=== PATIENT | female | born 1945 | race Caucasian/White ===

== ENCOUNTER 2023-09-13 21:23 | Emergency (ER) | payer MEDICARE, OTHER, SELFPAY ==
[2023-09-13 21:50] VITALS: BP 156/84; PULSE 77; RESP 18; TEMP 36.8; O2SAT 97; BMI 27.2
--- NOTE | 2023-09-13 23:38 | ED_ITS ---
HPI - Extremity Injury (Lower) General Chief Complaint: Extremity Injury, Lower Stated Complaint: HIP PAIN Time Seen by Provider: 09/13/23 23:34 Source: patient Mode of arrival: walk-in History of Present Illness HPI Narrative: presents complaining of pain of her left buttocks and thigh. She relates it likely to mowing her lawn last week and lifting bags etc. States seen yesterday by Dr Vidal and given a couple of injections. It felt better later after leaving the office but returned this AM. Pain right buttocks and hip and also anterior thigh. Describes as a sharp pain. Pain tonight interfering with her sleeping. No weakness or numbness . No fever Related Data Allergies Allergy/AdvReac Type Severity Reaction Status Date / Time No Known Drug Allergies Allergy Verified 09/13/23 21:57 Review of Systems ROS Status of ROS 10 or more systems reviewed and unremarkable except as noted in history and below [facility] Social History Smoking status: Never smoker Exam Constitutional Vital Signs, click to edit/add: Last Vital Signs Temp 98.2 F 09/13/23 21:50 Pulse 77 09/13/23 21:50 Resp 18 09/13/23 21:50 BP 156/84 H 09/13/23 21:50 Pulse Ox 97 09/13/23 21:50 Common normals: no apparent distress, average body habitus, oriented x3, no limitations and healthy appearing Eye Common normals: EOMs intact bilaterally and conjunctivae normal Chest Common normals: inspection of chest normal and palpation of chest normal Respiratory Common normals: normal respiratory effort, no retractions and no use of accessory muscles Cardio Common normals: regular rate, regular rhythm, S1 normal heart sound and S2 normal heart sound GI Common normals: Normal to inspection, nondistended, normoactive bowel sounds present, soft to palpation and non-tender Extremity Other: mild tenderness right buttocks and right anterior thigh Neuro Common normals: oriented x3, moves all extremities, no focal motor deficits and no sensory deficits noted Psych Appearance: grossly normal Course Vital Signs Vital signs: Vital Signs Temperature 98.2 F 09/13/23 21:50 Pulse Rate 77 09/13/23 21:50 Respiratory Rate 18 09/13/23 21:50 Blood Pressure 156/84 H 09/13/23 21:50 Pulse Oximetry 97 09/13/23 21:50 Temperature 98.2 F 09/13/23 21:50 Pulse Rate 77 09/13/23 21:50 Respiratory Rate 18 09/13/23 21:50 Blood Pressure 156/84 H 09/13/23 21:50 Pulse Oximetry 97 09/13/23 21:50 MDM - Extremity Injury (Lower) MDM Narrative Medical decision making narrative: patient presents with pain right buttocks, right hip and right anterior thigh. All mildly tender. No palpable deformity. Clinically felt to represent muscular strain. Medicated in the department with solumedrol, norflex and magnesium with some improvement in her pain. Discharged with [place] to use tonight for pain. She will contact her PCP tomorrow for follow up Discharge Plan Discharge Chief Complaint: Extremity Injury, Lower Clinical Impression: Acute pain of right hip, Muscle strain Patient Disposition: Home, Self-Care Instructions: Muscle Strain (ED) Additional Instructions: Call Dr Vidal tomorrow Stand Alone Forms: Portal Instructions Referrals: Daniel Vidal MD [Primary Care Provider] - 1 week
[2023-09-14] MEDS: ORPHENADRINE 60 MG/ 2 ML VIAL IV (00:24)
[2023-09-14] MEDS: METHYLPREDNISOLONE SOD SUCC PF 125 MG/2 ML VIAL IVP (00:24)
[2023-09-14 00:46] LABS: Basophils Absolute Auto 0.1 10^3/uL (0.0-0.1); Basophils Percent Auto 0.9 % (0.2-2.0); Eosinophils Absolute Auto 0.3 10^3/uL (0.0-0.7); Eosinophils Percent Auto 4.9 % (0.9-7.0); Hematocrit 34.8 % (36.0-48.0); Hemoglobin 11.1 g/dL (12.0-16.0); Immature Granulocytes Abs Auto 0.02 10^3/uL (0.00-0.03); Immature Granulocytes Pct Auto 0.3 % (0.0-0.5); Lymphocytes Absolute Auto 1.6 10^3/uL (1.2-3.8); Lymphocytes Percent Auto 22.4 % (20.5-60.0); Mean Corpuscular HGB Conc 31.9 g/dL (29.9-35.2); Mean Corpuscular Hemoglobin 30.1 pg (26.7-34.0); Mean Corpuscular Volume 94.3 fL (81.0-99.0); Mean Platelet Volume 13.4 fL (9.5-13.5); Monocytes Absolute Auto 0.7 10^3/uL (0.3-0.8); Neutrophils Absolute Auto 4.3 10^3/uL (1.4-6.5); Neutrophils Percent Auto 61.5 % (43.0-75.0); Platelet Count 202 10^3/uL (150-450); Red Blood Count 3.69 10^6/uL (4.20-5.40); Red Cell Distribution Width 13.2 % (11.0-15.0); White Blood Count 6.9 10^3/uL (4.0-11.0)
[2023-09-14] MEDS: MAGNESIUM SULFATE IN WATER 2 GM/50 ML PREMIX IV (00:50)
[2023-09-14 00:51] LABS: Erythrocyte Sedimentation Rate 29 mm/hr (<=30)
[2023-09-14 01:09] LABS: Anion Gap 12.4; BUN Creatinine Ratio 28.9; Carbon Dioxide 25.1 mmol/L (21.0-32.0); Chloride 106 mmol/L (98-107); Estimated GFR (African America >60 (>=60); Estimated GFR (Non-African Ame >60 (>=60); Glucose 106 mg/dL (74-106); Potassium 3.5 mmol/L (3.5-5.1); Sodium 140 mmol/L (136-145)
[2023-09-14] MEDS: HYDROCODONE/ACET 5-325 MG TABLET 4 TAB PO (01:58)
[2023-09-29 08:41] LABS: C Reactive Protein <0.50 mg/dL (<=0.50)
== END 2023-09-14 02:05 | disposition home or self-care (01) ==
PROVIDERS: Emergency Provider Internal Medicine; PCP Family Medicine
DX: M25.551 Pain in right hip (principal); S76.011A Strain of muscle, fascia and tendon of right hip, initial encounter; X50.9XXA Other and unspecified overexertion or strenuous movements or postures, initial encounter; Y93.H2 Activity, gardening and landscaping
CPT/HCPCS: 36415; 73502; 80048; 85025; 85652; 86140; 96365; 96375; 99284; J2930

== ENCOUNTER 2023-09-14 13:31 | Outpatient (OUT) | payer MEDICARE, OTHER, SELFPAY ==
--- NOTE | 2023-09-14 13:45 | XR_ITS ---
The [address] [address] Patient Name: HAVEN FRAIRE MRN: [id number] date: 1945 Sex: F Assigned Patient Location: [facility] Current Patient Location: Accession/Order Number: [id number] Exam Date: 09/14/2023 13:50 Report Date: 09/16/2023 08:35 At the request of: SABA CHOW Procedure: XR hip RT min 2V PROCEDURE: XR hip RT min 2V HISTORY: Pain In Right Hip M25.551 COMPARISON: None. FINDINGS: BONES:No fracture, acute abnormality, or significant arthropathy. SOFT TISSUES:No visible soft tissue swelling. EFFUSION:None visible. OTHER: Negative. XR/XR hip RT min 2V IMPRESSION: 1. No acute bone abnormality. 2. Minimal degenerative changes of the right hip. Electronically authenticated by: SEGUNDO MERINO Date: 09/16/2023 08:35
== END 2023-09-14 13:32 | disposition home or self-care (01) ==
LOC: RAD 13:33
PROVIDERS: PCP Family Medicine; Visit Provider Family Medicine
DX: M25.551 Pain in right hip (principal)
CPT/HCPCS: 73502

== ENCOUNTER 2023-09-16 13:45 | Observation (INO) | payer MEDICARE, OTHER, SELFPAY ==
[2023-09-16] VITALS (18 sets, daily range): BP systolic 130–165; BP diastolic 45–80; PULSE 71–79; RESP 18–20; TEMP 36.4–36.6; O2SAT 95–100; BMI 27.2; BMI 27.1
--- NOTE | 2023-09-16 14:24 | ED_ITS ---
HPI - General Adult General Chief complaint: Extremity Injury, Lower Stated complaint: LOWER EXTREMITY PAIN Time Seen by Provider: 09/16/23 14:11 Source: patient Mode of arrival: ambulance Limitations: no limitations History of Present Illness HPI narrative: is patient came by EMS from home for intractable right low back and hip pain. She was here recently was evaluated in Emergency Room was hip x-rays. She did h ave some mild degenerative changes. She has not had a lack of bowel or bladder function. No burning with urination no blood in her urine that she is aware of. She's not had fever shakes or chills. She's not had previous back surgery. She has had CTs of her abdomen previously. She's never seen a back specialist. She says the pain radiates from her right buttock down the lateral thigh to her knee down in the lower leg and back up. She is not cognizant or aware of any weakness in her leg or thigh area. She took [id number] analgesics but the pain is intractable. She has no abdominal discomfort. Related Data Home Medications Medication Instructions Recorded Confirmed diclofenac sodium 75 mg 75 mg PO Q12H PRN pain 09/16/23 09/16/23 tablet,delayed release pantoprazole 40 mg tablet,delayed 40 mg PO DAILY 09/16/23 09/16/23 release Allergies Allergy/AdvReac Type Severity Reaction Status Date / Time No Known Drug Allergies Allergy Verified 09/13/23 21:57 PFSH PFSH Social History Smoking status: Never smoker Exam Narrative Exam Narrative: awake alert lying propped up on her side appears to be quite uncomfortable. Cognition and mentation are normal. Problem focused examination shows pulses to the lower extremities be normal. There is no abdominal pulsatile masses or evidence of aneurysm. She has good coloration and no evidence of tissue ischemia to the periphery. Examination deep tendon reflexes shows the patella on the right is absent on the left is three o syl four. Extensor hallucis longus function is normal. She did not have straight leg raising discomfort. Constitutional Vital Signs, click to edit/add: Last Vital Signs Temp 97.5 F L 09/16/23 13:51 Pulse 79 09/16/23 13:51 Resp 20 09/16/23 13:51 BP 147/63 H 09/16/23 15:31 Pulse Ox 96 09/16/23 15:40 O2 Del Method Room Air 09/16/23 13:51 Course Vital Signs Vital signs: Vital Signs Temperature 97.5 F L 09/16/23 13:51 Pulse Rate 79 09/16/23 13:51 Respiratory Rate 20 09/16/23 13:51 Blood Pressure 165/70 H 09/16/23 13:51 Pulse Oximetry 100 09/16/23 13:51 Oxygen Delivery Method Room Air 09/16/23 13:51 Temperature 97.5 F L 09/16/23 13:51 Pulse Rate 79 09/16/23 13:51 Respiratory Rate 20 09/16/23 13:51 Blood Pressure 147/63 H 09/16/23 15:31 Pulse Oximetry 96 09/16/23 15:40 Oxygen Delivery Method Room Air 09/16/23 13:51 Medical Decision Making MDM Narrative Medical decision making narrative: I have reviewed the patient's recent CT scan of the abdomen that discloses 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 She now has an absent reflex on her right patella. She had intractable pain at home not managed sufficiently despite numerous attempts at a number medications. I discussed the case with the on-call physician and he will admit her. She was given Dilaudid here in the Emergency Room was some symptomatic relief but still is uncomfortable. There is no indication of aneurysm or other vascular catastrophe. Lab Data Labs: Lab Results 09/16/23 09/16/23 Range/Units 14:33 14:50 WBC 8.2 (4.0-11.0) 10^3/uL RBC 4.05 L (4.20-5.40) 10^6/uL Hgb 12.3 (12.0-16.0) g/dL Hct 37.3 (36.0-48.0) % MCV 92.1 (81.0-99.0) fL MCH 30.4 (26.7-34.0) pg MCHC 33.0 (29.9-35.2) g/dL RDW 13.1 (11.0-15.0) % Plt Count 223 (150-450) 10^3/uL MPV 12.8 (9.5-13.5) fL Neut % (Auto) 70.5 (43.0-75.0) % Lymph % (Auto) 18.0 L (20.5-60.0) % [place] % (Auto) 9.2 (1.7-12.0) % Eos % (Auto) 1.3 (0.9-7.0) % Baso % (Auto) 0.6 (0.2-2.0) % Neut # (Auto) 5.8 (1.4-6.5) 10^3/uL Lymph # (Auto) 1.5 (1.2-3.8) 10^3/uL [place] # (Auto) 0.8 (0.3-0.8) 10^3/uL Eos # (Auto) 0.1 (0.0-0.7) 10^3/uL Baso # (Auto) 0.1 (0.0-0.1) 10^3/uL Abs Immat Gran (auto) 0.03 (0.00-0.03) 10^3/uL Imm/Tot Granulo (auto) 0.4 (0.0-0.5) % Sodium 139 (136-145) mmol/L Potassium 3.2 L (3.5-5.1) mmol/L Chloride 103 (98-107) mmol/L Carbon Dioxide 25.2 (21.0-32.0) mmol/L Anion Gap 14.0 BUN 23.0 H (7.0-18.0) mg/dL Creatinine 0.96 (0.55-1.02) mg/dL Est GFR ( Amer) >60 (>=60) Est GFR (Non-Af Amer) 56 L (>=60) BUN/Creatinine Ratio 24.0 Glucose 90 (74-106) mg/dL Calcium 9.3 (8.5-10.1) mg/dL Total Bilirubin 0.6 (0.2-1.0) mg/dL AST 13 L (15-37) U/L ALT 9 L (14-59) U/L Alkaline Phosphatase 131 H (46-116) U/L Total Protein 7.6 (6.4-8.2) g/dL Albumin 3.8 (3.4-5.0) g/dL Globulin 3.8 g/dL Albumin/Globulin Ratio 1.0 Urine Color Lt. yellow (YELLOW) Urine Clarity Clear (CLEAR) Urine pH 7.5 (5.0-9.0) Ur Specific [place] 1.010 (1.005-1.025) Urine Protein Negative (NEG/TRACE) mg/dL Urine Glucose (UA) Negative (NEGATIVE) mg/dL Urine Ketones Negative (NEGATIVE) mg/dL Urine Occult Blood Negative (NEGATIVE) Urine Nitrite Negative (NEGATIVE) Urine Bilirubin Negative (NEGATIVE) Urine Urobilinogen 0.2 (0.2-1.0) EU/dL Ur Leukocyte Esterase Negative (NEGATIVE) Discharge Plan Discharge Chief Complaint: Extremity Injury, Lower Clinical Impression: Acute lumbar radiculopathy Patient Disposition: Admitted As Inpatient Time of Disposition Decision: 16:07 Prescriptions / Home Meds: No Action diclofenac sodium 75 mg tablet,delayed release (DR/EC) 75 mg PO Q12H PRN (Reason: pain) pantoprazole 40 mg tablet,delayed release (DR/EC) 40 mg PO DAILY Referrals: Daniel Vidal MD [Primary Care Provider] - 1 week
[2023-09-16] MEDS: ONDANSETRON PF 4 MG/2 ML VIAL IV (14:38)
[2023-09-16] MEDS: HYDROMORPHONE HCL 2 MG/ML VIAL IM (14:40)
[2023-09-16 14:42] LABS: Basophils Absolute Auto 0.1 10^3/uL (0.0-0.1); Basophils Percent Auto 0.6 % (0.2-2.0); Eosinophils Absolute Auto 0.1 10^3/uL (0.0-0.7); Eosinophils Percent Auto 1.3 % (0.9-7.0); Hematocrit 37.3 % (36.0-48.0); Hemoglobin 12.3 g/dL (12.0-16.0); Immature Granulocytes Abs Auto 0.03 10^3/uL (0.00-0.03); Immature Granulocytes Pct Auto 0.4 % (0.0-0.5); Lymphocytes Absolute Auto 1.5 10^3/uL (1.2-3.8); Mean Corpuscular Hemoglobin 30.4 pg (26.7-34.0); Mean Corpuscular Volume 92.1 fL (81.0-99.0); Mean Platelet Volume 12.8 fL (9.5-13.5); Monocytes Absolute Auto 0.8 10^3/uL (0.3-0.8); Monocytes Percent Auto 9.2 % (1.7-12.0); Neutrophils Absolute Auto 5.8 10^3/uL (1.4-6.5); Neutrophils Percent Auto 70.5 % (43.0-75.0); Platelet Count 223 10^3/uL (150-450); Red Blood Count 4.05 10^6/uL (4.20-5.40); Red Cell Distribution Width 13.1 % (11.0-15.0); White Blood Count 8.2 10^3/uL (4.0-11.0)
[2023-09-16 14:56] LABS: Alanine Aminotransferase 9 U/L (14-59); Albumin Level 3.8 g/dL (3.4-5.0); Alkaline Phosphatase 131 U/L (46-116); Aspartate Amino Transferase 13 U/L (15-37); Bilirubin Total 0.6 mg/dL (0.2-1.0); Calcium 9.3 mg/dL (8.5-10.1); Carbon Dioxide 25.2 mmol/L (21.0-32.0); Chloride 103 mmol/L (98-107); Estimated GFR (African America >60 (>=60); Estimated GFR (Non-African Ame 56 (>=60); Globulin 3.8 g/dL; Glucose 90 mg/dL (74-106); Potassium 3.2 mmol/L (3.5-5.1); Sodium 139 mmol/L (136-145); Total Protein 7.6 g/dL (6.4-8.2)
[2023-09-16 14:57] LABS: Bilirubin Urine NEGATIVE (NEGATIVE); Blood Urine NEGATIVE (NEGATIVE); Clarity Urine CLEAR (CLEAR); Color Urine LT. YELLOW (YELLOW); Glucose Urine UA NEGATIVE (NEGATIVE); Ketones Urine NEGATIVE (NEGATIVE); Leukocyte Esterase Urine NEGATIVE (NEGATIVE); Nitrite Urine NEGATIVE (NEGATIVE); Protein Urine NEGATIVE (NEG/TRACE); Urobilinogen Urine 0.2 EU/dL (0.2-1.0); pH Urine 7.5 (5.0-9.0)
[2023-09-16 14:59] LABS: Urine Microscopic Indicated NO
--- NOTE | 2023-09-16 16:09 | CT_ITS ---
[address] [address] Patient Name: HAVEN FRAIRE MRN: [id number] date: 1945 Sex: F Assigned Patient Location: [facility] Current Patient Location: [facility] Accession/Order Number: [id number] Exam Date: 09/16/2023 16:42 Report Date: 09/16/2023 17:34 At the request of: SABA CHOW Procedure: CT lumbar spine wo con EXAMINATION: CT lumbar spine wo con HISTORY: radiculopathy COMPARISON: None. TECHNIQUE: CT scan of the lumbar spine was performed without IV contrast. CT dose reduction technique was used, including Automated Exposure Control. FINDINGS: There is normal lumbar lordosis. No spondylolisthesis. Degenerative changes of the lumbar spine, characterized by endplate osteophytes and disc desiccation and vacuum phenomenon at L3-L4-L5-S1 levels. There is levoscoliosis of the mid lumbar spine. There is a right central and paracentral disc herniation at L4-5 level, resulting in mild narrowing of the right neural foramina and spinal canal. No prevertebral soft tissue swelling. No evidence for fracture. CT/CT lumbar spine wo con IMPRESSION: Levoscoliosis of the mid lumbar spine. Right central and paracentral disc herniation at L4-5 level, resulting in mild narrowing of the right neural foramina and spinal canal. Lumbar spine MRI is recommended for better evaluation. Electronically authenticated by: SARAHY GALVEZ Date: 09/16/2023 17:34
[2023-09-16] MEDS: POTASSIUM CHLORIDE 10 MEQ ER TABLET 20 MEQ PO ×2 (17:25→20:24)
[2023-09-16] MEDS: KETOROLAC TROMETHAMINE 30 MG/ML VIAL 15 MG IVP ×2 (17:25→22:10)
[2023-09-16] MEDS: ORPHENADRINE 60 MG/ 2 ML VIAL IV (17:26)
[2023-09-16] MEDS: METHYLPREDNISOLONE SOD SUCC 500 MG in 0.9 % SODIUM CHLORIDE 100 ML 100 MG IV (18:01)
[2023-09-16] MEDS: ACETAMINOPHEN 500 MG TABLET 1000 MG PO (20:24)
[2023-09-16] MEDS: OMEPRAZOLE 40 MG CAPSULE.DR PO (20:24)
[2023-09-16 21:31] LABS: Glucometer 141 mg/dL (74-106)
[2023-09-17 05:02] LABS: Hematocrit 36.8 % (36.0-48.0); Hemoglobin 11.8 g/dL (12.0-16.0); Immature Granulocytes Abs Auto 0.03 10^3/uL (0.00-0.03); Immature Granulocytes Pct Auto 0.5 % (0.0-0.5); Lymphocytes Absolute Auto 0.5 10^3/uL (1.2-3.8); Lymphocytes Percent Auto 8.7 % (20.5-60.0); Mean Corpuscular HGB Conc 32.1 g/dL (29.9-35.2); Mean Corpuscular Hemoglobin 29.9 pg (26.7-34.0); Mean Corpuscular Volume 93.2 fL (81.0-99.0); Mean Platelet Volume 13.3 fL (9.5-13.5); Monocytes Absolute Auto 0.1 10^3/uL (0.3-0.8); Monocytes Percent Auto 1.1 % (1.7-12.0); Neutrophils Absolute Auto 5.6 10^3/uL (1.4-6.5); Neutrophils Percent Auto 89.7 % (43.0-75.0); Platelet Count 192 10^3/uL (150-450); Red Blood Count 3.95 10^6/uL (4.20-5.40); Red Cell Distribution Width 13.2 % (11.0-15.0); White Blood Count 6.2 10^3/uL (4.0-11.0)
[2023-09-17 05:23] LABS: Anion Gap 14.1; Calcium 8.9 mg/dL (8.5-10.1); Chloride 104 mmol/L (98-107); Estimated GFR (African America >60 (>=60); Estimated GFR (Non-African Ame 60 (>=60); Glucose 171 mg/dL (74-106); Potassium 4.1 mmol/L (3.5-5.1); Sodium 138 mmol/L (136-145)
[2023-09-17 05:25] VITALS: BP 142/73; PULSE 78; RESP 18; TEMP 36.8; O2SAT 94
[2023-09-17] MEDS: KETOROLAC TROMETHAMINE 30 MG/ML VIAL 15 MG IVP ×4 (05:43→23:56)
[2023-09-17] MEDS: ORPHENADRINE 60 MG/ 2 ML VIAL IV ×2 (05:44→17:55)
[2023-09-17 07:56] LABS: Glucometer 109 mg/dL (74-106)
[2023-09-17] MEDS: METHYLPREDNISOLONE SOD SUCC 500 MG in 0.9 % SODIUM CHLORIDE 100 ML 100 MG IV (08:48)
[2023-09-17] MEDS: ACETAMINOPHEN 500 MG TABLET 1000 MG PO (08:48)
[2023-09-17] MEDS: POTASSIUM CHLORIDE 10 MEQ ER TABLET 20 MEQ PO ×2 (08:48→20:20)
[2023-09-17] MEDS: ONDANSETRON PF 4 MG/2 ML VIAL IV (08:48)
--- NOTE | 2023-09-17 09:37 | P.HP_ITS ---
H&P: HPI History of Present Illness Chief complaint: LOWER EXTREMITY PAIN, Acute Lumbar Radiculopathy Narrative: Patient had several visits to the office due to intractable low back pain. Given multiple medications including p.o. steroids and anti-inflammatories. Pain is continuing to progress. Now pain is down extending past her knee. Before is more in the upper thigh. Patient admitted for intractable low back pain. Review of Systems ROS Status of ROS 10 or more systems reviewed and unremarkable except as noted in history and below PFSH PFSH Medical History (Updated 09/16/23 @ 17:11 by Jeanne Bhatt) GERD (gastroesophageal reflux disease) ?K21.9 - Gastro-esophageal reflux disease without esophagitis (ICD-10) Surgical History (Updated 09/16/23 @ 17:11 by Jeanne Bhatt) History of cholecystectomy ?Z90.49 - Acquired absence of other specified parts of digestive tract (ICD- 10) Skin cancer of nose ?C44.301 - Unspecified malignant neoplasm of skin of nose (ICD-10) Family History (Updated 09/16/23 @ 17:13 by Jeanne Bhatt) Father Family history of myocardial infarction Family history of cancer Social History (Updated 09/16/23 @ 17:16 by Jeanne Bhatt) Within the past year, how often did you have a drink containing alcohol: 2-3 times a week Within the past year, how many standard drinks containing alcohol did you have on a typical day: 1 or 2 Within the past year, how often did you have six or more drinks on one occasion: never Total score: 0 Score interpretation: Questions 2 and 3 are 0. It can be assumed that the patient's drinking is below the recommended limits. However, please confirm the accuracy of the patient's alcohol intake over the last few months. Smoking status: Never smoker Non-prescribed substance use: denies use Previous occupational history: retired Highest level of school completed/degree received: high school graduate Are you now , , , , never or living with a partner: Little interest or pleasure in doing things: not at all Feeling down, depressed, or hopeless: not at all Feel stressed/tense/nervous/anxious/difficulty sleeping: only a little Do you think of yourself as: straight/heterosexual Meds Home Medications and Allergies Home Medications Medication Instructions Recorded Confirmed Type diclofenac sodium 75 mg 75 mg PO Q12H PRN pain 09/16/23 09/16/23 History tablet,delayed release pantoprazole 40 mg tablet,delayed 40 mg PO DAILY 09/16/23 09/16/23 History release oxaprozin 600 mg tablet 1,200 mg PO DAILY 09/17/23 09/17/23 History Allergies Allergy/AdvReac Type Severity Reaction Status Date / Time No Known Drug Allergies Allergy Verified 09/13/23 21:57 Exam Constitutional Vital Signs, click to edit/add: Last Vital Signs Temp 98.3 F 09/17/23 05:25 Pulse 78 09/17/23 05:25 Resp 18 09/17/23 05:25 BP 142/73 H 09/17/23 05:25 Pulse Ox 94 L 09/17/23 05:25 O2 Del Method Room Air 09/17/23 05:25 Documenting provider has reviewed patient's vital signs: yes Common normals: apparent distress (Moderate painful distress) Chest Common normals: inspection of chest normal Respiratory Common normals: normal respiratory effort Cardio Common normals: regular rate and regular rhythm GI Common normals: Normal to inspection, nondistended, normoactive bowel sounds present Back & Pelvis Common normals: thoracic and lumbar spine normal to inspection Lumbar spine/lower back: paraspinal muscle tenderness and straight leg raise positive right; lumbar ROM abnormal Results Labs Labs: Short CBC 09/16/23 09/17/23 Range/Units 14:33 04:25 WBC 8.2 6.2 (4.0-11.0) 10^3/uL Hgb 12.3 11.8 L (12.0-16.0) g/dL Hct 37.3 36.8 (36.0-48.0) % Plt Count 223 192 (150-450) 10^3/uL BMP 09/16/23 09/17/23 14:33 04:25 Sodium 139 138 Potassium 3.2 L 4.1 Chloride 103 104 Carbon Dioxide 25.2 24.0 BUN 23.0 H 20.0 H Creatinine 0.96 0.91 Glucose 90 171 H Calcium 9.3 8.9 Liver Function 09/16/23 Range/Units 14:33 Total Bilirubin 0.6 (0.2-1.0) mg/dL AST 13 L (15-37) U/L ALT 9 L (14-59) U/L Alkaline Phosphatase 131 H (46-116) U/L Albumin 3.8 (3.4-5.0) g/dL Urine 09/16/ Range/Units 14:50 Urine Color Lt. yellow (YELLOW) Urine Clarity Clear (CLEAR) Urine pH 7.5 (5.0-9.0) Ur Specific [place] 1.010 (1.005-1.025) Urine Protein Negative (NEG/TRACE) mg/dL Urine Glucose (UA) Negative (NEGATIVE) mg/dL Assessment and Plan Assessment and Plan (1) Acute lumbar radiculopathy: Plan A healthy 78-year-old with low back pain-patient unable to ambulate in ER. Still with persisting pain. Is somewhat better with doses of Toradol. But not lasting the full 6 hours. With that improvement so we will maintain current dosing of the high-dose steroids with the Toradol and Norflex. This is likely 2 to 3 days stay, usually high-dose steroids for her lumbar radiculopathy are administered over 3-day period of time. Reviewed CT scan. Does show mild changes. May need outpatient MRI scan. No bowel or bladder incontinence to justify inpatient MRI Hypokalemia-improved Hyperglycemia secondary to steroids-monitor daily Iron deficiency anemia-monitor as an outpatient GERD-continue with home medications Her stable likely span 3 midnights secondary to IV medication administration over 3-day period of time. Frequency administration would not permit this as an outpatient. Keep patient as inpatient status
[2023-09-17 10:22] VITALS: O2SAT 96
[2023-09-17 11:00] LABS: Glucometer 98 mg/dL (74-106)
[2023-09-17 14:19] VITALS: BP 166/78; PULSE 73; RESP 18; TEMP 36.7; O2SAT 98
[2023-09-17 16:33] LABS: Glucometer 138 mg/dL (74-106)
[2023-09-17 20:08] VITALS: O2SAT 98
[2023-09-17] MEDS: OMEPRAZOLE 40 MG CAPSULE.DR PO (20:20)
[2023-09-17 22:00] VITALS: BP 154/76; PULSE 70; RESP 18; TEMP 36.6; O2SAT 95
[2023-09-17 22:03] LABS: Glucometer 109 mg/dL (74-106)
[2023-09-18] MEDS: KETOROLAC TROMETHAMINE 30 MG/ML VIAL 15 MG IVP ×2 (05:17→10:17)
[2023-09-18] MEDS: ORPHENADRINE 60 MG/ 2 ML VIAL IV (05:17)
[2023-09-18 05:27] VITALS: BP 156/92; PULSE 69; RESP 18; TEMP 36.8; O2SAT 95
[2023-09-18 05:31] LABS: Basophils Percent Auto 0.1 % (0.2-2.0); Hematocrit 34.6 % (36.0-48.0); Hemoglobin 11.6 g/dL (12.0-16.0); Immature Granulocytes Abs Auto 0.04 10^3/uL (0.00-0.03); Immature Granulocytes Pct Auto 0.4 % (0.0-0.5); Lymphocytes Absolute Auto 1.3 10^3/uL (1.2-3.8); Lymphocytes Percent Auto 12.9 % (20.5-60.0); Mean Corpuscular HGB Conc 33.5 g/dL (29.9-35.2); Mean Corpuscular Hemoglobin 31.2 pg (26.7-34.0); Mean Platelet Volume 13.6 fL (9.5-13.5); Monocytes Percent Auto 10.1 % (1.7-12.0); Neutrophils Absolute Auto 7.4 10^3/uL (1.4-6.5); Neutrophils Percent Auto 76.5 % (43.0-75.0); Platelet Count 183 10^3/uL (150-450); Red Blood Count 3.72 10^6/uL (4.20-5.40); Red Cell Distribution Width 13.3 % (11.0-15.0); White Blood Count 9.7 10^3/uL (4.0-11.0)
[2023-09-18 05:34] LABS: Anion Gap 13.4; BUN Creatinine Ratio 25.8; Calcium 8.9 mg/dL (8.5-10.1); Carbon Dioxide 24.9 mmol/L (21.0-32.0); Chloride 104 mmol/L (98-107); Estimated GFR (African America >60 (>=60); Estimated GFR (Non-African Ame 55 (>=60); Glucose 102 mg/dL (74-106); Potassium 4.3 mmol/L (3.5-5.1); Sodium 138 mmol/L (136-145)
--- NOTE | 2023-09-18 08:36 | P.DS_ITS ---
DS: Providers Provider Date of admission: 09/16/23 16:24 Primary care physician: Daniel Vidal MD Consults: 09/17/23 10:01 Physical Therapy Eval and Treat Routine Reason for consultation: lumbar radiculopathy Has provider been notified: No DS: Diagnosis Discharge Diagnosis (1) Acute lumbar radiculopathy: Plan A healthy 78-year-old with low back pain-patient Hypokalemia Hyperglycemia secondary to steroids Iron deficiency anemia GERD DS: Summary Hospital Course Hospital Course: Patient admitted with intractable low back pain. This is being treated as an outpatient but ineffectively. Unable to ambulate in ER. She was admitted and given 3 doses of high-dose Solu-Medrol 500 mg IV daily for 3 days. Patient tolerated Solu-Medrol fairly well although did have some hyperglycemia secondary to that. Her pain is overall improved. She is ambulating better. Her pain is still persisting however. Will give her third dose this morning and then discharge her to home and see me in the office tomorrow. Medications see list. Time Spent with Patient Time attestation: Total time spent providing and/or coordinating discharge services: Exam Constitutional Vital Signs, click to edit/add: Last Vital Signs Temp 98.3 F 09/18/23 05:27 Pulse 69 09/18/23 05:27 Resp 18 09/18/23 05:27 BP 156/92 H 09/18/23 05:27 Pulse Ox 95 09/18/23 05:27 O2 Del Method Room Air 09/18/23 05:27 Documenting provider has reviewed patient's vital signs: yes Common normals: apparent distress (Moderate painful distress) Chest Common normals: inspection of chest normal Respiratory Common normals: normal respiratory effort Cardio Common normals: regular rate and regular rhythm GI Common normals: Normal to inspection, nondistended, normoactive bowel sounds present Back & Pelvis Common normals: thoracic and lumbar spine normal to inspection Lumbar spine/lower back: paraspinal muscle tenderness and straight leg raise positive right; lumbar ROM abnormal DS: Data Data Completed and Pending Labs on day of discharge: Labs from last 24 hours 09/18/23 09/17/23 09/17/23 04:23 22:01 16:32 WBC 9.7 RBC 3.72 L Hgb 11.6 L Hct 34.6 L MCV 93.0 MCH 31.2 MCHC 33.5 RDW 13.3 Plt Count 183 MPV 13.6 H Neut % (Auto) 76.5 H Lymph % (Auto) 12.9 L [place] % (Auto) 10.1 Eos % (Auto) 0.0 L Baso % (Auto) 0.1 L Neut # (Auto) 7.4 H Lymph # (Auto) 1.3 [place] # (Auto) 1.0 H Eos # (Auto) 0.0 Baso # (Auto) 0.0 Abs Immat Gran (auto) 0.04 H Imm/Tot Granulo (auto) 0.4 Sodium 138 Potassium 4.3 Chloride 104 Carbon Dioxide 24.9 Anion Gap 13.4 BUN 25.0 H Creatinine 0.97 Est GFR ( Amer) >60 Est GFR (Non-Af Amer) 55 L BUN/Creatinine Ratio 25.8 Glucose 102 Calcium 8.9 C-Reactive Protein <0.05 POC Glucose 109 H 138 H 09/17/23 10:59 WBC RBC Hgb Hct MCV MCH MCHC RDW Plt Count MPV Neut % (Auto) Lymph % (Auto) [place] % (Auto) Eos % (Auto) Baso % (Auto) Neut # (Auto) Lymph # (Auto) [place] # (Auto) Eos # (Auto) Baso # (Auto) Abs Immat Gran (auto) Imm/Tot Granulo (auto) Sodium Potassium Chloride Carbon Dioxide Anion Gap BUN Creatinine Est GFR ( Amer) Est GFR (Non-Af Amer) BUN/Creatinine Ratio Glucose Calcium C-Reactive Protein POC Glucose 98 Discharge Plan Discharge Disposition: Home, Self-Care Discharge Medications: New tizanidine 4 mg capsule 4 mg PO Q8H Qty: 14 0RF tramadol 50 mg tablet 50 mg PO Q6H PRN (Reason: pain) Qty: 28 0RF prednisone 10 mg tablet 50 mg PO DAILY Qty: 47 0RF Rx Instructions: 5/day for 3 days. 4/day for 3 days, 3/day for 3 days, 2/day for 3 days, 1/day for 3 days, 1/2 /day for 4 days Continued diclofenac sodium 75 mg tablet,delayed release (DR/EC) 75 mg PO Q12H PRN (Reason: pain) pantoprazole 40 mg tablet,delayed release (DR/EC) 40 mg PO DAILY Discontinued oxaprozin 600 mg tablet 1,200 mg PO DAILY Forms: Portal Instructions
[2023-09-18] MEDS: METHYLPREDNISOLONE SOD SUCC 500 MG in 0.9 % SODIUM CHLORIDE 100 ML 100 MG IV (09:05)
[2023-09-18] MEDS: POTASSIUM CHLORIDE 10 MEQ ER TABLET 20 MEQ PO (09:05)
[2023-09-18] MEDS: TRAMADOL HCL 50 MG TABLET PO (11:14)
[2023-09-18] MEDS: ACETAMINOPHEN 500 MG TABLET 1000 MG PO (11:14)
[2023-09-29 08:42] LABS: C Reactive Protein <0.50 mg/dL (<=0.50)
== END 2023-09-18 11:30 | disposition home or self-care (01) ==
LOC: ER 16:07 → MS 09-18 08:38
PROVIDERS: Admitting Provider Family Medicine; Emergency Provider Emergency Medicine Emergency Medical Services; PCP Family Medicine; Visit Provider Family Medicine
DX: M54.16 Radiculopathy, lumbar region (principal); M54.50 Low back pain, unspecified; K21.9 Gastro-esophageal reflux disease without esophagitis; Z90.49 Acquired absence of other specified parts of digestive tract; Z85.828 Personal history of other malignant neoplasm of skin; E87.6 Hypokalemia; R73.9 Hyperglycemia, unspecified; T38.0X5A Adverse effect of glucocorticoids and synthetic analogues, initial encounter; D50.9 Iron deficiency anemia, unspecified
CPT/HCPCS: 36415; 72131; 80048; 80053; 81003; 82948; 85025; 86140; 94761; 96365; 96366; 96372; 96375; 96376; 99285; G0378; J1170

== ENCOUNTER 2023-09-23 13:24 | Outpatient (OUT) | payer MEDICARE, OTHER, SELFPAY ==
--- NOTE | 2023-09-23 13:38 | MR_ITS ---
The [address] [address] Patient Name: HAVEN FRAIRE MRN: [id number] date: 1945 Sex: F Assigned Patient Location: MRI Current Patient Location: MRI Accession/Order Number: [id number] Exam Date: 09/23/2023 13:45 Report Date: 09/23/2023 16:50 At the request of: SABA CHOW Procedure: MR lumbar spine wo con MRI LUMBAR SPINE WITHOUT CONTRAST: 09/23/2023 1:45 PM EST History:Lumbar Radiculopathy . Pain in right leg. Comparison: None available . Sequences per routine unenhanced protocol. STUDY QUALITY: Good NUMBERING SCHEME: The lowest lumbar type vertebra is labeled L5. S1 rudimentary disc at S1-S2. OSSEOUS: Modest levoscoliosis centered in the mid lumbar region.. In correlation with recent CT probable somewhat fatty hemangioma L4 vertebral body. At the far superior to the field potential similar fatty hemangioma in the included aspects the T10 vertebral body. Endplate irregularities at multiple levels are very likely degenerative. SPINAL CANAL SIZE: Developmentally is average in size. LOWER THORACIC LEVELS: Examination the sagittal plane only at T10-T11 demonstrates slight retrolisthesis. Mild DDD. Mild disc bulge. Mild posterior hypertrophy, right greater than left. Potential mild central stenosis. T11-T12:Significant DDD anteriorly. Modest DDD posteriorly. Slight retrolisthesis and mild disc bulge. T12-L1: Mild retrolisthesis mild disc bulge. L1-2: Slight retrolisthesis. Fairly mild disc bulge. L2-3: Slight retrolisthesis and fairly mild disc bulge. L3-4: Significant loss of disc space height to the far right of midline with associated endplate irregularities and Modic type III greater than type I signal changes. Mild anterolisthesis to the right of midline and mild retrolisthesis of the left of midline. The disc is mildly bulging. Superimposed moderate broad-based right posterolateral through right lateral disc protrusion. [place] is right lateral. There is mild asymmetric deformity upon the sac superior to the takeoff of the right L4 root. Significant facet DJD, right greater than left. Posterior ligaments are mildly convex medially. There is a modest central stenosis. The right L3 foramen is significantly compromised by disc material and facet overgrowth. Left L3 foramen is mildly narrowed. L4-5: Modest disc bulge. Posterior ligaments are hypertrophied. Severe facet DJD with overgrowth. Moderate to significant central stenosis. Right significantly narrowed by lateral extension disc material and bony overgrowth. Left L4 foramen is moderately focally narrowed by similar factors. L5-S1: Mild anterolisthesis. No pars defects at L5. Modest loss of disc space height posteriorly. Mild to modest disc bulge. Posterior ligaments are hypertrophied. Severe facet DJD with overgrowth. Sac is trefoiled. Mild central stenosis. Neither S1 root sleeve is effaced or displaced. The left L5 foramen is moderately narrowed by disc material and facet overgrowth. Right L5 foramen is mildly to modestly narrowed. Rudimentary disc at S1-S2. No central stenosis. S1 foramina are widely patent. SPINAL CORD: No myelomalacia. No syrinx. CONAL TIP: Using this numbering scheme the conal tip is at L2 EXTRASPINAL SOFT TISSUES: No acute finding. OTHER: None MR/MR lumbar spine wo con IMPRESSION: 1. Numbering scheme as described. 2. A moderate to significant central stenosis at L4-L5. 3. Moderate broad-based right-sided disc protrusion at L3-L4 with the apex in the right L3 foramen. Mild asymmetric deformity upon the sac sac and significant compromise of the right L3 foramen. Modest central stenosis at this level. 4. Significant compromise right L4 foramen and moderate compromise left L4 foramen. 5. See report for details at individual levels Electronically authenticated by: VANI ARSHAD Date: 09/23/2023 16:50
== END 2023-09-23 13:25 | disposition home or self-care (01) ==
LOC: MRI 13:26
PROVIDERS: PCP Family Medicine; Visit Provider Family Medicine
DX: M54.16 Radiculopathy, lumbar region (principal); M48.061 Spinal stenosis, lumbar region without neurogenic claudication
CPT/HCPCS: 72148

== ENCOUNTER 2023-09-28 09:11 | Outpatient (RCR) | payer MEDICARE, OTHER, SELFPAY | END 2023-10-23 08:00 | disposition home or self-care (01) | LOC: PT 09:11 | PROVIDERS: PCP Family Medicine; Visit Provider Family Medicine | DX: M54.30 Sciatica, unspecified side (principal); M79.604 Pain in right leg; M79.606 Pain in leg, unspecified; R29.3 Abnormal posture | CPT/HCPCS: 97110; 97161 ==

== ENCOUNTER 2023-10-12 05:56 | Emergency (ER) | payer MEDICARE, OTHER, SELFPAY ==
[2023-10-12 05:59] VITALS: BP 178/95; PULSE 82; RESP 22; TEMP 36.4; O2SAT 100
--- NOTE | 2023-10-12 06:07 | PC.NURSE ---
Patient with severe right side scciatica pain. She was vomiting from the pain when she came into the room. She has been dealing with this pain for some time, the pain is severe at this time. She knows she took 2 Motrin earlier, and some other medications the Dr prescribed her, she is not sure what they were, says her will know when he gets back to the room. She is rocking back and forth in the bed, just keeps saying it hurts, it hurts so bad .
--- NOTE | 2023-10-12 06:19 | ED_ITS ---
HPI - Extremity Problem General Chief complaint: Extremity Problem, Nontraumatic Stated complaint: R HIP PAIN Time Seen by Provider: 10/12/23 06:10 Source: patient Mode of arrival: Wheelchair Limitations: no limitations History of Present Illness HPI Narrative: right sciatica pain. Seen here a couple of times recently for same pain and admitted 09/23/23 for pain. MRI 09/23/23 with stenosis and right sided disc prot rusion. She is currently on norco and baclofen for pain. States she is not getting relief. No loss of control of bowel or bladder. Has pain radiating from right buttocks down her leg. No lower extremity weakness. No abdominal pain or nausea Related Data Home Medications Medication Instructions Recorded Confirmed diclofenac sodium 75 mg 75 mg PO Q12H PRN pain 09/16/23 09/16/23 tablet,delayed release pantoprazole 40 mg tablet,delayed 40 mg PO DAILY 09/16/23 09/16/23 release Previous Rx's Medication Instructions Recorded prednisone 10 mg tablet 50 mg (5 x 10 mg) PO DAILY #47 tabs 09/18/23 tizanidine 4 mg capsule 4 mg PO Q8H #14 caps 09/18/23 tramadol 50 mg tablet 50 mg PO Q6H PRN pain #28 tabs 09/18/23 Allergies Allergy/AdvReac Type Severity Reaction Status Date / Time No Known Drug Allergies Allergy Verified 09/13/23 21:57 Review of Systems ROS Status of ROS 10 or more systems reviewed and unremark able except as noted in history and below PFSH PFSH Medical History (Updated 10/12/23 @ 06:42 by Ke Garcia MD) GERD (gastroesophageal reflux disease) ?K21.9 - Gastro-esophageal reflux disease without esophagitis (ICD-10) Acute lumbar radiculopathy ?M54.16 - Radiculopathy, lumbar region (ICD-10) Surgical History (Updated 09/16/23 @ 17:11 by Jeanne Bhatt) Skin cancer of nose ?C44.301 - Unspecified malignant neoplasm of skin of nose (ICD-10) History of cholecystectomy ?Z90.49 - Acquired absence of other specified parts of digestive tract (ICD- 10) Family History (Updated 09/16/23 @ 17:13 by Jeanne Bhatt) Father Family history of myocardial infarction Family history of cancer Social History (Updated 09/16/23 @ 17:16 by Jeanne Bhatt) Within the past year, how often did you have a drink containing alcohol: 2-3 times a week Within the past year, how many standard drinks containing alcohol did you have on a typical day: 1 or 2 Within the past year, how often did you have six or more drinks on one occasion: never Total score: 0 Score interpretation: Questions 2 and 3 are 0. It can be assumed that the patient's drinking is below the recommended limits. However, please confirm the accuracy of the patient's alcohol intake over the last few months. Smoking status: Never smoker Non-prescribed substance use: denies use Previous occupational history: retired Highest level of school completed/degree received: high school graduate Are you now , , , , never or living with a partner: Little interest or pleasure in doing things: not at all Feeling down, depressed, or hopeless: not at all Feel stressed/tense/nervous/anxious/difficulty sleeping: only a little Do you think of yourself as: straight/heterosexual Exam Constitutional Vital Signs, click to edit/add: Last Vital Signs Temp 97.5 F L 10/12/23 05:59 Pulse 82 10/12/23 05:59 Resp 22 10/12/23 05:59 BP 178/95 H 10/12/23 05:59 Pulse Ox 100 10/12/23 05:59 O2 Del Method Room Air 10/12/23 05:59 Common normals: average body habitus, oriented x3, healthy appearing, alert and well nourished General appearance: in distress Other: holding right buttocks complaining of pain. HENAR Common normals: normocephalic and head/scalp atraumatic Eye Common normals: EOMs intact bilaterally, conjunctivae normal and no scleral icterus Respiratory Common normals: normal respiratory effort, no retractions, no use of accessory muscles and clear to auscultation bilaterally Cardio Common normals: regular rate, regular rhythm, S1 normal heart sound and S2 normal heart sound GI Common normals: Normal to inspection, nondistended, normoactive bowel sounds present, soft to palpation and non-tender Back & Pelvis Other: right SI tenderness Extremity Common normals: normal to inspection, full ROM and normal capillary refill Neuro Common normals: oriented x3, CN's II-XII intact bilaterally, moves all extremities and no focal motor deficits Psych Appearance: grossly normal Course Vital Signs Vital signs: Vital Signs Temperature 97.5 F L 10/12/23 05:59 Pulse Rate 82 10/12/23 05:59 Respiratory Rate 22 10/12/23 05:59 Blood Pressure 178/95 H 10/12/23 05:59 Pulse Oximetry 100 10/12/23 05:59 Oxygen Delivery Method Room Air 10/12/23 05:59 Temperature 97.5 F L 10/12/23 05:59 Pulse Rate 82 10/12/23 05:59 Respiratory Rate 22 10/12/23 05:59 Blood Pressure 178/95 H 10/12/23 05:59 Pulse Oximetry 100 10/12/23 05:59 Oxygen Delivery Method Room Air 10/12/23 05:59 MDM - Extremity (Nontraumatic) Imaging Data US - abdomen: My impression: patient seen and admitted to the hospital for similar flare of pain of the right sciatica. Pain radiating down her right leg. MRI with stenosis and significant right sided disc bulge lower lumbar spine. N/V exam is normal. IV established and patient treated with cocktail of solumedrol, mag and orphenadrine. She is on noroc and baclofen and not receiving relief. Care transferred to the oncoming physician at change of shift Radiologist's impression: [email or web address]=#[email or web address] [email or web address]=#[email or web address] Find: Highlight all Match case Current View [email or web address],-592 Page: of 2 Current View [email or web address],-[phone] [address] Patient Name: HAVEN FRAIRE MRN: [facility]:[id number] date: 1945 Sex: F Assigned Patient Location: MRI Current Patient Location: MRI Accession/Order Number: [id number] Exam Date: 09/23/2023 13:45 Report Date: 09/23/2023 16:50 At the request of: SABA CHOW Procedure: MR lumbar spine wo con MRI LUMBAR SPINE WITHOUT CONTRAST: 09/23/2023 1:45 PM EST History:Lumbar Radiculopathy . Pain in right leg. Comparison: None available . Sequences per routine unenhanced protocol. STUDY QUALITY: Good NUMBERING SCHEME: The lowest lumbar type vertebra is labeled L5. S1 rudimentary disc at S1-S2. OSSEOUS: Modest levoscoliosis centered in the mid lumbar region.. In correlation with recent CT probable somewhat fatty hemangioma L4 vertebral body. At the far superior to the field potential similar fatty hemangioma in the included aspects the T10 vertebral body. Endplate irregularities at multiple levels are very likely degenerative. SPINAL CANAL SIZE: Developmentally is average in size. LOWER THORACIC LEVELS: Examination the sagittal plane only at T10-T11 demonstrates slight retrolisthesis. Mild DDD. Mild disc bulge. Mild posterior hypertrophy, right greater than left. Potential mild central stenosis. T11-T12:Significant DDD anteriorly. Modest DDD posteriorly. Slight retrolisthesis and mild disc bulge. T12-L1: Mild retrolisthesis mild disc bulge. L1-2: Slight retrolisthesis. Fairly mild disc bulge. L2-3: Slight retrolisthesis and fairly mild disc bulge. L3-4: Significant loss of disc space height to the far right of midline with associated endplate irregularities and Modic type III greater than type I signal changes. Mild anterolisthesis to the right of midline and mild retrolisthesis of the left of midline. The disc is mildly bulging. Superimposed moderate broad-based right posterolateral through right lateral disc protrusion. [place] is right lateral. There is mild asymmetric deformity upon the sac superior to the takeoff of the right L4 root. Significant facet DJD, right greater than left. Posterior ligaments are mildly convex medially. There is a modest central stenosis. The right L3 foramen is significantly compromised by disc material and facet overgrowth. Left L3 foramen is mildly narrowed. L4-5: Modest disc bulge. Posterior ligaments are hypertrophied. Severe facet DJD with overgrowth. Moderate to significant central stenosis. Right significantly narrowed by lateral extension disc material and bony overgrowth. Left L4 foramen is moderately focally narrowed by similar factors. L5-S1: Mild anterolisthesis. No pars defects at L5. Modest loss of disc space height posteriorly. Mild to modest disc bulge. Posterior ligaments are hypertrophied. Severe facet DJD with overgrowth. Sac is trefoiled. Mild central stenosis. Neither S1 root sleeve is effaced or displaced. The left L5 foramen is moderately narrowed by disc material and facet overgrowth. Right L5 foramen is mildly to modestly narrowed. Rudimentary disc at S1-S2. No central stenosis. S1 foramina are widely patent. SPINAL CORD: No myelomalacia. No syrinx. CONAL TIP: Using this numbering scheme the conal tip is at L2 EXTRASPINAL SOFT TISSUES: No acute finding. OTHER: None IMPRESSION: 1. Numbering scheme as described. 2. A moderate to significant central stenosis at L4-L5. 3. Moderate broad-based right-sided disc protrusion at L3-L4 with the apex in the right L3 foramen. Mild asymmetric deformity upon the sac sac and significant compromise of the right L3 foramen. Modest central stenosis at this level. 4. Significant compromise right L4 foramen and moderate compromise left L4 foramen. 5. See report for Discharge Plan Discharge Patient Disposition: Still a Patient
--- OUTSIDE RECORDS SUMMARY | 2023-10-12 06:21 | XMS_ITS | CCD ---
Author Name Unknown Address [address] [place] [address] Organization [facility] Care Team Providers Care Sulfonator Operator Name Role Phone Norah Kumar Unavailable DO Talon Pryor Attending Provider [phone] Talon Pryor Unavailable MD Norah Kumar Attending Provider Talon Pryor Attending Unavailable Talon Pryor Admitting Unavailable Norah Kumar Admitting Unavailable Norah Kumar Attending Unavailable GERALDO, DR WALTER Admitting Unavailable GERALDO, DR WALTER Attending Unavailable HOY, DR WALTER Consulting Unavailable GERALDO, DR WALTER Primary Care Unavailable BLUE DIAMOND, DR GRACIELA Christensen Consulting Unavailable GERALDO, DR WALTER Admitting Unavailable GERALDO, DR WALTER Attending Unavailable GERALDO, DR WALTER Consulting Unavailable GERALDO, DR WALTER Primary Care Unavailable GERALDO, DR WALTER Admitting Unavailable GERALDO, DR WALTER Primary Care Unavailable GERALDO, DR WALTER Attending Unavailable GERALDO, DR WALTER Consulting Unavailable ZIEBER, DR SEGUNDO Melchor Consulting Unavailable GERALDO, DR WALTER Admitting Unavailable GERALDO, DR WALTER Attending Unavailable HOAmerica, DR WALTER Consulting Unavailable GERALDO, DR WALTER Primary Care Unavailable GERALDO, DR WALTER Primary Care Unavailable GENO STOREY Admitting Unavailable GENO STOREY Attending Unavailable GENO STOREY Consulting Unavailable STEW HERRON Consulting Unavailable LAINA, DR RODRIGUEZ Admitting Unavailable GERALDO, DR WALTER Primary Care Unavailable LAINA, DR RODRIGUEZ Attending Unavailable ALEX MONTERO Consulting Unavailable GERALDO, DR WALTER Primary Care Unavailable SANGEETHA SARGENT Admitting Unavailable SANGEETHA SARGENT Attending Unavailable NORAH KUMAR Admitting Unavailable NORAH KUMAR Attending Unavailable GERALDO, DR WALTER Primary Care Unavailable Allergies Allergy Classification Reported Allergen(s) Allergy Type Date of Onset Reaction(s) Facility (1 source) guaiFENesin Drug Allergy [facility] Repository Medications Current Medications Medication Drug Class(es) Dates Sig (Normalized) Sig (Original) Ibuprofen (4 sources) Nonsteroidal Anti-inflammatory Drug Motrin Active Problems Active Problems Problem Classification Problem Date Documented Da te Episodic/Chronic Deficiency and other anemia (1 source) Anemia, unspecified; Translations: [ANEMIA UNSPECIFIED] Onset: 09-06-2022 Episodic Diabetes mellitus without complication (1 source) Hyperglycemia, unspecified; Translations: [HYPERGLYCEMIA UNSPECIFIED] Onset: 09-06-2022 Episodic Disorders of lipid metabolism (2 sources) Hyperlipidemia, unspecified; Translations: [Pure hypercholesterolem ia, unspecified] Onset: 09-06-2022 Chronic Malaise and fatigue (1 source) Other fatigue; Translations: [OTHER FATIGUE] Onset: 09-06-2022 Episodic Menopausal disorders (4 sources) Other primary ovarian failure; 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: 09-10-2022 Chronic Other aftercare (1 source) 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; Translations: [OTH MCC CURRENT DRUG THERAPY] Onset: 09-06-2022 Episodic Other bone disease and musculoskeletal deformities (1 source) Other specified disorders of bone density and structure, left thigh; Translations: [OTH D/O BONE DEN STRUCT LT THIGH] Onset: 09-13-2022 Episodic Other non-traumatic joint disorders (4 sources) Pain in unspecified joint; Translations: [PAIN IN UNSPECIFIED JOINT] Onset: 09-03-2022 Episodic Other screening for suspected conditions (not mental disorders or infectious disease) (5 sources) Encounter for screening for malignant neoplasm of rectum; Translations: [ENC SCREEN MALIG NEOPLASM RECTUM] Onset: 09-06-2022 Episodic Unclassified (1 source) Other fractures of lower end of right radius, initial encounter for closed fracture; Translations: [Other fractures of lower end of right radius, initial encounter for closed fracture] Onset: 07-16-2022 Unclassified (1 source) Unspecified injury of right wrist, hand and finger(s), initial encounter; Translations: [Unspecified injury of right wrist, hand and finger(s), initial encounter] Onset: 06-24-2022 Past or Other Problems Problem Classification Problem Date Documented Da te Episodic/Chronic E Codes: Fall (1 source) Fall on same level from slipping, tripping and stumbling without subsequent striking against object, initial encounter; Translations: [FALL SAME LVL SLIP NO STRK OBJ INIT] Onset: 06-07-2022 Episodic Fracture of upper limb (9 sources) Other fractures of lower end of right radius, subsequent encounter for closed fracture with routine healing; Translations: [Other fractures of lower end of right radius, initial encounter for closed fracture] Onset: 06-18-2022 Resolved: 06-25-2022 Episodic Immunizations and screening for infectious disease (4 sources) Encounter for immunization; Translations: [ENCOUNTER FOR IMMUNIZATION] Onset: 11-10-2021 Episodic Other injuries and conditions due to external causes (1 source) Unspecified injury of right wrist, hand and finger(s), initial encounter Onset: 06-23-2022 Resolved: 06-23-2022 Episodic Other injuries and conditions due to external causes (1 source) Other specified injuries of right wrist, hand and finger(s), initial encounter; Translations: [OTH SPEC INJ RT WRST HND FNGR INIT] Onset: 06-07-2022 Episodic Other non-traumatic joint disorders (4 sources) Pain in right wrist; Translations: [PAIN IN RIGHT WRIST] Onset: 06-17-2022 Episodic Residual codes; unclassified (4 sources) Procedure and treatment not carried out due to patient leaving prior to being seen by health care provider; Translations: [PROC AND TX NOT CARRIED OUT PT LEAVE] Onset: 06-09-2022 Episodic Superficial injury; contusion (1 source) Contusion of right wrist, initial encounter; Translations: [CONTUSION RIGHT WRIST INITIAL ENC] Onset: 06-07-2022 Episodic Results Test Name Value Interpretation Reference Range Facil ity XR DEXA BONE DENSITYon 09-10 XR DEXA BONE DENSITY EXAMINATION: XR DEX A BONE DENSITY, 09/10/2022 7:49 AM EST HISTORY: Primary ovarian failure COMPARISON: 2009 TECHNIQUE: Dual-energy X-ray absorptiometry (DEXA) bone density study performed for the axial skeleton. FINDINGS: Limited AP spine L1-L4 measures 1.141 g/sq cm. T score -0.3. WHO classification: Normal. Lowest bone mineral density left femoral neck measures 0.835 g/sq cm. T score -1.5. WHO classification: Osteopenia IMPRESSION: Osteopenia. Moderate fracture risk Electronically authenticated by: GRACIELA LUGO Date: 2022-09-10 15:39 Normal [facility] OCC BLD IMMUNO SCREENon 08-24 OCCULT BLOOD Negative Normal NEGATIVE [facility] Comment on above: Performed By: #### O BSCRN ####[facility] [address] [place], [place] [address]Dr. Antonia Mckinley INSULINon 09-04-2022 Insulin 8.4 uIU/mL Normal 2.6-24.9 [facility] ospital Comment on above: Performed By: #### I NSULIN ####[facility] [address] [place], [place] [address]Dr. Antonia Mckinley CBC AUTO DIFFon 09-03-2022 BASO # 0.1 103/ul Normal 0.0-0.1 [facility] Comment on above: Performed By: #### C BC ####[facility] [address] [place], [place] [address]Dr. Antonia Sen Basophils/100 WBC (Bld) 1.2 % Normal 0.2-2.0 [facility] Comment on above: Performed By: #### C BC ####[facility] [address] [place], [place] [address]Dr. Antonia Mckinley EO # 0.2 103/ul Normal 0.0-0.7 [facility] Comment on above: Performed By: #### C BC ####[facility] S[address] [place], [place] [address]Dr. Antonia Sen Eosinophils/100 WBC (Bld) 4.6 % Normal 0.9-7.0 [facility] Comment on above: Performed By: #### C BC ####[facility] Al[address] [place], [place] [address]Dr. Antonia Mckinley Erythrocyte distribution wid th (RBC) [Ratio] 13.1 % Normal 11.0-15.0 [facility] pital Comment on above: Performed By: #### C BC ####[facility] [address] [place] [address]Dr. Halliemanjit Sen Hematocrit (Bld) [Volume fraction] 39.3 % Normal 3 6.0-48.0 [facility] Comment on above: Performed By: #### C BC ####[facility] [address] [place] [address]Dr. Antonia Sen Hemoglobin (Bld) [Mass/Vol] 13.0 g/dL Normal 12.0-16. 0 [facility] Comment on above: Performed By: #### C BC ####[facility] Dak[address] [place], [place] [address]Dr. Antonia Sen IG # 0.01 10e3/ul Normal 0.00-0.03 [facility] Comment on above: Performed By: #### C BC ####[facility] [address] [place], [place] [address]Dr. Antonia Sen IG % 0.2 % Normal 0.0-0.5 [facility] Comment on above: Performed By: #### C BC ####[facility] [address] [place], [place] [address]Dr. Antonia Sen LYMPH # 1.2 103/ul Normal 1.2-3.8 [facility] Comment on above: Performed By: #### C BC ####[facility] [address] [place], [place] [address]Dr. Antonia Sen Lymphocytes/100 WBC (Bld) 27.6 % Normal 20.5-60.0 [facility] Comment on above: Performed By: #### C BC ####[facility] [address] [place] [address]Dr. Antonia Sen MANUAL DIFF REQ NO Normal [facility] Comment on above: Performed By: #### C BC ####[facility] [address] [place], [place] [address]Dr. Antonia Sen MCH (RBC) [Entitic mass] 30.4 pg Normal 26.7-34.0 [facility] Comment on above: Performed By: #### C BC ####[facility] [address] [place], [place] [address]Dr. Antonia Sen MCHC (RBC) [Mass/Vol] 33.1 g/dL Normal 29.9-35.2 [facility] Comment on above: Performed By: #### C BC ####[facility] [address] [place], [place] [address]Dr. Antonia Sen MCV (RBC) [Entitic vol] 91.8 fL Normal 81.0-99.0 [facility] Comment on above: Performed By: #### C BC ####[facility] [address] [place], [place] [address]Dr. Antonia Sen MONO # 0.5 103/ul Normal 0.3-0.8 [facility] o[facility] Comment on above: Performed By: #### C BC ####[facility] [address] [place], [place] [address]Dr. Antonia Sen Monocytes/100 WBC (Bld) 11.8 % Normal 1.7-12.0 [facility] Comment on above: Performed By: #### C BC ####[facility] [address] [place], [place] [address]Dr. Antonia Sen NEUT # 2.4 103/ul Normal 1.4-6.5 [facility] Comment on above: Performed By: #### C BC ####[facility] [address] [place], [place] [address]Dr. Antonia Sen Neutrophils/100 WBC (Bld) 54.6 % Normal 43.0-75.0 [facility] Comment on above: Performed By: #### C BC ####[facility] [address] [place], [place] [address]Dr. Antonia Sen Platelet mean volume (Bld) [ Entitic vol] 12.2 fL Normal 9.5-13.5 [facility] pital Comment on above: Performed By: #### C BC ####[facility] [address] [place], [place] [address]Dr. Antonia Sen PLT 210 103/ul Normal 150-450 [facility] Comment on above: Performed By: #### C BC ####[facility] [address] [place] [id number]. Antonia Sen RBC 4.28 106/ul Normal 4.20-5.40 [facility] Comment on above: Performed By: #### C BC ####[facility] [address] [place] [id number] Sen WBC 4.3 103/ul Normal 4.0-11.0 [facility] Comment on above: Performed By: #### C BC ####[facility] [address] [place] [id number] Sen FREE THYROXINE INDEX T7on FTI 1.89 Normal 1.30-4.50 [facility] Comment on above: Performed By: #### L IPID, T7, TSH, CMP #### [facility] [address] [place] [address] Dr. Antonia Sen T3U 31.0 % Normal 30.0-39.0 [facility] Comment on above: Performed By: #### L IPID, T7, TSH, CMP #### [facility] [address] [place] [address] Dr. Antonia Sen T4 [Mass/Vol] 6.10 ug/dL Normal 4.80-13.90 [facility] Comment on above: Performed By: #### L IPID, T7, TSH, CMP #### [facility] [address] [place] [address] Dr. Antonia Sen GLYCOHEMOGLOBIN A1Con 2021 ADA RECOMMENDATION SEE BELOW Normal [facility] Comment on above: Result Comment: ADA RECOMMENDED LIMIT 4.0 - 6.0 ADA THERAPEUTIC TARGET < 7.0 ACTION SUGGESTED > 7.0 Performed By: #### A 1C #### [facility] [address] [place] [address] Dr. Antonia Sen Glucose [Mass/Vol] 105 mg/dL Normal [facility] Comment on above: Performed By: #### A 1C #### [facility] [address] [place] [address] Dr. Antonia Sen HbA1c (Bld) [Mass fraction] 5.3 % Normal 4.5-6.[address] [facility] Comment on above: Performed By: #### A 1C #### [facility] [address] [place] [address] Dr. Antonia Sen IRONon 09-03-2022 Iron [Mass/Vol] 140.0 ug/dL Normal 50.0-170.0 [facility] Comment on above: Performed By: #### I YU #### [facility] [address] [place] [address] Dr. Antonia Sen LIPID PROFILEon 09-03-2022 CHOL-HDL RATIO NORM SEE BELOW Normal [facility] Comment on above: Result Comment: 3.3 - 4.4 LOW RISK 4.4 - 7.1 AVERAGE RISK 7.1 - 11.0 MODERATE RISK >11.0 HIGH RISK Performed By: #### L IPID, T7, TSH, CMP #### [facility] [address] [place] [address] Dr. Antonia Sen Cholesterol [Mass/Vol] 226 mg/dL Critically high <=200 [facility] Comment on above: Performed By: #### L IPID, T7, TSH, CMP #### [facility] [address] [place] [address] Dr. Antonia Sen Cholesterol in HDL [Mass/Vol] 66 mg/dL Critically high 4 0-[address] [facility] Comment on above: Performed By: #### L IPID, T7, TSH, CMP #### [facility] [address] [place] [address] Dr. Antonia Sen Cholesterol in LDL [Mass/Vol] 137.8 mg/dL Normal [facility] Comment on above: Performed By: #### L IPID, T7, TSH, CMP #### [facility] [address] [place] [address] Dr. Antonia Sen Cholesterol.total/Cholestero l in HDL [Mass ratio] 3.4 {ratio} Normal [facility] Comment on above: Performed By: #### L IPID, T7, TSH, CMP #### [facility] [address] [address] [address] Antonia Sen HDL NORMAL > or = 60 mg/dl - LO W CARDIOVASCULAR RISK <40 mg/dl - HIGH CARDIOVASCULAR RISK Normal [facility] Comment on above: Performed By: #### L IPID, T7, TSH, CMP #### [facility] [address] [address] [address] Antonia Sen LDL CALC NORMAL SEE BELOW Normal [facility] Comment on above: Result Comment: <100 mg/dl OPTIMAL 100 - 129 mg/dl NEAR OR ABOVE OPTIMAL 130 - 159 mg/dl BORDERLINE HIGH 160 - 189 mg/dl HIGH >190 mg/dl VERY HIGH Performed By: #### L IPID, T7, TSH, CMP #### [facility] [address] [address] [address] Antonia Sen Triglyceride [Mass/Vol] 111 mg/dL Normal <=150 T [facility] Comment on above: Performed By: #### L IPID, T7, TSH, CMP #### [facility] [address] [address] [address] Antonia Sen VLDL CALC 22.2 mg/dL Normal [facility] Comment on above: Performed By: #### L IPID, T7, TSH, CMP #### [facility] [address] [address] [address] Antonia Sen PROF 14(COMP METB)on 022 Albumin [Mass/Vol] 3.9 g/dL Normal 3.4-5.0 [facility] Comment on above: Performed By: #### L IPID, T7, TSH, CMP #### [facility] [address] [address] [address] Antonia Sen Albumin/Globulin [Mass ratio] 1.1 {ratio} Normal [facility] Comment on above: Performed By: #### L IPID, T7, TSH, CMP #### [facility] [address] [address] [address] Antonia Sen ALP [Catalytic activity/Vol] 64 U/L Normal 46-[address] [facility] Comment on above: Performed By: #### L IPID, T7, TSH, CMP #### [facility] [address] [place] [address] Dr. Antonia Sen ALT [Catalytic activity/Vol] 6 U/L Critically low 14- [address] [facility] Comment on above: Performed By: #### L IPID, T7, TSH, CMP #### [facility] [address] [place] [address] Dr. Antonia Sen Anion gap [Moles/Vol] 10.6 mmol/L Normal Th [facility] Comment on above: Performed By: #### L IPID, T7, TSH, CMP #### [facility] [address] [place] [address] Dr. Antonia Sen AST [Catalytic activity/Vol] 15 U/L Normal 15-[address] [facility] Comment on above: Performed By: #### L IPID, T7, TSH, CMP #### [facility] [address] [place] [address] Dr. Antonia Sen Bilirubin [Mass/Vol] 0.9 mg/dL Normal 0.2-1.[address] [facility] Comment on above: Performed By: #### L IPID, T7, TSH, CMP #### [facility] [address] [place] [address] Dr. Antonia Sen Calcium [Mass/Vol] 9.3 mg/dL Normal 8.5-10.1 [facility] Comment on above: Performed By: #### L IPID, T7, TSH, CMP #### [facility] [address] [place] [address] Dr. Antonia Sen Chloride [Moles/Vol] 105 mmol/L Normal 98-[address] [facility] Comment on above: Performed By: #### L IPID, T7, TSH, CMP #### [facility] [address] [place] [address] Dr. Antonia Sen CO2 [Moles/Vol] 24.4 mmol/L Normal 21.0-32.0 [facility] Comment on above: Performed By: #### L IPID, T7, TSH, CMP #### [facility] [address] [place] [address] Dr. Antonia Sen Creatinine [Mass/Vol] 0.84 mg/dL Normal 0.55-1.[address] [facility] Comment on above: Performed By: #### L IPID, T7, TSH, CMP #### [facility] [address] [place] [address] Dr. Antonia Sen EGFR-AF TRISTANIAN >60 Normal >=60 [facility] Comment on above: Performed By: #### L IPID, T7, TSH, CMP #### [facility] [address] [address] [address] Antonia Sen EGFR-NON AF TRISTANIAN >60 Normal >=[address] [facility] Comment on above: Performed By: #### L IPID, T7, TSH, CMP #### [facility] [address] [place] [address] Dr. Antonia Sen Globulin (S) [Mass/Vol] 3.7 g/dL Normal T [facility] Comment on above: Performed By: #### L IPID, T7, TSH, CMP #### [facility] [address] [place] [address] Dr. Antonia Sen Glucose [Mass/Vol] 88 mg/dL Normal 74-106 [facility] Comment on above: Performed By: #### L IPID, T7, TSH, CMP #### [facility] [address] [place] [address] Dr. Antonia Sen Potassium [Moles/Vol] 4.0 mmol/L Normal 3.5-5.[address] [facility] Comment on above: Performed By: #### L IPID, T7, TSH, CMP #### [facility] [address] [place] [address] Dr. Antonia Sen Protein [Mass/Vol] 7.6 g/dL Normal 6.4-8.2 [facility] Comment on above: Performed By: #### L IPID, T7, TSH, CMP #### [facility] [address] [place] [address] Dr. Antonia Sen Sodium [Moles/Vol] 136 mmol/L Normal 136-145 [facility] Comment on above: Performed By: #### L IPID, T7, TSH, CMP #### [facility] [address] [address] [address] Antonia Sen Urea nitrogen [Mass/Vol] 23.0 mg/dL Critically high 7.0-18 [address] [facility] Comment on above: Performed By: #### L IPID, T7, TSH, CMP #### [facility] [address] [address] [address] Antonia Sen Urea nitrogen/Creatinine [Mass ratio] 27.4 mg/mg Normal [facility] Comment on above: Performed By: #### L IPID, T7, TSH, CMP #### [facility] [address] [address] [address] Antonia Sen TSHon 09-03-2022 TSH 1.681 uIU/mL Normal 0.358-3.740 [facility] Comment on above: Performed By: #### L IPID, T7, TSH, CMP #### [facility] [address] [address] [address] Antonia Sen XR wrist RT 2Von 07-16-2022 XR wrist RT 2V [facility] [place] [address] XRay Report Signed Patient: Suad Nicholson MR#: [id number] [birth year] : 1945 Acct:[id number] Age/Sex: 77 / F ADM Date: 07/16/22 Loc: [facility] Room: Type: [facility] Attending Dr: Norah Kumar MD Copies to: Norah Kumar MD Ordering Provider: Norah Kumar MD Date of Service: 07/16/22 XR/XR wrist RT 2V: Other fractures of lower end of right radius, subsequent enc RIGHT WRIST - 2 views COMPARISON: 06/17/2022 CLINICAL DATA: Follow-up distal radius fracture. AP and lateral views were obtained. There is osteopenia. There is redemonstration of a fracture at the distal radius. There is no change in alignment. No other acute fractures or dislocation are seen. There is mild dorsal soft tissue swelling. XR/XR wrist RT 2V IMPRESSION: STABLE DISTAL RADIUS FRACTURE. Impression dictated by: Pati Lange M.D.07/16/2022 1:43 PM Dictation Location: [facility]--12 Transcribed By: MASON 07/16/22 1343 Dictated By: Pati Lange MD 07/16/22 1342 Signed By: 07/16/22 1343 Normal [facility] XR wrist RT 2V [facility] [employer] Other XR wrist RT 2V [facility] [employer] Other XR wrist RT 2V [address] [place] [address] [employer] Other [place]R [place] 2[place] [address] No [facility] [employer] Other XR wrist RT 2V XRay Report [employer] Other XR wrist RT 2V Signed [employer] Other XR wrist RT 2V Patient: Geronimo Nicholson MR#: [id number] [facility] [employer] Other XR wrist RT 2V 12 [employer] Other XR wrist RT 2V : 1945 Acct:[id number] [employer] Other XR wrist RT 2V Age/Sex: 77 / F ADM Date: 07/16/22 [employer] Other XR wrist RT 2V Loc: [facility] Room: Type: [facility] [employer] Other XR wrist RT 2V Attending Dr: Segundo Kumar MD [employer] Other XR wrist RT 2V Copies to: Norah Kumar MD [employer] Other XR wrist RT 2V Ordering Provider: Ajit Kumar MD [employer] Other XR wrist RT 2V Date of Service: 07/16/22 [employer] Other XR wrist RT 2V [id number]) XR/XR wrist RT 2V: Other fractures of lower end of right radius, [facility] [employer] Other XR wrist RT 2V subsequent enc [employer] Other XR wrist RT 2V RIGHT WRIST - 2 views [employer] Other XR wrist RT 2V COMPARISON: 06/17/2022 [employer] Other XR wrist RT 2V CLINICAL DATA: Follo w-up distal radius fracture. [employer] Other XR wrist RT 2V AP and lateral views were obtained. There is osteopenia. There is redemonstration of a fracture at [employer] Other XR wrist RT 2V the distal radius. T here is no change in alignment. No other acute fractures or dislocation are [employer] Other XR wrist RT 2V seen. There is mild dorsal soft tissue swelling. [employer] Other XR wrist RT 2V X R/XR wrist RT 2V [employer] Other XR wrist RT 2V IMPRESSION: [employer] Other XR wrist RT 2V STABLE DISTAL RADIUS FRACTURE. [employer] Other XR wrist RT 2V Impression dictated by: Pati Lange M.D.07/16/2022 1:43 PM [employer] Other XR wrist RT 2V Dictation Location: [place] [address] [employer] Other XR wrist RT 2V Transcribed By: MASON 07/16/22 1343 [employer] Other XR wrist RT 2V Dictated By: Pati Lange MD 07/16/22 1342 [employer] Other XR wrist RT 2V Signed By: Rochelle Cube [employer] Other XR wrist RT 2V 07/16/22 1340 [employer] Other MR hand RT wo conon 06-24-20 MR hand RT wo con [facility] Main [place] [address] [place] [address] MRI Report Signed Patient: Suad Nicholson MR#: [id number] : 1945 Acct:[id number] Age/Sex: 77 / F ADM Date: 06/24/22 Loc: [facility] Room: Type: [facility] Attending Dr: Talon Pryor DO Copies to: Talon Pryor DO Ordering Provider: Talon Pryor DO Date of Service: 06/24/22 MR/MR hand RT wo con: S69.91XA INJURY S52.591A CLOSED FX RT RADIUS ([id number]) MR/MR wrist RT wo con: S69.91XA INJURY S52.591A CLOSED FX RT RADIUS MR RIGHT wrist without contrast TECHNIQUE: Multiplanar T1 and T2-weighted imaging of the RIGHT shoulder obtained without contrast. HISTORY: Fell injuring the thumb and the wrist one month ago. The distal radius fracture. COMPARISON: Plain film imaging 06/17/22 The bony structures intact. Mild degenerative changes the carpal bones present. Fracture of the distal radius identified. There is bone marrow edema identified in region of fracture. Adjacent inflammation. This consistent with interval healing. No bony destruction. Adequate orientation of the tendons identified. There is inflammatory changes near the extensor pollicis brevis and the abductor pollicis longus tendons at the level of the radial styloid. May consider tenosynovitis. In one centimeter ganglion cyst posterior to the ulnar styloid. Chronic changes of impingement of a lunate and the triquetral and distal ulna. Triangular fibrocartilage appears intact. There is no significant fluid in the distal radioulnar articulation. MR/MR wrist RT wo con IMPRESSION: Healing distal radius fracture.Tenosynovitis involving the tendons adjacent to the radial styloid without disruption. Degenerative change. Incidental ganglion cyst near ulnar styloid MRI of the RIGHT hand obtained without contrast TECHNIQUE: Multiplanar T1 and T2-weighted imaging of the RIGHT wrist obtained without contrast. No acute bony findings. No bony destruction. No bone marrow edema. Adequate bony alignment. No significant tendinopathy. Edematous changes of the hand diffusely. No fluid collections. Interpha langeal and 1st carpometacarpal degeneration present. IMPRESSION: Diffuse edematous changes of the hand. No significant ligamentous, tendinous or bony abnormality. Degenerative change. Impression dictated by: Alexei Case M.D.06/24/2022 2:03 PM Dictation Location: [place] [address] Transcribed By: [facility] 06/24/22 1403 Dictated By: Alexei Case DO 06/24/22 1332 Signed By: 06/24/22 1403 [facility] XR WRIST RT MIN 3 Von 2021 XR WRIST RT MIN 3 V XR WRIST RT MIN 3 V: HISTORY: Unspecified fall. COMPARISON: None available. TECHNIQUE: 3 radiographic view(s) obtained. FINDINGS: BONES/JOINT SPACES: There is no acute fracture or dislocation. 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 There is chronic erosion of the distal ulna. There are several subchondral cystic changes in the carpal bones. SOFT TISSUES: There is calcification of the triangular fibrocartilage and adjacent to the trapezium which may represent calcium pyrophosphate deposition. IMPRESSION: Chronic changes in the right wrist. No definitive acute fractures appreciated. Electronically authenticated by: ALEX MONTERO Date: 2022-06-04 17:19 [facility] Encounters Encounter Date Encounter Type Care Provider Facility Start: 09-10-2022 End: 09-11-[address] SABA CHOW Facility:[facility] Start: 09-08-2022 End: 09-08-[address] SABA CHOW Facility:[facility] Start: 09-03-2022 End: 09-04-[address] SABA CHOW Facility:[facility] Start: 08-27-2022 End: 08-27-2022 ambulatory Norah Kumar Other [employer] Other Start: 08-27-2022 Postop follow up vis it related to original px Norah Calvey [facility] Start: 07-16-2022 Postop follow up vis it related to original px Norah Calvey [facility] Start: 07-16-2022 End: 07-16-2022 ambulatory Norah Jill Kumar [facility] [employer] Other Start: 07-16-2022 End: 07-16-2022 Patient encounter procedure DO Talon Pryor Work Phone: [facility] Start: 06-29-2022 End: 08-24-2022 ambulatory NORAH WOODSONTIFFANIE Facility:[facility] Start: 06-25-2022 End: 06-25-2022 ambulatory Norah José Other [employer] Other Start: 06-25-2022 Postop follow up vis it related to original px Norah Calvey [facility] Start: 06-24-2022 End: 06-24-2022 ambulatory Talon Pryor Facility:[facility] Start: 06-24-2022 End: 06-24-2022 Patient encounter procedure DO Talon Pryor Work Phone: [facility] [address] Start: 06-23-2022 End: 06-23-2022 ambulatory Talon Pryor Other [employer] Other Start: 06-23-2022 [facility] visit new patient Talon Pryor [facility] Start: 06-17-2022 End: 06-18-[address] SABA CHOW Facility:[facility] Start: 06-09-2022 End: 06-09-[address] SABA CHOW Facility:[facility] Start: 06-04-2022 End: 06-04-2022 ambulatory STEW HERRON Facility:[facility] Start: 11-10-2021 End: 11-11-[address] SABA CHOW Facility:[facility] Procedures Date Procedure Procedure Detail Performing Clinician Start: 07-16-2022 Plain X-ray of right wrist DO Talon Pryor Work Phone: Start: 06-24-2022 MRI of right wrist DO Anisha Pryor Work Phone: Start: 06-24-2022 MRI of right hand DO Guerda Pryor Work Phone: Payers Date Payer Category Payer Unknown [id number] 1960 Medicare [id number] 2.1 [id number] 1960 Self-pay 1960 Unknown [id number] 1945 Unknown [id number] 2.16.84 [id number] 1945 Unknown [id number] 2.16.84 [id number] 1945 Unknown [id number] 2.16.84 [id number] 1945 Unknown [id number] 2.16.84 [id number] 1945 Unknown [id number] 2.16.84 0.1.317455.3.579.2.593 1945 Unknown [id number] 2.16.84 0.1.478539.3.579.2.593 1945 Unknown [id number] 2.16.84 0.1.976532.3.579.2.593 Unknown [id number] 2.16.8 [id number] Unknown [id number] 2.16.8 40.1.345685.3.579.2.531 Unknown [id number] 2.16.8 [id number] Unknown [id number] 2.16.84 [id number] Social History Date Type Detail Facility Sex Assigned At [facility] Work Phone: Start: 1945 Sex Assigned At Female F [facility] Evaluation note 08-27-2022 Note Date & Type Note Facility 08-27-2022 Evaluation note Encounter Date Diagnosis Assessment Notes Aug, Other fractures of lower end of right radius, subsequent encounter for closed fracture with routine healing (ICD-10 - S52.591D) Physical exam was preformed today, we presented different treatment options today which includes just watching the thumb to see any changes, or surgery like a tendon transfer, or a fusion of the joint. Patient states she would like to wait to September to talk about surgery. We will f/u in 4-6 weeks. [employer] Other Evaluation note 07-16-2022 Note Date & Type Note Facility 07-16-2022 Evaluation note Encounter Date Diagnosis Assessment Notes Jun, Other fractures of lower end of right radius, subsequent encounter for closed fracture with routine healing (ICD-10 - S52.591D) Radiographs reviewed with patient today. Discussed with patient she is progressing well. Discussed with patient she can discontinue wearing braces. Instructed patient to continue to work on strength and range of motion exercises. Instructed patient to continue with occupational therapy [employer] Other Evaluation note 06-25-2022 Note Date & Type Note Facility 06-25-2022 Evaluation note Encounter Date Diagnosis Assessment Notes Jun, Other fractures of lower end of right radius, subsequent encounter for closed fracture with routine healing (ICD-10 - S52.591D) Discussed the fracture needs a little more time to allow for healing. Continue using the brace for daily activities and sleeping at night. May come out to wash the hand. We will order therapy for the hand to work on exercises. She was instructed not to lift anything over 2-5 pounds at this time. [employer] Other Evaluation note 06-23-2022 Note Date & Type Note Facility 06-23-2022 Evaluation note Encounter Date Diagnosis Assessment Notes May, Injury of right hand, initial encounter (ICD-10 - S69.91XA) May, Other closed fracture of distal end of right radius, initial encounter (ICD-10 - S52.591A) Clare presents with nondisplaced healing right distal radius fracture and concern for EPL rupture. At this juncture we have discussed the findings and diagnosis as well as personally reviewed appropriate imaging and performed interpretation of related testing and examination with the patient in office today. Prior medical notes from the [facility] and history have been reviewed. At this time I would recommend thumb spica brace and MRI to evaluate for EPL tendon rupture. Nonweightbearing to the right hand. I recommend calcium and vitamin D supplementation . Recommend vitamin C 500 mg daily for 50 days. we will plan for follow-up with Dr. Kumar after MRI is complete for possible tendon repair. The patient has been involved in our cooperative treatment plan and agrees to move forward with treatment at this time. Radiographs reviewed and discussed in detail with patient. Patient informed she has suffered a fracture on the distal end of the right radius. Patient has also ruptured her EPL tendon of her right thumb. 1 m Patient is not improving as expected with time and conservative treatment. An MRI will be necessary to assess for an injury that could require surgical treatment. Will follow up with patient after we obtain the MRI to review and discuss further treatment.Will put patient in a right spica wrist splint for stablization and further healing. Patient voices understanding and is agreeable to move forward with treatment plan. May, Other See orders for this visit as documented in the electronic medical record. [employer] Other Clinical Note 06-18-2022 Note Date & Type Note Facility 06-18-2022 Note PROCEDURE: XR HAND R T MIN 3V, XR WRIST RT MIN 3 V HISTORY: Pain of right wrist COMPARISON: XR wrist right 06/04/2022 FINDINGS: BONES:Thin band of increased density across the distal radial metaphysis consistent with acute impaction fracture. No change in alignment or distal articular surface involvement. Multifocal mild degenerative changes of the carpal joints. Moderate degenerative changes of the majority of the interphalangeal joints, greater involving the second and third digits.. SOFT TISSUES:No visible soft tissue swelling. EFFUSION:None visible. OTHER: Negative. IMPRESSION: 1. Acute, mild impaction fracture of the distal radial metaphysis. 2. 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 Report placed in the stat call folder. Electronically authenticated by: SEGUNDO MERINO Date: 2022-06-18 07:[address] [facility] Clinical Note 06-18-2022 Note Date & Type Note Facility 06-18-2022 Note PROCEDURE: XR HAND R T MIN 3V, XR WRIST RT MIN 3 V HISTORY: Pain of right wrist COMPARISON: XR wrist right 06/04/2022 FINDINGS: BONES:Thin band of increased density across the distal radial metaphysis consistent with acute impaction fracture. No change in alignment or distal articular surface involvement. Multifocal mild degenerative changes of the carpal joints. Moderate degenerative changes of the majority of the interphalangeal joints, greater involving the second and third digits.. SOFT TISSUES:No visible soft tissue swelling. EFFUSION:None visible. OTHER: Negative. IMPRESSION: 1. Acute, mild impaction fracture of the distal radial metaphysis. 2. 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 Report placed in the stat call folder. Electronically authenticated by: SEGUNDO MERINO Date: 2022-06-18 07:[address] [facility] Evaluation note Note Date & Type Note Facility Evaluation note No assessment information availa [facility] Work Phone: History general Narrative - Reported Note Date & Type Note Facility History general Narrative - Reported Type Medical History right hand injury Medical History gull stones Medical History depression Surgical History appendectomy Surgical History gull bladder removal [employer] Other Chief Complaint and Reason for Visit Chief Complaint S52.591A S69.91XA Advance Directives No Advanced Directives Records Found Advance Directive Response Recorded Date/ Time Advance Directives No June 5:37pm Summary Purpose Family History No Family History Records FoundNo Family History Records Found Additional Source Comments REASON FOR VISIT (unrecogniz ed section and content) Right Hand InjuryRight Wrist InjuryRecheck Right WristRecheck Right Wrist Care Teams (unrecognized sec tion and content) Team Status: Inactive Member Role Status Dates Norah Kumar MD Attending Provider Active Team Status: Inactive Member Role Status Dates Talon Pryor DO Attending Provider Active Goals (unrecognized section and content) Goals may be documented in a n alternate section INFORMATION SOURCE (unrecogn ized section and content) DATE CREATED AUTHOR 07/30/2022 [facility] DATE CREATED AUTHOR AUTHOR'S MACARIO RAMIREZ 09/30/2022 [facility] FOR RECORDS PERTAINING TO PATIENTS WHO ARE OR HAVE BEEN ENROLLED IN A CHEMICAL DEPENDENCY/SUBSTANCEABUSE PROGRAM, SOME INFORMATION MAY BE OMITTED. This clinical summary was aggregated from multiple sources. Caution should be exercised in using it in the provision of clinical care. This summary normalizes information from multiple sources, and as a consequence, information in this document may materially change the coding, format and clinical context of patient data. In addition, data may be omitted in some cases. CLINICAL DECISIONS SHOULD BE BASED ON THE PRIMARY CLINICAL RECORDS. [facility] [employer] provides no warranty or guarantee of the accuracy or completeness of information in this document.
[2023-10-12] MEDS: ORPHENADRINE 60 MG/ 2 ML VIAL IV (06:27)
[2023-10-12] MEDS: METHYLPREDNISOLONE SOD SUCC PF 125 MG/2 ML VIAL IVP (06:28)
[2023-10-12] MEDS: MAGNESIUM SULFATE IN WATER 2 GM/50 ML PREMIX IV (06:28)
[2023-10-12] MEDS: HYDROMORPHONE HCL 1 MG/ML CARTRIDGE 1.5 MG IM (08:10)
[2023-10-12] MEDS: ONDANSETRON 4 MG RAPDIS TABLET SL (08:10)
[2023-10-12 09:17] VITALS: BP 128/80; RESP 18; O2SAT 99
== END 2023-10-12 09:33 | disposition home or self-care (01) ==
PROVIDERS: Emergency Provider Internal Medicine; PCP Family Medicine
DX: M54.31 Sciatica, right side (principal); M54.16 Radiculopathy, lumbar region; R11.2 Nausea with vomiting, unspecified; Z79.899 Other long term (current) drug therapy; K21.9 Gastro-esophageal reflux disease without esophagitis; Z90.49 Acquired absence of other specified parts of digestive tract; Z85.828 Personal history of other malignant neoplasm of skin
CPT/HCPCS: 96365; 96366; 96375; 99284; J1170; J2930

== ENCOUNTER 2023-10-17 11:16 | Emergency (ER) | payer MEDICARE, OTHER, SELFPAY ==
[2023-10-17 11:24] VITALS: BP 143/80; PULSE 102; RESP 20; TEMP 36.6; O2SAT 97; BMI 25.1
--- NOTE | 2023-10-17 11:45 | ED.GENADUL1 ---
HPI - General Adult General Chief complaint: Extremity Problem, Nontraumatic Stated complaint: HIP PAIN Time Seen by Provider: 10/17/23 11:34 Source: patient Mode of arrival: Wheelchair History of Present Illness HPI narrative: 78-year-old female presented to the emergency department for right hip and knee pain. This has been an ongoing issue for her for several weeks. She had a recent MRI which showed significant canal stenosis. She had been on Heflin but has run out. There's been no subsequent trauma. The pain is severe and continuous and worse in certain positions. She hasn't been eating or drinking much and her is worried about dehydration. Related Data Home Medications Medication Instructions Recorded Confirmed diclofenac sodium 75 mg 75 mg PO Q12H PRN pain 09/16/23 09/16/23 tablet,delayed release pantoprazole 40 mg tablet,delayed 40 mg PO DAILY 09/16/23 09/16/23 release baclofen 20 mg tablet 20 mg PO Q12H 10/12/23 10/12/23 hydrocodone 5 mg-acetaminophen 325 1 tab PO Q8H PRN pain 10/12/23 10/12/23 mg tablet Previous Rx's Medication Instructions Recorded prednisone 10 mg tablet 50 mg (5 x 10 mg) PO DAILY #47 tabs 09/18/23 tizanidine 4 mg capsule 4 mg PO Q8H #14 caps 09/18/23 tramadol 50 mg tablet 50 mg PO Q6H PRN pain #28 tabs 09/18/23 ondansetron 4 mg disintegrating 4 mg PO Q4H PRN nausea and 10/12/23 tablet vomiting 3 days #6 tabs oxycodone-acetaminophen 5 mg-325 1 tab PO Q4H PRN pain #10 tabs 10/12/23 mg tablet (Percocet) hydrocodone 5 mg-acetaminophen 325 1 tab PO Q6H PRN pain #20 tabs 10/17/23 mg tablet prednisone 10 mg tablet See Rx Instructions .Route 10/17/23 .COMPLEX #30 tabs Allergies Allergy/AdvReac Type Severity Reaction Status Date / Time No Known Drug Allergies Allergy Verified 09/13/23 21:57 Review of Systems ROS Narrative A ten point review of systems is negative except as noted above. [facility] Medical History (Updated 10/17/23 @ 13:03 by Bob Nogueira MD) GERD (gastroesophageal reflux disease) ?K21.9 - Gastro-esophageal reflux disease without esophagitis (ICD-10) Acute lumbar radiculopathy ?M54.16 - Radiculopathy, lumbar region (ICD-10) Surgical History (Updated 09/16/23 @ 17:11 by Jeanne Bhatt) Skin cancer of nose ?C44.301 - Unspecified malignant neoplasm of skin of nose (ICD-10) History of cholecystectomy ?Z90.49 - Acquired absence of other specified parts of digestive tract (ICD-10) Family History (Updated 09/16/23 @ 17:13 by Jeanne Bhatt) Father Family history of myocardial infarction Family history of cancer Social History (Updated 09/16/23 @ 17:16 by Jeanne Bhatt) Within the past year, how often did you have a drink containing alcohol: 2-3 times a week Within the past year, how many standard drinks containing alcohol did you have on a typical day: 1 or 2 Within the past year, how often did you have six or more drinks on one occasion: never Total score: 0 Score interpretation: Questions 2 and 3 are 0. It can be assumed that the patient's drinking is below the recommended limits. However, please confirm the accuracy of the patient's alcohol intake over the last few months. Smoking status: Never smoker Non-prescribed substance use: denies use Previous occupational history: retired Highest level of school completed/degree received: high school graduate Are you now , , , , never or living with a partner: Little interest or pleasure in doing things: not at all Feeling down, depressed, or hopeless: not at all Feel stressed/tense/nervous/anxious/difficulty sleeping: only a little Do you think of yourself as: straight/heterosexual Exam Narrative Exam Narrative: Nurses note and vital signs reviewed and patient is not hypoxic. General: The patient appears uncomfortable. Skin: Warm, dry, no pallor noted. There is no rash noted. Head: Normocephalic, atraumatic Eye: Normal conjunctiva, no drainage Ears, Nose, Mouth, and Throat: oral mucosa is moist. Nares patent. Cardiovascular: Regular Rate and Rhythm Respiratory: Patient is in no distress, no accessory muscle use, lungs are clear to auscultation, no wheezing, rales or rhonchi Back: non-tender, no CVA tenderness bilaterally to percussion. GI: soft and nontender Musculoskeletal: the right leg is examined. There is no swelling bruise or rash or focal area of tenderness to palpation. Neurological: A&O, normal speech Psychiatric: Cooperative Constitutional Vital Signs, click to edit/add: Last Vital Signs Temp 98 F 10/17/23 11:24 Pulse 102 H 10/17/23 11:24 Resp 20 10/17/23 11:24 BP 143/80 H 10/17/23 11:24 Pulse Ox 97 10/17/23 11:24 O2 Del Method Room Air 10/17/23 11:24 Course Vital Signs Vital signs: Vital Signs Temperature 98 F 10/17/23 11:24 Pulse Rate 102 H 10/17/23 11:24 Respiratory Rate 20 10/17/23 11:24 Blood Pressure 143/80 H 10/17/23 11:24 Pulse Oximetry 97 10/17/23 11:24 Oxygen Delivery Method Room Air 10/17/23 11:24 Temperature 98 F 10/17/23 11:24 Pulse Rate 102 H 10/17/23 11:24 Respiratory Rate 20 10/17/23 11:24 Blood Pressure 143/80 H 10/17/23 11:24 Pulse Oximetry 97 10/17/23 11:24 Oxygen Delivery Method Room Air 10/17/23 11:24 Medical Decision Making MDM Narrative Medical decision making narrative: MRI findings were reviewed and discussed with the patient. She was given IV morphine here and is seemingly improved. No evidence of dehydration and she'll be discharged home with a course of prednisone and a prescription for Heflin. She has an appointment with her back specialist on November 01. Treatment diagnosis and follow-up were discussed with the paatient and her . Differential Diagnosis Differential Diagnosis: spinal stenosis, compression fracture Lab Data Lab results reviewed: Yes I reviewed the patient's lab results Labs: Lab Results 10/17/23 Range/Units 11:53 WBC 10.6 (4.0-11.0) 10^3/uL RBC 4.99 (4.20-5.40) 10^6/uL Hgb 15.2 (12.0-16.0) g/dL Hct 45.8 (36.0-48.0) % MCV 91.8 (81.0-99.0) fL MCH 30.5 (26.7-34.0) pg MCHC 33.2 (29.9-35.2) g/dL RDW 14.5 (11.0-15.0) % Plt Count 277 (150-450) 10^3/uL MPV 12.7 (9.5-13.5) fL Neut % (Auto) 79.8 H (43.0-75.0) % Lymph % (Auto) 8.6 L (20.5-60.0) % [place] % (Auto) 10.2 (1.7-12.0) % Eos % (Auto) 0.6 L (0.9-7.0) % Baso % (Auto) 0.3 (0.2-2.0) % Neut # (Auto) 8.5 H (1.4-6.5) 10^3/uL Lymph # (Auto) 0.9 L (1.2-3.8) 10^3/uL [place] # (Auto) 1.1 H (0.3-0.8) 10^3/uL Eos # (Auto) 0.1 (0.0-0.7) 10^3/uL Baso # (Auto) 0.0 (0.0-0.1) 10^3/uL Abs Immat Gran (auto) 0.05 H (0.00-0.03) 10^3/uL Imm/Tot Granulo (auto) 0.5 (0.0-0.5) % Sodium 137 (136-145) mmol/L Potassium 3.6 (3.5-5.1) mmol/L Chloride 99 (98-107) mmol/L Carbon Dioxide 25.8 (21.0-32.0) mmol/L Anion Gap 15.8 BUN 29.0 H (7.0-18.0) mg/dL Creatinine 1.03 H (0.55-1.02) mg/dL Est GFR ( Amer) >60 (>=60) Est GFR (Non-Af Amer) 52 L (>=60) BUN/Creatinine Ratio 28.2 Glucose 104 (74-106) mg/dL Calcium 10.8 H (8.5-10.1) mg/dL Discharge Plan Discharge Chief Complaint: Extremity Problem, Nontraumatic Clinical Impression: Spinal stenosis Patient Disposition: Home, Self-Care Time of Disposition Decision: 13:03 Condition: Good Mode of Transportation: Private Vehicle Prescriptions / Home Meds: New prednisone 10 mg tablet See Rx Instructions .ROUTE .COMPLEX Qty: 30 0RF Rx Instructions: 4 by mouth daily for three days then 3 by mouth daily for three days then 2 by mouth daily for three days then 1 by mouth daily for three days hydrocodone-acetaminophen 5-325 mg tablet 1 tab PO Q6H PRN (Reason: pain) Qty: 20 0RF No Action diclofenac sodium 75 mg tablet,delayed release (DR/EC) 75 mg PO Q12H PRN (Reason: pain) pantoprazole 40 mg tablet,delayed release (DR/EC) 40 mg PO DAILY tizanidine 4 mg capsule 4 mg PO Q8H Qty: 14 0RF tramadol 50 mg tablet 50 mg PO Q6H PRN (Reason: pain) Qty: 28 0RF prednisone 10 mg tablet 50 mg PO DAILY Qty: 47 0RF Rx Instructions: 5/day for 3 days. 4/day for 3 days, 3/day for 3 days, 2/day for 3 days, 1/day for 3 days, 1/2 /day for 4 days baclofen 20 mg tablet 20 mg PO Q12H hydrocodone-acetaminophen 5-325 mg tablet 1 tab PO Q8H PRN (Reason: pain) oxycodone-acetaminophen [Percocet] 5-325 mg tablet 1 tab PO Q4H PRN (Reason: pain) Qty: 10 0RF ondansetron 4 mg tablet,disintegrating 4 mg PO Q4H PRN (Reason: nausea and vomiting) 3 Days Qty: 6 0RF Instructions: Back Pain (ED) Stand Alone Forms: Portal Instructions Referrals: Daniel Vidal MD [Primary Care Provider] - 1 week
[2023-10-17 12:07] LABS: Basophils Percent Auto 0.3 % (0.2-2.0); Eosinophils Absolute Auto 0.1 10^3/uL (0.0-0.7); Eosinophils Percent Auto 0.6 % (0.9-7.0); Hematocrit 45.8 % (36.0-48.0); Hemoglobin 15.2 g/dL (12.0-16.0); Immature Granulocytes Abs Auto 0.05 10^3/uL (0.00-0.03); Immature Granulocytes Pct Auto 0.5 % (0.0-0.5); Lymphocytes Absolute Auto 0.9 10^3/uL (1.2-3.8); Lymphocytes Percent Auto 8.6 % (20.5-60.0); Mean Corpuscular HGB Conc 33.2 g/dL (29.9-35.2); Mean Corpuscular Hemoglobin 30.5 pg (26.7-34.0); Mean Corpuscular Volume 91.8 fL (81.0-99.0); Mean Platelet Volume 12.7 fL (9.5-13.5); Monocytes Absolute Auto 1.1 10^3/uL (0.3-0.8); Monocytes Percent Auto 10.2 % (1.7-12.0); Neutrophils Absolute Auto 8.5 10^3/uL (1.4-6.5); Neutrophils Percent Auto 79.8 % (43.0-75.0); Platelet Count 277 10^3/uL (150-450); Red Blood Count 4.99 10^6/uL (4.20-5.40); Red Cell Distribution Width 14.5 % (11.0-15.0); White Blood Count 10.6 10^3/uL (4.0-11.0)
[2023-10-17] MEDS: ONDANSETRON PF 4 MG/2 ML VIAL IV (12:10)
[2023-10-17] MEDS: 0.9 % SODIUM CHLORIDE 1,000 ML 125 ML IV (12:10)
[2023-10-17] MEDS: MORPHINE SULFATE 4 MG/ML VIAL IV (12:10)
[2023-10-17 12:12] LABS: Anion Gap 15.8; BUN Creatinine Ratio 28.2; Calcium 10.8 mg/dL (8.5-10.1); Carbon Dioxide 25.8 mmol/L (21.0-32.0); Chloride 99 mmol/L (98-107); Estimated GFR (African America >60 (>=60); Estimated GFR (Non-African Ame 52 (>=60); Glucose 104 mg/dL (74-106); Potassium 3.6 mmol/L (3.5-5.1); Sodium 137 mmol/L (136-145)
[2023-10-17] MEDS: PREDNISONE 20 MG TABLET 40 MG PO (13:19)
[2023-10-17] MEDS: HYDROCODONE/ACET 5-325 MG TABLET 1 TAB PO (13:19)
== END 2023-10-17 13:24 | disposition home or self-care (01) ==
PROVIDERS: Emergency Provider Emergency Medicine; PCP Family Medicine
DX: M48.00 Spinal stenosis, site unspecified (principal); K21.9 Gastro-esophageal reflux disease without esophagitis; M54.16 Radiculopathy, lumbar region; Z90.49 Acquired absence of other specified parts of digestive tract; Z85.828 Personal history of other malignant neoplasm of skin
CPT/HCPCS: 36415; 80048; 85025; 99284

== ENCOUNTER 2023-10-18 08:00 | Inpatient (IN) | payer MEDICARE, OTHER, SELFPAY ==
[2023-10-18] VITALS (29 sets, daily range): BP systolic 126–167; BP diastolic 60–95; PULSE 69–113; RESP 11–34; TEMP 36.4–36.9; O2SAT 93–100; BMI 22.6; BMI 27.6
--- NOTE | 2023-10-18 08:19 | XR_ITS ---
The [address] [address] Patient Name: HAVEN FRAIRE MRN: [id number] date: 1945 Sex: F Assigned Patient Location: ER Current Patient Location: ER Accession/Order Number: [id number] Exam Date: 10/18/2023 08:26 Report Date: 10/18/2023 08:47 At the request of: JENNIFER MARINA Procedure: XR chest 1V EXAM: XR chest 1V HISTORY: Altered mentation COMPARISON: None. TECHNIQUE: AP portable upright chest FINDINGS: There are low lung volumes with vascular crowding and bibasilar atelectasis that is worse in the left lower lobe. No focal consolidation or effusion. There is aortic atherosclerosis and upper limits of normal to borderline enlarged heart size. Pulmonary vasculature is normal. XR/XR chest 1V IMPRESSION: 1. Expiratory chest with vascular crowding and bibasilar atelectasis that is worse in the left lower lobe. No focal consolidation or effusion. 2. Upper limits normal to borderline enlarged heart. Negative for pulmonary edema. Electronically authenticated by: ANCELMO ARRIAGA Date: 10/18/2023 08:47
--- NOTE | 2023-10-18 08:19 | ECG_ITS ---
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
--- NOTE | 2023-10-18 08:21 | CT_ITS ---
[facility] [place] [id number] Patient Name: HAVEN FRAIRE MRN: [id number] date: 1945 Sex: F Assigned Patient Location: ER Current Patient Location: ER Accession/Order Number: [id number] Exam Date: 10/18/2023 08:30 Report Date: 10/18/2023 08:49 At the request of: JENNIFER MARINA Procedure: CT stroke head/brain wo con CT head without contrast, 10/18/2023. HISTORY: Unresponsive. Lethargic. Confusion. COMPARISON: None. TECHNIQUE: Noncontrast axial CT images obtained through the head. Reconstructions obtained in the sagittal and coronal planes. Dose reduction techniques were achieved by using automated exposure control and/or adjustment of mA and/or kV according to patient size and/or use of iterative reconstruction technique. FINDINGS: The paranasal sinuses are clear. Masseters are clear. Skull base unremarkable. No skull lesion. Orbital contents are normal. Nasopharynx and marketing director assisted living spaces are normal. The ventricles are normal in size. No hydrocephalus. No extra-axial fluid collections. No mass effect. No shift of midline. No acute hemorrhage. Back matter and white matter differentiation is intact. CT/CT stroke head/brain wo con IMPRESSION: 1. No acute intracranial findings. No hemorrhage. No masses. 2. No acute ischemic changes are clearly identified. Electronically authenticated by: EDWINA RUSSO Date: 10/18/2023 08:49
[2023-10-18 08:42] LABS: Salicylate <2.8 mg/dL (<=19.9)
[2023-10-18] MEDS: NALOXONE HCL 2 MG/2 ML SYRINGE IV (08:45)
[2023-10-18] MEDS: 0.9 % SODIUM CHLORIDE 1,000 ML 1000 ML IV ×3 (08:45→13:03)
[2023-10-18 08:49] LABS: Alanine Aminotransferase 16 U/L (14-59); Albumin Globulin Ratio 0.8; Albumin Level 3.5 g/dL (3.4-5.0); Alkaline Phosphatase 99 U/L (46-116); Ammonia 11 umol/L (11-32); Anion Gap 19.3; Aspartate Amino Transferase 6 U/L (15-37); BUN Creatinine Ratio 18.7; Bilirubin Total 0.6 mg/dL (0.2-1.0); Calcium 10.2 mg/dL (8.5-10.1); Carbon Dioxide 22.7 mmol/L (21.0-32.0); Chloride 99 mmol/L (98-107); Estimated GFR (African America 22 (>=60); Estimated GFR (Non-African Ame 18 (>=60); Globulin 4.2 g/dL; Glucose 137 mg/dL (74-106); Sodium 137 mmol/L (136-145); Total Protein 7.7 g/dL (6.4-8.2)
[2023-10-18 08:51] LABS: Ethanol <3 mg/dL; Troponin I High Sensitivity 11.5 pg/mL (4.0-51.3)
[2023-10-18 08:52] LABS: Acetaminophen <2.0 ug/mL (10.0-30.0)
--- NOTE | 2023-10-18 08:53 | ED_ITS ---
HPI - Altered Mental Status General Chief Complaint: Altered Mental Status Stated Complaint: back pain Time Seen by Provider: 10/18/23 08:04 Source: other Source comment: ems Mode of arrival: ambulance Limitations: no limitations History of Present Illness HPI narrative: Patient brought in by EMS for evaluation after a family member found the patient with decreased responsiveness this morning. She had just been seen in our ED yesterday - the 4th visit in about 6 weeks - for exacerbation of low back pain/LE pain. She has been on [place], then percocet, for the pain. She ran out of those, received Morphine in the ED yesterday and then was prescribed Mulhall to take at home. No recent illness or injury per family member Patient arrives drowsy, eyes closed, will answer and say her name when you yell at her but otherwise does not interact or answer questions. Related Data Home Medications Medication Instructions Recorded Confirmed diclofenac sodium 75 mg 75 mg PO Q12H PRN pain 09/16/23 09/16/23 tablet,delayed release pantoprazole 40 mg tablet,delayed 40 mg PO DAILY 09/16/23 09/16/23 release baclofen 20 mg tablet 20 mg PO Q12H 10/12/23 10/12/23 hydrocodone 5 mg-acetaminophen 325 1 tab PO Q8H PRN pain 10/12/23 10/12/23 mg tablet Previous Rx's Medication Instructions Recorded prednisone 10 mg tablet 50 mg (5 x 10 mg) PO DAILY #47 tabs 09/18/23 tizanidine 4 mg capsule 4 mg PO Q8H #14 caps 09/18/23 tramadol 50 mg tablet 50 mg PO Q6H PRN pain #28 tabs 09/18/23 ondansetron 4 mg disintegrating 4 mg PO Q4H PRN nausea and 10/12/23 tablet vomiting 3 days #6 tabs oxycodone-acetaminophen 5 mg-325 1 tab PO Q4H PRN pain #10 tabs 10/12/23 mg tablet (Percocet) hydrocodone 5 mg-acetaminophen 325 1 tab PO Q6H PRN pain #20 tabs 10/17/23 mg tablet prednisone 10 mg tablet See Rx Instructions .Route 10/17/23 .COMPLEX #30 tabs Allergies Allergy/AdvReac Type Severity Reaction Status Date / Time No Known Drug Allergies Allergy Verified 09/13/23 21:57 PFSH PFSH Medical History (Updated 10/18/23 @ 10:29 by Jennifer Marina) GERD (gastroesophageal reflux disease) ?K21.9 - Gastro-esophageal reflux disease without esophagitis (ICD-10) Acute lumbar radiculopathy ?M54.16 - Radiculopathy, lumbar region (ICD-10) Surgical History (Updated 09/16/23 @ 17:11 by Jeanne Bhatt) Skin cancer of nose ?C44.301 - Unspecified malignant neoplasm of skin of nose (ICD-10) History of cholecystectomy ?Z90.49 - Acquired absence of other specified parts of digestive tract (ICD- 10) Family History (Updated 09/16/23 @ 17:13 by Jeanne Bhatt) Father Family history of myocardial infarction Family history of cancer Social History (Updated 09/16/23 @ 17:16 by Jeanne Bhatt) Within the past year, how often did you have a drink containing alcohol: 2-3 times a week Within the past year, how many standard drinks containing alcohol did you have on a typical day: 1 or 2 Within the past year, how often did you have six or more drinks on one occasion: never Total score: 0 Score interpretation: Questions 2 and 3 are 0. It can be assumed that the patient's drinking is below the recommended limits. However, please confirm the accuracy of the patient's alcohol intake over the last few months. Smoking status: Former smoker Non-prescribed substance use: denies use Previous occupational history: retired Highest level of school completed/degree received: high school graduate Are you now , , , , never or living with a partner: Little interest or pleasure in doing things: not at all Feeling down, depressed, or hopeless: not at all Feel stressed/tense/nervous/anxious/difficulty sleeping: only a little Do you think of yourself as: straight/heterosexual Exam Narrative Exam Narrative: Nurses notes and vital signs reviewed and patient is not hypoxic. afebrile General: no apparent distress. Keeps eyes closed and only answers some questions Skin: Warm, dry, no pallor noted. No rash. Head: Normocephalic, atraumatic. No sign of trauma Neck: Supple, non-tender. Eye: Pupils are equal, round and EOMI but constricted. No scleral icterus. Ears, Nose, Mouth, and Throat: TM are clear, no posterior oropharynx erythema or nasal mucosal hypertrophy, uvula is mid-line. No oral or intraoral injury. Oral mucosa is moist Cardiovascular: Regular Rate and Rhythm without murmur, gallop or rub. Respiratory: No accessory muscle use or respiratory distress. Lungs are clear to auscultation, no wheezing, rales or rhonchi Chest Wall: no tenderness, crepitus or subcutaneous emphysema Back: No midline thoracic or lumbar vertebral tenderness. No CVA tenderness Musculoskeletal: weakly moves extremities spontaneously or with command, no calf or popliteal tenderness, no lower extremity edema/swelling GI: Abdomen is soft, non-distended. Normal bowel sounds. No masses appreciated. No tenderness to palpation. No rebound, guarding, or rigidity noted. Neurological: A&O x1 - does not answer time, place or reason for visit. Does not sit up0 on command - cannot test cranial nerves completely. Moves all extremities but weakly. Sensation intact. Psychiatric: Minimally cooperative and interactive. Constitutional Vital Signs, click to edit/add: Last Vital Signs Temp 97.8 F 10/18/23 08:03 Pulse 100 H 10/18/23 10:01 Resp 17 10/18/23 10:01 BP 167/70 H 10/18/23 10:01 Pulse Ox 100 10/18/23 10:01 O2 Del Method Room Air 10/18/23 08:03 O2 Flow Rate 2 10/18/23 08:21 Course Vital Signs Vital signs: Vital Signs Blood Pressure 160/94 H 10/18/23 08:02 Temperature 97.8 F 10/18/23 08:03 Pulse Rate 100 H 10/18/23 10:01 Respiratory Rate 17 10/18/23 10:01 Blood Pressure 167/70 H 10/18/23 10:01 Pulse Oximetry 100 10/18/23 10:01 Oxygen Delivery Method Room Air 10/18/23 08:03 Oxygen Delivery Flow Rate 2 10/18/23 08:21 MDM - Altered Mental Status MDM Narrative Medical decision making narrative: Patient was placed on quality assurance monitor and EKG obtained. Blood drawn and sent for evaluation. Aspiration precautions initiated. Patient was sent for noncontrast CT scanning of the head. Chest x-ray also obtained. Urine ordered to be obtained and sent for testing. Ethanol, salicylate and acetaminophen negative. CMP notable for elevated BUN at 4 7, elevated creatinine at 2.52. Glucose elevated at 137. Calcium minimally elevated at 10.2. Normal electrolytes otherwise. LFTs negative. Troponin normal. Ammonia normal. WBC 13k. Left shift noted. CT and chest x-ray did not reveal any acute abnormality to account for the patient's symptoms. She received 2mg dose of Narcan. She was a bit more awake and responsive after that but did not fully return to baseline mentation and awareness. Lab Data Attestation: I reviewed the patient's lab results. Labs: Lab Results 10/18/23 10/18/23 Range/Units 08:15 09:05 WBC 13.8 H (4.0-11.0) 10^3/uL RBC 4.65 (4.20-5.40) 10^6/uL Hgb 14.1 (12.0-16.0) g/dL Hct 43.2 (36.0-48.0) % MCV 92.9 (81.0-99.0) fL MCH 30.3 (26.7-34.0) pg MCHC 32.6 (29.9-35.2) g/dL RDW 14.7 (11.0-15.0) % Plt Count 144 L (150-450) 10^3/uL MPV 12.6 (9.5-13.5) fL Neut % (Auto) 89.5 H (43.0-75.0) % Lymph % (Auto) 4.8 L (20.5-60.0) % [place] % (Auto) 5.0 (1.7-12.0) % Eos % (Auto) 0.1 L (0.9-7.0) % Baso % (Auto) 0.1 L (0.2-2.0) % Neut # (Auto) 12.4 H (1.4-6.5) 10^3/uL Lymph # (Auto) 0.7 L (1.2-3.8) 10^3/uL [place] # (Auto) 0.7 (0.3-0.8) 10^3/uL Eos # (Auto) 0.0 (0.0-0.7) 10^3/uL Baso # (Auto) 0.0 (0.0-0.1) 10^3/uL Abs Immat Gran (auto) 0.07 H (0.00-0.03) 10^3/uL Imm/Tot Granulo (auto) 0.5 (0.0-0.5) % Sodium 137 (136-145) mmol/L Potassium 4.0 (3.5-5.1) mmol/L Chloride 99 (98-107) mmol/L Carbon Dioxide 22.7 (21.0-32.0) mmol/L Anion Gap 19.3 BUN 47.0 H (7.0-18.0) mg/dL Creatinine 2.52 H (0.55-1.02) mg/dL Est GFR ( Amer) 22 L (>=60) Est GFR (Non-Af Amer) 18 L (>=60) BUN/Creatinine Ratio 18.7 Glucose 137 H (74-106) mg/dL Calcium 10.2 H (8.5-10.1) mg/dL Total Bilirubin 0.6 (0.2-1.0) mg/dL AST 6 L (15-37) U/L ALT 16 (14-59) U/L Alkaline Phosphatase 99 (46-116) U/L Ammonia 11 (11-32) umol/L Troponin I High Sens 11.5 (4.0-51.3) pg/mL Total Protein 7.7 (6.4-8.2) g/dL Albumin 3.5 (3.4-5.0) g/dL Globulin 4.2 g/dL Albumin/Globulin Ratio 0.8 Urine Color Yellow (YELLOW) Urine Clarity Clear (CLEAR) Urine pH 5.5 (5.0-9.0) Ur Specific [place] 1.020 (1.005-1.025) Urine Protein 30 A (NEG/TRACE) mg/dL Urine Glucose (UA) Negative (NEGATIVE) mg/dL Urine Ketones 15 A (NEGATIVE) mg/dL Urine Occult Blood Negative (NEGATIVE) Urine Nitrite Negative (NEGATIVE) Urine Bilirubin Small A (NEGATIVE) Urine Urobilinogen 0.2 (0.2-1.0) EU/dL Ur Leukocyte Esterase Negative (NEGATIVE) Urine RBC None seen (0-2) #/HPF Urine WBC 5-10 A (NONE SEEN) #/HPF Ur Squamous Epith Cells Few A (NONE/RARE) #/LPF Urine Bacteria Moderate A (NONE SEEN) #/HPF Urine Casts Seen A (NONE SEEN) #/LPF Hyaline Casts Rare Urine Mucus None seen (NONE SEEN) Ur Culture Indicated? Yes Salicylates <2.8 (<=19.9) mg/dL Urine Opiates Screen Positive A (NEGATIVE) Ur Buprenorphine Scrn Negative (NEGATIVE) Ur Oxycodone Screen Negative (NEGATIVE) Urine Methadone Screen Negative (NEGATIVE) Acetaminophen <2.0 L (10.0-30.0) ug/mL Ur Barbiturates Screen Negative (NEGATIVE) U Tricyclic Antidepress Negative (NEGATIVE) Ur Phencyclidine Scrn Negative (NEGATIVE) Ur Amphetamines Screen Negative (NEGATIVE) U Methamphetamines Scrn Negative (NEGATIVE) U Benzodiazepines Scrn Negative (NEGATIVE) Urine Cocaine Screen Negative (NEGATIVE) U Cannabinoids Screen Negative (NEGATIVE) Ethanol Quant <3 mg/dL Imaging Data CT scan - head: Radiologist's impression: Patient Name: HAVEN FRAIRE MRN: [facility]:[id number] date: 1945 Sex: F Assigned Patient Location: ER Current Patient Location: ER Accession/Order Number: [id number] Exam Date: 10/18/2023 08:30 Report Date: 10/18/2023 08:49 At the request of: JENNIFER MARINA Procedure: CT stroke head/brain wo con CT head without contrast, 10/18/2023. HISTORY: Unresponsive. Lethargic. Confusion. COMPARISON: None. TECHNIQUE: Noncontrast axial CT images obtained through the head. Reconstructions obtained in the sagittal and coronal planes. Dose reduction techniques were achieved by using automated exposure control and/or adjustment of mA and/or kV according to patient size and/or use of iterative reconstruction technique. FINDINGS: The paranasal sinuses are clear. Masseters are clear. Skull base unremarkable. No skull lesion. Orbital contents are normal. 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 The ventricles are normal in size. No hydrocephalus. No extra-axial fluid collections. No mass effect. No shift of midline. No acute hemorrhage. Back matter and white matter differentiation is intact. IMPRESSION: 1. No acute intracranial findings. No hemorrhage. No masses. 2. No acute ischemic changes are clearly identified. Electronically authenticated by: EDWINA RUSSO Date: 10/18/2023 08:49 Chest x-ray: Radiologist's impression: Patient Name: HAVEN FRAIRE MRN: [facility]:[id number] date: 1945 Sex: F Assigned Patient Location: ER Current Patient Location: ER Accession/Order Number: [id number] Exam Date: 10/18/2023 08:26 Report Date: 10/18/2023 08:47 At the request of: JENNIFER MARINA Procedure: XR chest 1V EXAM: XR chest 1V HISTORY: Altered mentation COMPARISON: None. TECHNIQUE: AP portable upright chest FINDINGS: There are low lung volumes with vascular crowding and bibasilar atelectasis that is worse in the left lower lobe. No focal consolidation or effusion. There is aortic atherosclerosis and upper limits of normal to borderline enlarged heart size. Pulmonary vasculature is normal. IMPRESSION: 1. Expiratory chest with vascular crowding and bibasilar atelectasis that is worse in the left lower lobe. No focal consolidation or effusion. 2. Upper limits normal to borderline enlarged heart. Negative for pulmonary edema. Electronically authenticated by: ANCELMO ARRIAGA Date: 10/18/2023 08:47 ECG Data Attestation: I personally reviewed and interpreted this ECG as follows: Interpretation: EKG interpretation: Emergency Department physician interpretation. Normal sinus rhythm at 84bpm. Left bundle branch block. EKG is similar to one obtained on February 21, 2018. Discharge Plan Discharge Chief Complaint: Altered Mental Status Clinical Impression: Altered mental status Patient Disposition: Admitted as Observation Time of Disposition Decision: 10:28 Additional Instructions: dillon anton tele, OBS
[2023-10-18 08:59] LABS: Basophils Percent Auto 0.1 % (0.2-2.0); Eosinophils Percent Auto 0.1 % (0.9-7.0); Hematocrit 43.2 % (36.0-48.0); Hemoglobin 14.1 g/dL (12.0-16.0); Immature Granulocytes Abs Auto 0.07 10^3/uL (0.00-0.03); Immature Granulocytes Pct Auto 0.5 % (0.0-0.5); Lymphocytes Absolute Auto 0.7 10^3/uL (1.2-3.8); Lymphocytes Percent Auto 4.8 % (20.5-60.0); Mean Corpuscular HGB Conc 32.6 g/dL (29.9-35.2); Mean Corpuscular Hemoglobin 30.3 pg (26.7-34.0); Mean Corpuscular Volume 92.9 fL (81.0-99.0); Mean Platelet Volume 12.6 fL (9.5-13.5); Monocytes Absolute Auto 0.7 10^3/uL (0.3-0.8); Neutrophils Absolute Auto 12.4 10^3/uL (1.4-6.5); Neutrophils Percent Auto 89.5 % (43.0-75.0); Platelet Count 144 10^3/uL (150-450); Red Blood Count 4.65 10^6/uL (4.20-5.40); Red Cell Distribution Width 14.7 % (11.0-15.0); White Blood Count 13.8 10^3/uL (4.0-11.0)
--- NOTE | 2023-10-18 08:59 | PC.NURSE ---
THIS RN AND OTHER RN ADJUSTING PT IN BED FOR COMFORT. PLACED IN A GOWN AND INTO A BRIEF D/T AMS. LAB AT BEDSIDE NEEDING MORE BLOOD. ALSO AT BEDSIDE. VITALS WNL.
--- NOTE | 2023-10-18 09:07 | PC.NURSE ---
STRAIGHT CATH COMPLETED FOR UA. CLEAR YELLOW URINE COLLECTED AT TAKEN TO LAB. PT TOLERATED PROCEDURE WELL.
[2023-10-18] MEDS: ONDANSETRON PF 4 MG/2 ML VIAL IV (09:22)
[2023-10-18 09:29] LABS: Bilirubin Urine SMALL (NEGATIVE); Blood Urine NEGATIVE (NEGATIVE); Clarity Urine CLEAR (CLEAR); Color Urine YELLOW (YELLOW); Glucose Urine UA NEGATIVE (NEGATIVE); Ketones Urine 15 mg/dL (NEGATIVE); Leukocyte Esterase Urine NEGATIVE (NEGATIVE); Nitrite Urine NEGATIVE (NEGATIVE); Protein Urine 30 mg/dL (NEG/TRACE); Urobilinogen Urine 0.2 EU/dL (0.2-1.0); pH Urine 5.5 (5.0-9.0)
--- NOTE | 2023-10-18 09:37 | PC.NURSE ---
AFTER NARCAN, PT IS ABLE TO KEEP HER EYES OPEN MORE AND RESPOND BETTER. STILL AT BEDSIDE, HE IS TALKING WITH HER.
[2023-10-18 09:39] LABS: Urine Microscopic Indicated YES
[2023-10-18 09:41] LABS: Amphetamine Screen Urine NEGATIVE (NEGATIVE); Barbiturates Screen Urine NEGATIVE (NEGATIVE); Benzodiazepines Screen Urine NEGATIVE (NEGATIVE); Cannabinoid Screen Urine NEGATIVE (NEGATIVE); Cocaine Screen Urine NEGATIVE (NEGATIVE); Methadone Screen Urine NEGATIVE (NEGATIVE); Methamphetamines Screen Urine NEGATIVE (NEGATIVE); Opiate Screen Urine POSITIVE (NEGATIVE); Oxycodone Screen Urine NEGATIVE (NEGATIVE); Phencyclidine Screen Urine NEGATIVE (NEGATIVE); Tricyclic Antidepressant Urine NEGATIVE (NEGATIVE)
[2023-10-18 09:42] LABS: Buprenorphine Screen Urine NEGATIVE (NEGATIVE)
[2023-10-18 09:47] LABS: RBC Urine NONE SEEN #/HPF (0-2)
[2023-10-18 09:48] LABS: Bacteria Urine MODERATE #/HPF (NONE SEEN); Cast Seen? SEEN #/LPF (NONE SEEN); Hyaline Casts Urine RARE; Mucus Urine NONE SEEN (NONE SEEN); Squamous Epithelial Cell Urine FEW #/LPF (NONE/RARE)
[2023-10-18 09:49] LABS: Urine Culture Indicated YES
--- NOTE | 2023-10-18 12:48 | P.HP_ITS ---
H&P: HPI History of Present Illness Chief complaint: BACK PAIN Narrative: Patient with increasing altered mental status over the last 24 hours. She has been in and out of the emergency room secondary to her low back pain for which she is undergoing surgical intervention soon. Thought initially was just overmedicated. She was given Narcan without any benefit. On my exam she is still somnolent. Difficult to arouse. ER evaluation shows patient to be acutely dehydrated with acute kidney injury and likely UTI possible pyelonephritis. Review of Systems ROS Narrative History comes from Status of ROS 10 or more systems reviewed and unremark able except as noted in history and below [facility] Medical History (Updated 10/18/23 @ 12:49 by Daniel Vidal MD) GERD (gastroesophageal reflux disease) ?K21.9 - Gastro-esophageal reflux disease without esophagitis (ICD-10) Acute lumbar radiculopathy ?M54.16 - Radiculopathy, lumbar region (ICD-10) Surgical History (Updated 09/16/23 @ 17:11 by Jeanne Bhatt) Skin cancer of nose ?C44.301 - Unspecified malignant neoplasm of skin of nose (ICD-10) History of cholecystectomy ?Z90.49 - Acquired absence of other specified parts of digestive tract (ICD- 10) Family History (Updated 09/16/23 @ 17:13 by Jeanne Bhatt) Father Family history of myocardial infarction Family history of cancer Social History (Updated 09/16/23 @ 17:16 by Jeanne Bhatt) Within the past year, how often did you have a drink containing alcohol: 2-3 times a week Within the past year, how many standard drinks containing alcohol did you have on a typical day: 1 or 2 Within the past year, how often did you have six or more drinks on one occasion: never Total score: 0 Score interpretation: Questions 2 and 3 are 0. It can be assumed that the patient's drinking is below the recommended limits. However, please confirm the accuracy of the patient's alcohol intake over the last few months. Smoking status: Former smoker Non-prescribed substance use: denies use Previous occupational history: retired Highest level of school completed/degree received: high school graduate Are you now , , , , never or living with a partner: Little interest or pleasure in doing things: not at all Feeling down, depressed, or hopeless: not at all Feel stressed/tense/nervous/anxious/difficulty sleeping: only a little Do you think of yourself as: straight/heterosexual Meds Home Medications and Allergies Home Medications Medication Instructions Recorded Confirmed Type pantoprazole 40 mg tablet,delayed 40 mg PO DAILY 09/16/23 10/18/23 History release baclofen 20 mg tablet 40 mg PO .QHS 10/12/23 10/18/23 History hydrocodone 5 mg-acetaminophen 325 1 tab PO Q6H PRN pain 10/12/23 10/18/23 History mg tablet Allergies Allergy/AdvReac Type Severity Reaction Status Date / Time No Known Drug Allergies Allergy Verified 09/13/23 21:57 Exam Narrative Exam Narrative: Somnolent Constitutional Vital Signs, click to edit/add: Last Vital Signs Temp 97.5 F L 10/18/23 11:15 Pulse 69 10/18/23 12:22 Resp 18 10/18/23 11:15 BP 163/93 H 10/18/23 11:15 Pulse Ox 93 L 10/18/23 11:15 O2 Del Method Room Air 10/18/23 11:15 O2 Flow Rate 2 10/18/23 08:21 Respiratory Common normals: normal respiratory effort and no retractions Other: Sonorous respirations Cardio Common normals: regular rhythm Rate: tachycardic GI Common normals: Normal to inspection, nondistended, normoactive bowel sounds present Extremity Common normals: normal to inspection Results Labs Labs: Short CBC 10/18/23 Range/Units 08:15 WBC 13.8 H (4.0-11.0) 10^3/uL Hgb 14.1 (12.0-16.0) g/dL Hct 43.2 (36.0-48.0) % Plt Count 144 L (150-450) 10^3/uL BMP 10/18/23 08:15 Sodium 137 Potassium 4.0 Chloride 99 Carbon Dioxide 22.7 BUN 47.0 H Creatinine 2.52 H Glucose 137 H Calcium 10.2 H Liver Function 10/18/23 Range/Units 08:15 Total Bilirubin 0.6 (0.2-1.0) mg/dL AST 6 L (15-37) U/L ALT 16 (14-59) U/L Alkaline Phosphatase 99 (46-116) U/L Albumin 3.5 (3.4-5.0) g/dL Urine 10/18/23 Range/Units 09:05 Urine Color Yellow (YELLOW) Urine Clarity Clear (CLEAR) Urine pH 5.5 (5.0-9.0) Ur Specific [place] 1.020 (1.005-1.025) Urine Protein 30 A (NEG/TRACE) mg/dL Urine Glucose (UA) Negative (NEGATIVE) mg/dL Assessment and Plan Assessment and Plan (1) Acute UTI: (2) Altered mental status: (3) Spinal stenosis: Plan Tachycardia with altered mental status with acute kidney injury-creatinine 2 times normal-leukocytosis, positive UA with 5-10 WBCs, question of left lower lobe infiltrate on chest x-ray,-check lactate, urine culture, blood culture x 2, start IV antibiotics. Patient meets criteria for sepsis with multisystem organ dysfunction (neuro, kidney, heme) -with lactate pending she may reach severe sepsis-she does have a history of fluid overload so need to be a little gentle with the fluids, I will write for 1 more fluid bolus. Follow-up on urine and blood cultures tomorrow Acute kidney injury-creatinine 2 times normal-IV fluids, serial labs Acute UTI with leukourea-cultures pending, antibiotics as outlined above Possible left lower lobe pneumonia on x-ray versus more atelectasis. Will see how her respiratory status changes. Consider repeat chest x-ray Lumbar spinal stenosis-not currently having any pain issues. Monitor closely. Patient in need of surgical intervention. Infectious issues may delay surgical intervention Hypertension-likely related to the pain and sickness-we will monitor. GERD-continue with home medications With the altered mental status likely related to the dehydration and acute UTI with possible pneumonia, chance patient may improve quickly so this point we will maintain as observation. If not improved tomorrow likely a 3 to 4-day hospital stay. Overall patient pretty healthy for her age. Quick response with possible Urinary Catheter Management Urinary Catheter Management Straight: Cath placed during this visit: yes Urethral indwelling: No Insertion date: 10/18/23 Insertion time: 09:06
[2023-10-18] MEDS: CEFTRIAXONE 1,000 MG in 0.9 % SODIUM CHLORIDE 50 ML 100 MG IV (13:39)
[2023-10-18 13:58] LABS: Lactate/Lactic Acid 1.1 mmol/L (0.4-2.0)
[2023-10-18] MEDS: LACTATED RINGER'S SOLUTION 1,000 ML 100 ML IV (14:39)
[2023-10-18] MEDS: LEVOFLOXACIN IN DEXTROSE 5 % 750 MG/150 ML IV.SOLN 100 MG IV (17:14)
[2023-10-18] MEDS: BACLOFEN 10 MG TABLET 40 MG PO (22:55)
[2023-10-19] VITALS (19 sets, daily range): BP systolic 150–172; BP diastolic 74–97; PULSE 77–105; RESP 16–18; TEMP 36.8–37.1; O2SAT 91–97; BMI 27.6
[2023-10-19] MEDS: LACTATED RINGER'S SOLUTION 1,000 ML 100 ML IV ×3 (01:24→21:20)
[2023-10-19 05:32] LABS: Basophils Percent Auto 0.2 % (0.2-2.0); Eosinophils Percent Auto 0.3 % (0.9-7.0); Hemoglobin 12.3 g/dL (12.0-16.0); Immature Granulocytes Abs Auto 0.06 10^3/uL (0.00-0.03); Immature Granulocytes Pct Auto 0.5 % (0.0-0.5); Lymphocytes Absolute Auto 0.8 10^3/uL (1.2-3.8); Lymphocytes Percent Auto 6.9 % (20.5-60.0); Mean Corpuscular HGB Conc 32.4 g/dL (29.9-35.2); Mean Corpuscular Hemoglobin 30.3 pg (26.7-34.0); Mean Corpuscular Volume 93.6 fL (81.0-99.0); Mean Platelet Volume 13.1 fL (9.5-13.5); Monocytes Percent Auto 8.4 % (1.7-12.0); Neutrophils Absolute Auto 9.6 10^3/uL (1.4-6.5); Neutrophils Percent Auto 83.7 % (43.0-75.0); Platelet Count 141 10^3/uL (150-450); Red Blood Count 4.06 10^6/uL (4.20-5.40); Red Cell Distribution Width 14.7 % (11.0-15.0); White Blood Count 11.5 10^3/uL (4.0-11.0)
[2023-10-19 05:51] LABS: Alanine Aminotransferase 14 U/L (14-59); Albumin Globulin Ratio 0.8; Albumin Level 2.9 g/dL (3.4-5.0); Alkaline Phosphatase 85 U/L (46-116); Anion Gap 12.8; Aspartate Amino Transferase 16 U/L (15-37); BUN Creatinine Ratio 31.4; Bilirubin Total 0.6 mg/dL (0.2-1.0); Calcium 9.9 mg/dL (8.5-10.1); Carbon Dioxide 24.8 mmol/L (21.0-32.0); Chloride 106 mmol/L (98-107); Estimated GFR (African America >60 (>=60); Estimated GFR (Non-African Ame 52 (>=60); Globulin 3.7 g/dL; Glucose 112 mg/dL (74-106); Potassium 3.6 mmol/L (3.5-5.1); Sodium 140 mmol/L (136-145); Total Protein 6.6 g/dL (6.4-8.2)
[2023-10-19] MEDS: OMEPRAZOLE 40 MG CAPSULE.DR PO (06:24)
--- NOTE | 2023-10-19 08:05 | P.PN_ITS ---
Exam Constitutional Vital Signs, click to edit/add: Last Vital Signs Temp 98.4 F 10/18/23 22:33 Pulse 100 H 10/19/23 07:58 Resp 18 10/18/23 22:33 BP 162/77 H 10/18/23 22:33 Pulse Ox 94 L 10/19/23 04:01 O2 Del Method Room Air 10/19/23 04:01 O2 Flow Rate 2 10/18/23 08:21 Progress Note: Objective Labs Labs: Short CBC 10/18/23 10/19/23 Range/Units 08:15 04:56 WBC 13.8 H 11.5 H (4.0-11.0) 10^3/uL Hgb 14.1 12.3 (12.0-16.0) g/dL Hct 43.2 38.0 (36.0-48.0) % Plt Count 144 L 141 L (150-450) 10^3/uL BMP 10/18/23 10/19/23 08:15 04:56 Sodium 137 140 Potassium 4.0 3.6 Chloride 99 106 Carbon Dioxide 22.7 24.8 BUN 47.0 H 32.0 H Creatinine 2.52 H 1.02 Glucose 137 H 112 H Calcium 10.2 H 9.9 Liver Function 10/18/23 10/19/23 Range/Units 08:15 04:56 Total Bilirubin 0.6 0.6 (0.2-1.0) mg/dL AST 6 L 16 (15-37) U/L ALT 16 14 (14-59) U/L Alkaline Phosphatase 99 85 (46-116) U/L Albumin 3.5 2.9 L (3.4-5.0) g/dL Urine 10/18/23 Range/Units 09:05 Urine Color Yellow (YELLOW) Urine Clarity Clear (CLEAR) Urine pH 5.5 (5.0-9.0) Ur Specific [place] 1.020 (1.005-1.025) Urine Protein 30 A (NEG/TRACE) mg/dL Urine Glucose (UA) Negative (NEGATIVE) mg/dL Progress Note: A&P Assessment and Plan (1) Acute UTI: (2) Altered mental status: (3) Spinal stenosis: Plan Tachycardia with altered mental status with acute kidney injury-creatinine 2 times normal-leukocytosis, positive UA with 5-10 WBCs, question of left lower lobe infiltrate on chest x-ray,-check lactate, urine culture, blood culture x 2, start IV antibiotics. Patient meets criteria for sepsis with multisystem organ dysfunction (neuro, kidney, heme) -neurostatus somewhat improved. She is more awake than yesterday. But does not answer all questions completely. Back asleep fairly quickly. Will see how the day progresses. Change patient to inpatient status Acute kidney injury-creatinine 2 times normal-overall improved Acute UTI with leukourea-cultures pending, antibiotics as outlined above- maintain Possible left lower lobe pneumonia on x-ray versus more atelectasis. Will see how her respiratory status changes. Consider repeat chest [id number] stable Lumbar spinal stenosis-not currently having any pain issues. Monitor closely. Patient in need of surgical intervention. Infectious issues may delay surgical intervention-PT work with patient Hypertension-likely related to the pain and sickness-we will monitor.-BPM proved to stabilize, will hold off on further changes in medications GERD-continue with home medications Patient failed to improve clinically. Change patient to inpatient status. Suspect blood cultures did come back positive at this point with her lack of improvement in the first 24 hours. Likely 2-3 more day hospital stay Urinary Catheter Management Urinary Catheter Management Straight: Cath placed during this visit: yes Urethral indwelling: No Insertion date: 10/18/23 Insertion time: 09:06 Urethral: Cath placed during this visit: yes Urethral indwelling: No Insertion date: 10/18/23 Insertion time: 16:55
--- NOTE | 2023-10-19 09:17 | CM.NOTE ---
Discussed with pt and Important Message From Medicare, and pt verbalize understanding. signs paper and original given to pt and copy placed on pt's chart.
[2023-10-19] MEDS: LACTOSE -REDUCED (ENSURE ORIGINAL 237 ML LIQUID) PO (09:20)
[2023-10-19 10:43] LABS: Adenovirus NOT DETECTED (NOT DETECTE); Bordetella parapertussis NOT DETECTED (NOT DETECTE); Coronavirus 229E NOT DETECTED (NOT DETECTE); Coronavirus HKU1 NOT DETECTED (NOT DETECTE); Coronavirus NL63 NOT DETECTED (NOT DETECTE); Coronavirus OC43 NOT DETECTED (NOT DETECTE); Human Metapneumovirus NOT DETECTED (NOT DETECTE); Human Rhinovirus/Enterovirus NOT DETECTED (NOT DETECTE); Influenza A NOT DETECTED (NOT DETECTE); Influenza B NOT DETECTED (NOT DETECTE); Mycoplasma pneumoniae NOT DETECTED (NOT DETECTE); Parainfluenza Virus 1 NOT DETECTED (NOT DETECTE); Parainfluenza Virus 2 NOT DETECTED (NOT DETECTE); Parainfluenza Virus 3 NOT DETECTED (NOT DETECTE); Parainfluenza Virus 4 NOT DETECTED (NOT DETECTE); Respiratory Syncytial Virus NOT DETECTED (NOT DETECTE); SARS-CoV-2 NOT DETECTED (NOT DETECTE)
[2023-10-19 11:09] LABS: SARS-CoV-2 Ag NEGATIVE (NEGATIVE)
[2023-10-19] MEDS: CEFTRIAXONE 1,000 MG in 0.9 % SODIUM CHLORIDE 50 ML 100 MG IV (14:58)
[2023-10-19] MEDS: LISINOPRIL 10 MG TABLET PO (15:19)
[2023-10-19] MEDS: LEVOFLOXACIN IN DEXTROSE 5 % 750 MG/150 ML IV.SOLN 100 MG IV (15:46)
[2023-10-19] MEDS: BACLOFEN 10 MG TABLET 40 MG PO (21:12)
[2023-10-19] MEDS: HYDROCODONE/ACET 5-325 MG TABLET 1 TAB PO (21:12)
[2023-10-20] VITALS (18 sets, daily range): BP systolic 135–151; BP diastolic 78–82; PULSE 72–95; RESP 16–18; TEMP 36.7–36.9; O2SAT 92–96
[2023-10-20] MEDS: HYDROCODONE/ACET 5-325 MG TABLET 1 TAB PO (03:39)
[2023-10-20 05:38] LABS: Basophils Percent Auto 0.2 % (0.2-2.0); Eosinophils Percent Auto 0.5 % (0.9-7.0); Hematocrit 34.1 % (36.0-48.0); Hemoglobin 11.4 g/dL (12.0-16.0); Immature Granulocytes Abs Auto 0.06 10^3/uL (0.00-0.03); Immature Granulocytes Pct Auto 0.7 % (0.0-0.5); Lymphocytes Absolute Auto 0.8 10^3/uL (1.2-3.8); Lymphocytes Percent Auto 9.3 % (20.5-60.0); Mean Corpuscular HGB Conc 33.4 g/dL (29.9-35.2); Mean Corpuscular Hemoglobin 30.6 pg (26.7-34.0); Mean Corpuscular Volume 91.4 fL (81.0-99.0); Mean Platelet Volume 13.5 fL (9.5-13.5); Monocytes Percent Auto 11.4 % (1.7-12.0); Neutrophils Absolute Auto 6.9 10^3/uL (1.4-6.5); Neutrophils Percent Auto 77.9 % (43.0-75.0); Platelet Count 209 10^3/uL (150-450); Red Blood Count 3.73 10^6/uL (4.20-5.40); Red Cell Distribution Width 14.7 % (11.0-15.0); White Blood Count 8.9 10^3/uL (4.0-11.0)
[2023-10-20] MEDS: OMEPRAZOLE 40 MG CAPSULE.DR PO (05:42)
[2023-10-20 05:58] LABS: Alanine Aminotransferase 8 U/L (14-59); Albumin Globulin Ratio 0.7; Albumin Level 2.4 g/dL (3.4-5.0); Alkaline Phosphatase 70 U/L (46-116); Anion Gap 9.1; Aspartate Amino Transferase 15 U/L (15-37); BUN Creatinine Ratio 30.6; Bilirubin Total 0.7 mg/dL (0.2-1.0); Chloride 101 mmol/L (98-107); Estimated GFR (African America >60 (>=60); Estimated GFR (Non-African Ame >60 (>=60); Globulin 3.4 g/dL; Glucose 102 mg/dL (74-106); Potassium 3.1 mmol/L (3.5-5.1); Sodium 135 mmol/L (136-145); Total Protein 5.8 g/dL (6.4-8.2)
[2023-10-20] MEDS: POTASSIUM CHLORIDE 40 MEQ in 0.9 % SODIUM CHLORIDE 250 ML 67.5 MEQ IV (07:46)
[2023-10-20] MEDS: LACTATED RINGER'S SOLUTION 1,000 ML 100 ML IV (07:46)
--- NOTE | 2023-10-20 07:55 | P.DS_ITS ---
DS: Providers Provider Date of admission: 10/19/23 08:02 Primary care physician: Daniel Vidal MD Consults: 10/18/23 Consult to Dietitian Routine Reason For Exam: poor appetite Reason for consultation: poor appetite 10/18/23 12:24 Occupational Therapy Eval and Treat Routine Reason for consultation: Only if needed for Rehab Has provider been notified: No Physical Therapy Eval and Treat Routine Reason for consultation: Eval and Treat Has provider been notified: No DS: Diagnosis Discharge Diagnosis (1) Acute UTI: (2) Altered mental status: (3) Spinal stenosis: Plan Tachycardia with altered mental status with acute kidney injury-creatinine 2 times normal-leukocytosis, positive UA with 5-10 WBCs, question of left lower lobe infiltrate on chest x-ray,-check lactate, urine culture, blood culture x 2, start IV antibiotics. Patient meets criteria for sepsis with multisystem organ dysfunction (neuro, kidney, heme) -neurostatus somewhat improved. She is more awake than yesterday. But does not answer all questions completely. Back asleep fairly quickly. Will see how the day progresses. Change patient to inpatient status Acute kidney injury-creatinine 2 times normal-overall improved Acute UTI with leukourea-cultures pending, antibiotics as outlined above- maintain Possible left lower lobe pneumonia on x-ray versus more atelectasis. Will see how her respiratory status changes. Consider repeat chest d-[id number] stable Lumbar spinal stenosis-not currently having any pain issues. Monitor closely. Patient in need of surgical intervention. Infectious issues may delay surgical intervention-PT work with patient Hypertension-likely related to the pain and sickness-we will monitor.-BPM proved to stabilize, will hold off on further changes in medications GERD-continue with home medications Patient failed to improve clinically. Change patient to inpatient status. Suspect blood cultures did come back positive at this point with her lack of improvement in the first 24 hours. Likely 2-3 more day hospital stay DS: Summary Time Spent with Patient Time attestation: Total time spent providing and/or coordinating discharge services: Exam Constitutional Vital Signs, click to edit/add: Last Vital Signs Temp 98.5 F 10/20/23 05:46 Pulse 72 10/20/23 05:53 Resp 18 10/20/23 05:46 BP 135/80 10/20/23 05:46 Pulse Ox 94 L 10/20/23 05:46 O2 Del Method Room Air 10/20/23 05:46 O2 Flow Rate 2 10/18/23 08:21 DS: Data Data Completed and Pending Labs on day of discharge: Labs from last 24 hours 10/20/23 10/19/23 10/19/23 04:53 10:40 10:40 WBC 8.9 RBC 3.73 L Hgb 11.4 L Hct 34.1 L MCV 91.4 MCH 30.6 MCHC 33.4 RDW 14.7 Plt Count 209 MPV 13.5 Neut % (Auto) 77.9 H Lymph % (Auto) 9.3 L [place] % (Auto) 11.4 Eos % (Auto) 0.5 L Baso % (Auto) 0.2 Neut # (Auto) 6.9 H Lymph # (Auto) 0.8 L [place] # (Auto) 1.0 H Eos # (Auto) 0.0 Baso # (Auto) 0.0 Abs Immat Gran (auto) 0.06 H Imm/Tot Granulo (auto) 0.7 H Sodium 135 L Potassium 3.1 L Chloride 101 Carbon Dioxide 28.0 Anion Gap 9.1 BUN 19.0 H Creatinine 0.62 Est GFR ( Amer) >60 Est GFR (Non-Af Amer) >60 BUN/Creatinine Ratio 30.6 Glucose 102 Calcium 9.0 Total Bilirubin 0.7 AST 15 ALT 8 L Alkaline Phosphatase 70 Total Protein 5.8 L Albumin 2.4 L Globulin 3.4 Albumin/Globulin Ratio 0.7 Adenovirus (PCR) Not detected C. pneumoniae DNA (PCR) Not detected Coronavirus Type OC43 Not detected Coronavirus Type HKU1 Not detected Coronavirus Type 229E Not detected SARS-CoV-2 (PCR) Not detected Negative Coronavirus Type NL63 Not detected Human Metapneumovir PCR Not detected M. pneumoniae (PCR) Not detected Parainfluenza PCR Not detected Parainfluenza 2 (PCR) Not detected Parainfluenza 3 (PCR) Not detected Parainfluenza 4 (PCR) Not detected RSV (RT-PCR) Not detected Entero/Rhino (PCR) Not detected Bordetella pertussis (PCR) Not detected B parapertussis DNA PCR Not detected Influenza Type A (PCR) Not detected Influenza Type B (PCR) Not detected Discharge Plan Discharge Disposition: Xfer SNF Discharge Medications: New lisinopril 10 mg Tablet 10 mg PO QD Qty: 30 11RF levofloxacin 500 mg tablet 500 mg PO DAILY 10 Days Qty: 10 0RF Continued pantoprazole 40 mg tablet,delayed release (DR/EC) 40 mg PO DAILY baclofen 20 mg tablet 40 mg PO .QHS hydrocodone-acetaminophen 5-325 mg tablet 1 tab PO Q6H PRN (Reason: pain) Forms: Portal Instructions
--- NOTE | 2023-10-20 09:43 | CM.NOTE ---
Spoke with pt and regarding PT and OT recommendations for skilled therapy. Pt and are in agreement with [facility] for skilled therapy. Pt is more awake today and would like to see how she does throughout the day with therapy and ambulation today. Pt ok with [facility] sending clinical to [facility]. Faxed clinical for new referral to [facility].
[2023-10-20] MEDS: LISINOPRIL 10 MG TABLET PO (09:56)
[2023-10-20] MEDS: POTASSIUM CHLORIDE 10 MEQ ER TABLET 20 MEQ PO ×2 (09:58→21:48)
[2023-10-20] MEDS: LACTOSE -REDUCED (ENSURE ORIGINAL 237 ML LIQUID) PO ×2 (10:03→21:48)
--- NOTE | 2023-10-20 10:17 | PT.DAILY ---
Physical Therapy Daily Note PT Daily Note/Assess Start: 10/20/23 10:12 Freq: Status: Active Protocol: Document 10/20/23 10:13 SERGE (Rec: 10/20/23 10:17 SERGE [id number]) Physical Therapy Daily Note/Assessment Time In/Time Out Time In 09:37 Time Out 09:53 Pain In Pain N/A Pain Out Pain N/A Subjective Subjective Pt supine upon arrival. Agrees to PT. Family present throughout session. Therapeutic Exercise Time Therapeutic Exercise Minutes (minutes) 3 Therapeutic Exercise Units 0 Therapeutic Exercise Treatment Therapeutic Exercise Treatment Seated bilat LE strengthening ex complete while sitting EOB unsupported 5-10x ea. Therapeutic Activity Time Therapeutic Activity Minutes (minutes) 8 Therapeutic Activity Units 1 Therapeutic Activity Treatment Bed Mobility Ability Moderate Assist Chair Transfer Ability Minimum Assist Therapeutic Activity Comments Supine>sit ModA to advance upper body to sit EOB. Pt able to sit EOB unsupported without LOB. Pt performs seated ex while sitting EOB. Pt then sit>stand to RW with Jamil - 45 sec tolerance before needing to sit to rest. Sit> stand again with Jamil. Pt takes 4 side steps to L up to HOB with assistance to move RW with her. Pt demonstrates heavy posterior sway and needs occ Jamil for correction. Pt returned to supine with ModA for LEs. Remains supine with call light in reach and needs met. Total Physical Therapy Time Total Therapy Minutes 11 Total Physical Therapy Units 1 Summary Daily Note Summary Improved transfer ability and standing tolerance today.
--- NOTE | 2023-10-20 12:17 | P.PN_ITS ---
Progress Note: Subjective Subjective Interval history: Patient very lethargic this morning, difficult to arouse the first time and made rounds, came back about 45 minutes later patient was more awake, still not making direct eye contact at times no focal neurological deficits Exam Narrative Exam Narrative: Somnolent Constitutional Vital Signs, click to edit/add: Last Vital Signs Temp 98.1 F 10/20/23 08:00 Pulse 86 10/20/23 12:04 Resp 16 10/20/23 08:00 BP 146/78 H 10/20/23 09:56 Pulse Ox 94 L 10/20/23 11:01 O2 Del Method Room Air 10/20/23 11:01 O2 Flow Rate 2 10/18/23 08:21 Chest Common normals: inspection of chest normal Respiratory Common normals: normal respiratory effort and no retractions Other: Sonorous respirations Cardio Common normals: regular rhythm Rate: tachycardic GI Common normals: Normal to inspection, nondistended, normoactive bowel sounds present Extremity Common normals: normal to inspection Neuro Sensorium/orientation: awake; not alert Progress Note: Objective Labs Labs: Short CBC 10/20/23 Range/Units 04:53 WBC 8.9 (4.0-11.0) 10^3/uL Hgb 11.4 L (12.0-16.0) g/dL Hct 34.1 L (36.0-48.0) % Plt Count 209 (150-450) 10^3/uL BMP 10/20/23 04:53 Sodium 135 L Potassium 3.1 L Chloride 101 Carbon Dioxide 28.0 BUN 19.0 H Creatinine 0.62 Glucose 102 Calcium 9.0 Liver Function 10/20/23 Range/Units 04:53 Total Bilirubin 0.7 (0.2-1.0) mg/dL AST 15 (15-37) U/L ALT 8 L (14-59) U/L Alkaline Phosphatase 70 (46-116) U/L Albumin 2.4 L (3.4-5.0) g/dL Progress Note: A&P Assessment and Plan (1) Acute UTI: (2) Altered mental status: (3) Spinal stenosis: (4) SIRS (systemic inflammatory response syndrome): Plan Tachycardia with altered mental status with acute kidney injury-creatinine 2 times normal-leukocytosis, positive UA with 5-10 WBCs, question of left lower lobe infiltrate on chest x-ray,-check lactate, urine culture, blood culture x 2, start IV antibiotics. Patient meets criteria for SIRS with multisystem organ dysfunction (neuro, kidney, heme) -neurostatus somewhat improved. Continue with current treatment plan Acute kidney injury-creatinine 2 times normal-baseline Acute UTI with leukourea-culture negative, infection still possible with pneumonia based on x-ray, see below, overall maintaining current antibiotic regiment and Possible left lower lobe pneumonia on x-ray versus more atelectasis. Will see how her respiratory status changes. Consider repeat chest [id number]-[id number] stable Lumbar spinal stenosis-not currently having any pain issues. Pain medication dosage in half in case that is leading to her altered mental status Hypertension-likely related to the pain and sickness-change medications yesterday, improved today. Thrombocytopenia-improved to baseline Hyponatremia likely fluid related-will hold off on fluids today. Encourage p.o. intake. GERD-continue with home medications Patient failed to improve clinically. Waxing and waning mental status. Overall still improved from baseline, maintain inpatient status, continue to adjust medications Urinary Catheter Management Urinary Catheter Management Straight: Cath placed during this visit: yes Urethral indwelling: No Insertion date: 10/18/23 Insertion time: 09:06 Urethral: Cath placed during this visit: yes Urethral indwelling: No Insertion date: 10/18/23 Insertion time: 16:55
--- NOTE | 2023-10-20 12:29 | CM.NOTE ---
[facility] can accept pt for skilled therapy, update given to pt and . RN also updated.
[2023-10-20] MEDS: CEFTRIAXONE 1,000 MG in 0.9 % SODIUM CHLORIDE 50 ML 100 MG IV (15:36)
[2023-10-20] MEDS: 0.9 % SODIUM CHLORIDE 250 ML 10 ML IV (15:36)
[2023-10-20] MEDS: ACETAMINOPHEN 500 MG TABLET 1000 MG PO (15:42)
[2023-10-20] MEDS: LEVOFLOXACIN IN DEXTROSE 5 % 750 MG/150 ML IV.SOLN 100 MG IV (16:10)
[2023-10-20] MEDS: CALCIUM CARBONATE 500 MG (200MG ELEMENTAL) TAB CHEW PO (20:08)
[2023-10-20] MEDS: BACLOFEN 10 MG TABLET 40 MG PO (21:48)
[2023-10-21] VITALS (17 sets, daily range): BP systolic 114–148; BP diastolic 70–80; PULSE 80–98; RESP 16–18; TEMP 36.6–36.8; O2SAT 91–98
[2023-10-21] MEDS: HYDROCODONE/ACET 5-325 MG TABLET 0.5 TAB PO (01:50)
--- NOTE | 2023-10-21 02:21 | PC.NURSE ---
When rounding on the patient, the RN helped to reposition the patient to a comfortable position. Then the patient stated, You will think I am delusional, but I think there is a critter in my bag. The patient then asked the nurse to check her bag. RN brought the bag to the patient and showed her the clothes that were in the bag. The patient was then satisfied and said, it must have been the bag rustling that I heard. Patient is currently resting in bed with the call light in reach. She denies any needs at this time.
[2023-10-21] MEDS: OMEPRAZOLE 40 MG CAPSULE.DR PO (05:23)
[2023-10-21 06:08] LABS: Basophils Percent Auto 0.1 % (0.2-2.0); Eosinophils Percent Auto 0.5 % (0.9-7.0); Hematocrit 34.6 % (36.0-48.0); Hemoglobin 11.5 g/dL (12.0-16.0); Immature Granulocytes Abs Auto 0.03 10^3/uL (0.00-0.03); Immature Granulocytes Pct Auto 0.4 % (0.0-0.5); Lymphocytes Absolute Auto 0.9 10^3/uL (1.2-3.8); Mean Corpuscular HGB Conc 33.2 g/dL (29.9-35.2); Mean Corpuscular Hemoglobin 30.3 pg (26.7-34.0); Mean Corpuscular Volume 91.3 fL (81.0-99.0); Mean Platelet Volume 12.8 fL (9.5-13.5); Monocytes Percent Auto 12.3 % (1.7-12.0); Neutrophils Absolute Auto 6.2 10^3/uL (1.4-6.5); Neutrophils Percent Auto 75.7 % (43.0-75.0); Platelet Count 191 10^3/uL (150-450); Red Blood Count 3.79 10^6/uL (4.20-5.40); Red Cell Distribution Width 14.6 % (11.0-15.0); White Blood Count 8.2 10^3/uL (4.0-11.0)
[2023-10-21 06:32] LABS: Alanine Aminotransferase 8 U/L (14-59); Albumin Globulin Ratio 0.6; Albumin Level 2.2 g/dL (3.4-5.0); Alkaline Phosphatase 72 U/L (46-116); Anion Gap 10.4; Aspartate Amino Transferase 17 U/L (15-37); BUN Creatinine Ratio 23.4; Bilirubin Total 0.5 mg/dL (0.2-1.0); Calcium 9.4 mg/dL (8.5-10.1); Carbon Dioxide 28.2 mmol/L (21.0-32.0); Chloride 105 mmol/L (98-107); Estimated GFR (African America >60 (>=60); Estimated GFR (Non-African Ame >60 (>=60); Globulin 3.6 g/dL; Glucose 94 mg/dL (74-106); Potassium 3.6 mmol/L (3.5-5.1); Sodium 140 mmol/L (136-145); Total Protein 5.8 g/dL (6.4-8.2)
--- NOTE | 2023-10-21 08:06 | P.PN_ITS ---
Progress Note: Subjective Subjective Interval history: Patient more awake than previous days. Family including and daughter and granddaughter are in the room. They agree she looks more awake this morning. Still having some confusion and visual hallucinations at nighttime. Exam Narrative Exam Narrative: Somnolent Constitutional Vital Signs, click to edit/add: Last Vital Signs Temp 98.2 F 10/21/23 05:34 Pulse 87 10/21/23 07:55 Resp 16 10/21/23 05:34 BP 148/80 H 10/21/23 05:34 Pulse Ox 94 L 10/21/23 05:34 O2 Del Method Room Air 10/21/23 05:34 O2 Flow Rate 2 10/18/23 08:21 Chest Common normals: inspection of chest normal Respiratory Common normals: normal respiratory effort and no retractions Other: Sonorous respirations Cardio Common normals: regular rhythm Rate: tachycardic GI Common normals: Normal to inspection, nondistended, normoactive bowel sounds present Extremity Common normals: normal to inspection Neuro Sensorium/orientation: awake; not alert Progress Note: Objective Labs Labs: Short CBC 10/21/23 Range/Units 05:22 WBC 8.2 (4.0-11.0) 10^3/uL Hgb 11.5 L (12.0-16.0) g/dL Hct 34.6 L (36.0-48.0) % Plt Count 191 (150-450) 10^3/uL BMP 10/21/23 05:22 Sodium 140 Potassium 3.6 Chloride 105 Carbon Dioxide 28.2 BUN 15.0 Creatinine 0.64 Glucose 94 Calcium 9.4 Liver Function 10/21/23 Range/Units 05:22 Total Bilirubin 0.5 (0.2-1.0) mg/dL AST 17 (15-37) U/L ALT 8 L (14-59) U/L Alkaline Phosphatase 72 (46-116) U/L Albumin 2.2 L (3.4-5.0) g/dL Progress Note: A&P Assessment and Plan (1) Acute UTI: (2) Altered mental status: (3) Spinal stenosis: (4) SIRS (systemic inflammatory response syndrome): Plan Tachycardia with altered mental status with acute kidney injury-creatinine 2 times normal-leukocytosis, positive UA with 5-10 WBCs, question of left lower lobe infiltrate on chest x-ray,-check lactate, urine culture, blood culture x 2, start IV antibiotics. Patient meets criteria for SIRS with multisystem organ dysfunction (neuro, kidney, heme)-overall continues to improve so continue the current treatment plan. Acute kidney injury-creatinine 2 times normal-baseline Acute UTI with leukourea-culture negative, finish out the antibiotic. Possible left lower lobe pneumonia on x-ray versus more atelectasis. Finish out the antibiotics. Lumbar spinal stenosis-not currently having any pain issues. He did continue to reduce occasion usage as patient's mental status cannot tolerate doses previou sly given. Hypertension-likely related to the pain and sickness-change medications yesterday, improved today. Thrombocytopenia-improved to baseline Hyponatremia likely fluid related-will hold off on fluids today. Encourage p.o. intake. GERD-continue with home medications Continue to work with physical therapy today rehab tomorrow Urinary Catheter Management Urinary Catheter Management Straight: Cath placed during this visit: yes Urethral indwelling: No Insertion date: 10/18/23 Insertion time: 09:06 Urethral: Cath placed during this visit: yes Urethral indwelling: No Insertion date: 10/18/23 Insertion time: 16:55
[2023-10-21] MEDS: LISINOPRIL 10 MG TABLET PO (09:27)
[2023-10-21] MEDS: CITALOPRAM HYDROBROMIDE 20 MG TABLET 10 MG PO (09:27)
[2023-10-21] MEDS: POTASSIUM CHLORIDE 10 MEQ ER TABLET 20 MEQ PO ×2 (09:27→21:44)
[2023-10-21] MEDS: LACTOSE -REDUCED (ENSURE ORIGINAL 237 ML LIQUID) PO ×2 (09:28→21:44)
[2023-10-21] MEDS: ACETAMINOPHEN 500 MG TABLET 1000 MG PO (09:28)
--- NOTE | 2023-10-21 10:43 | PT.DAILY ---
Physical Therapy Daily Note PT Daily Note/Assess Start: 10/20/23 10:12 Freq: Status: Active Protocol: Document 10/21/23 10:39 SERGE (Rec: 10/21/23 10:43 SERGE [id number]) Physical Therapy Daily Note/Assessment Time In/Time Out Time In 10:25 Time Out 10:35 Pain In Pain N/A Pain Out Pain N/A Subjective Subjective Pt supine upon arrival. Pt's call light is on to use the restroom, believes she needs to have a bowel movement. Therapeutic Activity Time Therapeutic Activity Minutes (minutes) 8 Therapeutic Activity Units 1 Therapeutic Activity Treatment Bed Mobility Ability Standby Assistance Chair Transfer Ability Contact Guard Assist Therapeutic Activity Comments Supine>sit SBA today with increased time needed and catheter moved for pt. Pt sits EOB without LOB. Sit>stand to RW CGA for safety due to posterior lean. Pt amb 15' to restroom with RW, CGA. Slow selvin and short choppy steps taken. Pt able to lower herself to the toilet using grab bar with increased time needed. Pt reports she will be a while and nursing is notified that pt has call light pull string within reach . Total Physical Therapy Time Total Therapy Minutes 8 Total Physical Therapy Units 1 Summary Daily Note Summary Improved transfer and gait ability today.
--- NOTE | 2023-10-21 11:04 | CM.NOTE ---
Updates sent to [facility].
[2023-10-21] MEDS: HYDROXYZINE PAMOATE 25 MG CAPSULE PO (11:45)
[2023-10-21] MEDS: POLYETHYLENE GLYCOL 3350 17 GM POWDER PACKET PO (12:29)
[2023-10-21] MEDS: CEFTRIAXONE 1,000 MG in 0.9 % SODIUM CHLORIDE 50 ML 100 MG IV (14:07)
[2023-10-21] MEDS: LEVOFLOXACIN IN DEXTROSE 5 % 750 MG/150 ML IV.SOLN 100 MG IV (15:06)
[2023-10-21] MEDS: TIZANIDINE HCL 4 MG TABLET PO (21:44)
[2023-10-22] VITALS (8 sets, daily range): BP systolic 126–135; BP diastolic 76–78; PULSE 71–108; RESP 16; TEMP 36.7; O2SAT 92–95
[2023-10-22 05:22] LABS: Basophils Percent Auto 0.5 % (0.2-2.0); Eosinophils Absolute Auto 0.1 10^3/uL (0.0-0.7); Eosinophils Percent Auto 1.4 % (0.9-7.0); Hematocrit 33.2 % (36.0-48.0); Hemoglobin 10.8 g/dL (12.0-16.0); Immature Granulocytes Abs Auto 0.08 10^3/uL (0.00-0.03); Immature Granulocytes Pct Auto 1.3 % (0.0-0.5); Lymphocytes Absolute Auto 1.1 10^3/uL (1.2-3.8); Lymphocytes Percent Auto 17.7 % (20.5-60.0); Mean Corpuscular HGB Conc 32.5 g/dL (29.9-35.2); Mean Corpuscular Hemoglobin 30.1 pg (26.7-34.0); Mean Corpuscular Volume 92.5 fL (81.0-99.0); Mean Platelet Volume 12.9 fL (9.5-13.5); Monocytes Absolute Auto 0.8 10^3/uL (0.3-0.8); Monocytes Percent Auto 13.1 % (1.7-12.0); Neutrophils Absolute Auto 4.1 10^3/uL (1.4-6.5); Platelet Count 180 10^3/uL (150-450); Red Blood Count 3.59 10^6/uL (4.20-5.40); Red Cell Distribution Width 14.7 % (11.0-15.0); White Blood Count 6.3 10^3/uL (4.0-11.0)
[2023-10-22] MEDS: OMEPRAZOLE 40 MG CAPSULE.DR PO (05:35)
[2023-10-22 05:42] LABS: Alanine Aminotransferase 13 U/L (14-59); Albumin Globulin Ratio 0.6; Albumin Level 2.2 g/dL (3.4-5.0); Alkaline Phosphatase 66 U/L (46-116); Anion Gap 10.4; Aspartate Amino Transferase 15 U/L (15-37); BUN Creatinine Ratio 26.8; Bilirubin Total 0.4 mg/dL (0.2-1.0); Calcium 9.2 mg/dL (8.5-10.1); Carbon Dioxide 28.4 mmol/L (21.0-32.0); Chloride 104 mmol/L (98-107); Estimated GFR (African America >60 (>=60); Estimated GFR (Non-African Ame >60 (>=60); Globulin 3.5 g/dL; Glucose 96 mg/dL (74-106); Potassium 3.8 mmol/L (3.5-5.1); Sodium 139 mmol/L (136-145); Total Protein 5.7 g/dL (6.4-8.2)
[2023-10-22] MEDS: CITALOPRAM HYDROBROMIDE 20 MG TABLET 10 MG PO (08:34)
[2023-10-22] MEDS: POTASSIUM CHLORIDE 10 MEQ ER TABLET 20 MEQ PO (08:34)
[2023-10-22] MEDS: LACTOSE -REDUCED (ENSURE ORIGINAL 237 ML LIQUID) PO (08:34)
[2023-10-22] MEDS: POLYETHYLENE GLYCOL 3350 17 GM POWDER PACKET PO (08:35)
[2023-10-22] MEDS: LISINOPRIL 10 MG TABLET PO (08:35)
[2023-10-22] MEDS: CALCIUM CARBONATE 500 MG (200MG ELEMENTAL) TAB CHEW PO (08:40)
[2023-10-22] MEDS: ACETAMINOPHEN 500 MG TABLET 1000 MG PO (08:40)
--- NOTE | 2023-10-22 09:20 | P.DS_ITS ---
DS: Providers Provider Date of admission: 10/19/23 08:02 Primary care physician: Daniel Vidal MD Consults: 10/18/23 Consult to Dietitian Routine Reason For Exam: poor appetite Reason for consultation: poor appetite 10/18/23 12:24 Occupational Therapy Eval and Treat Routine Reason for consultation: Only if needed for Rehab Has provider been notified: No Physical Therapy Eval and Treat Routine Reason for consultation: Eval and Treat Has provider been notified: No DS: Diagnosis Discharge Diagnosis (1) Acute UTI: (2) Altered mental status: (3) Spinal stenosis: (4) SIRS (systemic inflammatory response syndrome): Assessment and plan: Tachycardia with altered mental status with acute kidney injury-creatinine 2 times normal-leukocytosis, positive UA with 5-10 WBCs, question of left lower lobe infiltrate on chest x-ray,-check lactate, urine culture, blood culture x 2, start IV antibiotics. Patient meets criteria for SIRS with multisystem organ dysfunction (neuro, kidney, heme) Acute kidney injury Acute UTI with leukourea Possible left lower lobe pneumonia on x-ray versus more atelectasis. Lumbar spinal stenosis Hypertension Thrombocytopenia Hyponatremia likely fluid related GERD Bacterial vaginosis-start Flagyl Sundowner syndrome DS: Summary Hospital Course Hospital Course: Patient presented emergency room with Tachycardia with altered mental status with acute kidney injury-creatinine 2 times normal-leukocytosis, positive UA with 5-10 WBCs, question of left lower lobe infiltrate on chest x-ray,-check lactate, urine culture, blood culture x 2, start IV antibiotics. Patient meets criteria for SIRS with multisystem organ dysfunction (neuro, kidney, heme). Placed on antibiotics and IV fluids. Patient did improve the following day but was slow to return to her baseline mental status. Medications were adjusted including her pain medications. She has been slowly improving over the last 3 days. Still having some sundowning issues. But she is stable for rehab today. I will follow patient at rehab. Continue with current medications as outlined in the list. Time Spent with Patient Time attestation: Total time spent providing and/or coordinating discharge services: Exam Narrative Exam Narrative: Somnolent Constitutional Vital Signs, click to edit/add: Last Vital Signs Temp 98.1 F 10/22/23 03:49 Pulse 108 H 10/22/23 08:00 Resp 16 10/22/23 07:55 BP 126/78 10/22/23 07:55 Pulse Ox 92 L 10/22/23 07:55 O2 Del Method Room Air 10/22/23 07:55 O2 Flow Rate 2 10/18/23 08:21 Chest Common normals: inspection of chest normal Respiratory Common normals: normal respiratory effort and no retractions Other: Sonorous respirations Cardio Common normals: regular rhythm Rate: tachycardic GI Common normals: Normal to inspection, nondistended, normoactive bowel sounds present Extremity Common normals: normal to inspection Neuro Sensorium/orientation: awake; not alert DS: Data Data Completed and Pending Labs on day of discharge: Labs from last 24 hours 10/22/23 05:03 WBC 6.3 RBC 3.59 L Hgb 10.8 L Hct 33.2 L MCV 92.5 MCH 30.1 MCHC 32.5 RDW 14.7 Plt Count 180 MPV 12.9 Neut % (Auto) 66.0 Lymph % (Auto) 17.7 L [place] % (Auto) 13.1 H Eos % (Auto) 1.4 Baso % (Auto) 0.5 Neut # (Auto) 4.1 Lymph # (Auto) 1.1 L [place] # (Auto) 0.8 Eos # (Auto) 0.1 Baso # (Auto) 0.0 Abs Immat Gran (auto) 0.08 H Imm/Tot Granulo (auto) 1.3 H Sodium 139 Potassium 3.8 Chloride 104 Carbon Dioxide 28.4 Anion Gap 10.4 BUN 19.0 H Creatinine 0.71 Est GFR ( Amer) >60 Est GFR (Non-Af Amer) >60 BUN/Creatinine Ratio 26.8 Glucose 96 Calcium 9.2 Total Bilirubin 0.4 AST 15 ALT 13 L Alkaline Phosphatase 66 Total Protein 5.7 L Albumin 2.2 L Globulin 3.5 Albumin/Globulin Ratio 0.6 Preliminary micro results at discharge 10/18/23 13:23 - Preliminary Blood NO GROWTH AT 36-48 HOURS. FINAL TO FOLLOW. 10/18/23 13:15 Blood Culture Result 1 - Preliminary Blood NO GROWTH AT 36-48 HOURS. FINAL TO FOLLOW. Discharge Plan Discharge Disposition: Xfer SNF Discharge Medications: New lisinopril 10 mg Tablet 10 mg PO QD Qty: 30 11RF levofloxacin 500 mg tablet 500 mg PO DAILY 10 Days Qty: 10 0RF tizanidine 4 mg Tablet 8 mg PO QHS Qty: 60 0RF Rx Instructions: Hold if sleeping citalopram 20 mg Tablet 10 mg PO QD Qty: 30 11RF hydroxyzine pamoate 25 mg Capsule 25 mg PO TID PRN (Reason: Anxiety) Qty: 90 11RF pramipexole 0.5 mg tablet 0.5 mg PO BID Qty: 60 11RF metronidazole 500 mg tablet 500 mg PO TID Qty: 30 0RF levofloxacin 500 mg tablet 500 mg PO DAILY 7 Days Qty: 7 0RF Continued pantoprazole 40 mg tablet,delayed release (DR/EC) 40 mg PO DAILY Discontinued baclofen 20 mg tablet 40 mg PO .QHS hydrocodone-acetaminophen 5-325 mg tablet 1 tab PO Q6H PRN (Reason: pain) Forms: Portal Instructions
--- NOTE | 2023-10-22 09:37 | PC.NURSE ---
called report to [facility] at this time.
--- NOTE | 2023-10-22 09:45 | REH.PTDLY ---
Physical Therapy Daily Note PT Daily Note/Assess Start: 10/20/23 10:12 Freq: Status: Active Protocol: Document 10/22/23 08:10 FRANSISCAHAYLEY (Rec: 10/22/23 09:45 ENMA [id number]) Physical Therapy Daily Note/Assessment Time In 07:57 Time Out 08:10 Subjective Pt awake and oriented. Reports some discomfort in LEs, but does not rate on pain scale. States back is sore from being in hospital. Therapeutic Exercise Minutes (minutes) 4 Therapeutic Exercise Units 0 Therapeutic Exercise Treatment Instructed in B LE seated exs 10x ea for improved strength and mobility with exs including AP, LAQ, marching, hip add squeeze, and hip abd kicks. No complaints when performing exs. Therapeutic Activity Minutes (minutes) 8 Therapeutic Activity Units 1 Bed Mobility Ability Standby Assistance Chair Transfer Ability Standby Assistance Therapeutic Activity Comments Pt performs supine to sit transfers SBA as well as sit to stand transfers. Gait training with RW SBA 90 feet at slow but steady pace. Pt returns to room and prefers to sit up in the bed, reports chair is not very comfortable. Assist with adjusting gown once supine due to discomfort. Total Therapy Minutes 12 Total Physical Therapy Units 1 Daily Note Summary Progressed gait distance today with improvement. Some discomfort in LB prior and post rx, but pt reports it is tolerable. Going to [place] today per pt report.
== END 2023-10-22 09:55 | DRG 689 ==
LOC: ER 10:29 → MS 10:35
PROVIDERS: Admitting Provider Family Medicine; Emergency Provider Emergency Medicine; PCP Family Medicine; Visit Provider Family Medicine
DX: N39.0 Urinary tract infection, site not specified (principal); R65.11 Systemic inflammatory response syndrome (SIRS) of non-infectious origin with acute organ dysfunction; N17.9 Acute kidney failure, unspecified; E87.1 Hypo-osmolality and hyponatremia; F05 Delirium due to known physiological condition; I10 Essential (primary) hypertension; R91.8 Other nonspecific abnormal finding of lung field; M48.061 Spinal stenosis, lumbar region without neurogenic claudication; N76.0 Acute vaginitis; D69.6 Thrombocytopenia, unspecified; K21.9 Gastro-esophageal reflux disease without esophagitis; E86.0 Dehydration; Z85.828 Personal history of other malignant neoplasm of skin; Z79.899 Other long term (current) drug therapy; Z82.49 Family history of ischemic heart disease and other diseases of the circulatory system; Z87.891 Personal history of nicotine dependence
CPT/HCPCS: 0202U; 36415; 51702; 70450; 71045; 80048; 80053; 80179; 80184; 80307; 80320; 80329; 81001; 82140; 83605; 84484; 85025; 87040; 87086; 87635; 87811; 93005; 94667; 94668; 94761; 96361; 96365; 96366; 96367; 96368; 96375; 97162; 97165; 97530; 99284; 99285; G0378; J3480

== ENCOUNTER 2023-11-01 04:01 | Observation (INO) | payer MEDICARE, OTHER, SELFPAY ==
[2023-11-01] VITALS (93 sets, daily range): BP systolic 82–134; BP diastolic 42–69; PULSE 53–115; RESP 3–25; TEMP 36.3–36.7; O2SAT 91–100; BMI 25.7; BMI 24.0
--- OUTSIDE RECORDS SUMMARY | 2023-11-01 04:12 | XMS_ITS | CCD ---
Author Name Unknown Address [address] [place] [address] Organization [facility] Care Team Providers Care Medical Examiner Name Role Phone Norah Kumar Unavailable DO Talon Pryor Attending Provider [phone] Talon Pryor Unavailable MD Norah Kumar Attending Provider [phone] Talon Pryor Attending Unavailable Talon Pryor Admitting Unavailable Norah Kumar Admitting Unavailable Norah Kumar Attending Unavailable GERALDO, DR WALTER Admitting Unavailable GERALDO, DR WALTER Attending Unavailable GERALDO, DR WALTER Consulting Unavailable GERALDO, DR WALTER Primary Care Unavailable INVERNESS, DR GRACIELA Christensen Consulting Unavailable GERALDO, DR WALTER Admitting Unavailable GERALDO, DR WALTER Attending Unavailable GERALDO, DR WALTER Consulting Unavailable GERALDO, DR WALTER Primary Care Unavailable GERALDO, DR WALTER Admitting Unavailable GERALDO, DR WALTER Primary Care Unavailable GERALDO, DR WALTER Attending Unavailable GERALDO, DR WALTER Consulting Unavailable ZIRALF, DR SEGUNDO Melchor Consulting Unavailable GERALDO, DR [...] KUMAR Admitting Unavailable NORAH KUMAR Attending Unavailable HODR SABA Cross Primary Care Unavailable Torres Wilkins PA-C Attending Unav ailable Allergies Allergy Classification Reported Allergen(s) Allergy Type Date of Onset Reaction(s) Facility (1 source) guaiFENesin Drug Allergy [facility] Repository Medications Current Medications Medication Drug Class(es) [...] 09-10-2022 Chronic Other aftercare (1 source) Other fpc (current) drug therapy; 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 TECHNIQUE: CT of the lumbar spine.Contrast None. Sagittal and coronal images as well as axial reconstructions through the disc spaces were produced. 3-D reformats were created and reviewed for better evaluation of the lumbar spine alignment. Ionizing radiation dose reduced via iterative reconstruction/FBP blend and body size kV/mA adjustment. COMPARISON: Lumbar MRI dated 09/23/2023. Lumbar CT dated 09/16/2023. FINDINGS: There is a hypoplastic disc space deep within the pelvis which is designated as S1-S2 for purposes of this report. This corresponds to the numbering of the prior studies. POSTOPERATIVE CHANGES: None ALIGNMENT AND LORDOSIS: Scoliosis concave to the right centered at the L3-4 level. This is unchanged from prior studies. Normal lumbar lordosis. VERTEBRAE: No fracture or vertebral body collapse is seen. Chronic Schmorl's node formation and vertebral endplate degenerative changes are present at L3-4, particularly involving the superior endplate of L4. These are unchanged as compared to the prior examination. No spondylolysis is seen. There is grade 1 degenerative spondylolisthesis at the L5-S1 level with L5 positioned 2.95 mm anterior to S1. This is unchanged from prior. There is subtle concave appearance of the superior endplate of L3 which is unchanged from the prior examination. No lytic or blastic lesions. DISC LEVELS: L1-L2: No focal disc herniation. Minimal disc bulging and endplate osteophytes with facet degeneration. Central canal, neural foramina, lateral recesses are patent. L2-L3: No focal disc herniation. Disc bulging asymmetric to the left associated with scoliosis. Facet degeneration. No focal disc herniation. Central canal, neural foramina, and lateral recesses are patent. L3-L4: Redemonstration of degenerative changes with vacuum disc degeneration, disc bulging, endplate osteophyte formation, and facet degeneration which is worse on the right than the left. There is redemonstration of right, lateral, intraforaminal protrusion type disc herniation with compression of the right L3 nerve root. Left neural foramen is patent. L4-L5: Vacuum disc degeneration, disc bulging, endplate osteophyte formation, facet degeneration, with synovial thickening worse on the right than the left. Moderate central canal stenosis. Moderate to severe right neural foraminal stenosis. Rotational deformity associated with scoliosis. L5-S1: Grade 1 degenerative spondylolisthesis. Facet degeneration, worse on the left than the right. Vacuum disc degeneration, disc bulging, and endplate osteophyte formation with a broad-based central and left, lateral, intraforaminal protrusion type disc herniation with additional vacuum fragment. There is severe left foraminal stenosis with compression of the exiting left L5 nerve root. Moderate right-sided foraminal stenosis is seen. Moderate to severe left-sided lateral recess stenosis is seen with disc material extending into the left lateral recess associated with compression of left S1 nerve root. LOWER THORACIC DISCS: At T12-L1, disc space narrowing is seen posteriorly. Disc bulging and endplate osteophytes are present. Vacuum disc degeneration is seen. The central canal, neural foramina, lateral recesses are patent. The study does not visualize the distal cord or conus. OTHER: Posterior paraspinal muscles and psoas muscles are intact. Vascular calcifications are present. IMPRESSION: 1. Multilevel degenerative changes throughout the thoracic and lumbar spine. There is stenosis and superimposed disc herniations at L3-L4, L4-L5, and L5-S1. Please see the detailed discussion of the individual levels in the body of this report. 2. No fracture or bony displacement. Radiation Dose Estimate: CTDI(mGy):0.123858 / / / kVp:120.528364 / mAs:0.432739 / / / DLP(mGy-cm):3.328490Y aaron Part: CTDI(mGy):22.727332 / / / kVp:140.567993 / mAs:153.204842 / / / DLP(mGy-cm):538.86038 5Body Part: Final Dictated by: Pablo Bower MD Dictated DT/TM: 10.12.2023 11:23 pm Signed by: Pablo Bower MD Signed (Electronic Signature): 10.12.2023 11:33 pm (If Report Is Signed, Electronically Signed in Other Vendor System) [facility] ED Clinical Summaryon 2022 ED Clinical Summary [address] [address] ED Clinical Summary Person Information Name: Suad Nicholson/[facility] Age: 78 Years : 1945 Sex: Female PCP: Marital Status: Phone: Race: White Ethnicity: Not or Language: Lao Visit Reason: Back pain Acuity: 4 Enc Type: Emergency Med Service: Emergency Medicine Arrival: 10/12/2023 22:00:02 Discharge: 10/13/2023 01:00:00 LOS: 000 03:00 Checkin: 10/12/2023 22:00:02 Checkout: 10/13/2023 01:00:00 Dispo Type: Home or Self Care Address: [address] [place] [phone] Provider Notes: Diagnosis: 1:Back pain; Right hip pain; Right knee pain Problems No Problems Documented Smoking Status: Smoking Status Never (less than 100 in lifetime) Functional Status: Sensory Deficits: History of Falls: Mobility Assistance Prior to Admission: ADLs: Current Level of Assistance for Self-Care/Mobility: Cognitive Status: Allergies No Known Allergies Laboratory or Other Results This Visit (last charted value for your 10/12/2023 visit) Computed Tomography 10/12/2023 11:[address] Spine Lumbar w/o Contrast: CT Spine Lumbar w/o Contrast Diagnostic Radiology 10/12/2023 11:06 PM XR Knee 1 or 2 Views Right: XR Knee 1 or 2 Views Right XR Hip 2-3 Views Right: XR Hip 2-3 Views Right Measurements: Height: Weight: 79.09 kg Blood Pressure: /82 mmHg BMI: Procedures No Procedures Documented Immunizations No Immunizations Documented This Visit Final Med List: No Medications Documented Care Team Members: Attending Physician: Torres Wilkins PA-C Consulting Physician: Referring Physician: Provider Role Assigned Unassigned Torres Wilkins PA-C ED MidLevel 10/12/2023 22:08:36 Follow up: With: Address: When: Follow-up with Dr. Lawrence for further evaluation. Comments: I did discuss your case with Dr. Lawrence advanced practitioner who saw you on the . She will return to you tomorrow to set up a follow-up appointment. Return for any new or worsening symptoms. Discharge Orders: Discharge Patient 10/13/23 0:51:00 EST, Discharge to Home, Self Patient Education Information: Knee Pain of Uncertain Cause; Hip Contusion; Hip Strain; Back Pain (Acute or Chronic) [facility] Poison Help line: . [facility] Hotline: [place] Tobacco Quit Line: [facility] ([place], [place]) [address]: [phone] [facility] ([place], [place]) [address]: [phone] [facility] [address] [facility]. [place], [place]: [phone] [facility] ED Note-Physicianon 10-13-20 ED Note-Physician Chief Complaint Pt reports siztic back pain. Pt reports hx of it. History of Present Illness Patient is a 78-year-old female presenting to the ER for pain to the lower back, right hip, and right knee. Of note patient has been dealing with back pain now for a while. However it seem to have gotten worse in the last 2 weeks. Patient states 2 weeks ago she was raking leaves and felt as if she may have aggravated her back. About a week ago she was climbing down steps when she fell hitting the right hip. She was at the emergency department this morning where she was evaluated and provided with Percocet. However this has not helped. About 4 weeks ago patient had MRI and CT scan done at the [place] emergency department and was advised to try physical therapy. Patient could not tell me exactly what was the result of the images. Patient has no bowel or bladder dysfunction, no saddle anesthesia. Patient states she feels as if she is having trouble lifting the right leg first when going up steps and this has only been apparent in the last 2 to 3 weeks. Review of Systems As reviewed in the HPI. All other systems reviewed are negative or normal. Physical Exam CONSTITUTIONAL: [well appearing in mild to moderate distress] SKIN: [Warm, dry, and intact without rash] EYES: [extraocular movements are grossly intact, clear conjunctiva] HENT: [Normocephalic, atraumatic, moist mucus membranes] NECK: [no obvious swelling, normal range of motion]] GENITOURINARY: [deferred] NEUROLOGIC: [Patient does have good strength of bilateral lower extremity. No deficit noted.] MUSCULOSKELETAL: [Pain with palpation and range of motion of the right knee and right hip. Normal distal pulses. Posterior aspect of the back was not properly visualized given patient positioning. I did elect to instead do a CT of the back.] PSYCHIATRIC: [normal mood and affect] Vitals & Measurements T: 36.8 ?C (Oral) HR: 92 (Peripheral) RR: 18 BP: 137/82 SpO2: 96% HT: 175.3 cm WT: 79.09 kg (Dosing) Additional Vitals No qualifying data available. Medical Decision Making ED Course & MDMED Course & MDM Patient Presentation: Patient is a 78-year-old female presenting to the ER for pain to the lower back, right hip, and right knee. Of note patient has been dealing with back pain now for a while. However it seem to have gotten worse in the last 2 weeks. DIFFERENTIAL DIAGNOSIS: (In no particular order and not limited to following) Cauda equina syndrome, lumbar stenosis, herniated disc, back contusion, hip contusion, knee contusion Data and analysis: Patient otherwise appears to be stable and in mild to moderate distress. On physical exam patient has pain with palpation to the right knee and hip. Straight leg raise does increase the pain. However patient does appear to have good strength to the right lower leg as compared to the contralateral side. Given patient history I did go ahead and get a CT of the back as I cannot see the previous images done earlier in the month. CT shows multilevel degenerative changes throughout the thoracic and lumbar spine. There is stenosis and superimposed disc herniations at the L3-L4, L4-L5, and L5-S1 level. No acute fracture or bony displacement noted. Radiology did note comparison with MRI done on 09/23/[address] scan of the back done just last month. There was no significant change from the CT. I did reach out to patient neurosurgeon Dr. Lawrence and was able to speak to the advanced practitioner Olegario as noted below. I did provide patient with pain management here and will be discharged home to follow-up with neurosurgery. No need for acute intervention at this time. Independent History: Patient was the primary historian as patient appears to be very historian and appears to be somewhat confused about many things. Independent Clinician: See ED course below Labs/Imaging Reviewed: I have independently visualized and interpreted images/labs pertinent positives and negatives as follows: CT of the back was obtained and posted to the right Review of Past Medical/External records: Previous DC Summaries/Clinic Notes/Testing Reviewed if available. Notable Findings in MDM section above. Therapeutics Provided: IM Dilaudid PULSE OX INTERPRETATION: Oxygen saturation is 96%, which is normal. Social Determinant of Health: ED Course/Progress Note: 12:46 AM I did discuss patient at this time with neurosurgeon advanced practitioner Olegario Casper who is on-call for Dr. Lawrence noting that she actually remembers seeing patient on 10/04/2023 for similar complaint and it does not appear as if there has been any change. I did discuss the CT findings today. She would reach out to patient in the morning to try to set up an appointment for patient to be seen by them in the office. Procedures: Reexamination/Reevalu ation 12 AM I did reevaluate patient at this time who appears to be resting comfortably and does not appear to be in discomfort. However patient s (more content not included)... [facility] XR Hip 2-3 Views Righton XR Hip 2-3 Views Right EXAM: XR Hip 2-3 Views Right HISTORY: Injury, COMPARISON: None. TECHNIQUE: 2 views FINDINGS: Mild osteopenia in general is noted. Bony architecture is otherwise normal. Both hip joint spaces are satisfactorily maintained. There is mild narrowing at the symphysis pubis. Sacral joints are satisfactorily maintained. Lower lumbar spondylosis is noted. Soft tissues are unremarkable. IMPRESSION: No evidence for acute fracture or traumatic malalignment. Final Dictated by: Padmini Morelos MD Dictated DT/TM: 10/12/2023 11:11 pm Signed by: Padmini Morelos MD Signed (Electronic Signature): 10/12/2023 11:12 pm (If Report Is Signed, Electronically Signed in Other Vendor System) [facility] XR Knee 1 or 2 Views Righton 10-13-2023 XR Knee 1 or 2 Views Right EXAM: XR Knee 1 or 2 Views Right HISTORY: Injury, COMPARISON: None. TECHNIQUE: AP and lateral views FINDINGS: Overall bony architecture is normal. There is tibiofemoral joint space narrowing with early medial and lateral osteophytosis. The patellofemoral joint space also is narrowed, with early dorsal osteophytosis of the patella. A quadriceps insertion into spinal superior patella is noted. No visible joint effusion. Early meniscus/articular cartilage calcification is noted. IMPRESSION: Tricompartment degenerative changes. No evidence for acute fracture or traumatic malalignment. Final Dictated by: Padmini Morelos MD Dictated DT/TM: 10/12/2023 11:09 pm Signed by: Padmini Morelos MD Signed (Electronic Signature): 10/12/2023 11:11 pm (If Report Is Signed, Electronically Signed in Other Vendor System) [facility] XR DEXA BONE DENSITYon 09-10 XR DEXA BONE DENSITY EXAMINATION: XR DEXA BONE DENSITY, 09/10/2022 7:49 AM EST HISTORY: [...] GRACIELA LUGO Date: 2022-09-10 15:39 Normal [facility] OCC BLD IMMUNO SCREENon 08-24 OCCULT BLOOD Negative Normal NEGATIVE [facility] Comment on above: Performed By: #### O BSCRN ####[facility] [address] [address]Dr. Antonia Sen INSULINon 09-04-2022 Insulin 8.4 uIU/mL Normal 2.6-24.9 [facility] Comment on above: Performed By: #### I NSULIN ####[facility] [address] [address]Dr. Antonia Sen CBC AUTO DIFFon 09-03-2022 BASO # 0.1 103/ul Normal 0.0-0.1 [facility] Comment on above: Performed By: #### C BC ####[facility] [address] [address]Dr. Antonia Sen Basophils/100 WBC (Bld) 1.2 % Normal 0.2-2.0 [facility] Comment on above: Performed By: #### C BC ####[facility] [address] [place] [id number]. Antonia Sen EO # 0.2 103/ul Normal 0.0-0.7 [facility] Comment on above: Performed By: #### C BC ####[facility] [address] [address]Dr. Antonia Sen Eosinophils/100 WBC (Bld) 4.6 % Normal 0.9-7.0 [facility] Comment on above: Performed By: #### C BC ####[facility] [address] [place], [place] [address]Dr. Antonia Sen Erythrocyte distribution width (RBC) [Ratio] 13.1 % Normal 11.0-15.0 [facility] Comment on above: Performed By: #### C BC ####[facility] [address] [place], [place] [address]Dr. Antonia Sen Hematocrit (Bld) [Volume fraction] 39.3 % Normal 36.0-48.0 [facility] Comment on above: Performed By: #### C BC ####[facility] [address] [place], [place] [address]Dr. Antonia Sen Hemoglobin (Bld) [Mass/Vol] 13.0 g/dL Normal 12.0-16.0 [facility] Comment on above: Performed By: #### C BC ####[facility] [address] [place], [place] [address]Dr. Antonia Sen IG # 0.01 10e3/ul Normal 0.00-0.03 [facility] Comment on above: Performed By: #### C BC ####[facility] [address] [place], [place] [address]Dr. Antonia Sen IG % 0.2 % Normal 0.0-0.5 [facility] Comment on above: Performed By: #### C BC ####[facility] [address] [place], [place] [address]Dr. Antonia Sen LYMPH # 1.2 103/ul Normal 1.2-3.8 [facility] Comment on above: Performed By: #### C BC ####[facility] [address] [place] [id number]. Antonia Sen Lymphocytes/100 WBC (Bld) 27.6 % Normal 20.5-60.0 [facility] Comment on above: Performed By: #### C BC ####[facility] [address] [place] [id number]. Halliemanjit Sen MANUAL DIFF REQ NO Normal [facility] Comment on above: Performed By: #### C BC ####[facility] [address] [place] [id number]. Antonia Mckinley MCH (RBC) [Entitic mass] 30.4 pg Normal 26.7-34.0 [facility] Comment on above: Performed By: #### C BC ####[facility] [address] [place], [place] [id number]. Antonia Mckinley MCHC (RBC) [Mass/Vol] 33.1 g/dL Normal 29.9-35.2 [facility] Comment on above: Performed By: #### C BC ####[facility] [address] [place] [id number]. Antonia Sen MCV (RBC) [Entitic vol] 91.8 fL Normal 81.0-99.0 [facility] Comment on above: Performed By: #### C BC ####[facility] [address] [place], [place] [address]Dr. Halliemanjit Mckinley MONO # 0.5 103/ul Normal 0.3-0.8 [facility] Comment on above: Performed By: #### C BC ####[facility] [address] [place], [place] [id number]. Halliemanjit Sen Monocytes/100 WBC (Bld) 11.8 % Normal 1.7-12.0 [facility] Comment on above: Performed By: #### C BC ####[facility] [address] [place], [place] [id number]. Antonia Sen NEUT # 2.4 103/ul Normal 1.4-6.5 [facility] Comment on above: Performed By: #### C BC ####[facility] [address] [place] [id number]. Antonia Sen Neutrophils/100 WBC (Bld) 54.6 % Normal 43.0-75.0 [facility] Comment on above: Performed By: #### C BC ####[facility] [address] [place] [id number]. Antonia Sen Platelet mean volume (Bld) [Entitic vol] 12.2 fL Normal 9.5-13.5 [facility] Comment on above: Performed By: #### C BC ####[facility] [address] [place] [id number]. Antonia Sen PLT 210 103/ul Normal 150-450 [facility] Comment on above: Performed By: #### C BC ####[facility] [address] [place] [id number]. Antonia Sen RBC 4.28 106/ul Normal 4.20-5.40 [facility] Comment on above: Performed By: #### C BC ####[facility] [address] [place] [id number]. Antonia Sen WBC 4.3 103/ul Normal 4.0-11.0 [facility] Comment on above: Performed By: #### C BC ####[facility] [address] [place] [id number]. Antonia Sen FREE THYROXINE INDEX T7on FTI 1.89 Normal 1.30-4.50 [facility] Comment on above: Performed By: #### L IPID, T7, TSH, CMP #### [facility] [address] [address] [address] Antonia Sen T3U 31.0 % Normal 30.0-39.0 [facility] Comment on above: Performed By: #### L IPID, T7, TSH, CMP #### [facility] [address] [address] [address] Antonia Sen T4 [Mass/Vol] 6.10 ug/dL Normal 4.80-13.90 [facility] Comment on above: Performed By: #### L IPID, T7, TSH, CMP #### [facility] [address] [address] [address] Antonia Sen GLYCOHEMOGLOBIN A1Con 2021 ADA RECOMMENDATION SEE BELOW Normal [facility] Comment on above: Result Comment: ADA RECOMMENDED LIMIT 4.0 - 6.0 ADA THERAPEUTIC TARGET < 7.0 ACTION SUGGESTED > 7.0 Performed By: #### A 1C #### [facility] [address] [address] [address] Antonia Sen Glucose [Mass/Vol] 105 mg/dL Normal [facility] Comment on above: Performed By: #### A 1C #### [facility] [address] [address] [address] Antonia Sen HbA1c (Bld) [Mass fraction] 5.3 % Normal 4.5-6.2 [facility] Comment on above: Performed By: #### A 1C #### [facility] [address] [address] [address] Antonia Sen IRONon 09-03-2022 Iron [Mass/Vol] 140.0 ug/dL Normal 50.0-170.0 [facility] Comment on above: Performed By: #### I YU #### [facility] [address] [place] [address] Dr. Antonia Sen LIPID PROFILEon 09-03-2022 CHOL-HDL RATIO NORM SEE BELOW Normal [facility] Comment on above: Result Comment: 3.3 - 4.4 LOW RISK 4.4 - 7.1 AVERAGE RISK 7.1 - 11.0 MODERATE RISK >11.0 HIGH RISK Performed By: #### L IPID, T7, TSH, CMP #### [facility] [address] [address] [address] Antonia Sen Cholesterol [Mass/Vol] 226 mg/dL Critically high <=200 [facility] Comment on above: Performed By: #### L IPID, T7, TSH, CMP #### [facility] [address] [address] [address] Antonia Sen Cholesterol in HDL [Mass/Vol] 66 mg/dL Critically high 40-60 [facility] Comment on above: Performed By: #### L IPID, T7, TSH, CMP #### [facility] [address] [address] [address] Antonia Sen Cholesterol in LDL [Mass/Vol] 137.8 mg/dL Normal [facility] Comment on above: Performed By: #### L IPID, T7, TSH, CMP #### [facility] [address] [address] [address] Antonia Sen Cholesterol.total/C holesterol in HDL [Mass ratio] 3.4 {ratio} Normal [facility] Comment on above: Performed By: #### L IPID, T7, TSH, CMP #### [facility] [address] [address] [address] Antonia Sen HDL NORMAL > or = 60 mg/dl - LO W CARDIOVASCULAR RISK <40 mg/dl - HIGH CARDIOVASCULAR RISK Normal [facility] Comment on above: Performed By: #### L IPID, T7, TSH, CMP #### [facility] [address] [address] [address] Antonia Sen LDL CALC NORMAL SEE BELOW Normal [facility] Comment on above: Result Comment: <100 mg/dl OPTIMAL 100 - 129 mg/dl NEAR OR ABOVE OPTIMAL 130 - 159 mg/dl BORDERLINE HIGH 160 - 189 mg/dl HIGH >190 mg/dl VERY HIGH Performed By: #### L IPID, T7, TSH, CMP #### [facility] [address] [address] [address] Antonia Sen Triglyceride [Mass/Vol] 111 mg/dL Normal <=150 [facility] Comment on above: Performed By: #### L IPID, T7, TSH, CMP #### [facility] [address] [address] [address] Antonia Sen VLDL CALC 22.2 mg/dL Normal [facility] Comment on above: Performed By: #### L IPID, T7, TSH, CMP #### [facility] [address] [address] [address] Antonia Sen PROF 14(COMP METB)on 11-11-2 022 Albumin [Mass/Vol] 3.9 g/dL Normal 3.4-5.0 [facility] Comment on above: Performed By: #### L IPID, T7, TSH, CMP #### [facility] [address] [place] [address] Dr. Antonia Sen Albumin/Globulin [Mass ratio] 1.1 {ratio} Normal [facility] Comment on above: Performed By: #### L IPID, T7, TSH, CMP #### [facility] [address] [place] [address] Dr. Antonia Sen ALP [Catalytic activity/Vol] 64 U/L Normal 46-116 [facility] Comment on above: Performed By: #### L IPID, T7, TSH, CMP #### [facility] [address] [place] [address] Dr. Antonia Sen ALT [Catalytic activity/Vol] 6 U/L Critically low 14-59 [facility] Comment on above: Performed By: #### L IPID, T7, TSH, CMP #### [facility] [address] [place] [address] Dr. Antonia Sen Anion gap [Moles/Vol] 10.6 mmol/L Normal [facility] Comment on above: Performed By: #### L IPID, T7, TSH, CMP #### [facility] [address] [place] [address] Dr. Antonia Sen AST [Catalytic activity/Vol] 15 U/L Normal 15-37 [facility] Comment on above: Performed By: #### L IPID, T7, TSH, CMP #### [facility] [address] [place] [address] Dr. Antonia Sen Bilirubin [Mass/Vol] 0.9 mg/dL Normal 0.2-1.0 [facility] Comment on above: Performed By: #### L IPID, T7, TSH, CMP #### [facility] [address] [place] [address] Dr. Antonia Sen Calcium [Mass/Vol] 9.3 mg/dL Normal 8.5-10.1 [facility] Comment on above: Performed By: #### L IPID, T7, TSH, CMP #### [facility] [address] [address] [address] Antonia Sen Chloride [Moles/Vol] 105 mmol/L Normal 98-107 [facility] Comment on above: Performed By: #### L IPID, T7, TSH, CMP #### [facility] [address] [place] [address] Dr. Antonia Sen CO2 [Moles/Vol] 24.4 mmol/L Normal 21.0-32.0 [facility] Comment on above: Performed By: #### L IPID, T7, TSH, CMP #### [facility] [address] [place] [address] Dr. Antonia Sen Creatinine [Mass/Vol] 0.84 mg/dL Normal 0.55-1.02 [facility] Comment on above: Performed By: #### L IPID, T7, TSH, CMP #### [facility] [address] [place] [address] Dr. Antonia Sen EGFR-AF STATELESS >60 Normal >=60 [facility] Comment on above: Performed By: #### L IPID, T7, TSH, CMP #### [facility] [address] [place] [address] Dr. Antonia Sen EGFR-NON AF STATELESS >60 Normal >=60 [facility] Comment on above: Performed By: #### L IPID, T7, TSH, CMP #### [facility] [address] [place] [address] Dr. Antonia Sen Globulin (S) [Mass/Vol] 3.7 g/dL Normal [facility] Comment on above: Performed By: #### L IPID, T7, TSH, CMP #### [facility] [address] [place] [address] Dr. Antonia Sen Glucose [Mass/Vol] 88 mg/dL Normal 74-106 [facility] Comment on above: Performed By: #### L IPID, T7, TSH, CMP #### [facility] [address] [place] [address] Dr. Antonia Sen Potassium [Moles/Vol] 4.0 mmol/L Normal 3.5-5.1 [facility] Comment on above: Performed By: #### L IPID, T7, TSH, CMP #### [facility] [address] [address] [address] Antonia Sen Protein [Mass/Vol] 7.6 g/dL Normal 6.4-8.2 [facility] Comment on above: Performed By: #### L IPID, T7, TSH, CMP #### [facility] [address] [address] [address] Antonia Sen Sodium [Moles/Vol] 136 mmol/L Normal 136-145 [facility] Comment on above: Performed By: #### L IPID, T7, TSH, CMP #### [facility] [address] [place] [address] Dr. Antonia Sen Urea nitrogen [Mass/Vol] 23.0 mg/dL Critically high 7.0-18.0 [facility] Comment on above: Performed By: #### L IPID, T7, TSH, CMP #### [facility] [address] [place] [address] Dr. Antonia Sen Urea nitrogen/Creatinine [Mass ratio] 27.4 mg/mg Normal [facility] Comment on above: Performed By: #### L IPID, T7, TSH, CMP #### [facility] [address] [place] [address] Dr. Antonia Sen TSHon 09-03-2022 TSH 1.681 uIU/mL Normal 0.358-3.740 [facility] Comment on above: Performed By: #### L IPID, T7, TSH, CMP #### [facility] [address] [place] [address] Dr. Antonia Sen XR wrist RT 2Von 07-16-2022 XR wrist RT 2V [facility] [place] [address] XRay Report Signed Patient: Suad Nicholson MR#: [id number] : 1945 Acct:[id number] Age/Sex: 77 / F ADM Date: 07/16/22 Loc: [facility] Room: Type: [facility] Attending Dr: Norah Kumar MD Copies [...] Pati Lange M.D.07/16/2022 1:43 PM Dictation Location: [place] [address] Transcribed By: [facility] 07/16/22 1343 Dictated By: Pati Lange MD 07/16/22 1342 Signed By: 07/16/22 1343 [facility] XR wrist RT 2V [facility] [employer] Other XR wrist RT 2V [facility] [employer] Other XR wrist RT 2V [address] [place] [address] [employer] Other [place]R [place] 2[place] [address] No rt [employer] Other XR wrist RT 2V XRay Report [employer] Other XR wrist RT 2V Signed [employer] Other XR wrist RT 2V Patient: Geronimo Nicholson MR#: [id number] [place] [employer] Other XR wrist RT 2V 12 [employer] Other XR wrist RT 2V : 1945 Acct:[id number] [place] [employer] Other XR wrist RT 2V Age/Sex: 77 / F ADM Date: 07/16/22 [employer] Other XR wrist RT 2V Loc: [facility] Room: Type : REG CLI [employer] Other XR wrist RT 2V Attending Dr: Segundo Kumar MD [employer] Other XR wrist RT 2V Copies to: Norah Kumar MD [employer] Other XR wrist RT 2V Ordering Provider: Norah Kumar MD [employer] Other XR wrist RT 2V Date of Service: 07/16/22 [employer] Other XR wrist RT 2V XR/XR wrist RT 2V: Other fractures of lower end of right radius, [employer] Other XR wrist RT 2V subsequent enc [employer] Other XR wrist RT 2V RIGHT WRIST - 2 views [employer] Other XR wrist RT 2V COMPARISON: 06/17/2022 [employer] Other XR wrist RT 2V CLINICAL DATA: Follow-up distal radius fracture. [employer] Other XR wrist RT 2V AP and lateral views were obtained. There is osteopenia. There is redemonstration of a fracture at [employer] Other XR wrist RT 2V the distal radius. There is no change in alignment. No other acute fractures or dislocation are [employer] Other XR wrist RT 2V seen. There is mild dorsal soft tissue swelling. [employer] Other XR wrist RT 2V XR/XR wrist RT 2V [employer] Other XR wrist RT 2V IMPRESSION: [employer] [facility] [employer] Other XR wrist RT 2V STABLE DISTAL RADIUS FRACTURE. [employer] Other XR wrist RT 2V Impression dictated by: Pati Lange M.D.07/16/2022 1:43 PM [employer] Other XR wrist RT 2V Dictation Location: [place] [address] [employer] Other XR wrist RT 2V Transcribed By: [facility] 07/16/22 1343 [employer] Other XR wrist RT 2V Dictated By: Pati Lange MD 07/16/22 1342 [employer] Other XR wrist RT 2V Signed By: [employer] Other XR wrist RT 2V 07/16/22 1343 [employer] Other MR hand RT wo conon 06-24-20 MR hand RT wo con [facility] [place] [address] [place] [address] MRI Report Signed Patient: Suad Nicholson MR#: [id number] : 1945 Acct:[id number] Age/Sex: 77 / F ADM Date: 06/24/22 Loc: [facility] Room: Type: [facility] Attending Dr: Talon Pryor DO Copies to: Talon Pryor DO Ordering Provider: Talon Pryor DO Date of Service: 06/24/22 MR/MR hand RT wo con: S69.91XA INJURY S52.591A CLOSED FX RT RADIUS ([id number]) MR/MR wrist RT wo con: S69.91XA INJURY [...] RT wo con IMPRESSION: Healing distal radius fracture.[employer] s involving the tendons adjacent to the radial [...] Alexei Case M.D.06/24/2022 2:03 PM Dictation Location: [place] [address] Transcribed By: [facility] 06/24/22 1403 Dictated By: Alexei Case DO 06/24/22 1332 Signed By: 06/24/22 1403 [facility] XR WRIST RT MIN 3 Von 2021 [...] authenticated by: ALEX MONTERO Date: 2022-06-04 17:19 [facility] Encounters Encounter Date Encounter Type Care Provider Facility Start: 10-13-2023 End: 10-13-2023 Emergency department patient visit Torres Wilkins PA-C Facility:[facility] Start: 09-10-2022 End: 09-11-[address] SABA CHOW Facility:[facility] Start: 09-08-2022 End: 09-08-[address] SBAA CHOW Facility:[facility] Start: 09-03-2022 End: 09-04-[address] SABA CHOW Facility:[facility] Start: 08-27-2022 End: 08-27-2022 ambulatory Norah Kumar Other [employer] Other Start: 08-27-2022 Postop follow up vis it related to original px Norah Calvey [facility] Start: 07-16-2022 Postop follow up vis it related to original px Norah Calvey [facility] Start: 07-16-2022 End: 07-16-2022 ambulatory Norah Shaikhedward [place] [employer] Other Start: 07-16-2022 End: 07-16-2022 Patient encounter procedure DO Talon Pryor Work Phone: [facility] Start: 06-29-2022 End: 08-24-2022 ambulatory NORAH KUMAR Facility:[facility] Start: 06-25-2022 End: 06-25-2022 ambulatory Norah Kumar Other [employer] Other Start: 06-25-2022 Postop follow up vis it related to original px Norah Calvey [facility] Start: 06-24-2022 End: 06-24-2022 ambulatory Talon Pryor Facility:[facility] Start: 06-24-2022 End: 06-24-2022 Patient encounter procedure DO Talon rPyor Work Phone: [facility] [address] Start: 06-23-2022 End: 06-23-2022 ambulatory Talon Pryor Other [employer] Other Start: 06-23-2022 [facility] visit new patient [facility] Start: 06-17-2022 End: 06-18-[address] SABA CHOW Facility:[facility] Start: 06-09-2022 End: 06-09-[address] SABA CHOW Facility:[facility] Start: 06-04-2022 End: 06-04-2022 ambulatory STEW HERRON Facility:[facility] Start: 11-10-2021 End: 11-11-[address] SABA CHOW Facility:[facility] Procedures Date Procedure Procedure Detail Performing Clinician Start: 07-16-2022 Plain X-ray of right wrist DO Talon Pryor Work Phone: Start: 06-24-2022 MRI of right wrist DO Anisha celio Kooley Work Phone: Start: 06-24-2022 MRI of right hand DO Guerda Pryor Work Phone: Payers Date Payer Category Payer Unknown 2022 Unknown [id number] 2009 Medicare 1960 Medicare [id number] 2.1 [id number] 1959 Self-pay 1959 Unknown [id number] 1945 Unknown [id number] 2.16.84 [id number] 1945 Unknown [id number] 2.16.84 [id number] 1945 Unknown [id number] 2.16.84 [id number] 1945 Unknown [id number] 2.16.84 [id number] 1945 Unknown [id number] 2.16.84 [id number] 1945 Unknown [id number] 2.16.84 [id number] 1945 Unknown [id number] 2.16.84 [id number] 1945 Unknown [id number] 2.16. [id number] Unknown [id number] 2.16.8 [id number] Unknown [id number] 2.16.8 40.1.102873.3.579.2.531 Unknown [id number] 2.16.8 40.1.155557.3.579.2.531 Unknown [id number] 2.16.84 [id number] Social History Date Type Detail Facility Sex Assigned At [facility] Work Phone: Start: 1945 Sex Assigned At Female F [facility] Evaluation note 08-27-2022 Note Date & Type [...] surgery. We will f/u in 4-6 weeks. [employer] Other Evaluation note 07-16-2022 Note Date & [...] Instructed patient to continue with occupational therapy [employer] Other Evaluation note 06-25-2022 Note Date & [...] anything over 2-5 pounds at this time. [employer] Other Evaluation note 06-23-2022 Note Date & [...] office today. Prior medical notes from the [facility] and history have been reviewed. At this [...] as documented in the electronic medical record. [employer] Other Clinical Note 06-18-2022 Note Date & [...] authenticated by: SEGUNDO MERINO Date: 2022-06-18 07:24 [facility] Clinical Note 06-18-2022 Note Date & [...] authenticated by: SEGUNDO MERINO Date: 2022-06-18 07:24 [facility] Evaluation note Note Date & Type Note Facility Evaluation note [facility]: History general Narrative - Reported Note Date & Type Note Facility History general Narrative - Reported Type Medical History right hand injury Medical History gull stones Medical History depression Surgical History appendectomy Surgical History gull bladder removal [employer] Other Chief Complaint and Reason for Visit Chief Complaint S52.591A S69.91XA Advance Directives No Advanced Directives Records Found Advance Directive Response Recorded Date/ Time Advance Directives No June 5:37pm Summary Purpose Family History No Family History Records FoundNo Family History Records FoundNo Family History Records [...] section and content) DATE CREATED AUTHOR 07/30/2022 [facility] DATE CREATED AUTHOR AUTHOR'S ORGANIZ ATION 09/30/2022 [facility] DATE CREATED AUTHOR AUTHOR'S ORGANIZ ATION 10/13/2023 [facility] FOR RECORDS PERTAINING TO PATIENTS WHO ARE [...] BE BASED ON THE PRIMARY CLINICAL RECORDS. [employer] [facility]. provides no warranty or guarantee of the accuracy or completeness of information in this document.
[2023-11-01] MEDS: 0.9 % SODIUM CHLORIDE 1,000 ML 1000 ML IV ×2 (04:20→05:47)
[2023-11-01] MEDS: ONDANSETRON PF 4 MG/2 ML VIAL IV (04:45)
--- NOTE | 2023-11-01 04:51 | ED_ITS ---
HPI - Syncope General Chief Complaint: Syncope Stated Complaint: DIZZY Time Seen by Provider: 11/01/23 04:22 Source: patient Mode of arrival: ambulance Limitations: no limitations History of Present Illness HPI narrative: prison patient. woke up with need to go to the bathroom. States she stood up to hold onto her walker and became weak and sat back on the bed. She did this a second time with similar results. The 3r time she stood up and her legs were like jelly and she fell striking her neck against the plastic garbage container. Has pain at the base of her neck. Has chronic back right sciatica and par esthesia of the RLE. Denies weakness of her extremities at this time. No headache or head injury. Nursing staff at the home did orthostatics and her systolic BP was in the 80s. Patient transferred her vis Squad. No complaint of chest pain Related Data Home Medications Medication Instructions Recorded Confirmed pantoprazole 40 mg tablet,delayed 40 mg PO DAILY 09/16/23 11/01/23 release acetaminophen 500 mg tablet 1,000 mg PO Q6H PRN fever or pain 11/01/23 11/01/23 (Acetaminophen Extra Strength) cetirizine 10 mg tablet (24Hour 10 mg PO DAILY 11/01/23 11/01/23 Allergy) docusate sodium 100 mg capsule 100 mg PO BID 11/01/23 11/01/23 (Colace) guaifenesin 1,200 mg tablet, 1,200 mg PO BID PRN congestion 11/01/23 11/01/23 extended release 12 hr (Mucinex) hyoscyamine sulfate 0.125 mg 0.125 mg PO Q8H 11/01/23 11/01/23 tablet (Levsin) ondansetron 4 mg disintegrating 4 mg PO Q6H PRN nausea and vomiting 11/01/23 11/01/23 tablet polyethylene glycol 3350 17 17 g PO DAILY PRN constipation 11/01/23 11/01/23 gram/dose oral powder ([employer]) Previous Rx's Medication Instructions Recorded lisinopril 10 mg tablet 10 mg PO QD #30 tabs 10/20/23 citalopram 20 mg tablet 10 mg (1/2 x 20 mg) PO QD #30 tabs 10/22/23 hydroxyzine pamoate 25 mg capsule 25 mg PO TID PRN Anxiety #90 caps 10/22/23 pramipexole 0.5 mg tablet 0.5 mg PO BID #60 tabs 10/22/23 tizanidine 4 mg tablet 8 mg (2 x 4 mg) PO QHS #60 tabs 10/22/23 Allergies Allergy/AdvReac Type Severity Reaction Status Date / Time No Known Drug Allergies Allergy Verified 09/13/23 21:57 Review of Systems ROS Status of ROS 10 or more systems reviewed and unremark able except as noted in history and below [facility] Medical History (Updated 11/02/23 @ 05:42 by Ke Garcia MD) SIRS (systemic inflammatory response syndrome) ?R65.10 - Systemic inflammatory response syndrome (SIRS) of non-infectious origin without acute organ dysfunction (ICD-10) Acute UTI ?N39.0 - Urinary tract infection, site not specified (ICD-10) Altered mental status ?R41.82 - Altered mental status, unspecified (ICD-10) Spinal stenosis ?M48.00 - Spinal stenosis, site unspecified (ICD-10) GERD (gastroesophageal reflux disease) ?K21.9 - Gastro-esophageal reflux disease without esophagitis (ICD-10) Acute lumbar radiculopathy ?M54.16 - Radiculopathy, lumbar region (ICD-10) Surgical History (Updated 11/01/23 @ 08:31 by Carlita Penn) History of appendectomy ?Z90.49 - Acquired absence of other specified parts of digestive tract (ICD- 10) Skin cancer of nose ?C44.301 - Unspecified malignant neoplasm of skin of nose (ICD-10) History of cholecystectomy ?Z90.49 - Acquired absence of other specified parts of digestive tract (ICD- 10) Family History (Updated 09/16/23 @ 17:13 by Jeanne Bhatt) Father Family history of myocardial infarction Family history of cancer Social History (Updated 09/16/23 @ 17:16 by Jeanne Bhatt) Within the past year, how often did you have a drink containing alcohol: 2-3 times a week Within the past year, how many standard drinks containing alcohol did you have on a typical day: 1 or 2 Within the past year, how often did you have six or more drinks on one occasion: never Total score: 0 Score interpretation: Questions 2 and 3 are 0. It can be assumed that the patient's drinking is below the recommended limits. However, please confirm the accuracy of the patient's alcohol intake over the last few months. Smoking status: Never smoker Non-prescribed substance use: denies use Previous occupational history: retired Highest level of school completed/degree received: high school graduate Are you now , , , , never or living with a partner: Little interest or pleasure in doing things: not at all Feeling down, depressed, or hopeless: not at all Feel stressed/tense/nervous/anxious/difficulty sleeping: only a little Do you think of yourself as: straight/heterosexual Exam Constitutional Vital Signs, click to edit/add: Last Vital Signs Temp 98.4 F 11/02/23 05:32 Pulse 79 11/02/23 05:32 Resp 18 11/02/23 05:32 BP 118/57 11/02/23 05:32 Pulse Ox 92 L 11/02/23 05:32 O2 Del Method Room Air 11/02/23 05:32 Common normals: no apparent distress, average body habitus, oriented x3, no limitations, healthy appearing and well nourished [facility] Common normals: normocephalic and head/scalp atraumatic Neck & C-Spine Other: tenderness lower C-spine and upper T-spine Chest Common normals: inspection of chest normal and palpation of chest normal Respiratory Common normals: normal respiratory effort, no retractions, no use of accessory muscles and clear to auscultation bilaterally Cardio Common normals: regular rate and regular rhythm Rate: bradycardic GI Common normals: Normal to inspection, nondistended, normoactive bowel sounds present, soft to palpation and non-tender Extremity Common normals: normal to inspection and full ROM Neuro Common normals: oriented x3, CN's II-XII intact bilaterally, moves all extremities and no focal motor deficits Psych Appearance: grossly normal Course Vital Signs Vital signs: Vital Signs Temperature 97.3 F L 11/01/23 04:07 Pulse Rate 59 L 11/01/23 04:07 Respiratory Rate 18 11/01/23 04:07 Blood Pressure 82/42 L 11/01/23 04:07 Oxygen Delivery Method Room Air 11/01/23 04:07 Temperature 98.4 F 11/02/23 05:32 Pulse Rate 79 11/02/23 05:32 Respiratory Rate 18 11/02/23 05:32 Blood Pressure 118/57 11/02/23 05:32 Pulse Oximetry 92 L 11/02/23 05:32 Oxygen Delivery Method Room Air 11/02/23 05:32 MDM - Syncope MDM Narrative Medical decision making narrative: prison patient presents after syncope episode. Did fall at home and struck her neck on plastic garbage container. Found to be hypotensive. arrives AxOx4 in no distress. No extremity weakness. CT brain, C-spine and T-spine without acute findings. CT with thyroid lesions that appear to be benign but will require follow up. labs demonstrate hypokalemia and normal troponin. IV potassium ordered. BP improved some with hydration. Patient has chronic right hip pain. xray of the hip per my review is unremarkable. EKG with LBBB. UNclear why she is hypotensive. Discussed with Dr Vidal and will plan obs admission. Will admit to ICU as she remains hypotensive Lab Data Labs: Lab Results 11/01/23 11/01/23 Range/Units 04:15 04:59 WBC 7.1 (4.0-11.0) 10^3/uL RBC 3.46 L (4.20-5.40) 10^6/uL Hgb 10.7 L (12.0-16.0) g/dL Hct 31.7 L (36.0-48.0) % MCV 91.6 (81.0-99.0) fL MCH 30.9 (26.7-34.0) pg MCHC 33.8 (29.9-35.2) g/dL RDW 14.6 (11.0-15.0) % Plt Count 262 (150-450) 10^3/uL MPV 12.2 (9.5-13.5) fL Neut % (Auto) 74.7 (43.0-75.0) % Lymph % (Auto) 13.2 L (20.5-60.0) % [place] % (Auto) 8.8 (1.7-12.0) % Eos % (Auto) 1.4 (0.9-7.0) % Baso % (Auto) 0.4 (0.2-2.0) % Neut # (Auto) 5.3 (1.4-6.5) 10^3/uL Lymph # (Auto) 0.9 L (1.2-3.8) 10^3/uL [place] # (Auto) 0.6 (0.3-0.8) 10^3/uL Eos # (Auto) 0.1 (0.0-0.7) 10^3/uL Baso # (Auto) 0.0 (0.0-0.1) 10^3/uL Abs Immat Gran (auto) 0.11 H (0.00-0.03) 10^3/uL Imm/Tot Granulo (auto) 1.5 H (0.0-0.5) % Sodium 136 (136-145) mmol/L Potassium 2.4 L* (3.5-5.1) mmol/L Chloride 98 (98-107) mmol/L Carbon Dioxide 30.1 (21.0-32.0) mmol/L Anion Gap 10.3 BUN 16.0 (7.0-18.0) mg/dL Creatinine 1.07 H (0.55-1.02) mg/dL Est GFR ( Amer) 60 (>=60) Est GFR (Non-Af Amer) 49 L (>=60) BUN/Creatinine Ratio 15.0 Glucose 106 (74-106) mg/dL Calcium 8.7 (8.5-10.1) mg/dL Troponin I High Sens 12.8 (4.0-51.3) pg/mL Urine Color Yellow (YELLOW) Urine Clarity Clear (CLEAR) Urine pH 6.0 (5.0-9.0) Ur Specific [place] 1.010 (1.005-1.025) Urine Protein Negative (NEG/TRACE) mg/dL Urine Glucose (UA) Negative (NEGATIVE) mg/dL Urine Ketones Negative (NEGATIVE) mg/dL Urine Occult Blood Negative (NEGATIVE) Urine Nitrite Negative (NEGATIVE) Urine Bilirubin Negative (NEGATIVE) Urine Urobilinogen 0.2 (0.2-1.0) EU/dL Ur Leukocyte Esterase Negative (NEGATIVE) Discharge Plan Discharge Chief Complaint: Syncope Clinical Impression: Syncope, Contusion of neck, Acute hypokalemia, Acute hypotension Patient Disposition: Admitted as Observation Discharge Date/Time: 11/01/23 08:15
--- NOTE | 2023-11-01 04:56 | CT_ITS ---
The [address] [address] Patient Name: HAVEN FRAIRE MRN: [id number] date: 1945 Sex: F Assigned Patient Location: ER Current Patient Location: ER Accession/Order Number: [id number] Exam Date: 11/01/2023 05:16 Report Date: 11/01/2023 05:45 At the request of: YOVANI JAY Procedure: CT cervical spine wo con EXAM: CT cervical spine wo con, CT thoracic spine wo con HISTORY: Dizziness with fall. Hit lack of neck. COMPARISON: None. TECHNIQUE: Nonenhanced CT imaging of the cervical and thoracic spine was performed with sagittal and coronal reconstructions. Dose reduction techniques were achieved by using automated exposure control and/or adjustment of mA and/or kV according to patient size and/or use of iterative reconstruction technique. FINDINGS: CT CERVICAL SPINE: No acute osseous or articular abnormality is seen. The cervical vertebral bodies are normal in height and alignment. Disc spaces are maintained. Skull base alignment is normal. The articular facets are normally aligned. There is degenerative facet arthrosis and uncovertebral joint hypertrophy resulting in severe right neural foraminal stenosis at C3-C4 and C4-C5. No levels of significant spinal canal stenosis are seen. The imaged sphenoid sinuses and mastoid air cells are clear. Cerumen is incidentally noted in the left external auditory canal. Left carotid arterial calcifications are noted. There are hypodense lesions in the bilateral thyroid lobes measuring up to 2 cm on the left on image [address] THORACIC SPINE: No acute thoracic spine fracture or compression deformity is seen. The thoracic vertebral bodies are normal in height and alignment. The nonenhanced mediastinum is grossly unremarkable. There is dependent atelectasis in the posterior lower lobes. CT/CT cervical spine wo con IMPRESSION: 1. No acute cervical spine findings. Chronic changes are described above. 2. No acute thoracic spine findings. 3. Left carotid arterial calcifications. 4. Nonspecific hypodense bilateral thyroid lobe lesions measuring up to 2 cm on the left, likely cysts. Elective thyroid ultrasound could further evaluate. Electronically authenticated by: MUAN OLEARY Date: 11/01/2023 05:45
--- NOTE | 2023-11-01 04:56 | CT_ITS ---
The [address] [address] Patient Name: HAVEN FRAIRE MRN: [id number] date: 1945 Sex: F Assigned Patient Location: ER Current Patient Location: ER Accession/Order Number: [id number] Exam Date: 11/01/2023 05:16 Report Date: 11/01/2023 05:45 At the request of: YOVANI JAY Procedure: CT thoracic spine wo con EXAM: CT cervical spine wo con, CT thoracic spine wo con HISTORY: Dizziness with fall. Hit lack of neck. COMPARISON: None. TECHNIQUE: Nonenhanced CT imaging of the cervical and thoracic spine was performed with sagittal and coronal reconstructions. Dose reduction techniques were achieved by using automated exposure control and/or adjustment of mA and/or kV according to patient size and/or use of iterative reconstruction technique. FINDINGS: CT CERVICAL SPINE: No acute osseous or articular abnormality is seen. The cervical vertebral bodies are normal in height and alignment. Disc spaces are maintained. Skull base alignment is normal. The articular facets are normally aligned. There is degenerative facet arthrosis and uncovertebral joint hypertrophy resulting in severe right neural foraminal stenosis at C3-C4 and C4-C5. No levels of significant spinal canal stenosis are seen. The imaged sphenoid sinuses and mastoid air cells are clear. Cerumen is incidentally noted in the left external auditory canal. Left carotid arterial calcifications are noted. There are hypodense lesions in the bilateral thyroid lobes measuring up to 2 cm on the left on image [address] THORACIC SPINE: No acute thoracic spine fracture or compression deformity is seen. The thoracic vertebral bodies are normal in height and alignment. The nonenhanced mediastinum is grossly unremarkable. There is dependent atelectasis in the posterior lower lobes. CT/CT thoracic spine wo con IMPRESSION: 1. No acute cervical spine findings. Chronic changes are described above. 2. No acute thoracic spine findings. 3. Left carotid arterial calcifications. 4. Nonspecific hypodense bilateral thyroid lobe lesions measuring up to 2 cm on the left, likely cysts. Elective thyroid ultrasound could further evaluate. Electronically authenticated by: MUNA OLEARY Date: 11/01/2023 05:45
--- NOTE | 2023-11-01 04:56 | ECG_ITS ---
The [facility] Test Date: 2023-11-01 Pat Name: HAVEN FRAIRE Department: Room: - Gender: Female [employer]: : 1945 Requested By: SABA CHOW Order Number: [id number] Reading MD: SABA CHOW Measurements Intervals [place] Rate: 54 P: 21 VA: 184 QRS: 8 QRSD: 146 T: 50 QT: 516 QTc: 501 Interpretive Statements 1100 Sinus rhythm 2550 Left bundle branch block 9150 abnormal ECG Compared to ECG 10/18/2023 08:06:17 No significant changes Electronically Signed On 11-01-2023 5:34:15 EST by SABA CHOW
--- NOTE | 2023-11-01 04:56 | XR_ITS ---
The [place] [id number] Patient Name: HAVEN FRAIRE MRN: [id number] date: 1945 Sex: F Assigned Patient Location: ER Current Patient Location: ER Accession/Order Number: [id number] Exam Date: 11/01/2023 05:16 Report Date: 11/01/2023 05:39 At the request of: YOVANI JAY Procedure: XR chest 1V EXAM: XR chest 1V HISTORY: syncope COMPARISON: Chest x-ray, 10/18/2023. TECHNIQUE: AP upright portable chest x-ray. FINDINGS: The heart, mediastinum and pulmonary vascularity are within normal limits. There is linear atelectasis in the lateral left lower lung. The lungs and pleural spaces appear otherwise clear. The bony thorax appears intact. XR/XR chest 1V IMPRESSION: Nonacute chest. Electronically authenticated by: MUNA OLEARY Date: 11/01/2023 05:39
--- NOTE | 2023-11-01 04:56 | CT_ITS ---
The [place] [id number] Patient Name: HAVEN FRAIRE MRN: [id number] date: 1945 Sex: F Assigned Patient Location: ER Current Patient Location: ER Accession/Order Number: [id number] Exam Date: 11/01/2023 05:16 Report Date: 11/01/2023 05:39 At the request of: YOVANI JAY Procedure: CT head/brain wo con EXAM: CT head/brain wo con HISTORY: fall COMPARISON: CT head, 10/18/2023. TECHNIQUE: Nonenhanced CT imaging the head was performed with sagittal and coronal reconstructions. Dose reduction techniques were achieved by using automated exposure control and/or adjustment of mA and/or kV according to patient size and/or use of iterative reconstruction technique. FINDINGS: No intracranial hemorrhage, edema, mass effect or midline shift is seen. Age-related brain atrophy is noted. The brain parenchyma, ventricles and extra-axial CSF spaces appear unremarkable for age. The calvarium and imaged facial bones appear intact. The paranasal sinuses and mastoid air cells appear clear. No extracranial soft tissue gas, loculated fluid or foreign body is seen. CT/CT head/brain wo con IMPRESSION: No calvarial fracture or acute intracranial abnormality. No significant change from prior exam. Electronically authenticated by: MUNA OLEARY Date: 11/01/2023 05:39
[2023-11-01 05:08] LABS: Basophils Percent Auto 0.4 % (0.2-2.0); Eosinophils Absolute Auto 0.1 10^3/uL (0.0-0.7); Eosinophils Percent Auto 1.4 % (0.9-7.0); Hematocrit 31.7 % (36.0-48.0); Hemoglobin 10.7 g/dL (12.0-16.0); Immature Granulocytes Abs Auto 0.11 10^3/uL (0.00-0.03); Immature Granulocytes Pct Auto 1.5 % (0.0-0.5); Lymphocytes Absolute Auto 0.9 10^3/uL (1.2-3.8); Lymphocytes Percent Auto 13.2 % (20.5-60.0); Mean Corpuscular HGB Conc 33.8 g/dL (29.9-35.2); Mean Corpuscular Hemoglobin 30.9 pg (26.7-34.0); Mean Corpuscular Volume 91.6 fL (81.0-99.0); Mean Platelet Volume 12.2 fL (9.5-13.5); Monocytes Absolute Auto 0.6 10^3/uL (0.3-0.8); Monocytes Percent Auto 8.8 % (1.7-12.0); Neutrophils Absolute Auto 5.3 10^3/uL (1.4-6.5); Neutrophils Percent Auto 74.7 % (43.0-75.0); Platelet Count 262 10^3/uL (150-450); Red Blood Count 3.46 10^6/uL (4.20-5.40); Red Cell Distribution Width 14.6 % (11.0-15.0); White Blood Count 7.1 10^3/uL (4.0-11.0)
[2023-11-01 05:25] LABS: Anion Gap 10.3; Calcium 8.7 mg/dL (8.5-10.1); Carbon Dioxide 30.1 mmol/L (21.0-32.0); Chloride 98 mmol/L (98-107); Estimated GFR (African America 60 (>=60); Estimated GFR (Non-African Ame 49 (>=60); Glucose 106 mg/dL (74-106); Sodium 136 mmol/L (136-145); Troponin I High Sensitivity 12.8 pg/mL (4.0-51.3)
[2023-11-01 05:30] LABS: Potassium 2.4 mmol/L (3.5-5.1)
--- NOTE | 2023-11-01 05:38 | PC.NURSE ---
Dr aware of B/P orders received
[2023-11-01] MEDS: POTASSIUM CHLORIDE IN WATER 10 MEQ/100 ML PIGGYBACK 100 MEQ IV ×4 (05:57→09:15)
--- NOTE | 2023-11-01 06:00 | XR_ITS ---
The [place] [id number] Patient Name: HAVEN FRAIRE MRN: [id number] date: 1945 Sex: F Assigned Patient Location: ER Current Patient Location: ED.MAIN Accession/Order Number: [id number] Exam Date: 11/01/2023 06:10 Report Date: 11/01/2023 06:50 At the request of: YOVANI JAY Procedure: XR hip RT 2V w/ pelvis PROCEDURE: XR hip RT 2V w/ pelvis HISTORY: pain ; bilateral hip pain after falling COMPARISON: None. FINDINGS: BONES:No fracture, dislocation, bone lesion. Mild degenerative changes of hip joints bilaterally. SOFT TISSUES:No visible soft tissue swelling. EFFUSION:None visible. 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 XR/XR hip RT 2V w/ pelvis IMPRESSION: 1. No acute bone abnormality. 2. Multifocal degenerative changes. Electronically authenticated by: SEGUNDO MERINO Date: 11/01/2023 06:50
--- NOTE | 2023-11-01 07:07 | PC.NURSE ---
Dr Vidal in
--- OUTSIDE RECORDS SUMMARY | 2023-11-01 08:23 | XMS_ITS | CCD ---
Author Name Unknown Address [address] [facility] [address] [place] [address] Organization [facility] Care Team Providers Care Staff Physical Therapist Name Role Phone Norah Kumar Unavailable DO Talon Pryor Attending Provider Talon Pryor Unavailable MD Norah Kumar Attending Provider Talon Pryor Attending Unavailable Talon Pryor Admitting Unavailable Norah Kumar Admitting Unavailable Norah Kumar Attending Unavailable GERALDO, DR WALTER Admitting Unavailable GERALDO, DR WALTER Attending Unavailable GERALDO, DR WALTER Consulting Unavailable GERALDO, DR WALTER Primary Care Unavailable MERIDIAN, DR GRACIELA Christensen Consulting Unavailable GERALDO, DR [...] Facility (1 source) guaiFENesin Drug Allergy [facility] Repository Medications Current Medications Medication Drug [...] 09-10-2022 Chronic Other aftercare (1 source) Other custodial (current) drug therapy; Translations: [OTH AGENCY DIRECTOR CURRENT DRUG THERAPY] Onset: 09-06-2022 Episodic Other [...] fracture or bony displacement. Radiation Dose Estimate: CTDI(mGy):0.368654 / / / kVp:120.950800 / mAs:0.578620 / / / DLP(mGy-cm):3.305654V aaron Part: CTDI(mGy):22.109101 / / / kVp:140.951781 / mAs:153.834051 / / / DLP(mGy-cm):538.97046 5Body Part: Final Dictated by: Pablo Bower MD Dictated DT/TM: 10.12.2023 11:23 pm Signed by: Pablo Bower MD Signed (Electronic Signature): 10.12.2023 11:33 pm (If Report Is Signed, Electronically Signed in Other Vendor System) Normal [facility] ED Clinical Summaryon 2022 ED Clinical Summary [address] [address] ED Clinical Summary Person Information Name: Suad Nicholson/[facility] Age: 78 Years : 1945 Sex: Female PCP: Marital Status: Phone: Race: White Ethnicity: Not or Language: Bruneian Visit Reason: Back pain Acuity: 4 Enc Type: Emergency Med Service: Emergency Medicine Arrival: 10/12/2023 22:00:02 Discharge: 10/13/2023 01:00:00 LOS: 000 03:00 Checkin: 10/12/2023 22:00:02 Checkout: 10/13/2023 01:00:00 Dispo Type: Home or Self Care Address: [address] [place] [address] [id number] Provider Notes: Diagnosis: 1:Back pain; Right hip [...] Hip Strain; Back Pain (Acute or Chronic) [facility] Poison Help line: . [facility] Hotline: [place] Tobacco Quit Line: [facility] ([place], [place]) [address]: [phone] [facility] ([place], [place]) [address]: [phone] [facility] [address] [facility]. [place], [place]: [phone] Normal [facility] ED Note-Physicianon 10-13-20 ED Note-Physician Chief [...] MRI and CT scan done at the [facility] and was advised to try [...] patient s (more content not included)... Normal [facility] XR Hip 2-3 Views Righton XR [...] Electronically Signed in Other Vendor System) Normal [facility] XR Knee 1 or 2 Views [...] Electronically Signed in Other Vendor System) Normal [facility] XR DEXA BONE DENSITYon 09-10 XR [...] GRACIELA LUGO Date: 2022-09-10 15:39 Normal [facility] OCC BLD IMMUNO SCREENon 08-24 OCCULT BLOOD Negative Normal NEGATIVE [facility] Comment on above: Performed By: #### O BSCRN ####[facility] [address] [place] [address]Dr. Antonia Sen INSULINon 09-04-2022 Insulin 8.4 uIU/mL Normal 2.6-24.9 [facility] Comment on above: Performed By: #### I NSULIN ####[facility] [address] [place] [address]Dr. Antonia Sen CBC AUTO DIFFon 09-03-2022 BASO # 0.1 103/ul Normal 0.0-0.1 [facility] Comment on above: Performed By: #### C BC ####[facility] [address] [place] [address]Dr. Antonia Sen Basophils/100 WBC (Bld) 1.2 % Normal 0.2-2.0 [facility] Comment on above: Performed By: #### C BC ####[facility] [address] [place] [id number]. Antonia Sen EO # 0.2 103/ul Normal 0.0-0.7 [facility] Comment on above: Performed By: #### C BC ####[facility] [address] [place] [address]Dr. Antonia Sen Eosinophils/100 WBC (Bld) 4.6 % Normal 0.9-7.0 [facility] Comment on above: Performed By: #### C BC ####[facility] [address] [place], [place] [address]Dr. Antonia Sen Erythrocyte distribution width (RBC) [Ratio] 13.1 % Normal 11.0-15.0 [facility] Comment on above: Performed By: #### C BC ####[facility] [address] [place], [place] [address]Dr. Antonia Sen Hematocrit (Bld) [Volume fraction] 39.3 % Normal 36.0-48.0 [facility] Comment on above: Performed By: #### C BC ####[facility] [address] [place], [place] [address]Dr. Antonia Sen Hemoglobin (Bld) [Mass/Vol] 13.0 g/dL Normal 12.0-16.0 [facility] Comment on above: Performed By: #### C BC ####[facility] [address] [place], [place] [address]Dr. Antonia Sen IG # 0.01 10e3/ul Normal 0.00-0.03 [facility] Comment on above: Performed By: #### C BC ####[facility] [address] [place], [place] [address]Dr. Antonia Sen IG % 0.2 % Normal 0.0-0.5 [facility] Comment on above: Performed By: #### C BC ####[facility] [address] [place], [place] [address]Dr. Antonia Sen LYMPH # 1.2 103/ul Normal 1.2-3.8 [facility] Comment on above: Performed By: #### C BC ####[facility] [address] [place] [id number]. Antonia Sen Lymphocytes/100 WBC (Bld) 27.6 % Normal 20.5-60.0 [facility] Comment on above: Performed By: #### C BC ####[facility] [address] [place] [id number]. Halliemanjit Sen MANUAL DIFF REQ NO Normal [facility] Comment on above: Performed By: #### C BC ####[facility] [address] [place] [id number]. Antonia Mckinley MCH (RBC) [Entitic mass] 30.4 pg Normal 26.7-34.0 [facility] Comment on above: Performed By: #### C BC ####[facility] [address] [place], [place] [address]Dr. Antonia Mckinley MCHC (RBC) [Mass/Vol] 33.1 g/dL Normal 29.9-35.2 [facility] Comment on above: Performed By: #### C BC ####[facility] [address] [place] [id number]. Antonia Sen MCV (RBC) [Entitic vol] 91.8 fL Normal 81.0-99.0 [facility] Comment on above: Performed By: #### C BC ####[facility] [address] [place], [place] [address]Dr. Halliemanjit Mckinley MONO # 0.5 103/ul Normal 0.3-0.8 [facility] Comment on above: Performed By: #### C BC ####[facility] [address] [place], [place] [address]Dr. Halliemanjit Sen Monocytes/100 WBC (Bld) 11.8 % Normal 1.7-12.0 [facility] Comment on above: Performed By: #### C BC ####[facility] [address] [place], [place] [address]Dr. Antonia Sen NEUT # 2.4 103/ul Normal 1.4-6.5 [facility] Comment on above: Performed By: #### C BC ####[facility] [address] [place] [id number]. Antonia Sen Neutrophils/100 WBC (Bld) 54.6 % Normal 43.0-75.0 [facility] Comment on above: Performed By: #### C BC ####[facility] [address] [place] [id number]. Antonia Sen Platelet mean volume (Bld) [Entitic vol] 12.2 fL Normal 9.5-13.5 [facility] Comment on above: Performed By: #### C BC ####[facility] [address] [place] [id number]. Antonia Sen PLT 210 103/ul Normal 150-450 [facility] Comment on above: Performed By: #### C BC ####[facility] [address] [place] [id number]. Antonia Sen RBC 4.28 106/ul Normal 4.20-5.40 [facility] Comment on above: Performed By: #### C BC ####[facility] [address] [place] [id number]. Antonia Sen WBC 4.3 103/ul Normal 4.0-11.0 [facility] Comment on above: Performed By: #### C BC ####[facility] [address] [place] [id number]. Antonia Sen FREE THYROXINE INDEX T7on FTI 1.89 Normal 1.30-4.50 [facility] Comment on above: Performed By: #### L IPID, T7, TSH, CMP #### [facility] [address] [address] [address] Antonia Sen T3U 31.0 % Normal 30.0-39.0 [facility] Comment on above: Performed By: #### L IPID, T7, TSH, CMP #### [facility] [address] [address] [address] Antonia Sen T4 [Mass/Vol] 6.10 ug/dL Normal 4.80-13.90 [facility] Comment on above: Performed By: #### L IPID, T7, TSH, CMP #### [facility] [address] [address] [address] Antonia Sen GLYCOHEMOGLOBIN A1Con 2021 ADA RECOMMENDATION SEE BELOW Normal [facility] Comment on above: Result Comment: ADA RECOMMENDED LIMIT 4.0 - 6.0 ADA THERAPEUTIC TARGET < 7.0 ACTION SUGGESTED > 7.0 Performed By: #### A 1C #### [facility] [address] [address] [address] Antonia Sen Glucose [Mass/Vol] 105 mg/dL Normal [facility] Comment on above: Performed By: #### A 1C #### [facility] [address] [address] [address] Antonia Sen HbA1c (Bld) [Mass fraction] 5.3 % Normal 4.5-6.2 [facility] Comment on above: Performed By: #### A 1C #### [facility] [address] [address] [address] Antonia Sen IRONon 09-03-2022 Iron [Mass/Vol] 140.0 ug/dL Normal 50.0-170.0 [facility] Comment on above: Performed By: #### I YU #### [facility] [address] [place] [address] Dr. Antonia Sen LIPID PROFILEon 09-03-2022 CHOL-HDL RATIO NORM SEE BELOW Normal [facility] Comment on above: Result Comment: 3.3 - 4.4 LOW RISK 4.4 - 7.1 AVERAGE RISK 7.1 - 11.0 MODERATE RISK >11.0 HIGH RISK Performed By: #### L IPID, T7, TSH, CMP #### [facility] [address] [address] [address] Antonia Sen Cholesterol [Mass/Vol] 226 mg/dL Critically high <=200 [facility] Comment on above: Performed By: #### L IPID, T7, TSH, CMP #### [facility] [address] [address] [address] Antonia Sen Cholesterol in HDL [Mass/Vol] 66 mg/dL Critically high 40-60 [facility] Comment on above: Performed By: #### L IPID, T7, TSH, CMP #### [facility] [address] [address] [address] Antonia Sen Cholesterol in LDL [Mass/Vol] 137.8 mg/dL Normal [facility] Comment on above: Performed By: #### L IPID, T7, TSH, CMP #### [facility] [address] [address] [address] Antonia Sen Cholesterol.total/C holesterol in HDL [Mass ratio] 3.4 {ratio} Normal [facility] Comment on above: Performed By: #### L IPID, T7, TSH, CMP #### [facility] [address] [address] [address] Antonia Sen HDL NORMAL > or = 60 mg/dl - LO W CARDIOVASCULAR RISK <40 mg/dl - HIGH CARDIOVASCULAR RISK Normal [facility] Comment on above: Performed By: #### L IPID, T7, TSH, CMP #### [facility] [address] [address] [address] Antonia Sen LDL CALC NORMAL SEE BELOW Normal [facility] Comment on above: Result Comment: <100 mg/dl OPTIMAL 100 - 129 mg/dl NEAR OR ABOVE OPTIMAL 130 - 159 mg/dl BORDERLINE HIGH 160 - 189 mg/dl HIGH >190 mg/dl VERY HIGH Performed By: #### L IPID, T7, TSH, CMP #### [facility] [address] [address] [address] Antonia Sen Triglyceride [Mass/Vol] 111 mg/dL Normal <=150 [facility] Comment on above: Performed By: #### L IPID, T7, TSH, CMP #### [facility] [address] [address] [address] Antonia Sen VLDL CALC 22.2 mg/dL Normal [facility] Comment on above: Performed By: #### L IPID, T7, TSH, CMP #### [facility] [address] [address] [address] Antonia Sen PROF 14(COMP METB)on 11-11-2 022 Albumin [Mass/Vol] 3.9 g/dL Normal 3.4-5.0 [facility] Comment on above: Performed By: #### L IPID, T7, TSH, CMP #### [facility] [address] [place] [address] Dr. Antonia Sen Albumin/Globulin [Mass ratio] 1.1 {ratio} Normal [facility] Comment on above: Performed By: #### L IPID, T7, TSH, CMP #### [facility] [address] [place] [address] Dr. Antonia Sen ALP [Catalytic activity/Vol] 64 U/L Normal 46-116 [facility] Comment on above: Performed By: #### L IPID, T7, TSH, CMP #### [facility] [address] [place] [address] Dr. Antonia Sen ALT [Catalytic activity/Vol] 6 U/L Critically low 14-59 [facility] Comment on above: Performed By: #### L IPID, T7, TSH, CMP #### [facility] [address] [place] [address] Dr. Antonia Sen Anion gap [Moles/Vol] 10.6 mmol/L Normal [facility] Comment on above: Performed By: #### L IPID, T7, TSH, CMP #### [facility] [address] [place] [address] Dr. Antonia Sen AST [Catalytic activity/Vol] 15 U/L Normal 15-37 [facility] Comment on above: Performed By: #### L IPID, T7, TSH, CMP #### [facility] [address] [place] [address] Dr. Antonia Sen Bilirubin [Mass/Vol] 0.9 mg/dL Normal 0.2-1.0 [facility] Comment on above: Performed By: #### L IPID, T7, TSH, CMP #### [facility] [address] [place] [address] Dr. Antonia Sen Calcium [Mass/Vol] 9.3 mg/dL Normal 8.5-10.1 [facility] Comment on above: Performed By: #### L IPID, T7, TSH, CMP #### [facility] [address] [address] [address] Antonia Sen Chloride [Moles/Vol] 105 mmol/L Normal 98-107 [facility] Comment on above: Performed By: #### L IPID, T7, TSH, CMP #### [facility] [address] [place] [address] Dr. Antonia Sen CO2 [Moles/Vol] 24.4 mmol/L Normal 21.0-32.0 [facility] Comment on above: Performed By: #### L IPID, T7, TSH, CMP #### [facility] [address] [place] [address] Dr. Antonia Sen Creatinine [Mass/Vol] 0.84 mg/dL Normal 0.55-1.02 [facility] Comment on above: Performed By: #### L IPID, T7, TSH, CMP #### [facility] [address] [place] [address] Dr. Antonia Sen EGFR-AF [facility] >60 Normal >=60 [facility] Comment on above: Performed By: #### L IPID, T7, TSH, CMP #### [facility] [address] [place] [address] Dr. Antonia Sen EGFR-NON AF [facility] >60 Normal >=60 [facility] Comment on above: Performed By: #### L IPID, T7, TSH, CMP #### [facility] [address] [place] [address] Dr. Antonia Sen Globulin (S) [Mass/Vol] 3.7 g/dL Normal [facility] Comment on above: Performed By: #### L IPID, T7, TSH, CMP #### [facility] [address] [place] [address] Dr. Antonia Sen Glucose [Mass/Vol] 88 mg/dL Normal 74-106 [facility] Comment on above: Performed By: #### L IPID, T7, TSH, CMP #### [facility] [address] [place] [address] Dr. Antonia Sen Potassium [Moles/Vol] 4.0 mmol/L Normal 3.5-5.1 [facility] Comment on above: Performed By: #### L IPID, T7, TSH, CMP #### [facility] [address] [address] [address] Antonia Sen Protein [Mass/Vol] 7.6 g/dL Normal 6.4-8.2 [facility] Comment on above: Performed By: #### L IPID, T7, TSH, CMP #### [facility] [address] [address] [address] Antonia Sen Sodium [Moles/Vol] 136 mmol/L Normal 136-145 [facility] Comment on above: Performed By: #### L IPID, T7, TSH, CMP #### [facility] [address] [place] [address] Dr. Antonia Sen Urea nitrogen [Mass/Vol] 23.0 mg/dL Critically high 7.0-18.0 [facility] Comment on above: Performed By: #### L IPID, T7, TSH, CMP #### [facility] [address] [place] [address] Dr. Antonia Sen Urea nitrogen/Creatinine [Mass ratio] 27.4 mg/mg Normal [facility] Comment on above: Performed By: #### L IPID, T7, TSH, CMP #### [facility] [address] [place] [address] Dr. Antonia Sen TSHon 09-03-2022 TSH 1.681 uIU/mL Normal 0.358-3.[address] [facility] Comment on above: Performed By: #### L IPID, T7, TSH, CMP #### [facility] [address] [place] [address] Dr. Antonia Sen XR wrist RT 2Von 07-16-2022 XR wrist RT 2V [facility] [place] [address] XRay Report Signed Patient: Suad Nicholson MR#: [id number] 12 : 1945 Acct:[id number] Age/Sex: 77 / F ADM Date: 07/16/22 [place] [facility] Type[place] [facility] Attending Dr: Norah Kumar MD Copies to: [...] Pati Lange M.D.07/16/2022 1:43 PM Dictation Location: [place] [address] Transcribed By: [facility] 07/16/22 1343 Dictated By: Pati Lange MD 07/16/22 1342 Signed By: 07/16/22 1343 [facility] XR wrist RT 2V [facility] [employer] Other XR wrist RT 2V [facility] [employer] Other XR wrist RT 2V [address] [place] [address] [employer] Other XR wrist [place] 2[place] [address] No rt [employer] Other XR wrist RT 2V XRay Report [employer] Other XR wrist RT 2V Signed [employer] Other XR wrist RT 2V Patient: Geronimo Nicholson MR#: [id number] [employer] Other XR wrist RT 2V 12 [employer] Other XR wrist RT 2V : 1945 Acct:[id number] [employer] Other XR wrist RT 2V Age/Sex: 77 / F ADM Date: 07/16/22 [employer] Other XR wrist RT 2V Loc: [facility] Room: Type : REG CLI [employer] Other XR wrist RT 2V Attending Dr: Segundo Kumar MD [employer] Other XR wrist RT 2V Copies to: Norah Kumar MD [employer] Other XR wrist RT 2V Ordering Provider: Norah Kumar MD [employer] Other XR wrist RT 2V Date of Service: 07/16/22 [employer] Other XR wrist RT 2V XR/XR wrist RT 2V: Other fractures of lower end of right radius, [employer] Other XR wrist RT 2V subsequent enc [employer] Other XR wrist RT 2V RIGHT WRIST - 2 views [employer] Other XR wrist RT 2V COMPARISON: 06/17/2022 [employer] Other XR wrist RT 2V CLINICAL DATA: Follow-up distal radius fracture. [employer] Other XR wrist RT 2V AP and lateral views were obtained. There is osteopenia. There is redemonstration of a fracture at [employer] Other XR wrist RT 2V the distal radius. There is no change in alignment. No other acute fractures or dislocation are [employer] Other XR wrist RT 2V seen. There is mild dorsal soft tissue swelling. [employer] Other XR wrist RT 2V XR/XR wrist RT 2V [employer] Other XR wrist RT 2V IMPRESSION: [employer] [facility] [place] [facility] [employer] Other XR wrist RT 2V STABLE DISTAL RADIUS FRACTURE. [employer] Other XR wrist RT 2V Impression dictated by: Pati Lange M.D.07/16/2022 1:43 PM [employer] Other XR wrist RT 2V Dictation Location: [place] [address] [employer] Other XR wrist RT 2V Transcribed By: P[facility] 07/16/22 1343 [employer] Other XR wrist RT 2V Dictated By: Pati Lange MD 07/16/22 1342 [employer] Other XR wrist RT 2V Signed By: [employer] Other XR wrist RT 2V 07/16/22 1343 [email or web address] Other MR hand RT wo conon 06-24-20 MR hand RT wo con [facility] [address] [place] [address] [place] [address] MRI Report Signed Patient: Suad Nicholson MR#: [id number] : 1945 Acct:[id number] Age/Sex: 77 / F ADM Date: 06/24/22 Loc: [facility] Room: Type: [facility] Attending Dr: Talon Pryor DO Copies to: Talon Pryor DO Ordering Provider: Talon Pryor DO Date of Service: 06/24/22 MR/MR hand RT wo con: S69.91XA INJURY S52.591A CLOSED FX RT RADIUS ([id number]) MR/MR wrist RT wo con: S69.91XA INJURY [...] Alexei Case M.D.06/24/2022 2:03 PM Dictation Location: [place] [address] Transcribed By: [facility] 06/24/22 1403 Dictated By: Alexei Case DO 06/24/22 1332 Signed By: 06/24/22 1403 [facility] XR WRIST RT MIN 3 Von 2021 [...] authenticated by: ALEX MONTERO Date: 2022-06-04 17:19 [facility] Encounters Encounter Date Encounter Type Care Provider Facility Start: 10-13-2023 End: 10-13-2023 Emergency department patient visit Torres Wilkins PA-C Facility:[facility] Start: 09-10-2022 End: 09-11-[address] SABA CHOW Facility:[facility] Start: 09-08-2022 End: 09-08-[address] SABA CHOW Facility:[facility] Start: 09-03-2022 End: 09-04-[address] SABA CHOW Facility:[facility] Start: 08-27-2022 End: 08-27-2022 ambulatory Norah Kumar Other [employer] Other Start: 08-27-2022 Postop follow up vis it related to original px Norah Calvey [facility] Start: 07-16-2022 Postop follow up vis it related to original px Norah Calvey [facility] Start: 07-16-2022 End: 07-16-2022 ambulatory Norah Shaikhedward [employer] Other Start: 07-16-2022 End: 07-16-2022 Patient encounter procedure DO Talon Pryor Work Phone: [facility] Start: 06-29-2022 End: 08-24-2022 ambulatory NORAH KUMAR Facility:[facility] Start: 06-25-2022 End: 06-25-2022 ambulatory Norah Kumar Other [employer] Other Start: 06-25-2022 Postop follow up vis it related to original px Norah Calvey [facility] Start: 06-24-2022 End: 06-24-2022 ambulatory Talon Pryor Facility:[facility] Start: 06-24-2022 End: 06-24-2022 Patient encounter procedure DO Talon Pryor Work Phone: [facility] [address] Start: 06-23-2022 End: 06-23-2022 ambulatory Talon Pryor Other [employer] Other Start: 06-23-2022 [facility] visit new patient [facility]on [facility] [...] Date Payer Category Payer Unknown 2022 Unknown [id number] 2009 Medicare 1960 Medicare [id number] 2.1 [id number] 1959 Self-pay 1959 Unknown [id number] 1945 Unknown [id number] 2.16.84 [id number] 1945 Unknown [id number] 2.16.84 [id number] 1945 Unknown [id number] 2.16.84 [id number] 1945 Unknown [id number] 2.16.84 [id number] 1945 Unknown [id number] 2.16.84 [id number] 1945 Unknown [id number] 2.16.84 [id number] 1945 Unknown [id number] 2.16.84 [id number] 1945 Unknown [id number] Unknown [id number] 2.16.8 [id number] Unknown [id number] 2.16.8 [id number] Unknown [id number] 2.16.8 [id number] Unknown [id number] 2.16.84 [id number] Social History Date Type Detail Facility Sex Assigned At [facility] Work Phone: Start: 1945 Sex Assigned At Female F [facility] Evaluation note 08-27-2022 Note Date & Type [...] surgery. We will f/u in 4-6 weeks. [employer] Other Evaluation note 07-16-2022 Note Date & [...] Instructed patient to continue with occupational therapy [employer] Other Evaluation note 06-25-2022 Note Date & [...] anything over 2-5 pounds at this time. [employer] Other Evaluation note 06-23-2022 Note Date & [...] office today. Prior medical notes from the [facility] and history have been reviewed. At [...] as documented in the electronic medical record. [employer] Other Clinical Note 06-18-2022 Note Date & [...] by: SEGUNDO MERINO Date: 2022-06-18 07:24 The [facility] Clinical Note 06-18-2022 Note Date & [...] by: SEGUNDO MERINO Date: 2022-06-18 07:24 The [facility] Evaluation note Note Date & Type Note Facility Evaluation note [facility] History general Narrative - Reported Note Date & Type Note Facility History general Narrative - Reported Type Medical History right hand injury Medical History gull stones Medical History depression Surgical History appendectomy Surgical History gull bladder removal [employer] Other Chief Complaint and Reason for Visit [...] section and content) DATE CREATED AUTHOR 07/30/2022 [facility] DATE CREATED AUTHOR AUTHOR'S ORGANIZ ATION 09/30/2022 [facility] DATE CREATED AUTHOR AUTHOR'S ORGANIZ ATION 10/13/2023 [facility] FOR RECORDS PERTAINING TO PATIENTS WHO [...] BE BASED ON THE PRIMARY CLINICAL RECORDS. [employer] [facility]. provides no warranty or guarantee of the accuracy or completeness of information in this document.
[2023-11-01 08:24] LABS: Bilirubin Urine NEGATIVE (NEGATIVE); Blood Urine NEGATIVE (NEGATIVE); Clarity Urine CLEAR (CLEAR); Color Urine YELLOW (YELLOW); Glucose Urine UA NEGATIVE (NEGATIVE); Ketones Urine NEGATIVE (NEGATIVE); Leukocyte Esterase Urine NEGATIVE (NEGATIVE); Nitrite Urine NEGATIVE (NEGATIVE); Protein Urine NEGATIVE (NEG/TRACE); Urobilinogen Urine 0.2 EU/dL (0.2-1.0)
[2023-11-01 08:25] LABS: Urine Microscopic Indicated NO
--- NOTE | 2023-11-01 08:59 | PC.NURSE ---
admission assessment completed. arrived to room 273 via stretcher with . bedside report obtained. pt a/o, stated she got up to go to the [facility] and her legs felt like jelly and she fell against a trash can. provides some of her history. pt a/o, denies pain or needs at this time. c/o difficulty eating/ swallowing due to slime in the back of my throat. oriented to room and call light, call light placed in reach. dr rubin notified of admission and need for orders.
--- NOTE | 2023-11-01 09:37 | P.HP_ITS ---
H&P: HPI History of Present Illness Chief complaint: DIZZINESS Narrative: Patient presented to emergency room with syncopal episode at the custodial. Did not fall. No significant injury with the fall. Blood pressure low at the custodial with systolics in the 80s. Patient has not been eating or drinking well lately. Patient found to have persistent hypotension in ER is admitted for workup and treatment of same. Review of Systems ROS Status of ROS 10 or more systems reviewed and unremark able except as noted in history and below [facility] Medical History (Updated 11/01/23 @ 06:47 by Ke Garcia MD) SIRS (systemic inflammatory response syndrome) ?R65.10 - Systemic inflammatory response syndrome (SIRS) of non-infectious origin without acute organ dysfunction (ICD-10) Acute UTI ?N39.0 - Urinary tract infection, site not specified (ICD-10) Altered mental status ?R41.82 - Altered mental status, unspecified (ICD-10) Spinal stenosis ?M48.00 - Spinal stenosis, site unspecified (ICD-10) GERD (gastroesophageal reflux disease) ?K21.9 - Gastro-esophageal reflux disease without esophagitis (ICD-10) Acute lumbar radiculopathy ?M54.16 - Radiculopathy, lumbar region (ICD-10) Surgical History (Updated 11/01/23 @ 08:31 by Carlita Penn) History of appendectomy ?Z90.49 - Acquired absence of other specified parts of digestive tract (ICD- 10) Skin cancer of nose ?C44.301 - Unspecified malignant neoplasm of skin of nose (ICD-10) History of cholecystectomy ?Z90.49 - Acquired absence of other specified parts of digestive tract (ICD- 10) Family History (Updated 09/16/23 @ 17:13 by Jeanne Bhatt) Father Family history of myocardial infarction Family history of cancer Social History (Updated 09/16/23 @ 17:16 by Jeanne Bhatt) Within the past year, how often did you have a drink containing alcohol: 2-3 times a week Within the past year, how many standard drinks containing alcohol did you have on a typical day: 1 or 2 Within the past year, how often did you have six or more drinks on one occasion: never Total score: 0 Score interpretation: Questions 2 and 3 are 0. It can be assumed that the patient's drinking is below the recommended limits. However, please confirm the accuracy of the patient's alcohol intake over the last few months. Smoking status: Never smoker Non-prescribed substance use: denies use Previous occupational history: retired Highest level of school completed/degree received: high school graduate Are you now , , , , never or living with a partner: Little interest or pleasure in doing things: not at all Feeling down, depressed, or hopeless: not at all Feel stressed/tense/nervous/anxious/difficulty sleeping: only a little Do you think of yourself as: straight/heterosexual Meds Home Medications and Allergies Home Medications Medication Instructions Recorded Confirmed Type pantoprazole 40 mg tablet,delayed 40 mg PO DAILY 09/16/23 11/01/23 History release lisinopril 10 mg tablet 10 mg PO QD #30 tabs 10/20/23 11/01/23 Rx citalopram 20 mg tablet 10 mg (1/2 x 20 mg) PO QD #30 tabs 10/22/23 11/01/23 Rx hydroxyzine pamoate 25 mg capsule 25 mg PO TID PRN Anxiety #90 caps 10/22/23 11/01/23 Rx pramipexole 0.5 mg tablet 0.5 mg PO BID #60 tabs 10/22/23 11/01/23 Rx tizanidine 4 mg tablet 8 mg (2 x 4 mg) PO QHS #60 tabs 10/22/23 Rx acetaminophen 500 mg tablet 1,000 mg PO Q6H PRN fever or pain 11/01/23 11/01/23 History (Acetaminophen Extra Strength) cetirizine 10 mg tablet (24Hour 10 mg PO DAILY 11/01/23 11/01/23 History Allergy) docusate sodium 100 mg capsule 100 mg PO BID 11/01/23 11/01/23 History (Colace) guaifenesin 1,200 mg tablet, 1,200 mg PO BID PRN congestion 11/01/23 11/01/23 History extended release 12 hr (Mucinex) hyoscyamine sulfate 0.125 mg 0.125 mg PO Q8H 11/01/23 11/01/23 History tablet (Levsin) ondansetron 4 mg disintegrating 4 mg PO Q6H PRN nausea and vomiting 01/09/24 01/09/24 History tablet polyethylene glycol 3350 17 17 g PO DAILY PRN constipation 11/01/23 11/01/23 History gram/dose oral powder (ClearLax) Allergies Allergy/AdvReac Type Severity Reaction Status Date / Time No Known Drug Allergies Allergy Verified 09/13/23 21:57 Exam Constitutional Vital Signs, click to edit/add: Last Vital Signs Temp 98.0 F 11/01/23 08:21 Pulse 72 11/01/23 08:50 Resp 17 11/01/23 08:50 BP 110/50 11/01/23 08:17 Pulse Ox 99 11/01/23 08:50 O2 Del Method Room Air 11/01/23 08:21 Documenting provider has reviewed patient's vital signs: yes Common normals: no apparent distress Lymph Lymphatic: no lymphadenopathy noted Chest Common normals: inspection of chest normal Respiratory Common normals: normal respiratory effort and no retractions Cardio Common normals: regular rate and regular rhythm GI Common normals: Normal to inspection, nondistended, normoactive bowel sounds present Neuro Common normals: CN's II-XII intact bilaterally and moves all extremities Results Labs Labs: Short CBC 11/01/23 Range/Units 04:15 WBC 7.1 (4.0-11.0) 10^3/uL Hgb 10.7 L (12.0-16.0) g/dL Hct 31.7 L (36.0-48.0) % Plt Count 262 (150-450) 10^3/uL BMP 11/01/23 04:15 Sodium 136 Potassium 2.4 L* Chloride 98 Carbon Dioxide 30.1 BUN 16.0 Creatinine 1.07 H Glucose 106 Calcium 8.7 Urine 11/01/23 Range/Units 04:59 Urine Color Yellow (YELLOW) Urine Clarity Clear (CLEAR) Urine pH 6.0 (5.0-9.0) Ur Specific [place] 1.010 (1.005-1.025) Urine Protein Negative (NEG/TRACE) mg/dL Urine Glucose (UA) Negative (NEGATIVE) mg/dL Assessment and Plan Assessment and Plan (1) Contusion of neck: (2) Acute hypokalemia: Plan Hypotension, mild bradycardia, acute elevation in BUN and creatinine secondary to dehydration-patient with poor p.o. intake. I feel this is more her dementia related she cannot swallow. Just chooses not to. IV fluids for rehydration. Speech therapy to evaluate. Teleneuro to evaluate for evaluation for dementia as well. Iron deficiency anemia-follow daily Moderate protein calorie malnutrition-diet supplement Depression symptoms-she was started on citalopram, will maintain that currently. GERD-continue with home medications Start patient off as observation status. Blood pressure likely to improve quickly just not sure her mental status with dementia will improve overnight. May need to be inpatient if progression of symptoms Urinary Catheter Management Urinary Catheter Management Straight: Cath placed during this visit: yes Urethral indwelling: No Insertion date: 11/01/23 Insertion time: 04:46
--- NOTE | 2023-11-01 10:15 | SWNOTE1 ---
SW reached out to [facility] and patient is there skilled. SW to assess pt.
[2023-11-01] MEDS: PANTOPRAZOLE SODIUM 40 MG VIAL IV (10:44)
[2023-11-01] MEDS: 0.9 % SODIUM CHLORIDE 1,000 ML 500 ML IV (10:44)
[2023-11-01] MEDS: CITALOPRAM HYDROBROMIDE 20 MG TABLET 10 MG PO (10:45)
[2023-11-01] MEDS: POTASSIUM CHLORIDE 10 MEQ ER TABLET 20 MEQ PO ×2 (10:45→21:32)
[2023-11-01] MEDS: PROSTAT 15 GM PROTEIN/100 CAL 30 ML LIQUID PACKET PO ×2 (10:45→21:32)
[2023-11-01] MEDS: PRAMIPEXOLE 1 MG TABLET 0.5 MG PO ×2 (10:45→21:33)
[2023-11-01] MEDS: ENSURE HP 237 ML LIQUID PO ×2 (10:46→21:32)
[2023-11-01] MEDS: LACTATED RINGER'S SOLUTION 1,000 ML 100 ML IV ×2 (12:16→21:32)
--- NOTE | 2023-11-01 13:06 | SWNOTE1 ---
SHREE spoke with pt and daughter in room. Pt is very pleased with her care at the [place] and does plan on returning at discharge. No precert. SHREE sent updates to [place].
--- NOTE | 2023-11-01 13:27 | SWNOTE1 ---
SW spoke with pt, , and daughter again. They had questions in regards to patient portal and in regards to [facility] making them pay to hold the bed a facility. SW addressed questions.
[2023-11-01] MEDS: HYOSCYAMINE SULFATE 0.125 MG TAB.SUBL PO ×2 (13:56→21:35)
[2023-11-01] MEDS: ACETAMINOPHEN 500 MG TABLET 1000 MG PO (18:08)
[2023-11-01] MEDS: HYDROXYZINE PAMOATE 25 MG CAPSULE PO (21:32)
[2023-11-01] MEDS: DOCUSATE SODIUM 100 MG CAPSULE PO (21:32)
[2023-11-01 22:14] LABS: Adenovirus F 40/41 NOT DETECTED (NOT DETECTE); Astrovirus NOT DETECTED (NOT DETECTE); Campylobacter NOT DETECTED (NOT DETECTE); Cryptosporidium NOT DETECTED (NOT DETECTE); Cyclospora cayetanensis NOT DETECTED (NOT DETECTE); Entamoeba histolytica NOT DETECTED (NOT DETECTE); Enteroaggregative E.coli NOT DETECTED (NOT DETECTE); Enteropathogenic E.coli NOT DETECTED (NOT DETECTE); Enterotoxigenic E. coli NOT DETECTED (NOT DETECTE); Giardia lamblia NOT DETECTED (NOT DETECTE); Norovirus GI/GII NOT DETECTED (NOT DETECTE); Plesiomonas shigelloides NOT DETECTED (NOT DETECTE); Rotavirus A NOT DETECTED (NOT DETECTE); Salmonella NOT DETECTED (NOT DETECTE); Sapovirus NOT DETECTED (NOT DETECTE); Shiga-like toxin-producing E.C NOT DETECTED (NOT DETECTE); Shigella/Enteroinvasive E.coli NOT DETECTED (NOT DETECTE); Vibrio NOT DETECTED (NOT DETECTE); Vibrio cholerae NOT DETECTED (NOT DETECTE); Yersinia enterocolitica NOT DETECTED (NOT DETECTE)
[2023-11-02] VITALS (10 sets, daily range): BP systolic 118; BP diastolic 57; PULSE 74–96; RESP 18; TEMP 36.9; O2SAT 92
[2023-11-02] MEDS: ACETAMINOPHEN 500 MG TABLET 1000 MG PO (01:12)
[2023-11-02 05:26] LABS: Basophils Percent Auto 0.6 % (0.2-2.0); Eosinophils Absolute Auto 0.1 10^3/uL (0.0-0.7); Eosinophils Percent Auto 1.4 % (0.9-7.0); Hematocrit 28.3 % (36.0-48.0); Hemoglobin 9.5 g/dL (12.0-16.0); Immature Granulocytes Pct Auto 1.4 % (0.0-0.5); Lymphocytes Absolute Auto 1.2 10^3/uL (1.2-3.8); Mean Corpuscular HGB Conc 33.6 g/dL (29.9-35.2); Mean Corpuscular Hemoglobin 30.9 pg (26.7-34.0); Mean Corpuscular Volume 92.2 fL (81.0-99.0); Mean Platelet Volume 12.4 fL (9.5-13.5); Monocytes Absolute Auto 0.7 10^3/uL (0.3-0.8); Neutrophils Percent Auto 69.6 % (43.0-75.0); Platelet Count 216 10^3/uL (150-450); Red Blood Count 3.07 10^6/uL (4.20-5.40); White Blood Count 7.2 10^3/uL (4.0-11.0)
[2023-11-02] MEDS: HYOSCYAMINE SULFATE 0.125 MG TAB.SUBL PO (05:29)
[2023-11-02 05:52] LABS: Alanine Aminotransferase 9 U/L (14-59); Albumin Globulin Ratio 0.7; Albumin Level 2.1 g/dL (3.4-5.0); Alkaline Phosphatase 42 U/L (46-116); Anion Gap 9.7; Aspartate Amino Transferase 12 U/L (15-37); BUN Creatinine Ratio 16.9; Bilirubin Total 0.3 mg/dL (0.2-1.0); Calcium 8.3 mg/dL (8.5-10.1); Carbon Dioxide 26.1 mmol/L (21.0-32.0); Chloride 107 mmol/L (98-107); Estimated GFR (African America >60 (>=60); Estimated GFR (Non-African Ame >60 (>=60); Globulin 2.9 g/dL; Glucose 85 mg/dL (74-106); Sodium 140 mmol/L (136-145)
[2023-11-02 06:26] LABS: Potassium 2.8 mmol/L (3.5-5.1)
--- NOTE | 2023-11-02 07:08 | US_ITS ---
[place] [id number] Patient Name: HAVEN FRAIRE MRN: [id number] date: 1945 Sex: F Assigned Patient Location: [place] Current Patient Location: [place] Accession/Order Number: [id number] Exam Date: 11/02/2023 07:45 Report Date: 11/02/2023 08:25 At the request of: SABA CHOW Procedure: US carotid duplex BI EXAMINATION: US carotid duplex BI HISTORY: carotid calcifications COMPARISON: No relevant comparison available. TECHNIQUE: Duplex Doppler ultrasound analysis of carotid and vertebral arteries. . Bilateral carotid arterial duplex examination was performed using B-mode, color flow and spectral analysis. Carotid stenosis is reported according to validated velocity parameters, similar to NASCET criteria. FINDINGS: RIGHT CAROTID ARTERY Mild atherosclerotic plaque Subclavian: PSV: 117.7 cm/s cm/s EDV: 0.0 cm/s cm/s CCA: Prox: PSV: 74.1 cm/s cm/s EDV: 16.0 cm/s cm/s Mid: PSV: 75.7 cm/s cm/s EDV: 14.4 cm/s cm/s Distal: PSV: 68.0 cm/s cm/s EDV: 13.1 cm/s cm/s BULB: PSV: 65.8 cm/s cm/s EDV: 16.4 cm/s cm/s ICA: Prox: PSV: 66.9 cm/s cm/s EDV: 14.2 cm/s cm/s Mid: PSV: 52.6 cm/s cm/s EDV: 17.5 cm/s cm/s Distal: PSV: 82.7 cm/s cm/s EDV: 32.2 cm/s cm/s ECA: PSV: 89.2 cm/s cm/s EDV: 6.3 cm/s cm/s VERTEBRAL: PSV: 38.4 cm/s cm/s EDV: 7.8 cm/s cm/s, antegrade ICA/CCA ratio: PSV: 1.1 EDV: 2.2 LEFT CAROTID ARTERY Mild atherosclerotic plaque Subclavian: PSV: 266.4 cm/s cm/s EDV: 14.0 cm/s CCA: Prox: PSV: 76.9 cm/s cm/s EDV: 15.5 cm/s Mid: PSV: 94.6 cm/s cm/s EDV: 18.7 cm/s Distal: PSV: 73.6 cm/s cm/s EDV: 17.1 cm/s BULB: PSV: 68.7 cm/s cm/s EDV: 15.5 cm/s ICA: Prox: PSV: 70.3 cm/s cm/s EDV: 12.3 cm/s Mid: PSV: 65.5 cm/s cm/s EDV: 20.3 cm/s Distal: PSV: 70.3 cm/s cm/s EDV: 17.1 cm/s ECA: PSV: 62.2 cm/s cm/s EDV: 4.2 cm/s VERTEBRAL: PSV: 51.1 cm/s cm/s EDV: 18.0 cm/s , antegrade ICA/CCA ratio: PSV: 0.7 EDV: 0.7 Complex left thyroid nodule measuring 2.5 cm US/US carotid duplex BI IMPRESSION: 0-49% flow stenosis bilateral internal carotid arteries 2.5 cm left thyroid nodule, consider dedicated thyroid ultrasound Spectral Doppler US Thresholds (Reference: Tavo EG, et al. Radiology 2000; 214:247-252) Stenosis (%) PSV (cm/sec) VICA/VCCA 0-49 <150 <2.5 50-69 150-225 2.5-4.0 >70 >225 >4.0 Electronically authenticated by: GRACIELA LUGO Date: 11/02/2023 08:25
--- NOTE | 2023-11-02 08:09 | CM.NOTE ---
Rounds made with Dr. Vidal, pt to discharge back to [facility] today for skilled therapy.
[2023-11-02] MEDS: ENSURE HP 237 ML LIQUID PO (08:44)
[2023-11-02] MEDS: LACTATED RINGER'S SOLUTION 1,000 ML 100 ML IV (08:44)
[2023-11-02] MEDS: PRAMIPEXOLE 1 MG TABLET 0.5 MG PO (08:45)
[2023-11-02] MEDS: POTASSIUM CHLORIDE 10 MEQ ER TABLET 20 MEQ PO (08:45)
[2023-11-02] MEDS: CITALOPRAM HYDROBROMIDE 20 MG TABLET 10 MG PO (08:46)
[2023-11-02] MEDS: ASPIRIN 81 MG TABLET.DR PO ×2 (08:46→10:20)
[2023-11-02] MEDS: PROSTAT 15 GM PROTEIN/100 CAL 30 ML LIQUID PACKET PO (08:46)
[2023-11-02] MEDS: DOCUSATE SODIUM 100 MG CAPSULE PO (08:47)
[2023-11-02] MEDS: POTASSIUM CHLORIDE 40 MEQ in 0.9 % SODIUM CHLORIDE 250 ML 67.5 MEQ IV (08:47)
--- NOTE | 2023-11-02 09:11 | P.PN_ITS ---
Exam Constitutional Vital Signs, click to edit/add: Last Vital Signs Temp 98.4 F 11/02/23 05:32 Pulse 78 11/02/23 08:00 Resp 18 11/02/23 05:32 BP 118/57 11/02/23 05:32 Pulse Ox 92 L 11/02/23 05:32 O2 Del Method Room Air 11/02/23 05:32 Progress Note: Objective Labs Labs: Short CBC 11/02/23 Range/Units 04:44 WBC 7.2 (4.0-11.0) 10^3/uL Hgb 9.5 L (12.0-16.0) g/dL Hct 28.3 L (36.0-48.0) % Plt Count 216 (150-450) 10^3/uL BMP 11/02/23 04:44 Sodium 140 Potassium 2.8 L* Chloride 107 Carbon Dioxide 26.1 BUN 12.0 Creatinine 0.71 Glucose 85 Calcium 8.3 L Liver Function 11/02/23 Range/Units 04:44 Total Bilirubin 0.3 (0.2-1.0) mg/dL AST 12 L (15-37) U/L ALT 9 L (14-59) U/L Alkaline Phosphatase 42 L (46-116) U/L Albumin 2.1 L (3.4-5.0) g/dL Progress Note: A&P Assessment and Plan (1) Contusion of neck: (2) Acute hypokalemia: Plan Hypotension, mild bradycardia, acute elevation in BUN and creatinine secondary to dehydration-patient with poor p.o. intake. I feel this is more her dementia related she cannot swallow. Just chooses not to. IV fluids for rehydration. Speech therapy to evaluate. Teleneuro to evaluate for evaluation for dementia as well. Iron deficiency anemia-follow daily Moderate protein calorie malnutrition-diet supplement Depression symptoms-she was started on citalopram, will maintain that currently. GERD-continue with home medications Start patient off as observation status. Blood pressure likely to improve quickly just not sure her mental status with dementia will improve overnight. May need to be inpatient if progression of symptoms Urinary Catheter Management Urinary Catheter Management Straight: Cath placed during this visit: yes Urethral indwelling: No Insertion date: 11/01/23 Insertion time: 04:46
--- NOTE | 2023-11-02 10:12 | CM.NOTE ---
Medicare Outpatient Observation Notice discussed with pt, pt verbalizes understanding and signs paper. Original given to pt and copy placed on pt's chart.
[2023-11-02] MEDS: PANTOPRAZOLE SODIUM 40 MG VIAL IV (10:19)
--- NOTE | 2023-11-02 11:06 | REH.PTDLY ---
Physical Therapy Daily Note PT Daily Note/Assess Start: 11/02/23 10:53 Freq: Status: Active Protocol: Document 11/02/23 10:54 ENMA (Rec: 11/02/23 11:05 ENMA [id number]) Physical Therapy Daily Note/Assessment Time In 10:07 Time Out 10:17 Subjective Pt in bed upon arrival. Still confused during conversation, but very pleasant. Therapeutic Exercise Minutes (minutes) 4 Therapeutic Exercise Units 0 Therapeutic Exercise Treatment Instructed in B LE seated exs 10-15x ea for improved mobility and strength with no complaints. Verbal cues and demo given. Therapeutic Activity Minutes (minutes) 6 Therapeutic Activity Units 1 Bed Mobility Ability Standby Assistance Chair Transfer Ability Standby Assistance Therapeutic Activity Comments SBA with all transfers. Gait training with RW 125 feet SBA/ CGA with verbal and tactile cues for directional changes due to confusion. Pt denies any fatigue. Transfers Ind back into bed with bed alarm on for safety and call light at hand. Total Therapy Minutes 10 Total Physical Therapy Units 1 Daily Note Summary Progressed ambulation today with no complaints. Pt continues to remain confused today during conversation. Pt is supposed to be DC back to [facility] today.
[2023-11-02 12:24] LABS: C. Difficile PCR NEGATIVE (NEGATIVE)
--- NOTE | 2023-11-02 13:00 | FL_ITS ---
The [address] [address] Patient Name: HAVEN FRAIRE MRN: [id number] date: 1945 Sex: F Assigned Patient Location: Current Patient Location: Accession/Order Number: [id number] Exam Date: 11/02/2023 13:00 Report Date: 11/02/2023 14:50 At the request of: SABA CHOW Procedure: FL modified barium swallow EXAMINATION: FL modified barium swallow HISTORY: DYSPHAGIA COMPARISON: No relevant comparison available. TECHNIQUE: A swallowing evaluation was performed with fluoroscopy in the usual manner. Standard level fluoroscopic mode of operation utilized. FINDINGS: ORAL PHASE: Normal deglutition. PHARYNGEAL PHASE: Normal swallowing. ASPIRATION: None. STRUCTURE: Normal. No visible obstruction, stricture, or dilatation. OTHER: Negative. FL/FL modified barium swallow IMPRESSION: 1. Normal examination. 2. Consideration of patient history, endoscopy for direct visualization may be beneficial. Electronically authenticated by: SEGUNDO MERINO Date: 11/02/2023 14:50
--- NOTE | 2023-11-02 13:57 | MR_ITS ---
The [place] [id number] Patient Name: HAVEN FRAIRE MRN: [id number] date: 1945 Sex: F Assigned Patient Location: [place] Current Patient Location: [place] Accession/Order Number: [id number] Exam Date: 11/02/2023 14:17 Report Date: 11/02/2023 15:09 At the request of: SABA CHOW Procedure: MR head/brain wo con EXAM: MR head/brain wo con CLINICAL INDICATION: teleneuro conslt COMPARISON: CT head 11/01/2023. TECHNIQUE/PROTOCOL: Standard noncontrast protocol brain MRI performed (Sagittal T1 with axial T1, T2, GRE, FLAIR, and diffusion-weighted imaging). FINDINGS: No restricted diffusion, extra-axial fluid collection, hydrocephalus, midline shift, or other mass effect. Intracranial flow voids are maintained. Few scattered small hyperintense T2/FLAIR periventricular and subcortical foci are likely on the basis of chronic microvascular angiopathic changes. Rgzx-uk-xnhiwjpa symmetric global volume loss without lobar predominance. Commensurate ventricular system caliber prominence. No abnormal susceptibility signal to suggest hemosiderin staining. Normal marrow signal. No soft tissue abnormalities. Trace scattered paranasal sinus mucosal thickening. Mastoid air cells are well-aerated. MR/MR head/brain wo con IMPRESSION: No acute intracranial process or recent infarction. Electronically authenticated by: FRANK ROTH Date: 11/02/2023 15:09
--- NOTE | 2023-11-02 15:50 | SWNOTE1 ---
Pt is able to be discharge to [facility]. SHREE sent over discharge orders/packet to [facility]. Packet was updated as well. SHREE spoke with Fatimah at [facility] to notify patient will be returning to [facility] within a half hour.
--- NOTE | 2023-11-02 19:07 | P.DS_ITS ---
DS: Providers Provider Date of admission: 11/01/23 08:10 Primary care physician: Daniel Vidal MD Consults: 11/01/23 Consult to Dietitian Routine Reason For Exam: poor appetite Reason for consultation: poor appetite Has provider been notified: No 11/01/23 09:31 Consult to TeleNeurology Routine Reason for consultation: Dementia Has provider been notified: No 11/01/23 09:33 Occupational Therapy Eval and Treat Routine Reason for consultation: Only if needed for Rehab Has provider been notified: No Physical Therapy Eval and Treat Routine Reason for consultation: Eval and Treat Has provider been notified: No Speech Therapy Eval and Treat Routine Reason for consultation: Eval and treat swallowing Has provider been notified: No DS: Diagnosis Discharge Diagnosis (1) Contusion of neck: (2) Acute hypokalemia: Plan Hypotension, mild bradycardia, acute elevation in BUN and creatinine secondary to dehydration- Iron deficiency anemia Moderate protein calorie malnutrition Depression symptoms GERD DS: Summary Hospital Course Hospital Course: [facility] No significant injury with the fall but had significant hypotension. In ER found to have significant hypotension and hypokalemia. Patient has had poor p.o. intake. Patient cannot swallow liquids, feels difficulty swallowing food. Speech therapy work with patient, upper GI completed, MRI brain completed all essentially within normal limits. Patient was started on Aricept for dementia. Follow-up with neurology as an outpatient. I will [facility] to [facility] in [facility]. Medications see list. Time Spent with Patient Time attestation: Total time spent providing and/or coordinating discharge services: Exam Constitutional Vital Signs, click to edit/add: Last Vital Signs Temp 98.4 F 11/02/23 05:32 Pulse 96 H 11/02/23 14:00 Resp 18 11/02/23 05:32 BP 118/57 11/02/23 05:32 Pulse Ox 92 L 11/02/23 11:51 O2 Del Method Room Air 11/02/23 11:51 Documenting provider has reviewed patient's vital signs: yes Common normals: no apparent distress Lymph Lymphatic: no lymphadenopathy noted Chest Common normals: inspection of chest normal Respiratory Common normals: normal respiratory effort and no retractions Cardio Common normals: regular rate and regular rhythm GI Common normals: Normal to inspection, nondistended, normoactive bowel sounds present Neuro Common normals: CN's II-XII intact bilaterally and moves all extremities DS: Data Data Completed and Pending Labs on day of discharge: Labs from last 24 hours 11/02/23 11/01/23 04:44 22:06 WBC 7.2 RBC 3.07 L Hgb 9.5 L Hct 28.3 L MCV 92.2 MCH 30.9 MCHC 33.6 RDW 15.0 Plt Count 216 MPV 12.4 Neut % (Auto) 69.6 Lymph % (Auto) 17.0 L Sharkey % (Auto) 10.0 Eos % (Auto) 1.4 Baso % (Auto) 0.6 Neut # (Auto) 5.0 Lymph # (Auto) 1.2 Sharkey # (Auto) 0.7 Eos # (Auto) 0.1 Baso # (Auto) 0.0 Abs Immat Gran (auto) 0.10 H Imm/Tot Granulo (auto) 1.4 H Sodium 140 Potassium 2.8 L* Chloride 107 Carbon Dioxide 26.1 Anion Gap 9.7 BUN 12.0 Creatinine 0.71 Est GFR ( Amer) >60 Est GFR (Non-Af Amer) >60 BUN/Creatinine Ratio 16.9 Glucose 85 Calcium 8.3 L Total Bilirubin 0.3 AST 12 L ALT 9 L Alkaline Phosphatase 42 L Total Protein 5.0 L Albumin 2.1 L Globulin 2.9 Albumin/Globulin Ratio 0.7 Stl C. cayetanensis PCR Not detected Stool Rotavirus (PCR) Not detected Stool Adenovirus (PCR) Not detected Stool Astrovirus (PCR) Not detected Stool Campylobacter PCR Not detected Stool Cryptosporidium PCR Not detected St Sh/Enteroin Ecoli PCR Not detected Stl Enterotoxigenic E PCR Not detected Stool EPEC (PCR) Not detected Stl E. histolytica PCR Not detected Stool Giardia Lamblia PCR Not detected Stl P. shigelloides PCR Not detected Stool Salmonella PCR Not detected Stool Sapovirus (PCR) Not detected Stl Shiga-like Tx [address].enterocolitica PCR Not detected Stl Vibrio cholerae PCR Not detected Stl Enteroaggr Ecoli PCR Not detected Stl Norovirus GI/GII PCR Not detected C. difficile Toxin A&B Not detected Vibrio Culture Not detected C. difficile Toxin PCR Negative Discharge Plan Discharge Disposition: Xfer SNF Condition: Fair Discharge Medications: New donepezil [Aricept] 5 mg tablet 5 mg PO DAILY Qty: 30 11RF Continued citalopram 20 mg Tablet 10 mg PO QD Qty: 30 11RF hydroxyzine pamoate 25 mg Capsule 25 mg PO TID PRN (Reason: Anxiety) Qty: 90 11RF pramipexole 0.5 mg tablet 0.5 mg PO BID Qty: 60 11RF docusate sodium [Colace] 100 mg capsule 100 mg PO BID Rx Instructions: Hold for loose stools hyoscyamine sulfate [Levsin] 0.125 mg tablet 0.125 mg PO Q8H Rx Instructions: Before meals and at bedtime. guaifenesin [Mucinex] 1,200 mg tablet extended release 12hr 1,200 mg PO BID PRN (Reason: congestion) polyethylene glycol 3350 [ClearLax] 17 gram/dose powder 17 g PO DAILY PRN (Reason: constipation) ondansetron 4 mg tablet,disintegrating 4 mg PO Q6H PRN (Reason: nausea and vomiting) acetaminophen [Acetaminophen Extra Strength] 500 mg tablet 1,000 mg PO Q6H PRN (Reason: fever or pain) cetirizine [24Hour Allergy] 10 mg tablet 10 mg PO DAILY Discontinued lisinopril 10 mg Tablet 10 mg PO QD Qty: 30 11RF tizanidine 4 mg Tablet 8 mg PO QHS Qty: 60 0RF Rx Instructions: Hold if sleeping pantoprazole 40 mg tablet,delayed release (DR/EC) 40 mg PO DAILY 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 (does not currently have a neurologist) Saw [facility] neurologist while admitted Have labs drawn: Folate, B12 and MMA level drawn on next lab draw. Discharge Date/Time: 11/02/23 15:42
== END 2023-11-02 15:42 ==
LOC: ER 06:47 → ICU 08:20 → MS 16:53
PROVIDERS: Admitting Provider Family Medicine; Emergency Provider Internal Medicine; PCP Family Medicine; Visit Provider Family Medicine
DX: E86.0 Dehydration (principal); I95.9 Hypotension, unspecified; R00.1 Bradycardia, unspecified; R79.89 Other specified abnormal findings of blood chemistry; D50.9 Iron deficiency anemia, unspecified; E43 Unspecified severe protein-calorie malnutrition; F32.A Depression, unspecified; E87.6 Hypokalemia; K21.9 Gastro-esophageal reflux disease without esophagitis; F03.90 Unspecified dementia, unspecified severity, without behavioral disturbance, psychotic disturbance, mood disturbance, and anxiety; R13.10 Dysphagia, unspecified; R55 Syncope and collapse; S10.93XA Contusion of unspecified part of neck, initial encounter; M25.551 Pain in right hip; G89.29 Other chronic pain; I44.7 Left bundle-branch block, unspecified; M54.31 Sciatica, right side; W19.XXXA Unspecified fall, initial encounter; Z68.24 Body mass index [BMI] 24.0-24.9, adult; Z90.49 Acquired absence of other specified parts of digestive tract; Z85.828 Personal history of other malignant neoplasm of skin; Z87.440 Personal history of urinary (tract) infections; Z79.899 Other long term (current) drug therapy
CPT/HCPCS: 36415; 70450; 70551; 71045; 72125; 72128; 73502; 74230; 80048; 80053; 81003; 84484; 85025; 87493; 87507; 92610; 92611; 93005; 93880; 94761; 96361; 96365; 96366; 96375; 96376; 97161; 97165; 97530; 99285; G0378; J2405; J3480; Q0177; Q3014

== ENCOUNTER 2024-06-04 11:50 | Outpatient (OUT) | payer MEDICARE, OTHER, SELFPAY ==
[2024-06-04 15:18] LABS: Internal Control Within Normal Limits; Occult Blood Positive
[2024-06-04 15:44] LABS: C. Difficile PCR NEGATIVE (NEGATIVE)
== END 2024-06-04 11:51 | disposition home or self-care (01) ==
LOC: LAB 11:53
PROVIDERS: PCP Family Medicine; Visit Provider Family Medicine
DX: K52.9 Noninfective gastroenteritis and colitis, unspecified (principal)
CPT/HCPCS: 87045; 87046; 87427; 87493; G0328

== ENCOUNTER 2024-06-06 09:00 | Outpatient (OUT) | payer MEDICARE, OTHER, SELFPAY ==
--- OUTSIDE RECORDS SUMMARY | 2024-06-06 09:08 | XMS_ITS | CCD ---
Author Organization [facility] ion [facility] Care Team Providers Care Honing Machine Set Up Operator Name Role Phone Norah Kumar Unavailable DO Talon Pryor Attending Provider Talon Pryor Unavailable MD Norah Kumar Attending Provider [phone] Talon Pryor Attending Unavailable Talon Pryor Admitting Unavailable Norah Kumar Admitting Unavailable Norah Kumar Attending Unavailable GERALDO, DR WALTER Admitting Unavailable GERALDO, DR WALTER Attending Unavailable SMITAY, DR WALTER Consulting Unavailable GERALDO, DR WALTER Primary Care Unavailable KENNETH, DR GRACIELA Christensen Consulting Unavailable GERALDO, DR [...] Unavailable GERALDO, DR WALTER Primary Care Unavailable Franky PATorres Benson Attending ERIKA Hernandez Consulting Unavailable INPATIENT, TELENEUROLOGY Consulting Unavail able Allergies Allergy Classification Reported Allergen(s) Allergy Type Date of Onset Reaction(s) Facility (1 source) guaiFENesin Drug Allergy [facility] Repository Medications Current Medications Medication Drug [...] 09-10-2022 Chronic Other aftercare (1 source) Other long-term (current) drug therapy; Translations: [[employer] CURRENT DRUG THERAPY] Onset: 09-06-2022 Episodic Other [...] fracture or bony displacement. Radiation Dose Estimate: CTDI(mGy):0.396523 / / / kVp:120.623010 / mAs:0.520716 / / / DLP(mGy-cm):3.021120J aaron Part: CTDI(mGy):22.860050 / / / kVp:140.940411 / mAs:153.436762 / / / DLP(mGy-cm):538.30335 5Body Part: Final Dictated by: Pablo Bower MD Dictated DT/TM: 10.12.2023 11:23 pm Signed by: Pablo Bower MD Signed (Electronic Signature): 10.12.2023 11:33 pm (If Report Is Signed, Electronically Signed in Other Vendor System) Normal [facility] ED Clinical Summaryon 2022 ED Clinical Summary [address] [address] ED Clinical Summary Person Information Name: Suad Nicholson/[facility] Age: 78 Years : 1945 Sex: Female PCP: Marital Status: Phone: Race: White Ethnicity: Not or Language: Portuguese Visit Reason: Back pain Acuity: 4 Enc Type: Emergency Med Service: Emergency Medicine Arrival: 10/12/2023 22:00:02 Discharge: 10/13/2023 01:00:00 LOS: 000 03:00 Checkin: 10/12/2023 22:00:02 Checkout: 10/13/2023 01:00:00 Dispo Type: Home or Self Care Address: [address] [place] [phone] Provider Notes: Diagnosis: 1:Back pain; Right hip [...] Hip Strain; Back Pain (Acute or Chronic) [facility] Poison Help line: . [facility] Hotline: [place] Tobacco Quit Line: [facility] ([place], [place]) [address]: [phone] [facility] ([place], [place]) [address]: [phone] [facility] [address] [facility]. [place], [place]: [phone] Normal [facility] ED Note-Physicianon 10-13-20 ED Note-Physician Chief [...] MRI and CT scan done at the [place] emergency department and was advised to try [...] patient s (more content not included)... Normal [facility] XR Hip 2-3 Views Righton XR [...] Electronically Signed in Other Vendor System) Normal [facility] XR Knee 1 or 2 Views [...] Electronically Signed in Other Vendor System) Normal [facility] XR DEXA BONE DENSITYon 09-10 XR [...] GRACIELA LUGO Date: 2022-09-10 15:39 Normal [facility] OCC BLD IMMUNO SCREENon 08-24 OCCULT BLOOD Negative Normal NEGATIVE [facility] Comment on above: Performed By: #### O BSCRN ####[facility] [address] [place] [address]Dr. Antonia Sen INSULINon 09-04-2022 Insulin 8.4 uIU/mL Normal 2.6-24.9 [facility] Comment on above: Performed By: #### I NSULIN ####[facility] [address] [address]Dr. Antonia Sen CBC AUTO DIFFon 09-03-2022 BASO # 0.1 103/ul Normal 0.0-0.1 [facility] Comment on above: Performed By: #### C BC ####[facility] [address] [place] [address] [address]Dr. Antonia Sen Basophils/100 WBC (Bld) 1.2 % Normal 0.2-2.0 [facility] Comment on above: Performed By: #### C BC ####[facility] [address] [place] [address]Dr. Antonia Sen EO # 0.2 103/ul Normal 0.0-0.7 [facility] Comment on above: Performed By: #### C BC ####[facility] [address] [place] [address]Dr. Antonia Sen Eosinophils/100 WBC (Bld) 4.6 % Normal 0.9-7.0 [facility] Comment on above: Performed By: #### C BC ####[facility] [address] [place], [place] [address]Dr. Antonia Sen Erythrocyte distribution width (RBC) [Ratio] 13.1 % Normal 11.0-15.0 [facility] Comment on above: Performed By: #### C BC ####[facility] [address] [place], [place] [address]Dr. Antonia Sen Hematocrit (Bld) [Volume fraction] 39.3 % Normal 36.0-48.0 [facility] Comment on above: Performed By: #### C BC ####[facility] [address] [place], [place] [address]Dr. Antonia Sen Hemoglobin (Bld) [Mass/Vol] 13.0 g/dL Normal 12.0-16.0 [facility] Comment on above: Performed By: #### C BC ####[facility] [address] [place], [place] [address]Dr. Antonia Sen IG # 0.01 10e3/ul Normal 0.00-0.03 [facility] Comment on above: Performed By: #### C BC ####[facility] [address] [place], [place] [address]Dr. Antonia Sen IG % 0.2 % Normal 0.0-0.5 [facility] Comment on above: Performed By: #### C BC ####[facility] [address] [place], [place] [address]Dr. Halliemanjit Sen LYMPH # 1.2 103/ul Normal 1.2-3.8 [facility] Comment on above: Performed By: #### C BC ####[facility] [address] [place] [address]Dr. Halliemanjit Sen Lymphocytes/100 WBC (Bld) 27.6 % Normal 20.5-60.0 [facility] Comment on above: Performed By: #### C BC ####[facility] [address] [place] [id number]. Antonia Sen MANUAL DIFF REQ NO Normal [facility] Comment on above: Performed By: #### C BC ####[facility] [address] [place] [id number]. Antonia Sen MCH (RBC) [Entitic mass] 30.4 pg Normal 26.7-34.0 [facility] Comment on above: Performed By: #### C BC ####[facility] [address] [place], [place] [address]Dr. Antonia Sen MCHC (RBC) [Mass/Vol] 33.1 g/dL Normal 29.9-35.2 [facility] Comment on above: Performed By: #### C BC ####[facility] [address] [place] [id number]. Antonia Sen MCV (RBC) [Entitic vol] 91.8 fL Normal 81.0-99.0 [facility] Comment on above: Performed By: #### C BC ####[facility] [address] [place], [place] [address]Dr. Antonia Sen MONO # 0.5 103/ul Normal 0.3-0.8 [facility] Comment on above: Performed By: #### C BC ####[facility] [address] [place], [place] [address]Dr. Antonia Sen Monocytes/100 WBC (Bld) 11.8 % Normal 1.7-12.0 [facility] Comment on above: Performed By: #### C BC ####[facility] [address] [place], [place] [address]Dr. Antonia Sen NEUT # 2.4 103/ul Normal 1.4-6.5 [facility] Comment on above: Performed By: #### C BC ####[facility] [address] [place] [id number]. Antonia Sen Neutrophils/100 WBC (Bld) 54.6 % Normal 43.0-75.0 [facility] Comment on above: Performed By: #### C BC ####[facility] [address] [place] [id number]. Antonia Sen Platelet mean volume (Bld) [Entitic vol] 12.2 fL Normal 9.5-13.5 [facility] Comment on above: Performed By: #### C BC ####[facility] [address] [place] [id number]. Antonia Sen PLT 210 103/ul Normal 150-450 [facility] Comment on above: Performed By: #### C BC ####[facility] [address] [place] [id number]. Antonia Sen RBC 4.28 106/ul Normal 4.20-5.40 [facility] Comment on above: Performed By: #### C BC ####[facility] [address] [place] [id number]. Antonia Sen WBC 4.3 103/ul Normal 4.0-11.0 [facility] Comment on above: Performed By: #### C BC ####[facility] [address] [place] [id number]. Antonia Sen FREE THYROXINE INDEX T7on FTI 1.89 Normal 1.30-4.50 [facility] Comment on above: Performed By: #### L IPID, T7, TSH, CMP #### [facility] [address] [address] [address] Antonia Sen T3U 31.0 % Normal 30.0-39.0 [facility] Comment on above: Performed By: #### L IPID, T7, TSH, CMP #### [facility] [address] Antonia Sen T4 [Mass/Vol] 6.10 ug/dL Normal 4.80-13.90 [facility] Comment on above: Performed By: #### L IPID, T7, TSH, CMP #### [facility] [address] [address] [address] Antonia Sen GLYCOHEMOGLOBIN A1Con 2021 ADA RECOMMENDATION SEE BELOW Normal [facility] Comment on above: Result Comment: ADA RECOMMENDED LIMIT 4.0 - 6.0 ADA THERAPEUTIC TARGET < 7.0 ACTION SUGGESTED > 7.0 Performed By: #### A 1C #### [facility] [address] [address] [address] Antonia Sen Glucose [Mass/Vol] 105 mg/dL Normal [facility] Comment on above: Performed By: #### A 1C #### [facility] [address] [address] [address] Antonia Sen HbA1c (Bld) [Mass fraction] 5.3 % Normal 4.5-6.2 [facility] Comment on above: Performed By: #### A 1C #### [facility] [address] [address] [address] Antonia Sen IRONon 09-03-2022 Iron [Mass/Vol] 140.0 ug/dL Normal 50.0-170.0 [facility] Comment on above: Performed By: #### I YU #### [facility] [address] [address] [address] Antonia Sen LIPID PROFILEon 09-03-2022 CHOL-HDL RATIO NORM SEE BELOW Normal [facility] Comment on above: Result Comment: 3.3 - 4.4 LOW RISK 4.4 - 7.1 AVERAGE RISK 7.1 - 11.0 MODERATE RISK >11.0 HIGH RISK Performed By: #### L IPID, T7, TSH, CMP #### [facility] [address] [address] [address] Antonia Sen Cholesterol [Mass/Vol] 226 mg/dL Critically high <=200 [facility] Comment on above: Performed By: #### L IPID, T7, TSH, CMP #### [facility] [address] [address] [address] Antonia Sen Cholesterol in HDL [Mass/Vol] 66 mg/dL Critically high 40-60 [facility] Comment on above: Performed By: #### L IPID, T7, TSH, CMP #### [facility] [address] [address] [address] Antonia Sen Cholesterol in LDL [Mass/Vol] 137.8 mg/dL Normal [facility] Comment on above: Performed By: #### L IPID, T7, TSH, CMP #### [facility] [address] [address] [address] Antonia Sen Cholesterol.total/C holesterol in HDL [Mass ratio] 3.4 {ratio} Normal [facility] Comment on above: Performed By: #### L IPID, T7, TSH, CMP #### [facility] [address] [place] [address] Dr. Antonia Sen HDL NORMAL > or = 60 mg/dl - LO W CARDIOVASCULAR RISK <40 mg/dl - HIGH CARDIOVASCULAR RISK Normal [facility] Comment on above: Performed By: #### L IPID, T7, TSH, CMP #### [facility] [address] [address] [address] Antonia Sen LDL CALC NORMAL SEE BELOW Normal [facility] Comment on above: Result Comment: <100 mg/dl OPTIMAL 100 - 129 mg/dl NEAR OR ABOVE OPTIMAL 130 - 159 mg/dl BORDERLINE HIGH 160 - 189 mg/dl HIGH >190 mg/dl VERY HIGH Performed By: #### L IPID, T7, TSH, CMP #### [facility] [address] [place] [address] Dr. Antonia Sen Triglyceride [Mass/Vol] 111 mg/dL Normal <=150 [facility] Comment on above: Performed By: #### L IPID, T7, TSH, CMP #### [facility] [address] [place] [address] Dr. Antonia Sen VLDL CALC 22.2 mg/dL Normal [facility] Comment on above: Performed By: #### L IPID, T7, TSH, CMP #### [facility] [address] [place] [address] Dr. Antonia Sen PROF 14(COMP METB)on 022 Albumin [Mass/Vol] 3.9 g/dL Normal 3.4-5.0 [facility] Comment on above: Performed By: #### L IPID, T7, TSH, CMP #### [facility] [address] [place] [address] Dr. Antonia Sen Albumin/Globulin [Mass ratio] 1.1 {ratio} Normal [facility] Comment on above: Performed By: #### L IPID, T7, TSH, CMP #### [facility] [address] [place] [address] Dr. Antonia Sen ALP [Catalytic activity/Vol] 64 U/L Normal 46-116 [facility] Comment on above: Performed By: #### L IPID, T7, TSH, CMP #### [facility] [address] [place] [address] Dr. Antonia Sen ALT [Catalytic activity/Vol] 6 U/L Critically low 14-59 [facility] Comment on above: Performed By: #### L IPID, T7, TSH, CMP #### [facility] [address] [place] [address] Dr. Antonia Sen Anion gap [Moles/Vol] 10.6 mmol/L Normal [facility] Comment on above: Performed By: #### L IPID, T7, TSH, CMP #### [facility] [address] [place] [address] Dr. Antonia Sen AST [Catalytic activity/Vol] 15 U/L Normal 15-37 [facility] Comment on above: Performed By: #### L IPID, T7, TSH, CMP #### [facility] [address] [place] [address] Dr. Antonia Sen Bilirubin [Mass/Vol] 0.9 mg/dL Normal 0.2-1.0 [facility] Comment on above: Performed By: #### L IPID, T7, TSH, CMP #### [facility] [address] [place] [address] Dr. Antonia Sen Calcium [Mass/Vol] 9.3 mg/dL Normal 8.5-10.1 [facility] Comment on above: Performed By: #### L IPID, T7, TSH, CMP #### [facility] [address] [address] [address] Antonia Sen Chloride [Moles/Vol] 105 mmol/L Normal 98-107 [facility] Comment on above: Performed By: #### L IPID, T7, TSH, CMP #### [facility] [address] [place] [address] Dr. Atnonia Sen CO2 [Moles/Vol] 24.4 mmol/L Normal 21.0-32.0 [facility] Comment on above: Performed By: #### L IPID, T7, TSH, CMP #### [facility] [address] [place] [address] Dr. Antonia Sen Creatinine [Mass/Vol] 0.84 mg/dL Normal 0.55-1.02 [facility] Comment on above: Performed By: #### L IPID, T7, TSH, CMP #### [facility] [address] [place] [address] Dr. Antonia Sen EGFR-AF COOK ISLANDER >60 Normal >=60 [facility] Comment on above: Performed By: #### L IPID, T7, TSH, CMP #### [facility] [address] [place] [address] Dr. Antonia Sen EGFR-NON AF [place]OOK ISLANDER >60 Normal >=60 [facility] Comment on above: Performed By: #### L IPID, T7, TSH, CMP #### [facility] [address] [place] [address] Dr. Antonia Sen Globulin (S) [Mass/Vol] 3.7 g/dL Normal [facility] Comment on above: Performed By: #### L IPID, T7, TSH, CMP #### [facility] [address] [place] [address] Dr. Antonia Sen Glucose [Mass/Vol] 88 mg/dL Normal 74-106 [facility] Comment on above: Performed By: #### L IPID, T7, TSH, CMP #### [facility] [address] [place] [address] Dr. Antonia Sen Potassium [Moles/Vol] 4.0 mmol/L Normal 3.5-5.1 [facility] Comment on above: Performed By: #### L IPID, T7, TSH, CMP #### [facility] [address] [address] [address] Antonia Sen Protein [Mass/Vol] 7.6 g/dL Normal 6.4-8.2 [facility] Comment on above: Performed By: #### L IPID, T7, TSH, CMP #### [facility] [address] [address] [address] Antonia Sen Sodium [Moles/Vol] 136 mmol/L Normal 136-145 [facility] Comment on above: Performed By: #### L IPID, T7, TSH, CMP #### [facility] [address] [address] [address] Antoina Sen Urea nitrogen [Mass/Vol] 23.0 mg/dL Critically high 7.0-18.0 [facility] Comment on above: Performed By: #### L IPID, T7, TSH, CMP #### [facility] [address] [address] [address] Antonia Sen Urea nitrogen/Creatinine [Mass ratio] 27.4 mg/mg Normal [facility] Comment on above: Performed By: #### L IPID, T7, TSH, CMP #### [facility] [address] [address] [address] Antonia Sen TSHon 09-03-2022 TSH 1.681 uIU/mL Normal 0.358-3.[address] [facility] Comment on above: Performed By: #### L IPID, T7, TSH, CMP #### [facility] [address] [address] [address] Antonia Sen XR wrist RT 2Von 07-16-2022 XR wrist RT 2V [facility] [place] [address] XRay Report Signed Patient: Suad Nicholson MR#: [id number] 12 : 1945 Acct:[id number] Age/Sex: 77 / F ADM Date: 07/16/22 Loc: [facility] Room: Type: [facility] Attending Dr: Norah Kumar MD Copies to: [...] Pati Lange M.D.07/16/2022 1:43 PM Dictation Location: [facility]--12 Transcribed By: [facility] 07/16/22 1343 Dictated By: Pati Lange MD 07/16/22 1342 Signed By: 07/16/22 1343 [facility] XR wrist RT 2V [facility] [employer] Other XR wrist RT 2V [facility] [employer] Other XR wrist RT 2V [address] [place] [address] [employer] Other XR wrist [place] [address] [address] [facility] [employer] Other XR wrist RT 2V XRay Report [employer] Other XR wrist RT 2V Signed [employer] Other XR wrist RT 2V Patient: Geronimo Nicholson MR#: [id number] [place] [employer] Other XR wrist RT 2V 12 [employer] Other XR wrist RT 2V : 1945 Acct:[id number] [place] [employer] Other XR wrist RT 2V Age/Sex: 77 / F ADM Date: 07/16/22 [employer] Other XR wrist RT 2V Loc: [facility] Room: Type : REG CLI [employer] Other XR wrist RT 2V Attending Dr: Segundo Kumar MD [employer] Other XR wrist RT 2V Copies to: Norah Kumar MD [employer] Other XR wrist RT 2V Ordering Provider: Norah Kumar MD [employer] Other XR wrist RT 2V Date of Service: 07/16/22 [employer] Other XR wrist RT 2V XR/XR wrist RT 2V: Other fractures of lower end of right radius, [employer] Other XR wrist RT 2V subsequent enc [employer] Other XR wrist RT 2V RIGHT WRIST - 2 views [employer] Other XR wrist RT 2V COMPARISON: 06/17/2022 [employer] Other XR wrist RT 2V CLINICAL DATA: Follow-up distal radius fracture. [employer] Other XR wrist RT 2V AP and lateral views were obtained. There is osteopenia. There is redemonstration of a fracture at [employer] Other XR wrist RT 2V the distal radius. There is no change in alignment. No other acute fractures or dislocation are [employer] Other XR wrist RT 2V seen. There is mild dorsal soft tissue swelling. [employer] Other XR wrist RT 2V XR/XR wrist RT 2V [employer] Other XR wrist RT 2V IMPRESSION: [employer] [facility] [employer] Other XR wrist RT 2V STABLE DISTAL RADIUS FRACTURE. [employer] Other XR wrist RT 2V Impression dictated by: Pati Lange M.D.07/16/2022 1:43 PM [employer] Other XR wrist RT 2V Dictation Location: [place] [address] [employer] Other XR wrist RT 2V Transcribed By: [facility] 07/16/22 1343 [employer] Other XR wrist RT 2V Dictated By: Pati Lange MD 07/16/22 1342 [employer] Other XR wrist RT 2V Signed By: [employer] Other XR wrist RT 2V 07/16/22 1343 [employer] Other MR hand RT wo conon 06-24-20 MR hand RT wo con [facility] [address] MRI Report Signed Patient: Suad Nicholson MR#: [id number] : 1945 Acct:[id number] Age/Sex: 77 / F ADM Date: 06/24/22 [facility]: [facility] Room: Type: [facility] Attending Dr: Talon Pryor DO Copies to: Talon Pryor DO Ordering Provider: Talon Pryor DO Date of Service: 06/24/22 MR/MR hand RT wo con: S69.91XA INJURY S52.591A CLOSED FX RT RADIUS ([id number]) MR/MR wrist RT wo con: S69.91XA INJURY [...] Alexei Case M.D.06/24/2022 2:03 PM Dictation Location: [place] [address] Transcribed By: [facility] 06/24/22 1403 Dictated By: Alexei Case DO 06/24/22 1332 Signed By: 06/24/22 1403 [facility] XR WRIST RT MIN 3 Von 2021 [...] authenticated by: ALEX MONTERO Date: 2022-06-04 17:19 Normal [facility] Encounters Encounter Date Encounter Type Care Provider Facility Start: 11-01-2023 End: 11-07-2023 [facility] Start: 10-13-2023 End: 10-13-2023 Emergency department patient visit oTrres Wilkins PA-C Facility:[facility] Start: 09-10-2022 End: 09-11-[address] SABA CHOW Facility:[facility] Start: 09-08-2022 End: 09-08-[address] SABA CHOW Facility:[facility] Start: 09-03-2022 End: 09-04-[address] SABA CHOW Facility:[facility] Start: 08-27-2022 End: 08-27-2022 ambulatory Norah Kumar Other [employer] Other Start: 08-27-2022 Postop follow up vis it related to original px Norah Calvey [facility] Start: 07-16-2022 Postop follow up vis it related to original px Norah Calvey [facility] Start: 07-16-2022 End: 07-16-2022 ambulatory [facility]ah [facility] [employer] Other Start: 07-16-2022 End: 07-16-2022 Patient encounter procedure DO Talon Pryor Work Phone: [facility] Start: 06-29-2022 End: 08-24-2022 ambulatory NORAH KUMAR Facility:[facility] Start: 06-25-2022 End: 06-25-2022 ambulatory Norah Calvey Other [employer] Other Start: 06-25-2022 Postop follow up vis it related to original px Norah Calvey [facility] Start: 06-24-2022 End: 06-24-2022 ambulatory Talon Pryor Facility:[facility] Start: 06-24-2022 End: 06-24-2022 Patient encounter procedure DO Talon Pryor Work Phone: [facility] [address] Start: 06-23-2022 End: 06-23-2022 ambulatory Talon Pryor Other [employer] Other Start: 06-23-2022 [facility] Start: [...] 06-24-2022 MRI of right wrist DO Anisha ky Pryor Work Phone: Start: 06-24-2022 MRI of right hand DO Guerda pineda Roya Work Phone: Payers Date Payer Category Payer Unknown 2022 Unknown [id number] 2009 Medicare 1960 Medicare [id number] 2.1 [id number] 1959 Self-pay 1959 Unknown [id number] 1945 Unknown [id number] 2.16.84 [id number] 1945 Unknown [id number] .16.84 [id number] 1945 Unknown [id number] 2.16.84 [id number] 1945 Unknown [id number] 2.16.84 [id number] 1945 Unknown [id number] 2.16.84 [id number] 1945 Unknown [id number] 2.16.84 [id number] 1944 Unknown [id number] 2.16.84 [id number] 1945 Unknown [id number] 2.16. [id number] Unknown [id number] 2.16.8 [id number] Unknown [id number] 2.16.8 [id number] Unknown [id number] 2.16.8 [id number] Unknown [id number] 2.16.84 [id number] Social History Date Type Detail Facility Sex Assigned At [facility] Work Phone: Start: 1945 Sex Assigned At Female F [facility] Evaluation note 08-27-2022 Note Date & Type [...] surgery. We will f/u in 4-6 weeks. [facility] Other Evaluation note 07-16-2022 Note Date & [...] Instructed patient to continue with occupational therapy [facility] Other Evaluation note 06-25-2022 Note Date & [...] anything over 2-5 pounds at this time. [facility] Other Evaluation note 06-23-2022 Note Date & [...] office today. Prior medical notes from the [facility] and history have been reviewed. At [...] as documented in the electronic medical record. [facility] Other Clinical Note 06-18-2022 Note Date & [...] by: SEGUNDO MERINO Date: 2022-06-18 07:24 [facility] Clinical Note 06-18-2022 Note Date & [...] authenticated by: SEGUNDO MERINO Date: 2022-06-18 07:24 [facility] Evaluation note Note Date & Type Note Facility Evaluation note [facility] History general Narrative - Reported Note Date & Type Note Facility History general Narrative - Reported Type Medical History right hand injury Medical History gull stones Medical History depression Surgical History appendectomy Surgical History gull bladder removal [facility] Other Chief Complaint and Reason for Visit [...] section and content) DATE CREATED AUTHOR 07/30/2022 [facility] DATE CREATED AUTHOR AUTHOR'S ORGANIZ ATION 09/30/2022 [facility] DATE CREATED AUTHOR AUTHOR'S ORGANIZ ATION 10/13/2023 [facility] DATE CREATED AUTHOR AUTHOR'S ORGANIZ ATION 11/08/2023 [facility] FOR RECORDS PERTAINING TO PATIENTS WHO ARE [...] BE BASED ON THE PRIMARY CLINICAL RECORDS. [email or web address] provides no warranty or guarantee of the accuracy or completeness of information in this document.
[2024-06-06 09:35] LABS: Hematocrit 39.4 % (36.0-48.0); Hemoglobin 13.2 g/dL (12.0-16.0); Mean Corpuscular HGB Conc 33.5 g/dL (29.9-35.2); Mean Corpuscular Hemoglobin 30.5 pg (26.7-34.0); Mean Platelet Volume 12.7 fL (9.5-13.5); Platelet Count 187 10^3/uL (150-450); Red Blood Count 4.33 10^6/uL (4.20-5.40); Red Cell Distribution Width 12.8 % (11.0-15.0); White Blood Count 14.8 10^3/uL (4.0-11.0)
[2024-06-06 10:31] LABS: Segmented Neut Absolute Manual 5.03 10^3/uL (1.4-6.5)
[2024-06-06 10:32] LABS: Eosinophils Absolute Manual 5.32 10^3/uL (0.00-0.70); Lymphocytes Absolute Manual 2.96 10^3/uL (1.20-3.80); Monocytes Absolute Manual 1.48 10^3/uL (0.30-0.80)
[2024-06-06 10:46] LABS: INR 1.06; Partial Thromboplastin Time 29.9 sec (22.3-36.2); Prothrombin Time 11.2 sec (9.0-11.6)
== END 2024-06-06 09:01 | disposition home or self-care (01) ==
PROVIDERS: PCP Family Medicine; Visit Provider Family Medicine
DX: R19.5 Other fecal abnormalities (principal); R19.7 Diarrhea, unspecified; D68.9 Coagulation defect, unspecified
CPT/HCPCS: 36415; 85007; 85027; 85610; 85730

== ENCOUNTER 2024-06-13 15:13 | Outpatient (OUT) | payer MEDICARE, OTHER, SELFPAY ==
[2024-06-13 15:30] LABS: Basophils Absolute Auto 0.1 10^3/uL (0.0-0.1); Basophils Percent Auto 1.3 % (0.2-2.0); Eosinophils Percent Auto 15.4 % (0.9-7.0); Hematocrit 36.9 % (36.0-48.0); Hemoglobin 12.4 g/dL (12.0-16.0); Immature Granulocytes Abs Auto 0.03 10^3/uL (0.00-0.03); Immature Granulocytes Pct Auto 0.5 % (0.0-0.5); Lymphocytes Absolute Auto 1.7 10^3/uL (1.2-3.8); Lymphocytes Percent Auto 27.7 % (20.5-60.0); Mean Corpuscular HGB Conc 33.6 g/dL (29.9-35.2); Mean Corpuscular Hemoglobin 30.2 pg (26.7-34.0); Mean Platelet Volume 12.5 fL (9.5-13.5); Monocytes Absolute Auto 0.6 10^3/uL (0.3-0.8); Monocytes Percent Auto 10.2 % (1.7-12.0); Neutrophils Absolute Auto 2.8 10^3/uL (1.4-6.5); Neutrophils Percent Auto 44.9 % (43.0-75.0); Platelet Count 208 10^3/uL (150-450); Red Cell Distribution Width 12.6 % (11.0-15.0); White Blood Count 6.3 10^3/uL (4.0-11.0)
[2024-06-13 16:11] LABS: Alanine Aminotransferase 12 U/L (14-59); Albumin Globulin Ratio 0.9; Albumin Level 3.3 g/dL (3.4-5.0); Alkaline Phosphatase 83 U/L (46-116); Amylase 102 U/L (25-115); Anion Gap 11.4; Aspartate Amino Transferase 14 U/L (15-37); BUN Creatinine Ratio 15.3; Bilirubin Total 0.4 mg/dL (0.2-1.0); Calcium 9.2 mg/dL (8.5-10.1); Chloride 105 mmol/L (98-107); Estimated GFR (African America 53 (>=60); Estimated GFR (Non-African Ame 44 (>=60); Globulin 3.5 g/dL; Glucose 131 mg/dL (74-106); Potassium 3.4 mmol/L (3.5-5.1); Sodium 141 mmol/L (136-145); Total Protein 6.8 g/dL (6.4-8.2)
== END 2024-06-13 15:14 | disposition home or self-care (01) ==
LOC: LAB 15:14
PROVIDERS: PCP Family Medicine; Visit Provider Family Medicine
DX: D50.9 Iron deficiency anemia, unspecified (principal)
CPT/HCPCS: 36415; 80053; 82150; 83690; 85025

== ENCOUNTER 2024-06-15 10:46 | Outpatient (REF) | payer MEDICARE, OTHER, SELFPAY ==
--- OUTSIDE RECORDS SUMMARY | 2024-06-15 10:52 | XMS_ITS | CCD ---
Author Organization [facility] Inform ion [facility] Care Team Providers Care Patient Clerical Assistant Name Role Phone Norah Kumar Unavailable DO Talon Pryor Attending Provider Talon Pryor Unavailable MD Norah Kumar Attending Provider [phone] Talon Pryor Attending Unavailable Talon Pryor Admitting Unavailable Norah Kumar Admitting Unavailable Norah Kumar Attending Unavailable YOUNG, DR WALTER Admitting Unavailable YOUNG, DR WALTER Attending Unavailable YOUNG, DR WALTER Consulting Unavailable YOUNG, DR WALTER Primary Care Unavailable PIONEER, DR GRACIELA Christensen Consulting Unavailable YOUNG, DR WALTER Admitting Unavailable YOUNG, DR WALTER Attending Unavailable YOUNG, DR WALTER Consulting Unavailable YOUNG, DR WALTER Primary Care Unavailable YOUNG, DR WALTER Admitting Unavailable YOUNG, DR WALTER Primary Care Unavailable YOUNG, DR WALTER Attending Unavailable YOUNG, DR WALTER Consulting Unavailable ZIEBER, DR SEGUNDO Melchor Consulting Unavailable YOUNG, DR WALTER Admitting Unavailable YOUNG, DR WALTER Attending Unavailable YOUNG, DR WALTER Consulting Unavailable YOUNG, DR WALTER Primary Care Unavailable YOUNG, DR WALTER Primary Care Unavailable GENO STOREY Admitting Unavailable GENO STOREY Attending Unavailable GENO STOREY Consulting Unavailable STEW HERRON Consulting Unavailable LAINA, DR RODRIGUEZ Admitting Unavailable YOUNG, DR WALTER Primary Care Unavailable LAINA, DR RODRIGUEZ Attending Unavailable ALEX MONTERO Consulting Unavailable YOUNG, DR WALTER Primary Care Unavailable SANGEETHA SARGENT Admitting Unavailable SANGEETHA SARGENT Attending Unavailable NORAH KUMAR Admitting Unavailable NORAH KUMAR Attending Unavailable YOUNG, DR WALTER Primary Care Unavailable Franky ACEVEDO, Torres Costello Attending ERIKA Hernandez Consulting Unavailable INPATIENT, TELENEUROLOGY Consulting Unavail Saba Kyle Referring Unavailable Pablo GUZMÁN Attending Unavailable Allergies Allergy Classification Reported Allergen(s) Allergy Type Date of Onset Reaction(s) Facility (2 sources) guaiFENesin; Translations: [Mucinex] Drug Allergy [facility] Repository Medications Current Medications Medication [...] 09-10-2022 Chronic Other aftercare (1 source) 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 Radiation Dose Estimate: CTDI(mGy):0.913070 / / / kVp:120.256970 / mAs:0.632821 / / / DLP(mGy-cm):3.063144R aaron Part: CTDI(mGy):22.014126 / / / kVp:140.391865 / mAs:153.676540 / / / DLP(mGy-cm):538.79807 5Body Part: Final Dictated by: Pablo Bower MD Dictated DT/TM: 10.12.2023 11:23 pm Signed by: Pablo Bower MD Signed (Electronic Signature): 10.12.2023 11:33 pm (If Report Is Signed, Electronically Signed in Other Vendor System) Normal [facility] ED Clinical Summaryon 2022 ED Clinical Summary [address] [address] ED Clinical Summary Person Information Name: Suad Nicholson Yaima/[facility] Age: 78 Years : 1945 Sex: Female PCP: Marital Status: Phone: Race: White Ethnicity: Not or Language: Guinean [facility]: [phone] Visit Reason: Back pain Acuity: 4 Enc Type: Emergency Med Service: Emergency Medicine Arrival: 10/12/2023 22:00:02 Discharge: 10/13/2023 01:00:00 LOS: 000 03:00 Checkin: 10/12/2023 22:00:02 Checkout: 10/13/2023 01:00:00 Dispo Type: Home or Self Care Address: [address] [place] [address] [phone] Provider Notes: Diagnosis: 1:Back pain; Right hip [...] Hip Strain; Back Pain (Acute or Chronic) [facility] Poison Help line: . [facility] Hotline: [place] Tobacco Quit Line: [facility] ([place], [place]) [address]: [phone] [facility] ([place], [place]) [address]: [phone] [facility] [address] [facility]. [place], [place]: [phone] Normal [facility] ED Note-Physicianon 10-13-20 ED Note-Physician Chief Complaint [...] MRI and CT scan done at the [facility] emergency department and was advised to try [...] patient s (more content not included)... Normal [facility] XR Hip 2-3 Views Righton XR Hip [...] Electronically Signed in Other Vendor System) Normal [facility] XR Knee 1 or 2 Views Righton [...] Electronically Signed in Other Vendor System) Normal [facility] XR DEXA BONE DENSITYon 09-10 XR DEXA [...] GRACIELA LUGO Date: 2022-09-10 15:39 Normal [facility] OCC BLD IMMUNO SCREENon 08-24 OCCULT BLOOD Negative Normal NEGATIVE [facility] Comment on above: Performed By: #### O BSCRN ####[facility] [address] [place] [address]Dr. Antonia Sen INSULINon 09-04-2022 Insulin 8.4 uIU/mL Normal 2.6-24.9 [facility] Comment on above: Performed By: #### I NSULIN ####[facility] [address] [place] [address]DrJackelyn Sen CBC AUTO DIFFon 09-03-2022 BASO # 0.1 103/ul Normal 0.0-0.1 [facility] Comment on above: Performed By: #### C BC ####[facility] [address] [place], [place] [address]DrJackelyn Sen Basophils/100 WBC (Bld) 1.2 % Normal 0.2-2.0 [facility] Comment on above: Performed By: #### C BC ####[facility] [address] [place], [place] [address]Dr. Antonia Sen EO # 0.2 103/ul Normal 0.0-0.7 [facility] Comment on above: Performed By: #### C BC ####[facility] U[address] [place], [place] [address]Dr. Halliemanjit Sen Eosinophils/100 WBC (Bld) 4.6 % Normal 0.9-7.0 [facility] Comment on above: Performed By: #### C BC ####[facility] [address] [place], [place] [address]Dr. Antonia Sen Erythrocyte distribution width (RBC) [Ratio] 13.1 % Normal 11.0-15.0 [facility] Comment on above: Performed By: #### C BC ####[facility] R[address] [place], [place] [address]Dr. Halliemanjit Sen Hematocrit (Bld) [Volume fraction] 39.3 % Normal 36.0-48.0 [facility] Comment on above: Performed By: #### C BC ####[facility] [address] [place], [place] [address]Dr. Antonia Sen Hemoglobin (Bld) [Mass/Vol] 13.0 g/dL Normal 12.0-16.0 [facility] Comment on above: Performed By: #### C BC ####[facility] [address] [place], [place] [address]Dr. Antonia Sen IG # 0.01 10e3/ul Normal 0.00-0.03 [facility] Comment on above: Performed By: #### C BC ####[facility] [address] [place], [place] [address]Dr. Antonia Sen IG % 0.2 % Normal 0.0-0.5 [facility] Comment on above: Performed By: #### C BC ####[facility] [address] [place], [place] [address]DrJackelyn Sen LYMPH # 1.2 103/ul Normal 1.2-3.8 [facility] Comment on above: Performed By: #### C BC ####[facility] [address] [place] [address]DrJackelyn Sen Lymphocytes/100 WBC (Bld) 27.6 % Normal 20.5-60.0 [facility] Comment on above: Performed By: #### C BC ####[facility] [address] [place] [address]DrJackelyn Sen MANUAL DIFF REQ NO Normal [facility] Comment on above: Performed By: #### C BC ####[facility] [address] [place] [address]DrJackelyn Sen MCH (RBC) [Entitic mass] 30.4 pg Normal 26.7-34.0 [facility] Comment on above: Performed By: #### C BC ####[facility] [address] [place], [place] [address]DrJackelyn Sen MCHC (RBC) [Mass/Vol] 33.1 g/dL Normal 29.9-35.2 [facility] Comment on above: Performed By: #### C BC ####[facility] [address] [place], [place] [address]DrJackelyn Sen MCV (RBC) [Entitic vol] 91.8 fL Normal 81.0-99.0 [facility] Comment on above: Performed By: #### C BC ####[facility] [address] [place], [place] [address]DrJackelyn Sen MONO # 0.5 103/ul Normal 0.3-0.8 [facility] Comment on above: Performed By: #### C BC ####[facility] [address] [place], [place] [address]DrJackelyn Sen Monocytes/100 WBC (Bld) 11.8 % Normal 1.7-12.0 [facility] Comment on above: Performed By: #### C BC ####[facility] [address] [place], [place] [address]Dr. Antonia Sen NEUT # 2.4 103/ul Normal 1.4-6.5 [facility] Comment on above: Performed By: #### C BC ####[facility] [address] [address]Dr. Antonia Sen Neutrophils/100 WBC (Bld) 54.6 % Normal 43.0-75.0 [facility] Comment on above: Performed By: #### C BC ####[facility] [address] [place] [address]DrJackelyn Sen Platelet mean volume (Bld) [Entitic vol] 12.2 fL Normal 9.5-13.5 [facility] Comment on above: Performed By: #### C BC ####[facility] [address] [place] [address]DrJackelyn Sen PLT 210 103/ul Normal 150-450 [facility] Comment on above: Performed By: #### C BC ####[facility] [address] [place], [place] [address]Dr. Antonia Sen RBC 4.28 106/ul Normal 4.20-5.40 [facility] Comment on above: Performed By: #### C BC ####[facility] [address] [place], [place] [address]Dr. Antonia Sen WBC 4.3 103/ul Normal 4.0-11.0 [facility] Comment on above: Performed By: #### C BC ####[facility] [address] [place] [address]Dr. Antonia Sen FREE THYROXINE INDEX T7on FTI 1.89 Normal 1.30-4.50 [facility] Comment on above: Performed By: #### L IPID, T7, TSH, CMP #### [facility] [address] [place] [address] Dr. Antonia Sen T3U 31.0 % Normal 30.0-39.0 [facility] Comment on above: Performed By: #### L IPID, T7, TSH, CMP #### [facility] [address] [place] [address] Dr. Antonia Sen T4 [Mass/Vol] 6.10 ug/dL Normal 4.80-13.90 [facility] Comment on above: Performed By: #### L IPID, T7, TSH, CMP #### [facility] [address] [address] [address] Antonia Sen GLYCOHEMOGLOBIN A1Con 2021 ADA RECOMMENDATION SEE BELOW Normal [facility] Comment on above: Result Comment: ADA RECOMMENDED LIMIT 4.0 - 6.0 ADA THERAPEUTIC TARGET < 7.0 ACTION SUGGESTED > 7.0 Performed By: #### A 1C #### [facility] [address] [address] [address] Antonia Sen Glucose [Mass/Vol] 105 mg/dL Normal [facility] Comment on above: Performed By: #### A 1C #### [facility] [address] [address] [address] Antonia Sen HbA1c (Bld) [Mass fraction] 5.3 % Normal 4.5-6.2 [facility] Comment on above: Performed By: #### A 1C #### [facility] [address] [address] [address] Antonia Sen IRONon 09-03-2022 Iron [Mass/Vol] 140.0 ug/dL Normal 50.0-170.0 [facility] Comment on above: Performed By: #### I YU #### [facility] [address] [address] [address] Antonia Sen LIPID PROFILEon 09-03-2022 CHOL-HDL RATIO NORM SEE BELOW Normal [facility] Comment on above: Result Comment: 3.3 - 4.4 LOW RISK 4.4 - 7.1 AVERAGE RISK 7.1 - 11.0 MODERATE RISK >11.0 HIGH RISK Performed By: #### L IPID, T7, TSH, CMP #### [facility] [address] [address] [address] Antonia Sen Cholesterol [Mass/Vol] 226 mg/dL Critically high <=200 [facility] Comment on above: Performed By: #### L IPID, T7, TSH, CMP #### [facility] [address] [address] [address] Antonia Sen Cholesterol in HDL [Mass/Vol] 66 mg/dL Critically high 40-60 [facility] Comment on above: Performed By: #### L IPID, T7, TSH, CMP #### [facility] [address] [address] [address] Antonia Sen Cholesterol in LDL [Mass/Vol] 137.8 mg/dL Normal [facility] Comment on above: Performed By: #### L IPID, T7, TSH, CMP #### [facility] [address] [address] [address] Antonia Sen Cholesterol.total/C holesterol in HDL [Mass ratio] 3.4 {ratio} Normal [facility] Comment on above: Performed By: #### L IPID, T7, TSH, CMP #### [facility] [address] [address] [address] Antonia Sen HDL NORMAL > or = 60 mg/dl - LO W CARDIOVASCULAR RISK <40 mg/dl - HIGH CARDIOVASCULAR RISK Normal [facility] Comment on above: Performed By: #### L IPID, T7, TSH, CMP #### [facility] [address] [address] [address] Antonia Sen LDL CALC NORMAL SEE BELOW Normal [facility] Comment on above: Result Comment: <100 mg/dl OPTIMAL 100 - 129 mg/dl NEAR OR ABOVE OPTIMAL 130 - 159 mg/dl BORDERLINE HIGH 160 - 189 mg/dl HIGH >190 mg/dl VERY HIGH Performed By: #### L IPID, T7, TSH, CMP #### [facility] [address] [address] [address] Antonia Sen Triglyceride [Mass/Vol] 111 mg/dL Normal <=150 [facility] Comment on above: Performed By: #### L IPID, T7, TSH, CMP #### [facility] [address] [address] [address] Antonia Sen VLDL CALC 22.2 mg/dL Normal [facility] Comment on above: Performed By: #### L IPID, T7, TSH, CMP #### [facility] [address] [place] [address] Dr. Antonia Sen PROF 14(COMP METB)on 022 Albumin [Mass/Vol] 3.9 g/dL Normal 3.4-5.0 [facility] Comment on above: Performed By: #### L IPID, T7, TSH, CMP #### [facility] [address] [place] [address] Dr. Antonia Sen Albumin/Globulin [Mass ratio] 1.1 {ratio} Normal [facility] Comment on above: Performed By: #### L IPID, T7, TSH, CMP #### [facility] [address] [place] [address] Dr. Antonia Sen ALP [Catalytic activity/Vol] 64 U/L Normal 46-116 [facility] Comment on above: Performed By: #### L IPID, T7, TSH, CMP #### [facility] [address] [place] [address] Dr. Antonia Sen ALT [Catalytic activity/Vol] 6 U/L Critically low 14-59 [facility] Comment on above: Performed By: #### L IPID, T7, TSH, CMP #### [facility] [address] [place] [address] Dr. Antonia Sen Anion gap [Moles/Vol] 10.6 mmol/L Normal [facility] Comment on above: Performed By: #### L IPID, T7, TSH, CMP #### [facility] [address] [place] [address] Dr. Antonia Sen AST [Catalytic activity/Vol] 15 U/L Normal 15-37 [facility] Comment on above: Performed By: #### L IPID, T7, TSH, CMP #### [facility] [address] [place] [address] Dr. Antonia Sen Bilirubin [Mass/Vol] 0.9 mg/dL Normal 0.2-1.0 [facility] Comment on above: Performed By: #### L IPID, T7, TSH, CMP #### [facility] [address] [place] [address] Dr. Antonia Sen Calcium [Mass/Vol] 9.3 mg/dL Normal 8.5-10.1 [facility] Comment on above: Performed By: #### L IPID, T7, TSH, CMP #### [facility] [address] [address] [address] Antonia Sen Chloride [Moles/Vol] 105 mmol/L Normal 98-107 [facility] Comment on above: Performed By: #### L IPID, T7, TSH, CMP #### [facility] [address] [address] [address] Antonia Sen CO2 [Moles/Vol] 24.4 mmol/L Normal 21.0-32.0 [facility] Comment on above: Performed By: #### L IPID, T7, TSH, CMP #### [facility] [address] [place] [address] Dr. Antonia Sen Creatinine [Mass/Vol] 0.84 mg/dL Normal 0.55-1.02 [facility] Comment on above: Performed By: #### L IPID, T7, TSH, CMP #### [facility] [address] [place] [address] Dr. Antonia Sen EGFR-AF JORDANIAN >60 Normal >=60 [facility] Comment on above: Performed By: #### L IPID, T7, TSH, CMP #### [facility] [address] [place] [address] Dr. Antonia Sen EGFR-NON AF JORDANIAN >60 Normal >=60 [facility] Comment on above: Performed By: #### L IPID, T7, TSH, CMP #### [facility] [address] [place] [address] Dr. Antonia Sen Globulin (S) [Mass/Vol] 3.7 g/dL Normal [facility] Comment on above: Performed By: #### L IPID, T7, TSH, CMP #### [facility] [address] [place] [address] Dr. Antonia Sen Glucose [Mass/Vol] 88 mg/dL Normal 74-106 [facility] Comment on above: Performed By: #### L IPID, T7, TSH, CMP #### [facility] [address] [address] [address] Antonia Sen Potassium [Moles/Vol] 4.0 mmol/L Normal 3.5-5.1 [facility] Comment on above: Performed By: #### L IPID, T7, TSH, CMP #### [facility] [address] [place] [address] Dr. Antonia Sen Protein [Mass/Vol] 7.6 g/dL Normal 6.4-8.2 [facility] Comment on above: Performed By: #### L IPID, T7, TSH, CMP #### [facility] [address] [place] [address] Dr. Antonia Sen Sodium [Moles/Vol] 136 mmol/L Normal 136-145 [facility] Comment on above: Performed By: #### L IPID, T7, TSH, CMP #### [facility] [address] [place] [address] Dr. Antonia Sen Urea nitrogen [Mass/Vol] 23.0 mg/dL Critically high 7.0-18.0 [facility] Comment on above: Performed By: #### L IPID, T7, TSH, CMP #### [facility] [address] [address] [address] Antonia Sen Urea nitrogen/Creatinine [Mass ratio] 27.4 mg/mg Normal [facility] Comment on above: Performed By: #### L IPID, T7, TSH, CMP #### [facility] [address] [place] [address] Dr. Antonia Sen TSHon 09-03-2022 TSH 1.681 uIU/mL Normal 0.358-3.740 [facility] Comment on above: Performed By: #### L IPID, T7, TSH, CMP #### [facility] [address] [place] [address] Dr. Antonia Sen XR wrist RT 2Von 07-16-2022 XR wrist RT 2V [facility] [place] [address] XRay Report Signed Patient: Suad Nicholson MR#: [id number] 12 : 1945 Acct:[id number] Age/Sex: 77 / F ADM Date: 07/16/22 [place] [facility] [place]: Type[place] [facility] Attending Dr: Norah Kumar MD Copies [...] Pati Lange M.D.07/16/2022 1:43 PM Dictation Location: [place] [address] Transcribed By: [facility] 07/16/22 1343 Dictated By: Pati Lange MD 07/16/22 1342 Signed By: 07/16/22 1343 [facility] XR wrist RT 2V [facility] [employer] Other XR wrist RT 2V [place] [employer] Other XR wrist RT 2V [address] [place] [address] [employer] Other XR wrist RT 2V [address] [employer] Other XR wrist RT 2V XRay Report [employer] Other XR wrist RT 2V Signed [employer] Other XR wrist RT 2V Patient: Geronimo Nicholson MR#: [id number] [place] [employer] Other XR wrist RT 2V 12 [employer] Other XR wrist RT 2V : 1945 Acct:[id number] [employer] Other XR wrist RT 2V Age/Sex: 77 / F ADM Date: 07/16/22 [employer] Other XR wrist RT 2V Loc: [facility] Room: Type : [facility] [employer] Other XR wrist RT 2V Attending Dr: Segundo Kumar MD [employer] Other XR wrist RT 2V Copies to: Norah Kumar MD [employer] Other XR wrist RT 2V Ordering Provider: Norah Kumar MD [employer] Other XR wrist RT 2V Date of Service: 07/16/22 [employer] Other XR wrist RT 2V XR/XR wrist RT 2V: Other fractures of lower end of right radius, [employer] Other XR wrist RT 2V subsequent enc [employer] Other XR wrist RT 2V RIGHT WRIST - 2 views [employer] Other XR wrist RT 2V COMPARISON: 06/17/2022 [employer] Other XR wrist RT 2V CLINICAL DATA: Follow-up distal radius fracture. [employer] Other XR wrist RT 2V AP and lateral views were obtained. There is osteopenia. There is redemonstration of a fracture at [employer] Other XR wrist RT 2V the distal radius. There is no change in alignment. No other acute fractures or dislocation are [employer] Other XR wrist RT 2V seen. There is mild dorsal soft tissue swelling. [employer] Other XR wrist RT 2V XR/XR wrist RT 2V [employer] Other XR wrist RT 2V IMPRESSION: [employer] [facility] [employer] Other XR wrist RT 2V STABLE DISTAL RADIUS FRACTURE. [employer] Other XR wrist RT 2V Impression dictated by: Pati Lange M.D.07/16/2022 1:43 PM [employer] Other XR wrist RT 2V Dictation Location: [place] [address] [employer] Other XR wrist RT 2V Transcribed By: PWS 07/16/22 [facility] [employer] Other XR wrist RT 2V Dictated By: Pati Lange MD 07/16/22 134 [employer] Other XR wrist RT 2V Signed By: [employer] Other XR wrist RT 2V 07/16/22 1343 [employer] Other MR hand RT wo conon 06-24-20 MR hand RT wo con [facility] [address] [place] [address] [place] [address] MRI Report Signed Patient: Suad Nicholson MR#: [id number] : 1945 Acct:[id number] Age/Sex: 77 / F ADM Date: 06/24/22 Loc: [facility]: Talon Pryor DO Copies to: Talon Pryor DO Ordering Provider: Talon Pryor DO Date of Service: 06/24/22 MR/MR hand RT wo con: [id number] INJURY [id number] CLOSED FX RT RADIUS ([id number]) MR/MR wrist RT wo con: [id number] INJURY [...] Alexei Case M.D.06/24/2022 2:03 PM Dictation Location: [place] [address] Transcribed By: [facility] 06/24/22 1403 Dictated By: Alexei Case DO 06/24/22 1332 Signed By: 06/24/22 1403 [facility] XR WRIST RT MIN 3 Von 2021 [...] by: ALEX MONTERO Date: 2022-06-04 17:19 Normal [facility] Encounters Encounter Date Encounter Type Care Provider Facility Start: 06-18-2024 ambulatory Saba Young Facility:[facility] Start: 06-08-2024 ambulatory Saba Vidal Facility:[facility] Start: 11-01-2023 End: 11-07-2023 Emergency department patient visit [facility] Start: 10-13-2023 End: 10-13-2023 Emergency department patient visit Torres Wilkins PA-C Facility:[facility] Start: 09-10-2022 End: 09-11-[address] SABA VIDAL Facility:[facility] Start: 09-08-2022 End: 09-08-[address] SABA VIDAL Facility:[facility] Start: 09-03-2022 End: 09-04-[address] SABA VIDAL Facility:[facility] Start: 08-27-2022 End: 08-27-2022 ambulatory Norah Kumar Other [facility] Other Start: 08-27-2022 Postop follow up vis it related to original px Norah Calvey [facility] Start: 07-16-2022 Postop follow up vis it related to original px Norah Calvey [facility] Start: 07-16-2022 End: 07-16-2022 ambulatory Norah Kumar [employer] Other Start: 07-16-2022 End: 07-16-2022 Patient encounter procedure DO Talon Pryor Work Phone: [facility] Start: 06-29-2022 End: 08-24-2022 ambulatory NORAH KUMAR Facility:[facility] Start: 06-25-2022 End: 06-25-2022 ambulatory Norah Kumar Other [facility] Other Start: 06-25-2022 Postop follow up vis it related to original px Norah Calvey [facility] Start: 06-24-2022 End: 06-24-2022 ambulatory Talon Pryor Facility:[facility] Start: 06-24-2022 End: 06-24-2022 Patient encounter procedure DO Talon Pryor Work Phone: [facility] [address] Start: 06-23-2022 End: 06-23-2022 ambulatory Talon Pryor Other [employer] Other Start: 06-23-2022 [facility] visit new patient Talon Pryor [facility] Start: 06-17-2022 End: 06-18-[address] SABA VIDAL Facility:[facility] Start: 06-09-2022 End: 06-09-[address] SABA VIDAL Facility:[facility] Start: 06-04-2022 End: 06-04-2022 ambulatory STEW HERRON Facility:[facility] Start: 11-10-2021 End: 11-11-[address] SABA VIDAL Facility:[facility] Procedures Date Procedure Procedure Detail Performing Clinician Start: 07-16-2022 Plain X-ray of right wrist DO Talon Pryor Work Phone: Start: 06-24-2022 MRI of right wrist DO Anisha Pryor Work Phone: Start: 06-24-2022 MRI of right hand DO Guerda Pryor Work Phone: Payers Date Payer Category Payer Unknown 2022 Unknown [id number] 2009 Medicare 1960 Medicare [id number] 2.1 [id number] 1959 Self-pay 1959 Unknown [id number] 1944 Unknown [id number] 2.16.84 0.1.055658.3.579.2.593 1944 Unknown [id number] 2.16.84 0.1.810833.3.579.2.593 1944 Unknown [id number] 2.16.84 0.1.683638.3.579.2.593 1944 Unknown [id number] 2.16.84 0.1.910922.3.579.2.593 1944 Unknown [id number] 2.16.84 0.1.883860.3.579.2.593 1944 Unknown [id number] 2.16.84 0.1.406174.3.579.2.593 1944 Unknown [id number] 2.16.84 0.1.548766.3.579.2.593 1944 Unknown [id number] 2.16. 840.1.725384.3.579.2.196 1944 Unknown [id number] 2.16.8 40.1.235019.3.579.2.727 1944 Unknown [id number] 2.16.8 40.1.480340.3.579.2.727 Unknown [id number] 2.16.8 40.1.359877.19 Unknown [id number] 2.16.8 40.1.853598.3.579.2.531 Unknown [id number] 2.16.8 40.1.644621.3.579.2.531 Unknown [id number] 2.16.84 0.1.278233.3.579.2.593 Social History Date Type Detail Facility Sex Assigned At [facility] Work Phone: Start: 1945 Sex Assigned At Female F [facility] Evaluation note 08-27-2022 Note Date [...] surgery. We will f/u in 4-6 weeks. [employer] Other Evaluation note 07-16-2022 Note Date & [...] Instructed patient to continue with occupational therapy [employer] Other Evaluation note 06-25-2022 Note Date & [...] anything over 2-5 pounds at this time. [employer] Other Evaluation note 06-23-2022 Note Date & [...] office today. Prior medical notes from the [facility] and history have been reviewed. [...] as documented in the electronic medical record. [employer] Other Clinical Note 06-18-2022 Note Date & [...] authenticated by: SEGUNDO MERINO Date: 2022-06-18 07:24 [facility] Clinical Note 06-18-2022 Note Date & Type [...] by: SEGUNDO MERINO Date: 2022-06-18 07:24 [facility] Evaluation note Note Date & Type Note Facility Evaluation note No assessment information availa [facility] Work Phone: History general Narrative - Reported Note Date & Type Note Facility History general Narrative - Reported Type Medical History right hand injury Medical History gull stones Medical History depression Surgical History appendectomy Surgical History gull bladder removal [employer] Other Chief Complaint and Reason for Visit [...] section and content) DATE CREATED AUTHOR 07/30/2022 [facility] DATE CREATED AUTHOR AUTHOR'S ORGANIZ ATION 09/30/2022 [facility] DATE CREATED AUTHOR AUTHOR'S ORGANIZ ATION 10/13/2023 [facility] DATE CREATED AUTHOR AUTHOR'S ORGANIZ ATION 11/08/2023 [facility] DATE CREATED AUTHOR AUTHOR'S ORGANIZ ATION 06/14/2024 [facility] FOR RECORDS PERTAINING TO PATIENTS WHO ARE [...] BE BASED ON THE PRIMARY CLINICAL RECORDS. [employer] [facility]. provides no warranty or guarantee of the accuracy or completeness of information in this document.
== END 2024-06-15 10:47 | disposition home or self-care (01) ==
LOC: LAB 10:46
PROVIDERS: PCP Family Medicine; Visit Provider Family Medicine
DX: D50.9 Iron deficiency anemia, unspecified (principal)
CPT/HCPCS: 87045; 87046; 87427

== ENCOUNTER 2024-06-26 14:10 | Outpatient (OUT) | payer MEDICARE, OTHER, SELFPAY | END 2024-06-26 14:11 | disposition home or self-care (01) | LOC: PST 14:20 | PROVIDERS: PCP Family Medicine; Visit Provider Surgery | DX: Z01.818 Encounter for other preprocedural examination (principal); R19.7 Diarrhea, unspecified; R19.5 Other fecal abnormalities; R19.4 Change in bowel habit ==

== ENCOUNTER 2024-07-04 07:31 | Day surgery (SDC) | payer MEDICARE, OTHER, SELFPAY ==
--- NOTE | 2024-07-04 | OP_ITS ---
OPERATION DATE: 07/04/2024 PREOPERATIVE DIAGNOSIS: Bowel changes, positive fecal occult blood test, history of diverticulosis. POSTOPERATIVE DIAGNOSIS: Severe sigmoid diverticulosis with redundancy and spasm of the colon as well as two adjacent 2 mm sigmoid polyps. PROCEDURE: Colonoscopy to cecum with cold forceps polypectomy x2. SURGEON: Pablo Fountain M.D. ANESTHESIA: Monitored anesthesia care. ESTIMATED BLOOD LOSS: Less than 1 mL. INDICATIONS AND CONSENT: Patient is an 79-year-old female with history of diverticular disease, who presents for bowel changes, as well as positive fecal occult blood. Indications, risks, benefits, alternatives of proceeding with colonoscopy were explained extensively to the patient, including the risks of bleeding, colon perforation or anesthetic complications. All of her questions were answered. Informed consent was obtained. PROCEDURE: Patient brought to the operating room, placed in the left lateral decubitus position. Monitored anesthesia care was provided. Rectal exam was performed which showed no masses or blood. The scope was inserted into the anal canal. Under direct visualization was advanced. With the aid of abdominal compression, it was advanced to the cecum where cecal markings were clearly identified. There was noted to be a good prep. Upon withdrawal of the scope, mucosal surfaces were carefully examined. There were no mass lesions or inflammatory changes. There was severe sigmoid diverticulosis with redundancy and spasm. Within the mid sigmoid, there were noted to be two adjacent 2 mm erythematous sessile polyps that were removed with cold biopsy forceps with good hemostasis. The scope was retroflexed in the anal canal. There was no significant hemorrhoidal disease. There were prominent rectal veins but no evidence of old or new blood. Scope was then withdrawn. Patient tolerated procedure well, was sent to recovery room in good condition. She should not require follow up colonoscopy, but may change depending on the biopsy results. CC: Dnaiel Vidal M.D. [place]
--- OUTSIDE RECORDS SUMMARY | 2024-07-04 07:34 | XMS_ITS | CCD ---
Author Organization [facility] CliniSyms Care Team Providers Care Rn Access Name Role Phone Norah Kumar Unavailable DO Talon Pryor Attending Provider [phone] Talon Pryor Unavailable MD Norah Kumar Attending Provider Talon Pryro Attending Unavailable Talon Pryor Admitting Unavailable Norah Kumar Admitting Unavailable Norah Kumar Attending Unavailable GERALDO, DR WALTER Admitting Unavailable GERALDO, DR WALTER Attending Unavailable GERALDO, DR WALTER Consulting Unavailable GERALDO, DR WALTER Primary Care Unavailable [place], DR GRACIELA Christensen Consulting Unavailable GERALDO, DR [...] Unavailable GERALDO, DR WALTER Primary Care Unavailable RALEIGH GENOSOLA ARTIS Admitting Unavailable GENO STOREY Attending Unavailable GENO STOREY Consulting Unavailable STEW HERRON Consulting Unavailable LAINA, DR RODRIGUEZ Admitting Unavailable GERALDO, DR WALTER Primary Care Unavailable LAINA, DR RODRIGUEZ Attending Unavailable ALEX MONTERO Consulting Unavailable GERALDO, DR WALTER Primary Care Unavailable SANGEETHA SARGENT Admitting Unavailable SANGEETHA SARGENT Attending Unavailable NORAH KUMAR Admitting Unavailable NORAH KUMAR Attending Unavailable GERALDO, DR WALTER Primary Care Unavailable Franky ACEVEDO, Torres Costello Attending UnaERIKA CorderoBAL Consulting Unavailable INPATIENT, TELENEUROLOGY Consulting Unavail able Saba Vidal Primary Care Physician Saba Vidal Referring Unavailable Pablo GUZMÁN Attending Unavailable Saba Vidal Referring Unavailable Pablo GUZMÁN Attending Unavailable Allergies Allergy Classification Reported Allergen(s) Allergy Type Date of Onset Reaction(s) Facility (2 sources) guFENesin; Translations: [Mucinex] Drug Allergy [facility] Repository (1 source) guaiFENesin; Translations: [guaifenesin] Drug Allergy Dyspnea (finding) [facility] Medications Current Medications Medication Drug Class(es) Dates Sig (Normalized) Sig (Original) citalopram 10 mg oral tablet (1 source) Serotonin Reuptake Inhibitor Start: 06-11-2024 take 1 tablet by mouth once daily CeleXA 10 mg Tab 10 mg = 1 tab(s), Oral, Daily, Refills(s) 0 Start Date: 06/11/24 Status: Ordered donepezil hydrochloride 5 mg oral tablet (1 source) Start: 06-11-2024 take 1 tablet by mouth once daily donepezil 5 mg Tab 5 mg = 1 tab(s), Oral, Daily, Refills(s) 0 Start Date: 06/11/24 Status: Ordered doxepin hydrochloride 10 mg oral capsule (1 source) Tricyclic Antidepressant Start: 06-11-2024 take 1-2 tablets by mouth once daily at bedtime doxepin 10 mg Cap 1-2 tabs, Oral, Once a day (at bedtime), Refills(s) 0 Start Date: 06/11/24 Status: Ordered Ibuprofen (4 sources) Nonsteroidal Anti-inflammatory Drug Motrin Active ondansetron 4 mg disintegrating oral tablet (1 source) Serotonin-3 Receptor Antagonist Start: 06-11-2024 take 1 tablet by mouth three times daily as needed for nausea ondansetron 4 mg Dis Tab 4 mg = 1 tab(s), Oral, TID, PRN Nausea/Vomiting, Refills(s) 0 Start Date: 06/11/24 Status: Ordered pantoprazole 40 mg delayed release oral tablet (1 source) Proton Pump Inhibitor Start: 06-11-2024 take 1 tablet by mouth once daily Pantoprazole [address] Tab 40 mg = 1 tab(s), Oral, Daily, Refills(s) 0 Start Date: 06/11/24 Status: Ordered Problems Active Problems Problem Classification Problem Date Documented Da te Episodic/Chronic Cardiac dysrhythmias (1 source) Bradycardia 06-11-2024 Episodic Deficiency and other anemia (1 source) Anemia, unspecified; Translations: [ANEMIA UNSPECIFIED] Onset: 2 Episodic Deficiency and other anemia (1 source) Anemia 06-11-2024 Episodic Delirium, dementia, and amnestic and other cognitive disorders (1 source) Dementia 06-11-2024 Chronic Diabetes mellitus without complication (1 source) Hyperglycemia, unspecified; Translations: [HYPERGLYCEMIA UNSPECIFIED] Onset: 2 Episodic Disorders of lipid metabolism (2 sources) Hyperlipidemia, unspecified; Translations: [Pure hypercholesterolemia, unspecified] Onset: 2 Chronic Diverticulosis and diverticulitis (3 sources) Diverticula of intestine; Translations: [Diverticulosis of large intestine without perforation or abscess without bleeding] Onset: 4 Chronic Esophageal disorders (1 source) Gastroesophageal reflux disease 06-11-2024 Chronic Essential hypertension (1 source) Hypertensive disorder 06-11-2024 Chronic Malaise and fatigue (1 source) Other fatigue; Translations: [OTHER FATIGUE] Onset: 2 Episodic Menopausal disorders (4 sources) Other primary ovarian failure; 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: 2 Chronic Mood disorders (1 source) Depressive disorder 06-11-2024 Chronic Other aftercare (1 source) Other shelter (current) drug therapy; Translations: [OTH WEB COORDINATOR CURRENT DRUG THERAPY] Onset: 2 Episodic Other bone disease and musculoskeletal deformities (1 source) Other specified disorders of bone density and structure, left thigh; Translations: [OTH D/O BONE DEN STRUCT LT THIGH] Onset: 2 Episodic Other gastrointestinal disorders (1 source) Abnormal feces; Translations: [Other fecal abnormalities] Onset: 4 Episodic Other gastrointestinal disorders (2 sources) Altered bowel function; Translations: [Change in bowel habit] Onset: 4 Episodic Other gastrointestinal disorders (1 source) Diarrhea 06-11-2024 Episodic Other gastrointestinal disorders (1 source) History of diverticulitis 06-11-2024 Episodic Other gastrointestinal disorders (2 sources) Occult blood in stools 06-11-2024 Episodic Other hereditary and degenerative nervous system conditions (1 source) Restless legs 06-11-2024 Chronic Other non-epithelial cancer of skin (1 source) Malignant neoplasm of skin of nose (external) 06-11-2024 Episodic Other non-traumatic joint disorders (4 sources) Pain in unspecified joint; Translations: [PAIN IN UNSPECIFIED JOINT] Onset: 2 Episodic Other nutritional; endocrine; and metabolic disorders (1 source) Overweight 06-11-2024 Episodic Other nutritional; endocrine; and metabolic disorders (1 source) Overweight in adulthood with body mass index of 25 or more but less than 30 06-18-2024 Episodic Other screening for suspected conditions (not mental disorders or infectious disease) (5 sources) Encounter for screening for malignant neoplasm of rectum; Translations: [ENC SCREEN MALIG NEOPLASM RECTUM] Onset: 2 Episodic Residual codes; unclassified (1 source) Insomnia 06-11-2024 Episodic Unclassified (1 source) Other fractures of lower end of right radius, initial encounter for closed fracture; Translations: [Other fractures of lower end of right radius, initial encounter for closed fracture] Onset: 2 Unclassified (1 source) Unspecified injury of right wrist, hand and finger(s), initial encounter; Translations: [Unspecified injury of right wrist, hand and finger(s), initial encounter] Onset: 2 Past or Other Problems Problem Classification Problem Date Documented Date Episodic/Chronic E Codes: Fall (1 source) Fall [...] CARRIED OUT PT LEAVE] Onset: 06-09-2022 Episodic Spondylosis; intervertebral disc disorders; other back problems (1 source) Lumbar radiculopathy Onset: 09-16-2023 06-11-2024 Episodic Superficial injury; contusion (1 source) Contusion of right wrist, initial encounter; Translations: [CONTUSION RIGHT WRIST INITIAL ENC] Onset: 06-07-2022 Episodic Results Test Name Value Interpretation Reference Range Facility Ambulatory Visit Summaryon 0 06-18-2024 Ambulatory Visit Summary Ambulatory Visit Summary SUAD NICHOLSON :1945 Visit Date:06/18/2024 Ambulatory Visit Instructions Your Diagnosis Positive fecal occult blood test Bowel habit changes Diverticulosis of colon Your Care Team Attending Physician - Pablo GUZMÁN MD Primary Care Physician - Saba Vidal MD Referring Physician - Saba Vidal MD This Is Your Medications List Contact prescribing physician if questions or concerns citalopram (CeleXA 10 mg Tab) donepezil (donepezil 5 mg Tab) doxepin (doxepin 10 mg Cap) ondansetron (ondansetron 4 mg Dis Tab) pantoprazole (Pantoprazole [address] Tab) Procedures Performed Colonoscopy (03/01/2018), Appendectomy, Cholecystectomy, Colonoscopy, Colonoscopy, History of nasal sinus surgery. Discharge Vitals Heart Rate (Peripheral) 79 Respiratory Rate 16 Blood Pressure 105/67 Height 175.2 cm Height 69 in Weight 83.6 kg Weight 183.92 lb BMI 27.24 Medications What How Much When Instructions Unchanged citalopram (CeleXA 10 mg Tab) 1 Tablets By Mouth Every day Contact prescribing physician if questions or concerns Unchanged donepezil (donepezil 5 mg Tab) 1 Tablets By Mouth Every day Contact prescribing physician if questions or concerns Unchanged doxepin (doxepin 10 mg Cap) 1-2 tabs By Mouth Once a day (at bedtime) Contact prescribing physician if questions or concerns Unchanged ondansetron (ondansetron 4 mg Dis Tab) 1 Tablets By Mouth 3 times a day as needed for Nausea/Vomiting Contact prescribing physician if questions or concerns Unchanged pantoprazole (Pantoprazole [address] Tab) 1 Tablets By Mouth Every day Contact prescribing physician if questions or concerns Allergies Mucinex (SOB - Shortness of breath) Problems Ongoing - Any problem that you are currently receiving treatment for. Anemia BMI 27.0-27.9,adult Bowel habit changes Bradycardia Dementia Depression Diarrhea Diverticulosis Diverticulosis of colon Gastroesophageal reflux disease History of diverticulitis HTN (hypertension) Insomnia Lumbar radiculopathy Malignant neoplasm of skin of nose (external) Overweight Positive fecal occult blood test Positive occult stool blood test Restless leg syndrome Patient Survey You may receive a survey via text or e-mail asking about your office visit. Please share your experience with us by completing your survey. We appreciate your feedback and thank you for choosing us for your care. Normal [facility] CT Spine Lumbar w/o Contrast on 10-13-2023 [...] fracture or bony displacement. Radiation Dose Estimate: CTDI(mGy):0.456390 / / / kVp:120.707873 / mAs:0.436990 / / / DLP(mGy-cm):3.042750A aaron Part: CTDI(mGy):22.468305 / / / kVp:140.102533 / mAs:153.119843 / / / DLP(mGy-cm):538.73228 5Body Part: Final Dictated by: Pablo Bower MD Dictated DT/TM: 10.12.2023 11:23 pm Signed by: Pablo Bower MD Signed (Electronic Signature): 10.12.2023 11:33 pm (If Report Is Signed, Electronically Signed in Other Vendor System) Normal [facility] [place] [facility] ED Clinical Summaryon 2022 ED Clinical Summary [place] [id number] ED Clinical Summary Person Information Name: Suad Nicholson Yaima/[facility] Age: 78 Years : 1945 Sex: Female PCP: Marital Status: Phone: Race: White Ethnicity: Not or Language: Sami Visit Reason: Back pain Acuity: 4 Enc Type: Emergency Med Service: Emergency Medicine Arrival: 10/12/2023 22:00:02 Discharge: 10/13/2023 01:00:00 LOS: 000 03:00 Checkin: 10/12/2023 22:00:02 Checkout: 10/13/2023 01:00:00 Dispo Type: Home or Self Care Address: [address] [place] [address] [phone] Provider Notes: Diagnosis: 1:Back pain; Right hip [...] [facility] Poison Help line: . [facility] Hotline: [place] Tobacco Quit Line: [place], [place]) [address]: [phone] [place], [place]) [address]: [phone] [facility] [address], [place]: [phone] Normal [facility] [place] [facility] ED Note-Physicianon 12-21-20 23 ED Note-Physician Chief Complaint Pt reports siztic [...] MRI and CT scan done at the [place] emergency department and was advised to try [...] patient s (more content not included)... Normal [facility] [place] [facility] XR Hip 2-3 Views Righton XR Hip [...] Electronically Signed in Other Vendor System) Normal [facility] [place] [facility] XR Knee 1 or 2 Views Righton [...] fracture or traumatic malalignment. Final Dictated by: Padmiin Morelos MD Dictated DT/TM: 10/12/2023 11:09 pm Signed by: Padmini Morelos MD Signed (Electronic Signature): 10/12/2023 11:11 pm (If Report Is Signed, Electronically Signed in Other Vendor System) Normal [facility] [place] [facility] XR DEXA BONE DENSITYon 09-10 XR DEXA [...] GRACIELA LUGO Date: 2022-09-10 15:39 Normal [facility] OCC BLD IMMUNO SCREENon 08-24 OCCULT BLOOD Negative Normal NEGATIVE [facility] Comment on above: Performed By: #### O BSCRN ####[facility] [address] [place], [place] [address]Dr. Antonia Sen INSULINon 09-04-2022 Insulin 8.4 uIU/mL Normal 2.6-24.9 [facility] Comment on above: Performed By: #### I NSULIN ####[facility] [address] [place], [place] [address]Dr. Antonia Sen CBC AUTO DIFFon 09-03-2022 BASO # 0.1 103/ul Normal 0.0-0.1 [facility] Comment on above: Performed By: #### C BC ####[facility] [address] [place], [place] [address]Dr. Antonia Sen Basophils/100 WBC (Bld) 1.2 % Normal 0.2-2.0 [facility] Comment on above: Performed By: #### C BC ####[facility] Mg[address]ix[address] [place], [place] [address]Dr. Antonia Sen EO # 0.2 103/ul Normal 0.0-0.7 [facility] Comment on above: Performed By: #### C BC ####[facility] [address] [place], [place] [address]Dr. Antonia Sen Eosinophils/100 WBC (Bld) 4.6 % Normal 0.9-7.0 [facility] Comment on above: Performed By: #### C BC ####[facility] [address] [place] [address]Dr. Antonia Sen Erythrocyte distribution width (RBC) [Ratio] 13.1 % Normal 11.0-15.0 [facility] Comment on above: Performed By: #### C BC ####[facility] [address] [place], [place] [address]Dr. Antonia Sen Hematocrit (Bld) [Volume fraction] 39.3 % Normal 36.0-48.0 [facility] Comment on above: Performed By: #### C BC ####[facility] Z[address] [place], [place] [address]Dr. Antonia Sen Hemoglobin (Bld) [Mass/Vol] 13.0 g/dL Normal 12.0-16.0 [facility] Comment on above: Performed By: #### C BC ####[facility] Z[address] [place], [place] [address]Dr. Antonia Sen IG # 0.01 10e3/ul Normal 0.00-0.03 [facility] Comment on above: Performed By: #### C BC ####[facility] [address] [place], [place] [address]Dr. Antonia Sen IG % 0.2 % Normal 0.0-0.5 [facility] Comment on above: Performed By: #### C BC ####[facility] [address] [place], [place] [address]Dr. Antonia Sen LYMPH # 1.2 103/ul Normal 1.2-3.8 [facility] Comment on above: Performed By: #### C BC ####[facility] [address] [place], [place] [address]Dr. Antonia Sen Lymphocytes/100 WBC (Bld) 27.6 % Normal 20.5-60.0 [facility] Comment on above: Performed By: #### C BC ####[facility] [address] [place], [place] [address]Dr. Antonia Sen MANUAL DIFF REQ NO Normal [facility] Comment on above: Performed By: #### C BC ####[facility] [address] [place] [id number]. Antonia Mckinley MCH (RBC) [Entitic mass] 30.4 pg Normal 26.7-34.0 [facility] Comment on above: Performed By: #### C BC ####[facility] [address] [place] [id number]. Antonia Mckinley MCHC (RBC) [Mass/Vol] 33.1 g/dL Normal 29.9-35.2 [facility] Comment on above: Performed By: #### C BC ####[facility] [address] [place] [address]Dr. Halliemanjit Sen MCV (RBC) [Entitic vol] 91.8 fL Normal 81.0-99.0 [facility] Comment on above: Performed By: #### C BC ####[facility] [address] [place], [place] [address]Dr. Antonia Sen MONO # 0.5 103/ul Normal 0.3-0.8 [facility] Comment on above: Performed By: #### C BC ####[facility] [address] [place], [place] [address]Dr. Antonia Sen Monocytes/100 WBC (Bld) 11.8 % Normal 1.7-12.0 [facility] Comment on above: Performed By: #### C BC ####[facility] [address] [place], [place] [address]Dr. Antonia Sen NEUT # 2.4 103/ul Normal 1.4-6.5 [facility] Comment on above: Performed By: #### C BC ####[facility] M[address] [place], [place] [address]Dr. Antonia Sen Neutrophils/100 WBC (Bld) 54.6 % Normal 43.0-75.0 [facility] Comment on above: Performed By: #### C BC ####[facility] [address] [place], [place] [address]Dr. Antonia Sen Platelet mean volume (Bld) [Entitic vol] 12.2 fL Normal 9.5-13.5 [facility] Comment on above: Performed By: #### C BC ####[facility] [address] [place], [place] [address]Ka. Halliemanjit Mckinley PLT 210 103/ul Normal 150-450 [facility] Comment on above: Performed By: #### C BC ####[facility] [address] [place], [place] [address]Ct. Antonia Sen RBC 4.28 106/ul Normal 4.20-5.40 [facility] Comment on above: Performed By: #### C BC ####[facility] [address] [place], [place] [address]Ui. Antonia Sen WBC 4.3 103/ul Normal 4.0-11.0 [facility] Comment on above: Performed By: #### C BC ####[facility] [address] [place], [place] [address]OqDr. Antonia Sen FREE THYROXINE INDEX T7on FTI 1.89 Normal 1.30-4.50 [facility] Comment on above: Performed By: #### L IPID, T7, TSH, CMP #### [facility] [address] [place] [address] [address] Antonia Sen T3U 31.0 % Normal 30.0-39.0 [facility] Comment on above: Performed By: #### L IPID, T7, TSH, CMP #### [facility] [address] [place] [address] [address] Antonia Sen T4 [Mass/Vol] 6.10 ug/dL Normal 4.80-13.90 [facility] Comment on above: Performed By: #### L IPID, T7, TSH, CMP #### [facility] [address] [place] [address] [address] Antonia Sen GLYCOHEMOGLOBIN A1Con 2021 ADA RECOMMENDATION SEE BELOW Normal [facility] Comment on above: Result Comment: ADA RECOMMENDED LIMIT 4.0 - 6.0 ADA THERAPEUTIC TARGET < 7.0 ACTION SUGGESTED > 7.0 Performed By: #### A 1C #### [facility] [address] [place] [address] [address] Antonia Sen Glucose [Mass/Vol] 105 mg/dL Normal [facility] Comment on above: Performed By: #### A 1C #### [facility] [address] [place] [address] Dr. Antonia Sen HbA1c (Bld) [Mass fraction] 5.3 % Normal 4.5-6.2 [facility] Comment on above: Performed By: #### A 1C #### [facility] [address] [place] [address] Dr. Antonia Sen IRONon 09-03-2022 Iron [Mass/Vol] 140.0 ug/dL Normal 50.0-170.0 [facility] Comment on above: Performed By: #### I YU #### [facility] [address] [place] [address] Dr. Antonia Sen LIPID PROFILEon 09-03-2022 CHOL-HDL RATIO NORM SEE BELOW Normal [facility] Comment on above: Result Comment: 3.3 - 4.4 LOW RISK 4.4 - 7.1 AVERAGE RISK 7.1 - 11.0 MODERATE RISK >11.0 HIGH RISK Performed By: #### L IPID, T7, TSH, CMP #### [facility] [address] [place] [address] Dr. Antonia Sen Cholesterol [Mass/Vol] 226 mg/dL Critically high <=200 [facility] Comment on above: Performed By: #### L IPID, T7, TSH, CMP #### [facility] [address] [place] [address] Dr. Antonia Sen Cholesterol in HDL [Mass/Vol] 66 mg/dL Critically high 40-60 [facility] Comment on above: Performed By: #### L IPID, T7, TSH, CMP #### [facility] [address] [place] [address] Dr. Antonia Sen Cholesterol in LDL [Mass/Vol] 137.8 mg/dL Normal [facility] Comment on above: Performed By: #### L IPID, T7, TSH, CMP #### [facility] [address] [place] [address] Dr. Antonia Sen Cholesterol.total/C holesterol in HDL [Mass ratio] 3.4 {ratio} Normal [facility] Comment on above: Performed By: #### L IPID, T7, TSH, CMP #### [facility] [address] [place] [address] [address] Antonia Sen HDL NORMAL > or = 60 mg/dl - LO W CARDIOVASCULAR RISK <40 mg/dl - HIGH CARDIOVASCULAR RISK Normal [facility] Comment on above: Performed By: #### L IPID, T7, TSH, CMP #### [facility] [address] [place] [address] [address] Antonia Sen LDL CALC NORMAL SEE BELOW Normal [facility] Comment on above: Result Comment: <100 mg/dl OPTIMAL 100 - 129 mg/dl NEAR OR ABOVE OPTIMAL 130 - 159 mg/dl BORDERLINE HIGH 160 - 189 mg/dl HIGH >190 mg/dl VERY HIGH Performed By: #### L IPID, T7, TSH, CMP #### [facility] [address] [place] [address] [address] Antonia Sen Triglyceride [Mass/Vol] 111 mg/dL Normal <=150 [facility] Comment on above: Performed By: #### L IPID, T7, TSH, CMP #### [facility] [address] [place] [address] [address] Antonia Sen VLDL CALC 22.2 mg/dL Normal [facility] Comment on above: Performed By: #### L IPID, T7, TSH, CMP #### [facility] [address] [place] [address] Dr. Antonia Sen PROF 14(COMP METB)on 022 Albumin [Mass/Vol] 3.9 g/dL Normal 3.4-5.[address] [facility] Comment on above: Performed By: #### L IPID, T7, TSH, CMP #### [facility] [address] [place] [address] [address] Antonia Sen Albumin/Globulin [Mass ratio] 1.1 {ratio} Normal [facility] Comment on above: Performed By: #### L IPID, T7, TSH, CMP #### [facility] [address] [place] [address] [address] Antonia Sen ALP [Catalytic activity/Vol] 64 U/L Normal 46-116 [facility] Comment on above: Performed By: #### L IPID, T7, TSH, CMP #### [facility] [address] [place] [address] Dr. Antonia Sen ALT [Catalytic activity/Vol] 6 U/L Critically low 14-59 [facility] Comment on above: Performed By: #### L IPID, T7, TSH, CMP #### [facility] [address] [place] [address] Dr. Antonia Sen Anion gap [Moles/Vol] 10.6 mmol/L Normal [facility] Comment on above: Performed By: #### L IPID, T7, TSH, CMP #### [facility] [address] [place] [address] Dr. Antonia Sen AST [Catalytic activity/Vol] 15 U/L Normal 15-37 [facility] Comment on above: Performed By: #### L IPID, T7, TSH, CMP #### [facility] [address] [place] [address] Dr. Antonia Sen Bilirubin [Mass/Vol] 0.9 mg/dL Normal 0.2-1.0 [facility] Comment on above: Performed By: #### L IPID, T7, TSH, CMP #### [facility] [address] [place] [address] Dr. Antonia Sen Calcium [Mass/Vol] 9.3 mg/dL Normal 8.5-10.[address] [facility] Comment on above: Performed By: #### L IPID, T7, TSH, CMP #### [facility] [address] [place] [address] Dr. Antonia Sen Chloride [Moles/Vol] 105 mmol/L Normal 98-107 [facility] Comment on above: Performed By: #### L IPID, T7, TSH, CMP #### [facility] [address] [place] [address] Dr. Antonia Sen CO2 [Moles/Vol] 24.4 mmol/L Normal 21.0-32.0 [facility] Comment on above: Performed By: #### L IPID, T7, TSH, CMP #### [facility] [address] [place] [address] Dr. Antonia Sen Creatinine [Mass/Vol] 0.84 mg/dL Normal 0.55-1.02 [facility] Comment on above: Performed By: #### L IPID, T7, TSH, CMP #### [facility] [address] [place] [address] Dr. Antonia Sen EGFR-AF [place] >60 Normal >=60 [facility] Comment on above: Performed By: #### L IPID, T7, TSH, CMP #### [facility] [address] [place] [address] Dr. Antonia Sen EGFR-NON AF [place] >60 Normal >=60 [facility] Comment on above: Performed By: #### L IPID, T7, TSH, CMP #### [facility] [address] [place] [address] Dr. Antonia Sen Globulin (S) [Mass/Vol] 3.7 g/dL Normal [facility] Comment on above: Performed By: #### L IPID, T7, TSH, CMP #### [facility] [address] [place] [address] Dr. Antonia Sen Glucose [Mass/Vol] 88 mg/dL Normal 74-[address] [facility] Comment on above: Performed By: #### L IPID, T7, TSH, CMP #### [facility] [address] [place] [address] Dr. Antonia Sen Potassium [Moles/Vol] 4.0 mmol/L Normal 3.5-5.1 [facility] Comment on above: Performed By: #### L IPID, T7, TSH, CMP #### [facility] [address] [place] [address] Dr. Antonia Sen Protein [Mass/Vol] 7.6 g/dL Normal 6.4-8.2 [facility] Comment on above: Performed By: #### L IPID, T7, TSH, CMP #### [facility] [address] [address] [address] Antonia Sen Sodium [Moles/Vol] 136 mmol/L Normal 136-[address] [facility] Comment on above: Performed By: #### L IPID, T7, TSH, CMP #### [facility] [address] [address] [address] Antonia Sen Urea nitrogen [Mass/Vol] 23.0 mg/dL Critically high 7.0-18.0 [facility] Comment on above: Performed By: #### L IPID, T7, TSH, CMP #### [facility] [address] [address] [address] Antonia Sen Urea nitrogen/Creatinine [Mass ratio] 27.4 mg/mg Normal [facility] Comment on above: Performed By: #### L IPID, T7, TSH, CMP #### [facility] [address] [place] [address] Dr. Antonia Sen TSHon 09-03-2022 TSH 1.681 uIU/mL Normal 0.358-3.740 [facility] Comment on above: Performed By: #### L IPID, T7, TSH, CMP #### [facility] [address] [address] [address] Antonia Sen XR wrist RT 2Von 07-16-2022 XR wrist RT 2V [facility] [place] [address] [place] [address] XRay Report Signed Patient: Suad Nicholson MR#: [id number] 12 : 1945 Acct:[id number] Age/Sex: 77 / F ADM Date: 07/16/22 Loc: [facility] Room: Type: [facility] Attending Dr: Norah Kumar MD Copies [...] Pati Lange M.D.07/16/2022 1:43 PM Dictation Location: [facility]--12 Transcribed By: [facility] 07/16/22 1343 Dictated By: Pati Lange MD 07/16/22 1342 Signed By: 07/16/22 1343 [facility] XR wrist RT 2V [facility] [employer] Other XR wrist RT 2V [facility] [employer] Other XR wrist RT 2V [address] [place] [address] [employer] Other XR wrist RT 2[place] [address] No rt [employer] Other XR wrist RT 2V XRay Report [employer] Other XR wrist RT 2V Signed [employer] Other XR wrist RT 2V Patient: Geronimo Nicholson MR#: [id number] [place] [employer] Other XR wrist RT 2V 12 [employer] Other XR wrist RT 2V : 1945 Acct:[id number] [employer] Other XR wrist RT 2V Age/Sex: 77 / F ADM Date: 07/16/22 [employer] Other XR wrist RT 2V Loc: [facility] Room: Type : [facility] [employer] Other XR wrist RT 2V Attending Dr: Segundo Kumar MD [employer] Other XR wrist RT 2V Copies to: Norah Kumar MD [employer] Other XR wrist RT 2V Ordering Provider: Norah Kumar MD [employer] Other XR wrist RT 2V Date of Service: 07/16/22 [employer] Other XR wrist RT 2V XR/XR wrist RT 2V: Other fractures of lower end of right radius, [employer] Other XR wrist RT 2V subsequent enc [employer] Other XR wrist RT 2V RIGHT WRIST - 2 views [employer] Other XR wrist RT 2V COMPARISON: 06/17/2022 [employer] Other XR wrist RT 2V CLINICAL DATA: Follow-up distal radius fracture. [employer] Other XR wrist RT 2V AP and lateral views were obtained. There is osteopenia. There is redemonstration of a fracture at [employer] Other XR wrist RT 2V the distal radius. There is no change in alignment. No other acute fractures or dislocation are [employer] Other XR wrist RT 2V seen. There is mild dorsal soft tissue swelling. [employer] Other XR wrist RT 2V XR/XR wrist RT 2V [employer] Other XR wrist RT 2V IMPRESSION: ticckle [facility] [employer] Other XR wrist RT 2V STABLE DISTAL RADIUS FRACTURE. [employer] Other XR wrist RT 2V Impression dictated by: Pati Lange M.D.07/16/2022 1:43 PM [employer] Other XR wrist RT 2V Dictation Location: [place] [address] [employer] Other XR wrist RT 2V Transcribed By: AMSON 07/16/22 1343 [employer] Other XR wrist RT 2V Dictated By: Pati Lange MD 07/16/22 1342 [employer] Other XR wrist RT 2V Signed By: [employer] Other XR wrist RT 2V 07/16/22 134 [employer] Other MR hand RT wo conon 06-24-20 22 MR hand RT wo con [facility] [place] [address] [place] [address] MRI Report Signed Patient: Suad Nicholson MR#: [id number] : 1945 Acct:[id number] Age/Sex: 77 / F ADM Date: 06/24/22 Loc: [facility]: [facility] Attending Dr: Talon Pryor DO Copies to: Talon Pryor DO Ordering Provider: Talon Pryor DO Date of Service: 06/24/22 MR/MR hand RT wo con: S69.91XA INJURY S52.591A CLOSED FX RT RADIUS ([id number]) MR/MR wrist RT wo con: S69.91XA INJURY [...] Alexei Case M.D.06/24/2022 2:03 PM Dictation Location: [place] [address] Transcribed By: [facility] 06/24/22 1403 Dictated By: Alexei Case DO 06/24/22 1332 Signed By: 06/24/22 1403 [facility] XR WRIST RT MIN 3 Von [...] by: ALEX MONTERO Date: 2022-06-04 17:19 Normal [facility] Vital Signs Date Time Vital Sign Value Performing Clinician Kathy johnston 06-18-2024 13:40-0400 Blood Pressure Location Pablo RAMIREZ [facility] [place] 06-18-2024 13:40-0400 Diastolic blood pressure 67 mm[Hg] Pablo GUZMÁN [facility] [place] 06-18-2024 13:40-0400 Heart rate 79 /min Pablo GUZMÁN [facility] [place] 06-18-2024 13:40-0400 Respiratory rate 16 /min Pablo GUZMÁN [facility] 06-18-2024 13:40-0400 Systolic blood pressure 105 mm[Hg] Pablo GUZMÁN [facility] [place] Encounters Encounter Date Encounter Type Care Provider Facility Start: 06-18-2024 End: 06-18-2024 ambulatory Saba Vidal Facility:[facility] [place] Start: 06-18-2024 End: 06-18-2024 Patient encounter procedure Pablo GUZMÁN [facility] Start: 06-15-2024 ambulatory Saba Hoy Facility:[facility] Start: 06-08-2024 ambulatory Saba Vidal Facility:[facility] Start: 11-01-2023 End: 11-07-2023 Emergency department patient visit [facility] Start: 10-13-2023 End: 10-13-2023 Emergency department patient visit Torres Wilkins PA-C Facility:[facility] Start: 09-10-2022 End: 09-11-[address] SABA VIDAL Facility:[facility] Start: 09-08-2022 End: 09-08-[address] SABA VIDAL Facility:[facility] Start: 09-03-2022 End: 09-04-[address] SABA VIDAL Facility:[facility] Start: 08-27-2022 End: 08-27-2022 ambulatory Norah Kumar Other [employer] Other Start: 08-27-2022 Postop follow up vis it related to original px Norah Calvey [facility] Start: 07-16-2022 Postop follow up vis it related to original px Norah Calvey [facility] Start: 07-16-2022 End: 07-16-2022 ambulatory Norah Kumar [place] [employer] Other Start: 07-16-2022 End: 07-16-2022 Patient encounter procedure DO Talon Pryor Work Phone: [facility] Start: 06-29-2022 End: 08-24-2022 ambulatory NORAH KUMAR Facility:[facility] Start: 06-25-2022 End: 06-25-2022 ambulatory Norah Kumar Other [employer] Other Start: 06-25-2022 Postop follow up vis it related to original px Norah Kumar [facility] Start: 06-24-2022 End: 06-24-2022 ambulatory Talon Pryor Facility:[facility] Start: 06-24-2022 End: 06-24-2022 Patient encounter procedure DO Talon Pryor Work Phone: [facility] [address] Start: 06-23-2022 End: 06-23-2022 ambulatory Talon Pryor Other [employer] Other Start: 06-23-2022 [facility] visit new patient Talon Pryor [facility] Start: 06-17-2022 End: 06-18-[address] [...] right hand DO Guerda Pryor Work Phone: Start: 03-01-2018 Colonoscopy Pablo ESTRELLA Appendectomy Pablo COOKL Cholecystectomy Pablo NILL Colonoscopy Pablo NILL History of nasal sin us surgery Pablo NILL Immunizations Immunization Date Immunization Notes Care Provider Fa cili 08-15-2023 influenza virus vaccine, unspecified formulation Pablo COOKL [facility] 04-15-2022 SARS-CoV-2 (COVID-19 ) mRNA-1273 vaccine Pablo COOKL [facility] 11-10-2021 SARS-CoV-2 (COVID-19 ) mRNA BNT-162b2 vax Pablo COOKL [facility] 01-13-2021 SARS-CoV-2 (COVID-19 ) mRNA BNT-162b2 vax Pablo COOKL [facility] 12-22-2020 SARS-CoV-2 (COVID-19 ) mRNA BNT-162b2 vax Pablo NILL [facility] Payers Date Payer Category Payer Unknown 2022 Unknown [id number] 2009 Medicare 1960 Medicare [id number] 2.1 [id number] 1959 Self-pay 1959 Unknown [id number] 1945 Unknown [id number] 2.16.84 [id number] 1945 Unknown [id number] 2.16.84 0.1.264423.3.579.2.593 1945 Unknown [id number] 2.16.84 0.1.994945.3.579.2.593 1945 Unknown [id number] 2.16.84 0.1.657927.3.579.2.593 1945 Unknown [id number] 2.16.84 0.1.799811.3.579.2.593 1945 Unknown [id number] 2.16.84 0.1.649050.3.579.2.593 1945 Unknown [id number] 2.16.84 0.1.006973.3.579.2.593 1945 Unknown [id number] 2.16. 840.1.744756.3.579.2.196 1945 Unknown [id number] 2.16.8 40.1.279680.3.579.2.727 1945 Unknown [id number] 2.16.8 40.1.689655.3.579.2.727 Unknown [id number] 2.16.8 40.1.875532.19 Unknown [id number] 2.16.8 40.1.722335.3.579.2.531 Unknown [id number] 2.16.8 40.1.998543.3.579.2.531 Unknown [id number] 2.16.84 0.1.162198.3.579.2.593 Social History Date Type Detail Facility Sex Assigned At [facility] Start: 1945 Sex Assigned At Female [facility] Start: 06-18-2024 Tobacco smoking status Never s moked tobacco (finding) [facility] [place] Tobacco smoking status Never [facility] Functional Status Date Assessment Result Facility 06-18-2024 Functional Status N/A [facility] [place] Clinical Notes 06-18-2022 to 06-18-2024 Note Date & Type Note Facility 06-18-2024 Note General Surgery Offi ce/Clinic Note Chief Complaint consultation for diarrhea HPI Staff 79 year old female presents on consultation from Dr. Vidal for diarrhea and positive occult stool. Stool studies negative. Last colonoscopy completed 02/2018 with diverticulosis. History of Present Illness 79 yo female with h/o htn, dementia, GERD, lumbar radiculopathy, restless leg syndrome, referred for bowel changes and positive fecal occult blood test; developed initial constipation back in October, followed by frequent loose stools, no gross blood; negative stool studies; now stools formed, soft, no blood, on MiraLAX; abdominal operations significant for cholecystectomy, appendectomy, last colonoscopy 2017 with diverticulosis throughout colon and melanosis coli; on Advil daily, no asa; no fmhx of GI malignancy or IBD. Review of Systems PHQ Score Initial Depression Screen Score: 0 SCORE ROS - Provider Constitutional: no fever, no sweats, no weight loss. Eyes: yes glasses, no blurred vision, no visual loss. ENMT: no dentures, no hoarseness, no swallowing difficulties, no hearing loss, no ear infection(s), no nose bleeds. Cardiovascular: normal blood pressure, no chest pain, regular heartbeat, no heart murmur. Respiratory: no shortness of breath, no cough, no asthma, no wheezing. Gastrointestinal: no nausea, no vomiting, no diarrhea, no constipation, no blood in stool, no change in bowel habits, no abdominal pain, no hepatitis. Genitourinary: no kidney stones, no urine infection, no dysuria. Musculoskeletal: no pain, no weakness. Skin: no changing moles, no rash, no skin lumps. Neurologic: no seizures, no epilepsy, no headache. Psychiatric: no emotional or psychiatric problem. Heme/Lymph: no bleeding problems, no anemia, no blood clots, no transfusions. Allergy/Immunologic: no swollen lymph nodes/glands, no IV drug abuse. Other: Additional ROS info: Except as noted in the above Review of Systems and in the History of Present Illness, all other systems have been reviewed and are negative or noncontributory. Physical Exam Vitals & Measurements HR: 79(Peripheral) RR: 16 BP: 105/67 HT: 69 in HT: 175.2 cm WT: 83.6 kg WT: 183.92 lb BMI: 27.24 HEENT: normal conjunctiva, sclera clear, no scleral icterus, EOM intact, PERRLA, oral mucosa moist without lesions. Neck: trachea midline, no mass, symmetric, no thyromegaly or nodules, no adenopathy Respiratory: lungs CTA, respirations non labored. Cardiovascular: regular rate and rhythm, no murmur, no pedal edema or varicosities. Gastrointestinal: soft, non distended, no tenderness, no masses, no palpable hernias, diastasis recti no, no hepatosplenomegaly; normal bs Lymphatic: no cervical adenopathy, no supraclavicular adenopathy. Musculoskeletal: normal gait, digits and nails without infection, nodes, cyanosis, clubbing. Skin: no rashes, no lesions, no ulcers, no subcutaneous nodules, induration. Psychiatric/Neuro: oriented to time, place, person, judgement normal, affect appropriate for age, insight intact, no focal deficits. Tests: labs reviewed, , review of old records completed , Discussed surgical options, risks, and possible complications with patient. Assessment/Plan 1. Positive fecal occult blood test (R19.5: Other fecal abnormalities) plan colonoscopy under anesthesia for further evaluation, informed consent obtained. 2. Bowel habit changes (R19.4: Change in bowel habit) see # 1 3. Diverticulosis of colon (K57.30: Diverticulosis of large intestine without perforation or abscess without bleeding) see # 1; high fiber diet and daily fiber supplement Follow-up No qualifying data available Problem List/Past Medical History Ongoing Anemia BMI 27.0-27.9,adult Bowel habit changes Bradycardia Dementia Depression Diarrhea Diverticulosis Diverticulosis of colon Gastroesophageal reflux disease History of diverticulitis HTN (hypertension) Insomnia Lumbar radiculopathy Malignant neoplasm of skin of nose (external) Overweight Positive fecal occult blood test Positive occult stool blood test Restless leg syndrome Historical No qualifying data Procedure/Surgical History Colonoscopy (03/01/2018), Appendectomy, Cholecystectomy, Colonoscopy, Colonoscopy, History of nasal sinus surgery. Medications CeleXA 10 mg Tab, 10 mg= 1 tab(s), Oral, Daily donepezil 5 mg Tab, 5 mg= 1 tab(s), Oral, Daily doxepin 10 mg Cap, 1-2 tabs, Oral, Once a day (at bedtime) ondansetron 4 mg Dis Tab, 4 mg= 1 tab(s), Oral, TID, PRN Pantoprazole [address] Tab, 40 mg= 1 tab(s), Oral, Daily Allergies Mucinex (SOB - Shortness of breath) Social History Alcohol - Denies Alcohol Use, 06/18/2024 Substance Abuse - Denies Substance Abuse, 06/18/2024 Tobacco Never (less than 100 in lifetime) Tobacco Use:. Never Smokeless Tobacco Use:., 06/18/2024 Family History Acute myocardial infarction: Father. Alzheimer's disease: Mother. Heart disease: Father. Primar (more content not included)... [facility] Comment on above: Result Comment: Elec tronically Signed By: RAMIREZ WAKEFIELD, Pablo Beck\Date and Time Signed: 06/18/24 14:19 EDT 08-27-2022 Evaluation note Encounter Date Diagnosis Assessment [...] surgery. We will f/u in 4-6 weeks. [employer] Other 09-23-2022 Evaluation note* Encounter Date Diagnosis Assessment Notes Treatment Notes Treatment Clinical Notes Jun, Other fractures of lower end of right radius, subsequent encounter for closed fracture with routine healing (ICD-10 - S52.591D) Radiographs reviewed with patient today. Discussed with patient she is progressing well. Discussed with patient she can discontinue wearing braces. Instructed patient to continue to work on strength and range of motion exercises. Instructed patient to continue with occupational therapy [employer] Other 09-02-2022 Evaluation note* Encounter Date Diagnosis Assessment Notes Treatment Notes Treatment Clinical Notes Jun, Other fractures of lower end [...] anything over 2-5 pounds at this time. [employer] Other 08-31-2022 Evaluation note* Encounter Date Diagnosis Assessment Notes Treatment Notes Treatment Clinical Notes May, Injury of right hand, initial [...] office today. Prior medical notes from the [facility] and history have been reviewed. At [...] as documented in the electronic medical record. [employer] Other 08-26-2022 NotePROCEDURE: XR HAND RT MIN 3V, XR WRIST RT MIN 3 [...] Electronically authenticated by: SEGUNDO MERINO Date: 2022-06-18 07:24[facility]08-26-2022 NotePROCEDURE: XR HAND RT MIN 3V, XR WRIST RT MIN 3 [...] Electronically authenticated by: SEGUNDO MERINO Date: [facility]22-06-18 [facility] No data available for this section [facility] [place] Evaluation noteNo assessment information available [facility] Work Phone: [facility] general Narrative - Reported* Type Description Date Medical History right hand injury Medical History gull stones Medical History depression Surgical History appendectomy Surgical History gull bladder removal [employer] Other Hospital Discharge instructions No data available for this section [facility] [place] Progress note No data available for this section [facility] [place] Chief Complaint and Reason for Visit Chief Complaint S52.591A S69.91XA Advance Directives No Advanced Directives Records Found Advance Directive Response Recorded Date/ Time Advance Directives No June 5:37pm Summary Purpose Family History No Family History Records FoundNo Family History Records FoundNo Family History Records FoundNo Family History Records Found No data available for this section No Family History Records Found Additional Source Comments [...] section and content) DATE CREATED AUTHOR 07/30/2022 [facility] DATE CREATED AUTHOR AUTHOR'S ORGANIZ ATION 09/30/2022 [facility] DATE CREATED AUTHOR AUTHOR'S ORGANIZ ATION 10/13/2023 [facility] DATE CREATED AUTHOR AUTHOR'S ORGANIZ ATION 11/08/2023 [facility] DATE CREATED AUTHOR AUTHOR'S ORGANIZ ATION 06/19/2024 [facility] FOR RECORDS PERTAINING TO PATIENTS WHO [...] BE BASED ON THE PRIMARY CLINICAL RECORDS. [facility] [employer] [facility]. provides no warranty or guarantee of the accuracy or completeness of information in this document.
[2024-07-04 07:52] VITALS: BP 131/69; PULSE 75; TEMP 36; O2SAT 96; BMI 27.2
[2024-07-04] MEDS: LACTATED RINGER'S SOLUTION 1,000 ML 50 ML IV (08:05)
[2024-07-04 09:49] VITALS: BP 117/56; PULSE 66; TEMP 36.6; O2SAT 100
[2024-07-04 10:04] VITALS: BP 135/74; PULSE 62; O2SAT 99
[2024-07-04 10:19] VITALS: BP 147/81; PULSE 63; O2SAT 99
== END 2024-07-04 10:19 | disposition home or self-care (01) ==
PROVIDERS: PCP Family Medicine; Visit Provider Surgery
PROC: (CPT 45380; principal; 2024-07-04 08:50)
DX: R19.7 Diarrhea, unspecified (principal); R19.5 Other fecal abnormalities; K57.30 Diverticulosis of large intestine without perforation or abscess without bleeding; K63.5 Polyp of colon; K21.9 Gastro-esophageal reflux disease without esophagitis; I10 Essential (primary) hypertension; G25.81 Restless legs syndrome; Z90.49 Acquired absence of other specified parts of digestive tract; M54.16 Radiculopathy, lumbar region; F03.A0 Unspecified dementia, mild, without behavioral disturbance, psychotic disturbance, mood disturbance, and anxiety
CPT/HCPCS: 45380; 88305; J2704

== ENCOUNTER 2024-11-05 10:08 | Outpatient (OUT) | payer MEDICARE, OTHER, SELFPAY ==
--- OUTSIDE RECORDS SUMMARY | 2024-11-05 10:13 | XMS_ITS | CCD ---
Author Organization [facility] Care Team Providers Care Order Puller Name Role Phone Norah Kumar Unavailable DO Talon Pryor Attending Provider [phone] Talon Pryor Unavailable MD Norah Kumar Attending Provider [phone] DR SABA VIDAL Admitting Unavailable HOY, DR WALTER Attending Unavailable YOUNG, DR WALTER Consulting Unavailable YOUNG, DR WALTER Primary Care Unavailable ALPENA, DR GRACIELA Christensen Consulting Unavailable YOUNG, DR WALTER Admitting Unavailable YOUNG, DR WALTER Attending Unavailable YOUNG, DR WALTER Consulting Unavailable YOUNG, DR WALTER Primary Care Unavailable YOUNG, DR WALTER Admitting Unavailable YOUNG, DR WALTER Primary Care Unavailable YOUNG, DR WALTER Attending Unavailable YOUNG, DR WALTER Consulting Unavailable ZIEBER, DR SEGUNDO Melchor Consulting Unavailable SMITAY, DR WALTER Admitting Unavailable YOUNG, DR WALTER Attending Unavailable YOUNG, DR WALTER Consulting Unavailable YOUNG, DR WALTER Primary Care Unavailable YOUNG, DR WALTER Primary Care Unavailable GENO STOREY Admitting Unavailable GENO STOREY Attending Unavailable GENO STOREY Consulting Unavailable STEW HERRON Consulting Unavailable DR JENNIFER MARINA Admitting Unavailable YOUNG, DR WALTER Primary Care Unavailable LAINA, DR RODRIGUEZ Attending Unavailable ALEX MONTERO Consulting Unavailable YOUNG, DR WALTER Primary Care Unavailable SANGEETHA SARGENT Admitting Unavailable SANGEETHA SARGENT Attending Unavailable NORAH KUMAR Admitting Unavailable NORAH KUMAR Attending Unavailable YOUNG, DR WALTER Primary Care Unavailable Franky ACEVEDO, Torres Costello Attending Unav ERIKA Matamoros Consulting Unavailable INPATIENT, TELENEUROLOGY Consulting Unavail able Saba Vidal Primary Care Physician MD Saba Vidal Primary Care Provider [phone] MD Pablo Fountain Attending Provider [phone] Saba Vidal Primary Care Unavailable Nill, Pablo Melchor Attending Unavailable Nildong, Pablo Melchor Admitting Unavailable NILL, Pablo Melchor Attending Unavailable Saba Vidal Referring Unavailable NILL, Pablo Melchor Attending Unavailable NILL, Pablo Melchor Referring Unavailable NILL, Pablo Melchor Attending Unavailable Saba Vidal Referring Unavailable NILL, Pablo Melchor Attending Unavailable Allergies Allergy Classification Reported Allergen(s) Allergy Type Date of Onset Reaction(s) Facility (2 sources) guaiFENesin; Translations: [Mucinex] Drug Allergy [facility] Repository (2 sources) guaiFENesin; Translations: [guaifenesin] Drug Allergy Dyspnea (finding) [facility] Medications Current Medications Medication Drug Class(es) Dates Sig (Normalized) Sig (Original) citalopram 10 mg oral tablet (2 sources) Serotonin Reuptake Inhibitor Start: 06-11-2024 take 1 tablet by mouth once daily CeleXA 10 mg Tab 10 mg = 1 tab(s), Oral, Daily, Refills(s) 0 Start Date: 06/11/24 Status: Ordered donepezil hydrochloride 5 mg oral tablet (2 sources) Start: 06-11-2024 take 1 tablet by mouth once daily donepezil 5 mg Tab 5 mg = 1 tab(s), Oral, Daily, Refills(s) 0 Start Date: 06/11/24 Status: Ordered doxepin hydrochloride 10 mg oral capsule (2 sources) Tricyclic Antidepressant Start: 06-11-2024 take 1-2 tablets by mouth once daily at bedtime doxepin 10 mg Cap 1-2 tabs, Oral, Once a day (at bedtime), Refills(s) 0 Start Date: 06/11/24 Status: Ordered Ibuprofen (4 sources) Nonsteroidal Anti-inflammatory Drug Motrin Active ondansetron 4 mg disintegrating oral tablet (2 sources) Serotonin-3 Receptor Antagonist Start: 06-11-2024 take 1 tablet by mouth three times daily as needed for nausea ondansetron 4 mg Dis Tab 4 mg = 1 tab(s), Oral, TID, PRN Nausea/Vomiting, Refills(s) 0 Start Date: 06/11/24 Status: Ordered pantoprazole 40 mg delayed release oral tablet (2 sources) Proton Pump Inhibitor Start: 06-11-2024 take 1 tablet by mouth once daily Pantoprazole [address] Tab 40 mg = 1 tab(s), Oral, Daily, Refills(s) 0 Start Date: 06/11/24 Status: Ordered Problems Active Problems Problem Classification Problem Date Documented Da te Episodic/Chronic Cardiac dysrhythmias (2 sources) Bradycardia 06-11-2024 Episodic Deficiency and other anemia (1 source) Anemia, unspecified; Translations: [ANEMIA UNSPECIFIED] Onset: 2 Episodic Deficiency and other anemia (2 sources) Anemia 06-11-2024 Episodic Delirium, dementia, and amnestic and other cognitive disorders (2 sources) Dementia 06-11-2024 Chronic Diabetes mellitus without complication (1 source) Hyperglycemia, unspecified; Translations: [HYPERGLYCEMIA UNSPECIFIED] Onset: 2 Episodic Disorders of lipid metabolism (2 sources) Hyperlipidemia, unspecified; Translations: [Pure hypercholesterolemia, unspecified] Onset: 2 Chronic Diverticulosis and diverticulitis (6 sources) Diverticula of intestine; Translations: [Diverticulosis of large intestine without perforation or abscess without bleeding] Onset: 4 Chronic Esophageal disorders (2 sources) Gastroesophageal reflux disease 06-11-2024 Chronic Essential hypertension (2 sources) Hypertensive disorder 06-11-2024 Chronic Malaise and fatigue (1 source) Other fatigue; Translations: [OTHER FATIGUE] Onset: 2 Episodic Menopausal disorders (4 sources) Other primary ovarian failure; 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: 2 Chronic Mood disorders (2 sources) Depressive disorder 06-11-2024 Chronic Other aftercare (1 source) Other correction (current) drug therapy; Translations: [OTH PRISON CURRENT DRUG THERAPY] Onset: 2 Episodic Other and unspecified benign neoplasm (1 source) Pseudopolyposis of colon 07-24-2024 Episodic Other bone disease and musculoskeletal deformities (1 source) Other specified disorders of bone density and structure, left thigh; Translations: [OTH D/O BONE DEN STRUCT LT THIGH] Onset: 2 Episodic Other gastrointestinal disorders (1 source) Abnormal feces; Translations: [Other fecal abnormalities] Onset: 4 Episodic Other gastrointestinal disorders (3 sources) Altered bowel function; Translations: [Change in bowel habit] Onset: 4 Episodic Other gastrointestinal disorders (2 sources) Diarrhea 06-11-2024 Episodic Other gastrointestinal disorders (2 sources) History of diverticulitis 06-11-2024 Episodic Other gastrointestinal disorders (4 sources) Occult blood in stools 06-11-2024 Episodic Other hereditary and degenerative nervous system conditions (2 sources) Restless legs 06-11-2024 Chronic Other non-epithelial cancer of skin (2 sources) Malignant neoplasm of skin of nose (external) 06-11-2024 Episodic Other non-traumatic joint disorders (4 sources) Pain in unspecified joint; Translations: [PAIN IN UNSPECIFIED JOINT] Onset: 2 Episodic Other nutritional; endocrine; and metabolic disorders (2 sources) Overweight 06-11-2024 Episodic Other nutritional; endocrine; and metabolic disorders (2 sources) Overweight in adulthood with body mass index of 25 or more but less than 30 06-18-2024 Episodic Other screening for suspected conditions (not mental disorders or infectious disease) (5 sources) Encounter for screening for malignant neoplasm of rectum; Translations: [ENC SCREEN MALIG NEOPLASM RECTUM] Onset: 2 Episodic Regional enteritis and ulcerative colitis (1 source) Pseudopolyposis of colon; Translations: [Inflammatory polyps of colon with unspecified complications] Onset: 4 Chronic Residual codes; unclassified (2 sources) Insomnia 06-11-2024 Episodic Past or Other Problems Problem Classification Problem [...] Spondylosis; intervertebral disc disorders; other back problems (2 sources) Lumbar radiculopathy Onset: 09-16-2023 06-11-2024 Episodic Superficial injury; contusion (1 source) Contusion of right wrist, initial encounter; Translations: [CONTUSION RIGHT WRIST INITIAL ENC] Onset: 06-07-2022 Episodic Results Test Name Value Interpretation Reference Range Facility Ambulatory Visit Summaryon 1 Ambulatory Visit Summary Ambulatory Visit Summary SUAD NICHOLSON :1945 Visit Date:07/24/2024 Ambulatory Visit Instructions Your Care Team Attending Physician - RAMIREZ WAKEFIELD, Pablo Melchor Primary Care Physician - Saba Vidal MD This Is Your Medications List Contact prescribing physician if questions or concerns citalopram (CeleXA 10 mg Tab) donepezil (donepezil 5 mg Tab) doxepin (doxepin 10 mg Cap) ondansetron (ondansetron 4 mg Dis Tab) pantoprazole (Pantoprazole [address] Tab) Procedures Performed Colonoscopy (07/04/2024), Colonoscopy (03/01/2018), Appendectomy, Cholecystectomy, Colonoscopy, Colonoscopy, History of nasal sinus surgery. Medications What How Much When Instructions Unchanged [...] for choosing us for your care. Normal [facility] General Surgery Office/Clini c Noteon 07-24-2024 General Surgery Office/Clinic Note General Surgery Office/Clinic Note Chief Complaint colonoscopy follow up HPI Staff 20 day post operative follow up post colonoscopy with sigmoid polypectomy. History of Present Illness s/p colonoscopy due to positive fecal occult blood test; found 2 small sigmoid polyps that were inflammatory polyps, severe sigmoid diverticulosis with redundant, spastic colon; patient with frequent loose stools since colonoscopy, like she had after last colonoscopy; no blood or abd pain. Review of Systems ROS - Provider Constitutional: no fever, no sweats, no weight loss. Eyes: no glasses, no blurred vision, no visual loss. [...] been reviewed and are negative or noncontributory. Assessment/Plan 1. Diverticulosis of colon (K57.30: Diverticulosis of large intestine without perforation or abscess without bleeding) high fiber diet and daily fiber supplement; call with problems/questions; will not require further colorectal screening. 2. Pseudopolyp of sigmoid colon (K51.419: Inflammatory polyps of colon with unspecified complications) likely caused positive fecal occult blood test Follow-up No qualifying data available Problem List/Past Medical History Ongoing Anemia BMI 27.0-27.9,adult Bowel habit changes Bradycardia Dementia Depression Diarrhea Diverticulosis Diverticulosis of colon Gastroesophageal reflux disease History of diverticulitis HTN (hypertension) Insomnia Lumbar radiculopathy Malignant neoplasm of skin of nose (external) Overweight Positive fecal occult blood test Positive occult stool blood test Pseudopolyp of sigmoid colon Restless leg syndrome Historical No qualifying data Procedure/Surgical History Colonoscopy (07/04/2024), Colonoscopy (03/01/2018), Appendectomy, Cholecystectomy, Colonoscopy, Colonoscopy, History [...] Father. Alzheimer's disease: Mother. Heart disease: Father. Primary malignant neoplasm of prostate: Father. Immunizations Vaccine Date Status influenza virus vaccine, inactivated 08/15/2023 Recorded SARS-CoV-2 (COVID-19) mRNA-1273 vaccine 04/15/2022 Recorded SARS-CoV-2 (COVID-19) mRNA BNT-162b2 vax 11/10/2021 Recorded SARS-CoV-2 (COVID-19) mRNA BNT-162b2 vax 01/13/2021 Recorded SARS-CoV-2 (COVID-19) mRNA BNT-162b2 vax 12/22/2020 Recorded Normal [facility] Comment on above: Result Comment: Elec tronically Signed By: RAMIREZ WAKEFIELD, Pablo Dupreebr\Date and Time Signed: 07/24/24 16:03 EDT Armando 07-04-2024 L Specimen: [id number] Received: 07/05/24 Status: JOSH Caba Num: [id number] Spec Type: Surgical Subm Dr: Pablo Fountain MD FACS Tissues: A Colon Biopsy (SIGMOID POLYP) Procedures: HE/2, Gross/Micro L4 Age/ Patient Sex Location Account Attending Physician Suad Nicholson 79/F LABELL [id number] Pablo Fountain MD FACS SPEC NUM: [id number] RECD: 07/05/24 STATUS: JOSH CABA NUM: [id number] AURY: 07/04/[address]: Pablo Fountain MD FACS ENTERED: 07/05/[address] [facility] [address]: Shaye Bueno SPEC TYPE: Surgical DEPT: AMRIK COOPER ENTERED BY: [id number] RECV BY: [id number] ORDERED: HE/2, Gross/Micro L4 ORDERED: HE/2, Gross/Micro L4 Pathological Diagnosis Sigmoid polyp biopsy -Consistent with inflammatory pseudopolyp in 1 fragment, likely probably occurring in association with the stated history of sigmoid diverticulitis -No evidence of adenomatous glandular atypia in all fragments Clinical Information Severe sigmoid diverticulosis, sigmoid polyp Gross Description The specimen is received in formalin with the patient's name and sigmoid polyp and consists of 3 su portions of soft tissue ranging in size from 0.2 to 0.3 cm in greatest dimension. The specimen is entirely submitted in cassette A1. Microscopic Description Microscopic examinations are performed supporting the above interpretation -------- Specimen: [id number] Received: 07/05/24 Status: JOSH Caba Num: [id number] Spec Type: Surgical Subm Dr: Pablo Fountain MD FACS Tissues: A Colon Biopsy (SIGMOID POLYP) Procedures: HE/2, Gross/Micro L4 -------- Patient: Suad Nicholson [id number] (Continued) -------- Specimen: [id number] Received: 07/05/24 (Continued) Signed (signature on file) Shaheed Sen MD 07/12/24 0859 -------- Specimen: [id number] Received: 07/05/24 Status: JOSH Caba Num: [id number] Spec Type: Surgical Subm Dr: Pablo Fountain MD FACS Tissues: A Colon Biopsy (SIGMOID POLYP) Procedures: HE/2, Gross/Micro L4 -------- Patient: Suad Nicholson [id number] (Continued) -------- Specimen: [id number] Received: 07/05/24 (Continued) CPT Codes 00491 -------- -------- Specimen: [id number] Received: 07/05/24 Status: JOSH Caba Num: [id number] Spec Type: Surgical Subm Dr: Pablo Fountain MD FACS Tissues: A Colon Biopsy (SIGMOID POLYP) Procedures: HE/2, Gross/Micro L4 -------- Patient: Suad Nicholson [id number] (Continued) -------- Signed (signature on file) Shaheed Sen MD 07/12/24 0859 Normal [facility] Ambulatory Visit Summaryon 0 06-18-2024 Ambulatory Visit Summary Ambulatory Visit Summary SUAD NICHOLSON :1945 Visit Date:06/18/2024 Ambulatory Visit Instructions Your Diagnosis Positive fecal occult blood test Bowel habit changes Diverticulosis of colon Your Care Team Attending Physician - RAMIREZ WAKEFIELD, Pablo Melchor Primary Care Physician - Young WAKEFIELD, Saba Referring Physician - Saba Vidal MD This [...] for choosing us for your care. Normal [facility] CT Spine Lumbar w/o Contrast [...] fracture or bony displacement. Radiation Dose Estimate: CTDI(mGy):0.897042 / / / kVp:120.675779 / mAs:0.523736 / / / DLP(mGy-cm):3.896215Z aaron Part: CTDI(mGy):22.854025 / / / kVp:140.505429 / mAs:153.608181 / / / DLP(mGy-cm):538.53131 5Body Part: Final Dictated by: Pablo Bower MD Dictated DT/TM: 10.12.2023 11:23 pm Signed by: Pablo Bower MD Signed (Electronic Signature): 10.12.2023 11:33 pm (If Report Is Signed, Electronically Signed in Other Vendor System) Normal [facility] ED Clinical Summaryon 2022 ED Clinical Summary [address] [address] ED Clinical Summary Person Information Name: Suad Nicholson/[facility] Age: 78 Years : 1945 Sex: Female PCP: Marital Status: Phone: Race: White Ethnicity: Not or Language: Telugu Visit Reason: Back pain Acuity: 4 Enc Type: Emergency Med Service: Emergency Medicine Arrival: 10/12/2023 22:00:02 Discharge: 10/13/2023 01:00:00 LOS: 000 03:00 Checkin: 10/12/2023 22:00:02 Checkout: 10/13/2023 01:00:00 Dispo Type: Home or Self Care Address: [address] [place] [address] [phone] Provider Notes: Diagnosis: 1:Back pain; Right hip [...] Hip Strain; Back Pain (Acute or Chronic) [facility] Poison Help line: . [facility] Hotline: [place] Tobacco Quit Line: [place], [place]) [address]: [phone] [place], [place]) [address]: [phone] [facility] [address] [facility], [place]: [phone] Normal [facility] ED Note-Physicianon 10-13-20 ED Note-Physician Chief Complaint [...] MRI and CT scan done at the [place] emergency department and was advised to try [...] patient s (more content not included)... Normal [facility] XR Hip 2-3 Views Righton XR Hip [...] Electronically Signed in Other Vendor System) Normal [facility] XR Knee 1 or 2 Views Righton [...] Dictated DT/TM: 10/12/2023 11:09 pm Signed by: Morelos MD, [place] Keagan Signed (Electronic Signature): 10/12/2023 11:11 pm (If Report Is Signed, Electronically Signed in Other Vendor System) Normal [facility] XR DEXA BONE DENSITYon 09-10 XR DEXA [...] GRACIELA LUGO Date: 2022-09-10 15:39 Normal [facility] OCC BLD IMMUNO SCREENon 08-24 OCCULT BLOOD Negative Normal NEGATIVE [facility] Comment on above: Performed By: #### O BSCRN ####[facility] [address] [place] [address]Dr. Halliemanjit Sen INSULINon 09-04-2022 Insulin 8.4 uIU/mL Normal 2.6-24.9 [facility] Comment on above: Performed By: #### I NSULIN ####[facility] [address] [place], [place] [address]Dr. Halliemanjit Sen CBC AUTO DIFFon 09-03-2022 BASO # 0.1 103/ul Normal 0.0-0.1 [facility] Comment on above: Performed By: #### C BC ####[facility] [address] [place] [address]Dr. Antonia Sen Basophils/100 WBC (Bld) 1.2 % Normal 0.2-2.0 [facility] Comment on above: Performed By: #### C BC ####[facility] [address] [place] [address]Dr. Antonia Sen EO # 0.2 103/ul Normal 0.0-0.7 [facility] Comment on above: Performed By: #### C BC ####[facility] [address] [place] [id number]. Antonia Sen Eosinophils/100 WBC (Bld) 4.6 % Normal 0.9-7.0 [facility] Comment on above: Performed By: #### C BC ####[facility] [address] [place] [address]Dr. Antonia Sen Erythrocyte distribution width (RBC) [Ratio] 13.1 % Normal 11.0-15.0 [facility] Comment on above: Performed By: #### C BC ####[facility] [address] [place], [place] [address]Dr. Antonia Sen Hematocrit (Bld) [Volume fraction] 39.3 % Normal 36.0-48.0 [facility] Comment on above: Performed By: #### C BC ####[facility] [address] [place], [place] [address]Dr. Antonia Sen Hemoglobin (Bld) [Mass/Vol] 13.0 g/dL Normal 12.0-16.0 [facility] Comment on above: Performed By: #### C BC ####[facility] [address] [place], [place] [address]Dr. Antonia Sen IG # 0.01 10e3/ul Normal 0.00-0.03 [facility] Comment on above: Performed By: #### C BC ####[facility] [address] [place], [place] [address]Dr. Antonia Sen IG % 0.2 % Normal 0.0-0.5 [facility] Comment on above: Performed By: #### C BC ####[facility] [address] [place], [place] [address]Dr. Antonia Sen LYMPH # 1.2 103/ul Normal 1.2-3.8 [facility] Comment on above: Performed By: #### C BC ####[facility] [address] [place], [place] [address]Dr. Antonia Sen Lymphocytes/100 WBC (Bld) 27.6 % Normal 20.5-60.0 [facility] Comment on above: Performed By: #### C BC ####[facility] [address] [place] [id number]. Antonia Sen MANUAL DIFF REQ NO Normal [facility] Comment on above: Performed By: #### C BC ####[facility] [address] [place] [id number]. Antonia Sen MCH (RBC) [Entitic mass] 30.4 pg Normal 26.7-34.0 [facility] Comment on above: Performed By: #### C BC ####[facility] [address] [place] [address]Dr. Antonia Sen MCHC (RBC) [Mass/Vol] 33.1 g/dL Normal 29.9-35.2 [facility] Comment on above: Performed By: #### C BC ####[facility] [address] [place] [address]Dr. Antonia Mckinley MCV (RBC) [Entitic vol] 91.8 fL Normal 81.0-99.0 [facility] Comment on above: Performed By: #### C BC ####[facility] [address] [place] [address]Dr. Antonia Mckinley MONO # 0.5 103/ul Normal 0.3-0.8 [facility] Comment on above: Performed By: #### C BC ####[facility] [address] [place], [place] [address]Dr. Halliemanjit Sen Monocytes/100 WBC (Bld) 11.8 % Normal 1.7-12.0 [facility] Comment on above: Performed By: #### C BC ####[facility] [address] [place] [id number]. Antonia Sen NEUT # 2.4 103/ul Normal 1.4-6.5 [facility] Comment on above: Performed By: #### C BC ####[facility] [address] [place], [place] [address]Dr. Antonia Sen Neutrophils/100 WBC (Bld) 54.6 % Normal 43.0-75.0 [facility] Comment on above: Performed By: #### C BC ####[facility] [address] [place], [place] [address]So. Antonia Sen Platelet mean volume (Bld) [Entitic vol] 12.2 fL Normal 9.5-13.5 [facility] Comment on above: Performed By: #### C BC ####[facility] [address] [place], [place] [address]Er. Antonia Sen PLT 210 103/ul Normal 150-450 [facility] Comment on above: Performed By: #### C BC ####[facility] [address] [place], [place] [address]Rs. Antonia Sen RBC 4.28 106/ul Normal 4.20-5.40 [facility] Comment on above: Performed By: #### C BC ####[facility] [address] [place] [id number]. Antonia Sen WBC 4.3 103/ul Normal 4.0-11.0 [facility] Comment on above: Performed By: #### C BC ####[facility] [address] [place] [id number]. Antonia Sen FREE THYROXINE INDEX T7on FTI 1.89 Normal 1.30-4.50 [facility] Comment on above: Performed By: #### L IPID, T7, TSH, CMP #### [facility] [address] [place] [address] [address] Antonia Sen T3U 31.0 % Normal 30.0-39.0 [facility] Comment on above: Performed By: #### L IPID, T7, TSH, CMP #### [facility] [address] [place] [address] [address] Antonia Sen T4 [Mass/Vol] 6.10 ug/dL Normal 4.80-13.90 [facility] Comment on above: Performed By: #### L IPID, T7, TSH, CMP #### [facility] [address] [address] [address] Antonia Sen GLYCOHEMOGLOBIN A1Con 2021 ADA RECOMMENDATION SEE BELOW Normal [facility] Comment on above: Result Comment: ADA RECOMMENDED LIMIT 4.0 - 6.0 ADA THERAPEUTIC TARGET < 7.0 ACTION SUGGESTED > 7.0 Performed By: #### A 1C #### [facility] [address] [place] [address] Dr. Antonia Sen Glucose [Mass/Vol] 105 mg/dL Normal [facility] Comment on above: Performed By: #### A 1C #### [facility] [address] [address] [address] Antonia Sen HbA1c (Bld) [Mass fraction] 5.3 % Normal 4.5-6.2 [facility] Comment on above: Performed By: #### A 1C #### [facility] [address] [place] [address] Dr. Antonia Sen IRONon 09-03-2022 Iron [Mass/Vol] 140.0 ug/dL Normal 50.0-170.0 [facility] Comment on above: Performed By: #### I YU #### [facility] [address] [place] [address] Dr. Antonia Sen LIPID PROFILEon 09-03-2022 CHOL-HDL RATIO NORM SEE BELOW Normal [facility] Comment on above: Result Comment: 3.3 - 4.4 LOW RISK 4.4 - 7.1 AVERAGE RISK 7.1 - 11.0 MODERATE RISK >11.0 HIGH RISK Performed By: #### L IPID, T7, TSH, CMP #### [facility] [address] [place] [address] Dr. Antonia Sen Cholesterol [Mass/Vol] 226 mg/dL Critically high <=200 [facility] Comment on above: Performed By: #### L IPID, T7, TSH, CMP #### [facility] [address] [place] [address] Dr. Antonia Sen Cholesterol in HDL [Mass/Vol] 66 mg/dL Critically high 40-60 [facility] Comment on above: Performed By: #### L IPID, T7, TSH, CMP #### [facility] [address] [place] [address] Dr. Antonia Sen Cholesterol in LDL [Mass/Vol] 137.8 mg/dL Normal [facility] Comment on above: Performed By: #### L IPID, T7, TSH, CMP #### [facility] [address] [address] [address] Antonia Sen Cholesterol.total/C holesterol in HDL [Mass ratio] 3.4 {ratio} Normal [facility] Comment on above: Performed By: #### L IPID, T7, TSH, CMP #### [facility] [address] [address] [address] Antonia Sen HDL NORMAL > or = 60 mg/dl - LO W CARDIOVASCULAR RISK <40 mg/dl - HIGH CARDIOVASCULAR RISK Normal [facility] Comment on above: Performed By: #### L IPID, T7, TSH, CMP #### [facility] [address] [address] [address] Antonia Sen LDL CALC NORMAL SEE BELOW Normal [facility] Comment on above: Result Comment: <100 mg/dl OPTIMAL 100 - 129 mg/dl NEAR OR ABOVE OPTIMAL 130 - 159 mg/dl BORDERLINE HIGH 160 - 189 mg/dl HIGH >190 mg/dl VERY HIGH Performed By: #### L IPID, T7, TSH, CMP #### [facility] [address] [address] [address] Antonia Sen Triglyceride [Mass/Vol] 111 mg/dL Normal <=150 [facility] Comment on above: Performed By: #### L IPID, T7, TSH, CMP #### [facility] [address] [address] [address] Antonia Sen VLDL CALC 22.2 mg/dL Normal [facility] Comment on above: Performed By: #### L IPID, T7, TSH, CMP #### [facility] [address] [address] [address] Antonia Sen PROF 14(COMP METB)on 022 Albumin [Mass/Vol] 3.9 g/dL Normal 3.4-5.0 [facility] Comment on above: Performed By: #### L IPID, T7, TSH, CMP #### [facility] [address] [address] [address] Antonia Sen Albumin/Globulin [Mass ratio] 1.1 {ratio} Normal [facility] Comment on above: Performed By: #### L IPID, T7, TSH, CMP #### [facility] [address] [place] [address] Dr. Antonia Sen ALP [Catalytic activity/Vol] 64 U/L Normal 46-116 [facility] Comment on above: Performed By: #### L IPID, T7, TSH, CMP #### [facility] [address] [address] [address] Antonia Sen ALT [Catalytic activity/Vol] 6 U/L Critically low 14-59 [facility] Comment on above: Performed By: #### L IPID, T7, TSH, CMP #### [facility] [address] [place] [address] Dr. Antonia Sen Anion gap [Moles/Vol] 10.6 mmol/L Normal [facility] Comment on above: Performed By: #### L IPID, T7, TSH, CMP #### [facility] [address] [place] [address] Dr. Antonia Sen AST [Catalytic activity/Vol] 15 U/L Normal 15-37 [facility] Comment on above: Performed By: #### L IPID, T7, TSH, CMP #### [facility] [address] [place] [address] Dr. Antonia Sen Bilirubin [Mass/Vol] 0.9 mg/dL Normal 0.2-1.0 [facility] Comment on above: Performed By: #### L IPID, T7, TSH, CMP #### [facility] [address] [place] [address] Dr. Antonia Sen Calcium [Mass/Vol] 9.3 mg/dL Normal 8.5-10.1 [facility] Comment on above: Performed By: #### L IPID, T7, TSH, CMP #### [facility] [address] [place] [address] Dr. Antonia Sen Chloride [Moles/Vol] 105 mmol/L Normal 98-107 [facility] Comment on above: Performed By: #### L IPID, T7, TSH, CMP #### [facility] [address] [address] [address] Antonia Sen CO2 [Moles/Vol] 24.4 mmol/L Normal 21.0-32.0 [facility] Comment on above: Performed By: #### L IPID, T7, TSH, CMP #### [facility] [address] [address] [address] Antonia Sen Creatinine [Mass/Vol] 0.84 mg/dL Normal 0.55-1.02 [facility] Comment on above: Performed By: #### L IPID, T7, TSH, CMP #### [facility] [address] [address] [address] Antonia Sen EGFR-AF ETHIOPIAN >60 Normal >=60 [facility] Comment on above: Performed By: #### L IPID, T7, TSH, CMP #### [facility] [address] [address] [address] Antonia Sen EGFR-NON AF ETHIOPIAN >60 Normal >=60 [facility] Comment on above: Performed By: #### L IPID, T7, TSH, CMP #### [facility] [address] [address] [address] Antonia Sen Globulin (S) [Mass/Vol] 3.7 g/dL Normal [facility] Comment on above: Performed By: #### L IPID, T7, TSH, CMP #### [facility] [address] [address] [address] Antonia Sen Glucose [Mass/Vol] 88 mg/dL Normal 74-106 [facility] Comment on above: Performed By: #### L IPID, T7, TSH, CMP #### [facility] [address] [address] [address] Antonia Sen Potassium [Moles/Vol] 4.0 mmol/L Normal 3.5-5.1 [facility] Comment on above: Performed By: #### L IPID, T7, TSH, CMP #### [facility] [address] [address] [address] Antonai Sen Protein [Mass/Vol] 7.6 g/dL Normal 6.4-8.2 [facility] Comment on above: Performed By: #### L IPID, T7, TSH, CMP #### [facility] [address] [address] [address] Antonia Sen Sodium [Moles/Vol] 136 mmol/L Normal 136-145 [facility] Comment on above: Performed By: #### L IPID, T7, TSH, CMP #### [facility] [address] [address] [address] Antonia Sen Urea nitrogen [Mass/Vol] 23.0 mg/dL Critically high 7.0-18.0 [facility] Comment on above: Performed By: #### L IPID, T7, TSH, CMP #### [facility] [address] [address] [address] Antonia Sen Urea nitrogen/Creatinine [Mass ratio] 27.4 mg/mg Normal [facility] Comment on above: Performed By: #### L IPID, T7, TSH, CMP #### [facility] [address] [address] [address] Antonia Sen TSHon 09-03-2022 TSH 1.681 uIU/mL Normal 0.358-3.740 [facility] Comment on above: Performed By: #### L IPID, T7, TSH, CMP #### [facility] [address] [address] [address] Antonia Sen XR wrist RT 2Von 07-16-2022 XR wrist RT 2V [facility] [employer] Other XR wrist RT 2V [facility] [employer] Other XR wrist RT 2V [address] [place] [address] [employer] Other XR wrist [place] 2[place] [address] No [facility] [employer] Other XR wrist RT 2V XRay Report [employer] Other XR wrist RT 2V Signed [employer] Other XR wrist RT 2V Patient: Geronimo Nicholson MR#: [id number] [employer] Other XR wrist RT 2V 12 [facility] [employer] Other XR wrist RT 2V : 1945 Acct:[id number] [employer] Other XR wrist RT 2V Age/Sex: 77 / F ADM Date: 07/16/22 [employer] Other XR wrist RT 2V [place] [facility] [place] Type : [facility] [employer] Other XR wrist RT 2V Attending Dr: Segundo Kumar MD [employer] Other XR wrist RT 2V Copies to: Norah Kumar MD [employer] Other XR wrist RT 2V Ordering Provider: Norah Kumar MD [employer] Other XR wrist RT 2V Date of Service: 07/16/22 [employer] Other XR wrist RT 2V XR/XR wrist RT 2V: Other fractures of lower end of right radius, [employer] Other XR wrist RT 2V subsequent enc [employer] Other XR wrist RT 2V RIGHT WRIST - 2 views [employer] Other XR wrist RT 2V COMPARISON: 06/17/2022 [employer] Other XR wrist RT 2V CLINICAL DATA: Follow-up distal radius fracture. [employer] Other XR wrist RT 2V AP and lateral views were obtained. There is osteopenia. There is redemonstration of a fracture at [employer] Other XR wrist RT 2V the distal radius. There is no change in alignment. No other acute fractures or dislocation are [employer] Other XR wrist RT 2V seen. There is mild dorsal soft tissue swelling. [employer] Other XR wrist RT 2V XR/XR wrist RT 2V [employer] Other XR wrist RT 2V IMPRESSION: [employer] Other XR wrist RT 2V STABLE DISTAL RADIUS FRACTURE. [employer] Other XR wrist RT 2V Impression dictated by: Pati Lange M.D.07/16/2022 1:43 PM [employer] Other XR wrist RT 2V Dictation Location: [place] [address] [employer] Other XR wrist RT 2V Transcribed By: [facility] 07/16/22 [facility] [employer] Other XR wrist RT 2V Dictated By: Pati Lange MD 07/16/22 [facility] [employer] Other XR wrist RT 2V Signed By: [employer] Other XR wrist RT 2V 07/16/22 [facility] [employer] Other XR WRIST RT MIN 3 Von 2021 [...] by: ALEX MONTERO Date: 2022-06-04 17:19 Normal [facility] Vital Signs Date Time Vital Sign Value Performing Clinician Kathy johnston 06-18-2024 13:40-0400 Blood Pressure Location Pablo COOKDong [facility] 06-18-2024 13:40-0400 Diastolic blood pressure 67 mm[Hg] Pablo NILL [facility] 06-18-2024 13:40-0400 Heart rate 79 /min Pablo NILL [facility] 06-18-2024 13:40-0400 Respiratory rate 16 /min Pablo NILL [facility] 06-18-2024 13:40-0400 Systolic blood pressure 105 mm[Hg] Pablo NILL [facility] Encounters Encounter Date Encounter Type Care Provider Facility Start: 07-24-2024 End: 07-24-2024 ambulatory Pablo R NILL Facility: [place] Start: 07-24-2024 End: 07-24-2024 [facility] Start: 07-04-2024 End: 07-04-2024 ambulatory MD Saba Vidal Work Phone: [facility] Work Phone: Start: 07-04-2024 End: 07-04-2024 Departed Referred MD Saba Vidal Work Phone: [facility] [facility] Start: 07-04-2024 End: 07-04-2024 ambulatory Pablo R NILL Facility:CD:[id number] Start: 06-18-2024 End: 06-18-2024 ambulatory Saba Vidal Facility: [facility] Start: 06-18-2024 End: 06-18-2024 Patient encounter procedure Pablo R NILL [facility] Start: 06-15-2024 ambulatory Pablo NILL Facility:[facility] Start: 06-08-2024 ambulatory Pablo FOUNTAIN Facility:[facility] Start: 11-01-2023 End: 11-07-2023 Emergency department patient visit [facility] Start: 10-13-2023 End: 10-13-2023 Emergency department patient visit Torres Costello Franky ACEVEDO Facility:[facility] Start: 09-10-2022 End: 09-11-[address] SABA VIDAL Facility:[facility] Start: 09-08-2022 End: 09-08-[address] SABA VIDAL Facility:[facility] Start: 09-03-2022 End: 09-04-[address] SABA VIDAL Facility:[facility] Start: 08-27-2022 End: 08-27-2022 ambulatory Norahdustin Kumar Other [employer] Other Start: 08-27-2022 Postop follow up vis it related to original px Norah Calvey [facility] Start: 07-16-2022 End: 07-16-2022 ambulatory Norah Calvey Other [employer] Other Start: 07-16-2022 Postop follow up vis it related to original px Norah Calvey [facility] Start: 07-16-2022 End: 07-16-2022 Patient encounter procedure DO Talon Pryor Work Phone: [facility] Start: 06-29-2022 End: 08-24-2022 ambulatory NORAH CALVEY Facility:[facility] Start: 06-25-2022 End: 06-25-2022 ambulatory Norah Calvey Other [employer] Other Start: 06-25-2022 Postop follow up vis it related to original px Norah Calvey [facility] Start: 06-24-2022 End: 06-24-2022 Patient encounter procedure DO Talon Pryor Work Phone: [facility]-MRI [address] Start: 06-23-2022 End: 06-23-2022 ambulatory Talon Pryor Other [employer] Other Start: 06-23-2022 FQ visit new patient [facility] Start: 06-17-2022 End: 06-18-[address] SABA VIDAL Facility:[facility] Start: 06-09-2022 End: 06-09-[address] SABA VIDAL Facility:[facility] Start: 06-04-2022 End: 06-04-2022 ambulatory STEW HERRON Facility:[facility] Start: 11-10-2021 End: 11-11-[address] SABA VIDAL Facility:[facility] Procedures Date Procedure Procedure Detail Performing Clinician Start: 07-04-2024 Colonoscopy Pablo STRAUSS LL Start: 07-16-2022 Plain X-ray of right wrist DO Talon Pryor Work Phone: Start: 06-24-2022 MRI of right wrist DO Anisha Pryor Work Phone: Start: 06-24-2022 MRI of right hand DO Guerda Pryor Work Phone: Start: 03-01-2018 Colonoscopy Pablo STRAUSS LL Appendectomy Pablo COOKL Cholecystectomy Pablo COOKL Colonoscopy Pablo COOKL History of nasal sin us surgery Pablo NILL Immunizations Immunization Date Immunization Notes Care Provider Fa [facility] 08-15-2023 influenza virus vaccine, unspecified formulation Pablo NILL [facility] [place] 04-15-2022 SARS-CoV-2 (COVID-19 ) mRNA-1273 vaccine Pablo NILL [facility] [place] 11-10-2021 SARS-CoV-2 (COVID-19 ) mRNA BNT-162b2 vax Pablo NILL [facility] 01-13-2021 SARS-CoV-2 (COVID-19 ) mRNA BNT-162b2 vincent COOKL [facility] 12-22-2020 SARS-CoV-2 (COVID-19 ) mRNA BNT-162b2 vincent COOKL [facility] Payers Date Payer Category Payer Unknown 2009 Medicare 1959 Medicare [id number] 2.1 [id number] 1959 Self-pay 1959 Unknown [id number] 1945 Unknown [id number] 2.16.84 [id number] 1945 Unknown [id number] 2.16.84 0.1.557626.3.579.2.593 1944 Unknown [id number] 2.16.84 0.1.259367.3.579.2.593 1944 Unknown [id number] 2.16.84 0.1.774626.3.579.2.593 1944 Unknown [id number] 2.16.84 0.1.406960.3.579.2.593 1944 Unknown [id number] 2.16.84 0.1.338529.3.579.2.593 1944 Unknown [id number] 2.16.84 0.1.809260.3.579.2.593 1944 Unknown [id number] 2.16. 840.1.154311.3.579.2.196 1944 Unknown [id number] 2.16.8 40.1.682247.3.579.2.727 1944 Unknown [id number] 2.16.8 40.1.237773.3.579.2.727 1944 Unknown [id number] 2.16.8 40.1.992030.3.579.2.727 1944 Unknown [id number] 2.16.8 40.1.929530.3.579.2.727 Unknown [id number] 2.16.8 [id number] Unknown [facility] [id number] Unknown [id number] 2.16.84 0.1.496919.3.579.2.593 Unknown [id number] 2.16.8 40.1.318083.3.579.2.531 Social History Date Type Detail Facility Sex Assigned At [facility] Start: 1945 Sex Assigned At Female F [facility] Start: 06-18-2024 Tobacco smoking status Never s moked tobacco (finding) [facility] [place] Tobacco smoking status Never [facility] Functional Status Date Assessment Result Facility 06-18-2024 Functional Status N/A [facility] [place] Clinical Notes 06-18-2022 to 06-18-2024 Note Date [...] disease: Father. Primar (more content not included)... [facility] Comment on above: Result Comment: [...] surgery. We will f/u in 4-6 weeks. [employer] Other 09-23-2022 Evaluation note* Encounter Date Diagnosis [...] Instructed patient to continue with occupational therapy [employer] Other 09-02-2022 Evaluation note* Encounter Date Diagnosis [...] anything over 2-5 pounds at this time. [employer] Other 08-31-2022 Evaluation note* Encounter Date Diagnosis [...] office today. Prior medical notes from the [facility] and history have been reviewed. At [...] as documented in the electronic medical record. [employer] Other 08-26-2022 NotePROCEDURE: XR HAND RT MIN [...] Electronically authenticated by: SEGUNDO MERINO Date: 2022-06-18 07:24[facility]08-26-2022 NotePROCEDURE: XR HAND RT MIN 3V, [...] Electronically authenticated by: SEGUNDO MERINO Date: 2022-06-18 07:24[facility] note No data available for this section [facility] [place] Evaluation noteNo assessment information available [facility] Work Phone: History general Narrative - Reported* Type Description Date Medical History right hand injury Medical History gull stones Medical History depression Surgical History appendectomy Surgical History gull bladder removal [employer] Other Hospital Discharge instructions No data available for this section [facility] Progress note No data available for this section [facility] Chief Complaint and Reason for Visit Chief Complaint S52.591A S69.91XA Chief Complaint Unknown Advance Directives No Advanced Directives Records Found Advance Directive Response Recorded Date/ Time Advance Directives No June 5:37pm Summary Purpose Family History No Family History Records Found Relationship Condition Age at Onset Recorded Date/T lenard father Unknown mother Unknown Additional Source Comments REASON FOR VISIT (unrecogniz ed section and content) Right Hand InjuryRight Wrist InjuryRecheck Right WristRecheck Right Wrist Care Teams (unrecognized sec tion and content) Team Status: Inactive Member Role Status Dates Norah Kumar MD Attending Provider Active Team Status: Inactive Member Role Status Dates Talon Pryor DO Attending Provider Active Team Status: Active Member Role Status Dates Saba Vidal MD Primary Care Provider Active Team Status: Inactive Member Role Status Dates Saba Vidal MD Primary Care Provider Active Start: July 04, 2024 End: July 04, 2024 Pablo Fountain MD [facility] Attending Provider Active Start: July 04, 2024 End: July 04, 2024 Goals (unrecognized section and content) Goals may be documented in a n alternate section INFORMATION SOURCE (unrecogn ized section and content) DATE CREATED AUTHOR 09/30/2022 [facility] DATE CREATED AUTHOR AUTHOR'S ORGANIZ ATION 10/13/2023 [facility] DATE CREATED AUTHOR AUTHOR'S ORGANIZ ATION 11/08/2023 [facility] DATE CREATED AUTHOR AUTHOR'S ORGANIZ ATION 07/14/2024 [facility] DATE CREATED AUTHOR AUTHOR'S ORGANIZ ATION 07/26/2024 [facility] FOR RECORDS PERTAINING TO PATIENTS WHO ARE [...] BE BASED ON THE PRIMARY CLINICAL RECORDS. [facility] [employer] [facility]. provides no warranty or guarantee of the accuracy or completeness of information in this document.
--- NOTE | 2024-11-05 10:39 | XR_ITS ---
The [address] [address] Patient Name: HAVEN FRAIRE MRN: [id number] date: 1945 Sex: F Assigned Patient Location: LAB Current Patient Location: LAB Accession/Order Number: [id number] Exam Date: 11/05/2024 10:40 Report Date: 11/05/2024 11:34 At the request of: SABA CHOW Procedure: XR chest 2V EXAMINATION: XR chest 2V HISTORY: Dyspnea COMPARISON: 11/01/2023 TECHNIQUE: PA and lateral FINDINGS: LUNGS: No significant pulmonary parenchymal abnormalities. VASCULATURE: No increased pulmonary vasculature. PLEURA: No pneumothorax, effusion, or pleural thickening. CARDIAC: No cardiomegaly or cardiac silhouette abnormality. MEDIASTINUM: No visible mass or adenopathy. BONES: No fracture or visible bone lesion. OTHER: Negative. XR/XR chest 2V IMPRESSION: No acute cardiopulmonary process Electronically authenticated by: GRACIELA LUGO Date: 11/05/2024 11:34
[2024-11-05 11:02] LABS: Basophils Absolute Auto 0.1 10^3/uL (0.0-0.1); Basophils Percent Auto 0.9 % (0.2-2.0); Eosinophils Absolute Auto 0.2 10^3/uL (0.0-0.7); Eosinophils Percent Auto 4.3 % (0.9-7.0); Hemoglobin 12.8 g/dL (12.0-16.0); Immature Granulocytes Abs Auto 0.03 10^3/uL (0.00-0.03); Immature Granulocytes Pct Auto 0.6 % (0.0-0.5); Lymphocytes Absolute Auto 1.2 10^3/uL (1.2-3.8); Lymphocytes Percent Auto 22.7 % (20.5-60.0); Mean Corpuscular HGB Conc 32.8 g/dL (29.9-35.2); Mean Corpuscular Hemoglobin 30.5 pg (26.7-34.0); Mean Corpuscular Volume 92.9 fL (81.0-99.0); Mean Platelet Volume 12.6 fL (9.5-13.5); Monocytes Absolute Auto 0.6 10^3/uL (0.3-0.8); Monocytes Percent Auto 11.8 % (1.7-12.0); Neutrophils Absolute Auto 3.2 10^3/uL (1.4-6.5); Neutrophils Percent Auto 59.7 % (43.0-75.0); Platelet Count 227 10^3/uL (150-450); White Blood Count 5.3 10^3/uL (4.0-11.0)
[2024-11-05 11:17] LABS: Alanine Aminotransferase 10 U/L (14-59); Albumin Globulin Ratio 1.1; Albumin Level 3.8 g/dL (3.4-5.0); Alkaline Phosphatase 52 U/L (46-116); Aspartate Amino Transferase 16 U/L (15-37); BUN Creatinine Ratio 19.5; Bilirubin Total 0.5 mg/dL (0.2-1.0); C Reactive Protein <0.50 mg/dL (<=0.50); Calcium 9.2 mg/dL (8.5-10.1); Carbon Dioxide 30.3 mmol/L (21.0-32.0); Chloride 105 mmol/L (98-107); Creatine Kinase 52 U/L (26-192); Estimated GFR (African America >60 (>=60 mL/min/1.73m^2); Estimated GFR (Non-African Ame >60 (>=60 mL/min/1.73m^2); Free T3 2.39 pg/mL (2.18-3.98); Globulin 3.5 g/dL; Glucose 95 mg/dL (74-106); Potassium 4.3 mmol/L (3.5-5.1); Sodium 142 mmol/L (136-145); Thyroid Stimulating Hormone 1.866 uIU/mL (0.358-3.740); Total Protein 7.3 g/dL (6.4-8.2); Uric Acid 4.5 mg/dL (2.6-6.0)
[2024-11-05 11:41] LABS: Erythrocyte Sedimentation Rate 20 mm/hr (<=30)
[2024-11-06 04:06] LABS: Antistreptolysin O Ab 26.5 IU/mL (0.0-200.0); Rheumatoid Factor (RF) 10.6 IU/mL (<14.0)
[2024-11-06 12:08] LABS: Antinuclear Antibodies, IFA Negative (.)
== END 2024-11-05 10:09 | disposition home or self-care (01) ==
LOC: LAB 10:10
PROVIDERS: PCP Family Medicine; Visit Provider Family Medicine
DX: K21.9 Gastro-esophageal reflux disease without esophagitis (principal); M19.90 Unspecified osteoarthritis, unspecified site; R06.00 Dyspnea, unspecified; D64.9 Anemia, unspecified; E55.9 Vitamin D deficiency, unspecified
CPT/HCPCS: 36415; 71046; 80053; 82306; 82550; 83540; 84436; 84443; 84481; 84550; 85025; 85652; 86038; 86060; 86140; 86431

== ENCOUNTER 2025-02-11 13:14 | Outpatient (OUT) | payer MEDICARE, OTHER, SELFPAY ==
--- NOTE | 2025-02-11 13:23 | XR_ITS ---
The [place] [id number] Patient Name: HAVEN FRAIRE MRN: [id number] date: 1945 Sex: F Assigned Patient Location: [facility] Current Patient Location: [facility] Accession/Order Number: [id number] Exam Date: 02/11/2025 14:25 Report Date: 02/11/2025 14:26 At the request of: SABA CHOW MD Procedure: XR chest 2V Plain film chest 2 view HISTORY: Cough for one month COMPARISON: 11/23/2024 FINDINGS: SUPPORT DEVICES: None POSTSURGICAL CHANGES: None HEART: Within normal limits PULMONARY NEFTALI: Within normal limits MEDIASTINUM: Unremarkable LUNGS AND PLEURA: No acute lung process, pleural effusion or pneumothorax identified. BONY STRUCTURES: Intact ADDITIONAL FINDINGS None XR/XR chest 2V IMPRESSION: No acute process. Impression dictated by: Alexei Case M.D.02/11/2025 2:26 PM Dictation Location: [place] [address] Electronically authenticated by: [id number] Y Date: 02/11/2025 14:26
--- OUTSIDE RECORDS SUMMARY | 2025-02-11 13:35 | XMS_ITS | CCD ---
Author Organization [facility] CliniSyma Care Team Providers Care C Unix Developer Name Role Phone Norah Kumar Unavailable DO Talon Pryor Attending Provider [phone] Talon Pryor Unavailable MD Norah Kumar Attending Provider DR SABA VIDAL Admitting Unavailable HOY, DR WALTER Attending Unavailable YOUNG, DR WALTER Consulting Unavailable YOUNG, DR WALTER Primary Care Unavailable [place], DR GRACIELA Christensen Consulting Unavailable YOUNG, DR [...] Physician MD Saba Vidal Primary Care Provider [phone] MD Pablo Fountain Attending Provider Saba Vidal Primary Care Unavailable Nill, Pablo [...] sources) guaiFENesin; Translations: [Mucinex] Drug Allergy [facility] Repository (2 sources) guaiFENesin; Translations: [guaifenesin] Drug Allergy Dyspnea (finding) [facility] Medications Current Medications Medication Drug Class(es) Dates [...] 06-11-2024 Chronic Other aftercare (1 source) 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 Normal [facility] General Surgery Office/Clini c Noteon [...] mRNA BNT-162b2 vax 12/22/2020 Recorded Normal [facility] Comment on above: Result Comment: Elec tronically Signed By: RAMIREZ WAKEFIELD, Pablo Dupreebr\Date and Time Signed: 07/24/24 16:03 EDT Armando 07-04-2024 L Specimen: [id number] Received: 07/05/24 Status: JOSH Caba Num: [id number] Spec Type: Surgical Subm Dr: Pablo Fountain MD FACS Tissues: A Colon Biopsy (SIGMOID POLYP) Procedures: HE/2, Gross/Micro L4 Age/ Patient Sex Location Account Attending Physician Suad Nicholson 79/F [place] [id number] Pablo Fountain MD FACS SPEC NUM: [id number] RECD: 07/05/24 STATUS: JOSH CABA NUM: [id number] AURY: 07/04/[address]: Pablo Fountain MD FACS ENTERED: 07/05/[address] [facility] [address]: Shaye Bueno SPEC TYPE: Surgical DEPT: AMRIK COOPER ENTERED BY: [id number] RECV BY: [id number] ORDERED: HE/2, Gross/Micro L4 ORDERED: HE/2, Gross/Micro [...] performed supporting the above interpretation -------- Specimen: [id number] Received: 07/05/24 Status: JOSH Caba Num: [id number] Spec Type: Surgical Subm Dr: Pablo Fountain MD FACS Tissues: A Colon Biopsy (SIGMOID POLYP) Procedures: HE/2, Gross/Micro L4 -------- Patient: Suad Nicholson [id number] (Continued) -------- Specimen: [id number] Received: 07/05/24 (Continued) Signed (signature on file) Shaheed Sen MD 07/12/24 0859 -------- Specimen: [id number] Received: 07/05/24 Status: JOSH Caba Num: [id number] Spec Type: Surgical Subm Dr: Pablo Fountain MD FACS Tissues: A Colon Biopsy (SIGMOID POLYP) Procedures: HE/2, Gross/Micro L4 -------- Patient: Suad Nicholson [id number] (Continued) -------- Specimen: [id number] Received: 07/05/24 (Continued) CPT Codes 54046 -------- -------- Specimen: [id number] Received: 07/05/24 Status: JOSH Caba Num: [id number] Spec Type: Surgical Subm Dr: Pablo Fountain MD FACS Tissues: A Colon Biopsy (SIGMOID POLYP) Procedures: HE/2, Gross/Micro L4 -------- Patient: Suad Nicholson [id number] (Continued) -------- Signed (signature on file) Shaheed Sen MD 07/12/24 0859 Normal [facility] Ambulatory Visit Summaryon 0 06-18-2024 [...] for choosing us for your care. Normal [facility] CT Spine Lumbar w/o Contrast on 10-13-2023 [...] fracture or bony displacement. Radiation Dose Estimate: CTDI(mGy):0.278421 / / / kVp:120.426148 / mAs:0.028009 / / / DLP(mGy-cm):3.320178X aaron Part: CTDI(mGy):22.406616 / / / kVp:140.934940 / mAs:153.866665 / / / DLP(mGy-cm):538.03321 5Body Part: Final Dictated by: Pablo Bower MD Dictated DT/TM: 10.12.2023 11:23 pm Signed by: Pablo Bower MD Signed (Electronic Signature): 10.12.2023 11:33 pm (If Report Is Signed, Electronically Signed in Other Vendor System) Normal [facility] ED Clinical Summaryon 2022 ED Clinical Summary [address] [address] ED Clinical Summary Person Information Name: Suad Nicholson/[facility] Age: 78 Years : 1945 Sex: Female PCP: Marital Status: Phone: Race: White Ethnicity: Not or Language: British Visit Reason: Back pain Acuity: 4 Enc Type: Emergency Med Service: Emergency Medicine Arrival: 10/12/2023 22:00:02 Discharge: 10/13/2023 01:00:00 LOS: 000 03:00 Checkin: 10/12/2023 22:00:02 Checkout: 10/13/2023 01:00:00 Dispo Type: Home or Self Care Address: [address] [place] [phone] Provider Notes: Diagnosis: 1:Back pain; Right hip [...] Hip Strain; Back Pain (Acute or Chronic) [facility] Poison Help line: . [facility] Hotline: [place] Tobacco Quit Line: [place], [place]) [address]: [phone] [place], [place]) [address]: [phone] [facility] [address] [facility], [place]: [phone] Normal [facility] ED Note-Physicianon 10-13-20 ED Note-Physician Chief [...] MRI and CT scan done at the [facility] emergency department and was advised to try [...] did reach out to patient neurosurgeon Dr. aLwrence and was able to speak to the [...] patient s (more content not included)... Normal [facility] XR Hip 2-3 Views Righton XR [...] Electronically Signed in Other Vendor System) Normal [facility] XR Knee 1 or 2 Views [...] Electronically Signed in Other Vendor System) Normal [facility] XR DEXA BONE DENSITYon 09-10 XR [...] GRACIELA LUGO Date: 2022-09-10 15:39 Normal [facility] OCC BLD IMMUNO SCREENon 08-24 OCCULT BLOOD Negative Normal NEGATIVE [facility] Comment on above: Performed By: #### O BSCRN ####[facility] [address] [place] [address]Dr. Halliemanjit Sen INSULINon 09-04-2022 Insulin 8.4 uIU/mL Normal 2.6-24.9 [facility] Comment on above: Performed By: #### I NSULIN ####[facility] [address] [place], [place] [address]Dr. Halliemanjit Sen CBC AUTO DIFFon 09-03-2022 BASO # 0.1 103/ul Normal 0.0-0.1 [facility] Comment on above: Performed By: #### C BC ####[facility] [address] [place] [address]Dr. Antonia Sen Basophils/100 WBC (Bld) 1.2 % Normal 0.2-2.0 [facility] Comment on above: Performed By: #### C BC ####[facility] [address] [place] [address]Dr. Antonia Sen EO # 0.2 103/ul Normal 0.0-0.7 [facility] Comment on above: Performed By: #### C BC ####[facility] [address] [place] [id number]. Antonia Sen Eosinophils/100 WBC (Bld) 4.6 % Normal 0.9-7.0 [facility] Comment on above: Performed By: #### C BC ####[facility] [address] [place] [address]Dr. Antonia Sen Erythrocyte distribution width (RBC) [Ratio] 13.1 % Normal 11.0-15.0 [facility] Comment on above: Performed By: #### C BC ####[facility] [address] [place], [place] [address]Dr. Antonia Sen Hematocrit (Bld) [Volume fraction] 39.3 % Normal 36.0-48.0 [facility] Comment on above: Performed By: #### C BC ####[facility] [address] [place], [place] [address]Dr. Antonia Sen Hemoglobin (Bld) [Mass/Vol] 13.0 g/dL Normal 12.0-16.0 [facility] Comment on above: Performed By: #### C BC ####[facility] [address] [place], [place] [address]Dr. Antonia Sen IG # 0.01 10e3/ul Normal 0.00-0.03 [facility] Comment on above: Performed By: #### C BC ####[facility] [address] [place], [place] [address]Dr. Antonia Sen IG % 0.2 % Normal 0.0-0.5 [facility] Comment on above: Performed By: #### C BC ####[facility] [address] [place], [place] [address]Dr. Antonia Sen LYMPH # 1.2 103/ul Normal 1.2-3.8 [facility] Comment on above: Performed By: #### C BC ####[facility] [address] [place], [place] [address]Dr. Antonia Sen Lymphocytes/100 WBC (Bld) 27.6 % Normal 20.5-60.0 [facility] Comment on above: Performed By: #### C BC ####[facility] [address] [place] [address]Dr. Antonia Sen MANUAL DIFF REQ NO Normal [facility] Comment on above: Performed By: #### C BC ####[facility] [address] [place] [id number]. Antonia Sen MCH (RBC) [Entitic mass] 30.4 pg Normal 26.7-34.0 [facility] Comment on above: Performed By: #### C BC ####[facility] [address] [place] [address]Dr. Antonia Sen MCHC (RBC) [Mass/Vol] 33.1 g/dL Normal 29.9-35.2 [facility] Comment on above: Performed By: #### C BC ####[facility] [address] [place] [address]Dr. Antonia Mckinley MCV (RBC) [Entitic vol] 91.8 fL Normal 81.0-99.0 [facility] Comment on above: Performed By: #### C BC ####[facility] [address] [place] [address]Dr. Antonia Mckinley MONO # 0.5 103/ul Normal 0.3-0.8 [facility] Comment on above: Performed By: #### C BC ####[facility] [address] [place], [place] [address]Dr. Halliemanjit Sen Monocytes/100 WBC (Bld) 11.8 % Normal 1.7-12.0 [facility] Comment on above: Performed By: #### C BC ####[facility] [address] [place] [id number]. Antonia Sen NEUT # 2.4 103/ul Normal 1.4-6.5 [facility] Comment on above: Performed By: #### C BC ####[facility] [address] [place], [place] [address]Dr. Antonia Sen Neutrophils/100 WBC (Bld) 54.6 % Normal 43.0-75.0 [facility] Comment on above: Performed By: #### C BC ####[facility] [address] [place], [place] [address]Db. Antonia Sen Platelet mean volume (Bld) [Entitic vol] 12.2 fL Normal 9.5-13.5 [facility] Comment on above: Performed By: #### C BC ####[facility] [address] [place], [place] [address]Vq. Antonia Sen PLT 210 103/ul Normal 150-450 [facility] Comment on above: Performed By: #### C BC ####[facility] [address] [place], [place] [address]Va. Antonia Sen RBC 4.28 106/ul Normal 4.20-5.40 [facility] Comment on above: Performed By: #### C BC ####[facility] [address] [place] [id number]. Antonia Sen WBC 4.3 103/ul Normal 4.0-11.0 [facility] Comment on above: Performed By: #### C BC ####[facility] [address] [place] [address]Dr. Antonia Sen FREE THYROXINE INDEX T7on FTI 1.89 Normal 1.30-4.50 [facility] Comment on above: Performed By: #### L IPID, T7, TSH, CMP #### [facility] [address] [address] [address] Antonia Sen T3U 31.0 % Normal 30.0-39.0 [facility] Comment on above: Performed By: #### L IPID, T7, TSH, CMP #### [facility] [address] [address] [address] Antonia Sen T4 [Mass/Vol] 6.10 ug/dL Normal 4.80-13.90 [facility] Comment on above: Performed By: #### L IPID, T7, TSH, CMP #### [facility] [address] [address] [address] Antonia Sen GLYCOHEMOGLOBIN A1Con 2021 ADA RECOMMENDATION SEE BELOW Normal [facility] Comment on above: Result Comment: ADA RECOMMENDED LIMIT 4.0 - 6.0 ADA THERAPEUTIC TARGET < 7.0 ACTION SUGGESTED > 7.0 Performed By: #### A 1C #### [facility] [address] [place] [address] Dr. Antonia Sen Glucose [Mass/Vol] 105 mg/dL Normal [facility] Comment on above: Performed By: #### A 1C #### [facility] [address] [address] [address] Antonia Sen HbA1c (Bld) [Mass fraction] 5.3 % Normal 4.5-6.2 [facility] Comment on above: Performed By: #### A 1C #### [facility] [address] [place] [address] Dr. Antonia Sen IRONon 09-03-2022 Iron [Mass/Vol] 140.0 ug/dL Normal 50.0-170.0 [facility] Comment on above: Performed By: #### I YU #### [facility] [address] [place] [address] Dr. Antonia Sen LIPID PROFILEon 09-03-2022 CHOL-HDL RATIO NORM SEE BELOW Normal [facility] Comment on above: Result Comment: 3.3 - 4.4 LOW RISK 4.4 - 7.1 AVERAGE RISK 7.1 - 11.0 MODERATE RISK >11.0 HIGH RISK Performed By: #### L IPID, T7, TSH, CMP #### [facility] [address] [place] [address] Dr. Antonia Sen Cholesterol [Mass/Vol] 226 mg/dL Critically high <=200 [facility] Comment on above: Performed By: #### L IPID, T7, TSH, CMP #### [facility] [address] [place] [address] Dr. Antonia Sen Cholesterol in HDL [Mass/Vol] 66 mg/dL Critically high 40-60 [facility] Comment on above: Performed By: #### L IPID, T7, TSH, CMP #### [facility] [address] [place] [address] Dr. Antonia Sen Cholesterol in LDL [Mass/Vol] 137.8 mg/dL Normal [facility] Comment on above: Performed By: #### L IPID, T7, TSH, CMP #### [facility] [address] [address] [address] Antonia Sen Cholesterol.total/C holesterol in HDL [Mass ratio] 3.4 {ratio} Normal [facility] Comment on above: Performed By: #### L IPID, T7, TSH, CMP #### [facility] [address] [address] [address] Antonia Sen HDL NORMAL > or = 60 mg/dl - LO W CARDIOVASCULAR RISK <40 mg/dl - HIGH CARDIOVASCULAR RISK Normal [facility] Comment on above: Performed By: #### L IPID, T7, TSH, CMP #### [facility] [address] [address] [address] Antonia Sen LDL CALC NORMAL SEE BELOW Normal [facility] Comment on above: Result Comment: <100 mg/dl OPTIMAL 100 - 129 mg/dl NEAR OR ABOVE OPTIMAL 130 - 159 mg/dl BORDERLINE HIGH 160 - 189 mg/dl HIGH >190 mg/dl VERY HIGH Performed By: #### L IPID, T7, TSH, CMP #### [facility] [address] [address] [address] Antonia Sen Triglyceride [Mass/Vol] 111 mg/dL Normal <=150 [facility] Comment on above: Performed By: #### L IPID, T7, TSH, CMP #### [facility] [address] [address] [address] Antonia Sen VLDL CALC 22.2 mg/dL Normal [facility] Comment on above: Performed By: #### L IPID, T7, TSH, CMP #### [facility] [address] [address] [address] Antonia Sen PROF 14(COMP METB)on 022 Albumin [Mass/Vol] 3.9 g/dL Normal 3.4-5.0 [facility] Comment on above: Performed By: #### L IPID, T7, TSH, CMP #### [facility] [address] [address] [address] Antonia Sen Albumin/Globulin [Mass ratio] 1.1 {ratio} Normal [facility] Comment on above: Performed By: #### L IPID, T7, TSH, CMP #### [facility] [address] [place] [address] Dr. Antonia Sen ALP [Catalytic activity/Vol] 64 U/L Normal 46-116 [facility] Comment on above: Performed By: #### L IPID, T7, TSH, CMP #### [facility] [address] [address] [address] Antonia Sen ALT [Catalytic activity/Vol] 6 U/L Critically low 14-59 [facility] Comment on above: Performed By: #### L IPID, T7, TSH, CMP #### [facility] [address] [place] [address] Dr. Antonia Sen Anion gap [Moles/Vol] 10.6 mmol/L Normal [facility] Comment on above: Performed By: #### L IPID, T7, TSH, CMP #### [facility] [address] [place] [address] Dr. Antonia Sen AST [Catalytic activity/Vol] 15 U/L Normal 15-37 [facility] Comment on above: Performed By: #### L IPID, T7, TSH, CMP #### [facility] [address] [place] [address] Dr. Antonia Sen Bilirubin [Mass/Vol] 0.9 mg/dL Normal 0.2-1.0 [facility] Comment on above: Performed By: #### L IPID, T7, TSH, CMP #### [facility] [address] [place] [address] Dr. Antonia Sen Calcium [Mass/Vol] 9.3 mg/dL Normal 8.5-10.1 [facility] Comment on above: Performed By: #### L IPID, T7, TSH, CMP #### [facility] [address] [place] [address] Dr. Antonia Sen Chloride [Moles/Vol] 105 mmol/L Normal 98-107 [facility] Comment on above: Performed By: #### L IPID, T7, TSH, CMP #### [facility] [address] [address] [address] Antonia Sen CO2 [Moles/Vol] 24.4 mmol/L Normal 21.0-32.0 [facility] Comment on above: Performed By: #### L IPID, T7, TSH, CMP #### [facility] [address] [address] [address] Antonia Sen Creatinine [Mass/Vol] 0.84 mg/dL Normal 0.55-1.02 [facility] Comment on above: Performed By: #### L IPID, T7, TSH, CMP #### [facility] [address] [address] [address] Antonia Sen EGFR-AF CHILEAN >60 Normal >=60 [facility] Comment on above: Performed By: #### L IPID, T7, TSH, CMP #### [facility] [address] [address] [address] Antonia Sen EGFR-NON AF CHILEAN >60 Normal >=60 [facility] Comment on above: Performed By: #### L IPID, T7, TSH, CMP #### [facility] [address] [address] [address] Antonia Sen Globulin (S) [Mass/Vol] 3.7 g/dL Normal [facility] Comment on above: Performed By: #### L IPID, T7, TSH, CMP #### [facility] [address] [address] [address] Antonia Sen Glucose [Mass/Vol] 88 mg/dL Normal 74-106 [facility] Comment on above: Performed By: #### L IPID, T7, TSH, CMP #### [facility] [address] [address] [address] Antonia Sen Potassium [Moles/Vol] 4.0 mmol/L Normal 3.5-5.1 [facility] Comment on above: Performed By: #### L IPID, T7, TSH, CMP #### [facility] [address] [address] [address] Antonia Sen Protein [Mass/Vol] 7.6 g/dL Normal 6.4-8.2 [facility] Comment on above: Performed By: #### L IPID, T7, TSH, CMP #### [facility] [address] [address] [address] Antonia Sen Sodium [Moles/Vol] 136 mmol/L Normal 136-145 [facility] Comment on above: Performed By: #### L IPID, T7, TSH, CMP #### [facility] [address] [address] [address] Antonia Sen Urea nitrogen [Mass/Vol] 23.0 mg/dL Critically high 7.0-18.0 [facility] Comment on above: Performed By: #### L IPID, T7, TSH, CMP #### [facility] [address] [address] [address] Antonia Sen Urea nitrogen/Creatinine [Mass ratio] 27.4 mg/mg Normal [facility] Comment on above: Performed By: #### L IPID, T7, TSH, CMP #### [facility] [address] [address] [address] Antonia Sen TSHon 09-03-2022 TSH 1.681 uIU/mL Normal 0.358-3.740 [facility] Comment on above: Performed By: #### L IPID, T7, TSH, CMP #### [facility] [address] [address] [address] Antonia Sen XR wrist RT 2Von 07-16-2022 XR wrist RT 2V [facility] [email or web address] Other XR wrist RT 2V [facility] [email or web address] Other XR wrist RT 2V [address] [place] [address] [email or web address] Other XR [place] 2[place] [address] [facility] [email or web address] Other XR wrist RT 2V XRay Report [employer] Other XR wrist RT 2V Signed [employer] Other XR wrist RT 2V Patient: Geronimo Nicholson MR#: [id number] [employer] Other XR wrist RT 2V [facility] [employer] Other XR wrist RT 2V : 1945 Acct:[id number] [employer] Other XR wrist RT 2V Age/Sex: 77 / F ADM Date: 07/16/22 [employer] Other XR wrist RT 2V Loc: [facility] [facility] Room: [facility] [employer] Other XR wrist RT 2V Attending Dr: Segundo Kumar MD [employer] Other XR wrist RT 2V Copies to: Norah Kumar MD [employer] Other XR wrist RT 2V Ordering Provider: Norah Kumar MD [employer] Other XR wrist RT 2V Date of Service: 07/16/22 [employer] Other XR wrist RT 2V XR/XR wrist RT 2V: Other fractures of lower end of right radius, [employer] Other XR wrist RT 2V subsequent enc [employer] Other XR wrist RT 2V RIGHT WRIST - 2 views [employer] Other XR wrist RT 2V COMPARISON: 06/17/2022 [employer] Other XR wrist RT 2V CLINICAL DATA: Follow-up distal radius fracture. [employer] Other XR wrist RT 2V AP and lateral views were obtained. There is osteopenia. There is redemonstration of a fracture at [employer] Other XR wrist RT 2V the distal radius. There is no change in alignment. No other acute fractures or dislocation are [employer] Other XR wrist RT 2V seen. There is mild dorsal soft tissue swelling. [employer] Other XR wrist RT 2V XR/XR wrist RT 2V [employer] Other XR wrist RT 2V IMPRESSION: [employer] Other XR wrist RT 2V STABLE DISTAL RADIUS FRACTURE. [employer] Other XR wrist RT 2V Impression dictated by: Pati Lange M.D.07/16/2022 1:43 PM [employer] Other XR wrist RT 2V Dictation Location: [place] [address] [employer] Other XR wrist RT 2V Transcribed By: [facility] 07/16/22 [facility] [employer] Other XR wrist RT 2V Dictated By: Pati Lange MD 07/16/22 [facility] [employer] Other XR wrist RT 2V Signed By: [employer] Other XR wrist RT 2V 07/16/22 [facility] [employer] Other XR WRIST RT MIN 3 Von [...] by: ALEX MONTERO Date: 2022-06-04 17:19 Normal [facility] Vital Signs Date Time Vital Sign Value Performing Clinician Kathy johnston 06-18-2024 13:40-0400 Blood Pressure Location Pablo COOKDong [facility] 06-18-2024 13:40-0400 Diastolic blood pressure 67 mm[Hg] Pablo NILL [facility] 06-18-2024 13:40-0400 Heart rate 79 /min Pablo NILL [facility] 06-18-2024 13:40-0400 Respiratory rate 16 /min Pablo NILL [facility] 06-18-2024 13:40-0400 Systolic blood pressure 105 mm[Hg] Pablo NILL [facility] Encounters Encounter Date Encounter Type Care Provider Facility Start: 07-24-2024 End: 07-24-2024 ambulatory Pablo R NILL Facility: [facility] Start: 07-24-2024 End: 07-24-2024 [facility] Start: 07-04-2024 End: 07-04-2024 ambulatory MD Saab Vidal Work Phone: [facility] Work Phone: Start: 07-04-2024 End: 07-04-2024 Departed Referred MD Saba Vidal Work Phone: [facility] Start: 07-04-2024 End: 07-04-2024 ambulatory Pablo R NILL Facility:CD:[id number] Start: 06-18-2024 End: 06-18-2024 ambulatory Saba Vidal Facility: [facility] Start: 06-18-2024 End: 06-18-2024 Patient encounter procedure Pablo R NILL [facility] Start: 06-15-2024 ambulatory Pablo NILL Facility:[facility] Start: 06-08-2024 ambulatory Pablo FOUNTAIN Facility:[facility] Start: 11-01-2023 End: 11-07-2023 Emergency department patient visit [facility] Start: 10-13-2023 End: 10-13-2023 Emergency department patient visit Torres Costello Franky ACEVEDO Facility:[facility] Start: 09-10-2022 End: 09-11-[address] SABA VIDAL Facility:[facility] Start: 09-08-2022 End: 09-08-[address] SABA VIDAL Facility:[facility] Start: 09-03-2022 End: 09-04-[address] SABA VIDAL Facility:[facility] Start: 08-27-2022 End: 08-27-2022 ambulatory Norahdustin Kumar Other [employer] Other Start: 08-27-2022 Postop follow up vis it related to original px Norah Calvey [facility] Start: 07-16-2022 End: 07-16-2022 ambulatory Norah Calvey Other [employer] Other Start: 07-16-2022 Postop follow up vis it related to original px Norah Calvey [facility] Start: 07-16-2022 End: 07-16-2022 Patient encounter procedure DO Talon Pryor Work Phone: [facility] Start: 06-29-2022 End: 08-24-2022 ambulatory NORAH CALVEY Facility:[facility] Start: 06-25-2022 End: 06-25-2022 ambulatory Norah Calvey Other [employer] Other Start: 06-25-2022 Postop follow up vis it related to original px Norah Calvey [facility] Start: 06-24-2022 End: 06-24-2022 Patient encounter procedure DO Talon Pryor Work Phone: [facility] [address] Start: 06-23-2022 End: 06-23-2022 ambulatory Talon Pryor Other [employer] Other Start: 06-23-2022 FQ visit new patient [...] Immunization Date Immunization Notes Care Provider Fa [facility] 08-15-2023 influenza virus vaccine, unspecified formulation Pablo NILL [facility] 04-15-2022 SARS-CoV-2 (COVID-19 ) mRNA-1273 vaccine Pablo NILL [facility] 11-10-2021 SARS-CoV-2 (COVID-19 ) mRNA BNT-162b2 vax Pablo NILL [facility] 01-13-2021 SARS-CoV-2 (COVID-19 ) mRNA BNT-162b2 vincent COOKL [facility] 12-22-2020 SARS-CoV-2 (COVID-19 ) mRNA BNT-162b2 vincent COOKL [facility] Payers Date Payer Category Payer Unknown 2009 Medicare 1959 Medicare [id number] 2.1 [id number] 1959 Self-pay 1959 Unknown [id number] 1945 Unknown [id number] 2.16.84 0.1.544673.3.579.2.593 1945 Unknown [id number] 2.16.84 0.1.492445.3.579.2.593 1944 Unknown [id number] 2.16.84 0.1.397506.3.579.2.593 1944 Unknown [id number] 2.16.84 0.1.899045.3.579.2.593 1944 Unknown [id number] 2.16.84 0.1.517003.3.579.2.593 1944 Unknown [id number] 2.16.84 0.1.476343.3.579.2.593 1944 Unknown [id number] 2.16.84 0.1.274713.3.579.2.593 1944 Unknown [id number] 2.16. 840.1.799771.3.579.2.196 1944 Unknown [id number] 2.16.8 40.1.729686.3.579.2.727 1944 Unknown [id number] 2.16.8 40.1.912551.3.579.2.727 1944 Unknown [id number] 2.16.8 40.1.355988.3.579.2.727 1944 Unknown [id number] 2.16.8 40.1.662429.3.579.2.727 Unknown [id number] 2.16.8 40.1.708648.19 Unknown [facility] [id number] Unknown [id number] 2.16.84 0.1.098811.3.579.2.593 Unknown [id number] 2.16.8 40.1.113972.3.579.2.531 Social History Date Type Detail Facility Sex Assigned At [facility] Start: 1945 Sex Assigned At Female F [facility] Start: 06-18-2024 Tobacco smoking status Never s moked tobacco (finding) [facility] Tobacco smoking status Never [facility] Functional Status Date Assessment Result Facility 06-18-2024 Functional Status N/A [facility] Clinical Notes 06-18-2022 to 06-18-2024 Note Date [...] disease: Father. Primar (more content not included)... [facility] Comment on above: Result Comment: Elec tronically [...] surgery. We will f/u in 4-6 weeks. [employer] Other 09-23-2022 Evaluation note* Encounter Date Diagnosis [...] Instructed patient to continue with occupational therapy [employer] Other 09-02-2022 Evaluation note* Encounter Date Diagnosis [...] anything over 2-5 pounds at this time. [employer] Other 08-31-2022 Evaluation note* Encounter Date Diagnosis [...] office today. Prior medical notes from the [facility] and history have been reviewed. At this [...] as documented in the electronic medical record. [employer] Other 08-26-2022 NotePROCEDURE: XR HAND RT MIN [...] Electronically authenticated by: SEGUNDO MERINO Date: 2022-06-18 07:24[facility]08-26-2022 NotePROCEDURE: XR HAND RT MIN 3V, [...] Electronically authenticated by: SEGUNDO MERINO Date: 2022-06-18 [facility] No data available for this section [facility] Evaluation noteNo assessment information available [facility] Work Phone: History general Narrative - Reported* Type Description Date Medical History right hand injury Medical History gull stones Medical History depression Surgical History appendectomy Surgical History gull bladder removal [employer] Other Hospital Discharge instructions No data available for this section [facility] Progress note No data available for this section [facility] Chief Complaint and Reason for Visit Chief [...] End: July 04, 2024 Pablo Fountain MD [facility] Attending Provider Active Start: July 04, 2024 End: July 04, 2024 Goals (unrecognized section and content) Goals may be documented in a n alternate section INFORMATION SOURCE (unrecogn ized section and content) DATE CREATED AUTHOR 09/30/2022 [facility] DATE CREATED AUTHOR AUTHOR'S ORGANIZ ATION 10/13/2023 [facility] DATE CREATED AUTHOR AUTHOR'S ORGANIZ ATION 11/08/2023 [facility] DATE CREATED AUTHOR AUTHOR'S ORGANIZ ATION 07/14/2024 [facility] DATE CREATED AUTHOR AUTHOR'S ORGANIZ ATION 07/26/2024 [facility] FOR RECORDS PERTAINING TO PATIENTS WHO [...] BE BASED ON THE PRIMARY CLINICAL RECORDS. [facility] [employer] [facility]. provides no warranty or guarantee of the accuracy or completeness of information in this document.
== END 2025-02-11 13:15 | disposition home or self-care (01) ==
PROVIDERS: PCP Family Medicine; Visit Provider Family Medicine
DX: J20.9 Acute bronchitis, unspecified (principal)
CPT/HCPCS: 71046

== ENCOUNTER 2025-02-18 07:44 | Outpatient (OUT) | payer MEDICARE, OTHER, SELFPAY ==
--- NOTE | 2025-02-18 07:49 | MR_ITS ---
The [address] [address] Patient Name: HAVEN FRAIRE MRN: [id number] date: 1945 Sex: F Assigned Patient Location: MRI Current Patient Location: MRI Accession/Order Number: [id number] Exam Date: 02/18/2025 13:49 Report Date: 02/18/2025 13:52 At the request of: SABA CHOW MD Procedure: MR head/brain wo con EXAMINATION: MRI OF THE BRAIN WITHOUT CONTRAST CLINICAL HISTORY: Amnesia COMPARISON: MRI brain 11/02/2023. TECHNIQUE: Multiecho, multiplanar imaging of the brain was performed without enhancement. FINDINGS: No evidence of restriction diffusion diffusion-weighted imaging. No evidence of blood products are seen on T2 Star imaging. Cortical atrophy with moderate chronic microvascular ischemic changes which appear to extend into the himanshu. Midbrain, medulla and cerebellum all appear unremarkable. Intraorbital contents appear grossly unremarkable. No significant paranasal sinus disease. MR/MR head/brain wo con IMPRESSION: NO ACUTE INTRACRANIAL ABNORMALITY. NO SIGNIFICANT CHANGE IN BRAIN FINDINGS. 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 Impression dictated by: Martin Johnston Jr., D.O. 02/18/2025 1:52 PM Dictation Location: [place] [address] Electronically authenticated by: [id number] Y Date: 02/18/2025 13:52
== END 2025-02-18 07:45 | disposition home or self-care (01) ==
LOC: MRI 07:44
PROVIDERS: PCP Family Medicine; Visit Provider Family Medicine
DX: R41.3 Other amnesia (principal)
CPT/HCPCS: 70551

== ENCOUNTER 2025-06-07 07:48 | Outpatient (RCR) | payer MEDICARE, OTHER, SELFPAY | END 2025-07-12 07:32 | disposition home or self-care (01) | LOC: PT 07:48 | PROVIDERS: PCP Family Medicine; Visit Provider Family Medicine | DX: M54.16 Radiculopathy, lumbar region (principal) | CPT/HCPCS: 97110; 97162 ==

== ENCOUNTER 2025-07-12 10:18 | Outpatient (OUT) | payer MEDICARE, OTHER, SELFPAY ==
--- OUTSIDE RECORDS SUMMARY | 2025-07-12 10:22 | XMS_ITS | Clinical Summary ---
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 Name Role Phone Daniel Vidal MD Primary Care Provider [phone] Social History Tobacco Use Types Packs/Day Years Used Date Smoking Tobacco: Never Assessed [place] Safety & Environment Answer Date Rec orded Fear of Current or Ex-Partner Not on file Emotionally Abused Not on file 12/15/2023 Physically Abused Not on file 12/15/2023 Sexually Abused Not on file 12/15/2023 Physically or Sexually Abused Not on file Comments Unknown Sex and Gender Information Value Date Recorded Sex Assigned at Not on file Legal Sex Female 11:39 AM EDT Gender Identity Not on file Sexual Orientation Not on file Plan of Treatment Not on file Care Teams Ocean Freight Forwarder Relationship Specialty Start Date End Date Daniel Vidal MD [address] [facility] [place] [address] PCP - General 06/17/22
--- OUTSIDE RECORDS SUMMARY | 2025-07-12 10:22 | XMS_ITS | Clinical Summary ---
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 Name Role Phone Unavailable Primary Care Provider Unavailabl e Social History Tobacco Use Types Packs/Day Years Used Date Smoking Tobacco: Never Assessed Childcare Answer Date Recorded Childcare Unknown 04/04/2019 Employment Answer Date Recorded Employment Unknown 04/04/2019 Comments Unknown Sex and Gender Information Value Date Recorded Sex Assigned at Not on file Legal Sex Female 11:22 AM EDT Gender Identity Not on file Sexual Orientation Not on file Plan of Treatment Health Maintenance Due Date Last Done Comments Depression Screening 1957 Tobacco Screening 1957 DTaP,Tdap and Td Vaccines (1 - Tdap) 1963 Fall Risk Screening 2009 Zoster (Shingles) Vaccine (2 of 2) 11/07/2023 09/12/2023 COVID-19 Vaccine ( - 2024-2 6 season) 2025 08/15/2023, 04/15/2022, 11/10/2021, Additional history exists Influenza Vaccine 06/24/2025 08/15/2023, , 08/01/2020, Additional history exists Medical Devices Not on file Insurance MEDICARE
--- OUTSIDE RECORDS SUMMARY | 2025-07-12 10:22 | XMS_ITS | Clinical Summary ---
Author Organization [facility] Address [address] [place] [address] Care Team Providers Care Clinical Athletic Instructor Name Role Phone Unavailable Primary Care Provider Unavailabl e Social History Tobacco Use Types Packs/Day Years Used Date Smoking Tobacco: Never Assessed Comments No Sex and Gender Information Value Date Recorded Sex Assigned at Not on file Legal Sex Female 9:57 AM EST Gender Identity Not on file Sexual Orientation Not on file Plan of Treatment Health Maintenance Due Date Last Done Comments Anxiety Screening 1962 Depression Screening 1962 DTaP,Tdap,Td Vaccine (1 - Tdap) 1963 Diabetes Screening 1989 Pneumococcal Vaccine: 50+ (1 of 1 - PCV) 1994 Shingrix Vaccine (1 of 2) 1994 Bone Density Screening 2009 RSV Vaccine (1 - 1-dose 75+ series) 2019 Advance Directive Discussion 10/24/2024 Influenza Vaccine (#1) 2025
--- NOTE | 2025-07-12 10:24 | XR_ITS ---
The [address] [address] Patient Name: HAVEN FRAIRE MRN: [id number] date: 1945 Sex: F Assigned Patient Location: [facility] Current Patient Location: [facility] Accession/Order Number: [id number] Exam Date: 07/12/2025 10:35 Report Date: 07/12/2025 11:54 At the request of: SABA CHOW MD Procedure: XR lumbar spine min 4V LUMBAR SPINE -5 views: CLINICAL HISTORY: Bilateral sciatica for the past year with recent worsening. COMPARISON: CT 09/16/2023 AP, lateral, both oblique and lateral coned-down views of the lumbosacral junction were obtained. There is osteopenia. Levoscoliotic curvature is again noted. There is minimal anterolisthesis of L4 and L5 and L5 on S1 on the lateral views. There is disc space narrowing from L3 - 4 down. There is endplate sclerosis. Endplate spurring is seen throughout. There is lower lumbar facet hypertrophy. No pars defect is identified. The sacroiliac joints are maintained. There are no paraspinal soft tissue abnormalities. XR/XR lumbar spine min 4V IMPRESSION: OSTEOPENIA, SCOLIOSIS AND DEGENERATIVE CHANGES, DESCRIBED. Impression dictated by: Pati Lange M.D. 07/12/2025 11:54 AM Dictation Location: [place] [address] Electronically authenticated by: [id number] Y Date: 07/12/2025 11:54
--- OUTSIDE RECORDS SUMMARY | 2025-07-12 10:24 | XMS_ITS | CCD ---
Author Organization [facility] Care Team Providers Care Internet Site Designer Name Role Phone Norah Kumar Unavailable DO Talon Pryor Attending Provider Talon Pryor Unavailable MD Norah Kumar Attending Provider [phone] DR SABA VIDAL Admitting Unavailable HOY, DR WALTER Attending Unavailable YOUNG, DR WALTER Consulting Unavailable YOUNG, DR WALTER Primary Care Unavailable DURANGO, DR GRACIELA Christensen Consulting Unavailable YOUNG, DR [...] Physician MD Saba Vidal Primary Care Provider [phone] MD Pablo Fountain Attending Provider [phone] Saba Vidal Primary Care Unavailable Nill, Pablo [...] sources) guaiFENesin; Translations: [Mucinex] Drug Allergy [facility] Repository (2 sources) guaiFENesin; Translations: [guaifenesin] Drug Allergy Dyspnea (finding) 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 Normal [facility] General Surgery Office/Clini c Noteon 07-24-2024 General [...] mRNA BNT-162b2 vax 12/22/[address] [facility] Comment on above: Result Comment: Elec tronically Signed By: RAMIREZ WAKEFIELD, Pablo Dupreebr\Date and Time Signed: 07/24/24 16:03 EDT Armando 07-04-2024 L Specimen: [id number] Received: 07/05/24 Status: JOSH Caba Num: [id number] Spec Type: Surgical Subm Dr: Pablo Fountain MD FACS Tissues: A Colon Biopsy (SIGMOID POLYP) Procedures: HE/2, Gross/Micro L4 Age/ Patient Sex Location Account Attending Physician Suad Nicholson 79/F LABELL [id number] Pablo Fountain MD FACS SPEC NUM: [id number] RECD: 07/05/24 STATUS: JOSH CABA NUM: [id number] AURY: 07/04/[address]: Pablo Fountain MD FACS ENTERED: 07/05/24 [facility] DR: Shaye Bueno SPEC TYPE: Surgical DEPT: AMRIK COOPER ENTERED BY: [id number] RECV BY: [id number] ORDERED: HE/2, Gross/Micro L4 ORDERED: HE/2, Gross/Micro [...] performed supporting the above interpretation -------- Specimen: [id number] Received: 07/05/24 Status: JOSH Caba Num: [id number] Spec Type: Surgical Subm Dr: Pablo Fountain MD FACS Tissues: A Colon Biopsy (SIGMOID POLYP) Procedures: HE/2, Gross/Micro L4 -------- Patient: Suad Nicholson [id number] (Continued) -------- Specimen: [id number] Received: 07/05/24 (Continued) Signed (signature on file) Shaheed Sen MD 07/12/24 0859 -------- Specimen: [id number] Received: 07/05/24 Status: JOSH Caba Num: [id number] Spec Type: Surgical Subm Dr: Pabol Fountain MD FACS Tissues: A Colon Biopsy (SIGMOID POLYP) Procedures: HE/2, Gross/Micro L4 -------- Patient: Suad Nicholson [id number] (Continued) -------- Specimen: [id number] Received: 07/05/24 (Continued) CPT Codes 74547 -------- -------- Specimen: [id number] Received: 07/05/24 Status: JOSH Caba Num: [id number] Spec Type: Surgical Subm Dr: Pablo Fountain MD FACS Tissues: A Colon Biopsy (SIGMOID POLYP) Procedures: HE/2, Gross/Micro L4 -------- Patient: Suad Nicholson [id number] (Continued) -------- Signed (signature on file) Shaheed Sen MD 07/12/24 0859 Normal [facility] Ambulatory Visit Summaryon [...] for choosing us for your care. Normal [facility] CT Spine Lumbar w/o Contrast on [...] fracture or bony displacement. Radiation Dose Estimate: CTDI(mGy):0.040089 / / / kVp:120.754581 / mAs:0.300285 / / / DLP(mGy-cm):3.724109F aaron Part: CTDI(mGy):22.529874 / / / kVp:140.011633 / mAs:153.103233 / / / DLP(mGy-cm):538.96068 5Body Part: Final Dictated by: Pablo Bower MD Dictated DT/TM: 10.12.2023 11:23 pm Signed by: Pablo Bower MD Signed (Electronic Signature): 10.12.2023 11:33 pm (If Report Is Signed, Electronically Signed in Other Vendor System) Normal [facility] ED Clinical Summaryon 2022 ED Clinical Summary [address] [address] ED Clinical Summary Person Information Name: Suad Nicholson/[facility] Age: 78 Years : 1945 Sex: Female PCP: Marital Status: Phone: Race: White Ethnicity: Not or Language: [place]se Visit Reason: Back pain Acuity: 4 Enc Type: Emergency Med Service: Emergency Medicine Arrival: 10/12/2023 22:00:02 Discharge: 10/13/2023 01:00:00 LOS: 000 03:00 Checkin: 10/12/2023 22:00:02 Checkout: 10/13/2023 01:00:00 Dispo Type: Home or Self Care Address: [address] [place] [id number] Provider Notes: Diagnosis: 1:Back pain; Right hip [...] Strain; Back Pain (Acute or Chronic) [facility] Poison Help line: . [facility] Hotline: [place] Tobacco Quit Line: [place], [place]) [address]: [phone] [place], [place]) [address]: [phone] [facility] [address] [facility], [place]: [phone] Normal [facility] ED Note-Physicianon 10-13-20 ED Note-Physician Chief [...] MRI and CT scan done at the [facility] emergency department and was advised to try [...] (more content not included)... Normal [facility] XR Hip 2-3 Views Righton XR [...] in Other Vendor System) Normal [facility] XR Knee 1 or 2 Views [...] in Other Vendor System) Normal [facility] XR DEXA BONE DENSITYon 09-10 XR [...] GRACIELA LUGO Date: 2022-09-10 15:39 Normal [facility] OCC BLD IMMUNO SCREENon 08-24 OCCULT BLOOD Negative Normal NEGATIVE [facility] Comment on above: Performed By: #### O BSCRN ####[facility] [address] [place] [address]Dr. Hallieamnjit Sen INSULINon 09-04-2022 Insulin 8.4 uIU/mL Normal 2.6-24.9 [facility] Comment on above: Performed By: #### I NSULIN ####[facility] [address] [place], [place] [address]Dr. Halliemanjit Sen CBC AUTO DIFFon 09-03-2022 BASO # 0.1 103/ul Normal 0.0-0.1 [facility] Comment on above: Performed By: #### C BC ####[facility] [address] [place] [address]Dr. Antonia Sen Basophils/100 WBC (Bld) 1.2 % Normal 0.2-2.0 [facility] Comment on above: Performed By: #### C BC ####[facility] [address] [place] [address]Dr. Antonia Sen EO # 0.2 103/ul Normal 0.0-0.7 [facility] Comment on above: Performed By: #### C BC ####[facility] [address] [place] [id number]. Antonia Sen Eosinophils/100 WBC (Bld) 4.6 % Normal 0.9-7.0 [facility] Comment on above: Performed By: #### C BC ####[facility] [address] [place] [address]Dr. Antonia Sen Erythrocyte distribution width (RBC) [Ratio] 13.1 % Normal 11.0-15.0 [facility] Comment on above: Performed By: #### C BC ####[facility] [address] [place], [place] [address]Dr. Antonia Sen Hematocrit (Bld) [Volume fraction] 39.3 % Normal 36.0-48.0 [facility] Comment on above: Performed By: #### C BC ####[facility] [address] [place], [place] [address]Dr. Antonia Sen Hemoglobin (Bld) [Mass/Vol] 13.0 g/dL Normal 12.0-16.0 [facility] Comment on above: Performed By: #### C BC ####[facility] [address] [place], [place] [address]Dr. Antonia Sen IG # 0.01 10e3/ul Normal 0.00-0.03 [facility] Comment on above: Performed By: #### C BC ####[facility] [address] [place], [place] [address]Dr. Antonia Sen IG % 0.2 % Normal 0.0-0.5 [facility] Comment on above: Performed By: #### C BC ####[facility] [address] [place], [place] [address]Dr. Antonia Sen LYMPH # 1.2 103/ul Normal 1.2-3.8 [facility] Comment on above: Performed By: #### C BC ####[facility] [address] [place], [place] [address]Dr. Antonia Sen Lymphocytes/100 WBC (Bld) 27.6 % Normal 20.5-60.0 [facility] Comment on above: Performed By: #### C BC ####[facility] [address] [place] [id number]. Antonia Sen MANUAL DIFF REQ NO Normal [facility] Comment on above: Performed By: #### C BC ####[facility] [address] [place] [id number]. Antonia Sen MCH (RBC) [Entitic mass] 30.4 pg Normal 26.7-34.0 [facility] Comment on above: Performed By: #### C BC ####[facility] [address] [place] [address]Dr. Antonia Sen MCHC (RBC) [Mass/Vol] 33.1 g/dL Normal 29.9-35.2 [facility] Comment on above: Performed By: #### C BC ####[facility] [address] [place] [address]Dr. Antonia Mckinley MCV (RBC) [Entitic vol] 91.8 fL Normal 81.0-99.0 [facility] Comment on above: Performed By: #### C BC ####[facility] [address] [place] [address]Dr. Antonia Mckinley MONO # 0.5 103/ul Normal 0.3-0.8 [facility] Comment on above: Performed By: #### C BC ####[facility] [address] [place], [place] [address]Dr. Halliemanjit Sen Monocytes/100 WBC (Bld) 11.8 % Normal 1.7-12.0 [facility] Comment on above: Performed By: #### C BC ####[facility] [address] [place] [id number]. Antonia Sen NEUT # 2.4 103/ul Normal 1.4-6.5 [facility] Comment on above: Performed By: #### C BC ####[facility] [address] [place], [place] [address]Dr. Antonia Sen Neutrophils/100 WBC (Bld) 54.6 % Normal 43.0-75.0 [facility] Comment on above: Performed By: #### C BC ####[facility] [address] [place], [place] [address]Zk. Antonia Sen Platelet mean volume (Bld) [Entitic vol] 12.2 fL Normal 9.5-13.5 [facility] Comment on above: Performed By: #### C BC ####[facility] [address] [place], [place] [address]An. Antonia Sen PLT 210 103/ul Normal 150-450 [facility] Comment on above: Performed By: #### C BC ####[facility] [address] [place], [place] [address]Ao. Antonia Sen RBC 4.28 106/ul Normal 4.20-5.40 [facility] Comment on above: Performed By: #### C BC ####[facility] [address] [place] [id number]. Antonia Sne WBC 4.3 103/ul Normal 4.0-11.0 [facility] Comment on above: Performed By: #### C BC ####[facility] [address] [place] [id number]. Antonia Sen FREE THYROXINE INDEX T7on FTI 1.89 Normal 1.30-4.50 [facility] Comment on above: Performed By: #### L IPID, T7, TSH, CMP #### [facility] [address] [place] [address] [address] Antonia Sen T3U 31.0 % Normal 30.0-39.0 [facility] Comment on above: Performed By: #### L IPID, T7, TSH, CMP #### [facility] [address] [place] [address] [address] Antonia Sen T4 [Mass/Vol] 6.10 ug/dL Normal 4.80-13.90 [facility] Comment on above: Performed By: #### L IPID, T7, TSH, CMP #### [facility] [address] [place] [address] [address] Antonia Sen GLYCOHEMOGLOBIN A1Con 2021 ADA RECOMMENDATION SEE BELOW Normal [facility] Comment on above: Result Comment: ADA RECOMMENDED LIMIT 4.0 - 6.0 ADA THERAPEUTIC TARGET < 7.0 ACTION SUGGESTED > 7.0 Performed By: #### A 1C #### [facility] [address] [place] [address] Dr. Antonia Sen Glucose [Mass/Vol] 105 mg/dL Normal [facility] Comment on above: Performed By: #### A 1C #### [facility] [address] [address] [address] Antonia Sen HbA1c (Bld) [Mass fraction] 5.3 % Normal 4.5-6.2 [facility] Comment on above: Performed By: #### A 1C #### [facility] [address] [place] [address] Dr. Antonia Sen IRONon 09-03-2022 Iron [Mass/Vol] 140.0 ug/dL Normal 50.0-170.0 [facility] Comment on above: Performed By: #### I YU #### [facility] [address] [place] [address] Dr. Antonia Sen LIPID PROFILEon 09-03-2022 CHOL-HDL RATIO NORM SEE BELOW Normal [facility] Comment on above: Result Comment: 3.3 - 4.4 LOW RISK 4.4 - 7.1 AVERAGE RISK 7.1 - 11.0 MODERATE RISK >11.0 HIGH RISK Performed By: #### L IPID, T7, TSH, CMP #### [facility] [address] [place] [address] Dr. Antonia Sen Cholesterol [Mass/Vol] 226 mg/dL Critically high <=200 [facility] Comment on above: Performed By: #### L IPID, T7, TSH, CMP #### [facility] [address] [place] [address] Dr. Antonia Sen Cholesterol in HDL [Mass/Vol] 66 mg/dL Critically high 40-60 [facility] Comment on above: Performed By: #### L IPID, T7, TSH, CMP #### [facility] [address] [place] [address] Dr. Antonia Sen Cholesterol in LDL [Mass/Vol] 137.8 mg/dL Normal [facility] Comment on above: Performed By: #### L IPID, T7, TSH, CMP #### [facility] [address] [address] [address] Antonia Sen Cholesterol.total/C holesterol in HDL [Mass ratio] 3.4 {ratio} Normal [facility] Comment on above: Performed By: #### L IPID, T7, TSH, CMP #### [facility] [address] [address] [address] Antonia Sen HDL NORMAL > or = 60 mg/dl - LO W CARDIOVASCULAR RISK <40 mg/dl - HIGH CARDIOVASCULAR RISK Normal [facility] Comment on above: Performed By: #### L IPID, T7, TSH, CMP #### [facility] [address] [place] [address] [address] Antonia Sen LDL CALC NORMAL SEE BELOW Normal [facility] Comment on above: Result Comment: <100 mg/dl OPTIMAL 100 - 129 mg/dl NEAR OR ABOVE OPTIMAL 130 - 159 mg/dl BORDERLINE HIGH 160 - 189 mg/dl HIGH >190 mg/dl VERY HIGH Performed By: #### L IPID, T7, TSH, CMP #### [facility] [address] [address] [address] Antonia Sen Triglyceride [Mass/Vol] 111 mg/dL Normal <=150 [facility] Comment on above: Performed By: #### L IPID, T7, TSH, CMP #### [facility] [address] [address] [address] Antonia Sen VLDL CALC 22.2 mg/dL Normal [facility] Comment on above: Performed By: #### L IPID, T7, TSH, CMP #### [facility] [address] [address] [address] Antonia Sen PROF 14(COMP METB)on 022 Albumin [Mass/Vol] 3.9 g/dL Normal 3.4-5.0 [facility] Comment on above: Performed By: #### L IPID, T7, TSH, CMP #### [facility] [address] [address] [address] Antonia Sen Albumin/Globulin [Mass ratio] 1.1 {ratio} Normal [facility] Comment on above: Performed By: #### L IPID, T7, TSH, CMP #### [facility] [address] [place] [address] Dr. Antonia Sen ALP [Catalytic activity/Vol] 64 U/L Normal 46-116 [facility] Comment on above: Performed By: #### L IPID, T7, TSH, CMP #### [facility] [address] [address] [address] Antonia Sen ALT [Catalytic activity/Vol] 6 U/L Critically low 14-59 [facility] Comment on above: Performed By: #### L IPID, T7, TSH, CMP #### [facility] [address] [place] [address] Dr. Antonia Sen Anion gap [Moles/Vol] 10.6 mmol/L Normal [facility] Comment on above: Performed By: #### L IPID, T7, TSH, CMP #### [facility] [address] [place] [address] Dr. Antonia Sen AST [Catalytic activity/Vol] 15 U/L Normal 15-37 [facility] Comment on above: Performed By: #### L IPID, T7, TSH, CMP #### [facility] [address] [place] [address] Dr. Anotnia Sen Bilirubin [Mass/Vol] 0.9 mg/dL Normal 0.2-1.0 [facility] Comment on above: Performed By: #### L IPID, T7, TSH, CMP #### [facility] [address] [place] [address] Dr. Antonia Sen Calcium [Mass/Vol] 9.3 mg/dL Normal 8.5-10.1 [facility] Comment on above: Performed By: #### L IPID, T7, TSH, CMP #### [facility] [address] [place] [address] Dr. Antonia Sen Chloride [Moles/Vol] 105 mmol/L Normal 98-107 [facility] Comment on above: Performed By: #### L IPID, T7, TSH, CMP #### [facility] [address] [address] [address] Antonia Sen CO2 [Moles/Vol] 24.4 mmol/L Normal 21.0-32.0 [facility] Comment on above: Performed By: #### L IPID, T7, TSH, CMP #### [facility] [address] [address] [address] Antonia Sen Creatinine [Mass/Vol] 0.84 mg/dL Normal 0.55-1.02 [facility] Comment on above: Performed By: #### L IPID, T7, TSH, CMP #### [facility] [address] [address] [address] Antonia Sen EGFR-AF TONGAN >60 Normal >=60 [facility] Comment on above: Performed By: #### L IPID, T7, TSH, CMP #### [facility] [address] [place] [address] [address] Antonia Sen EGFR-NON AF TONGAN >60 Normal >=60 [facility] Comment on above: Performed By: #### L IPID, T7, TSH, CMP #### [facility] [address] [address] [address] Antonia Sen Globulin (S) [Mass/Vol] 3.7 g/dL Normal [facility] Comment on above: Performed By: #### L IPID, T7, TSH, CMP #### [facility] [address] [place] [address] [address] Antonia Sen Glucose [Mass/Vol] 88 mg/dL Normal 74-106 [facility] Comment on above: Performed By: #### L IPID, T7, TSH, CMP #### [facility] [address] [address] [address] Antonia Sen Potassium [Moles/Vol] 4.0 mmol/L Normal 3.5-5.1 [facility] Comment on above: Performed By: #### L IPID, T7, TSH, CMP #### [facility] [address] [address] [address] Antonia Sen Protein [Mass/Vol] 7.6 g/dL Normal 6.4-8.2 [facility] Comment on above: Performed By: #### L IPID, T7, TSH, CMP #### [facility] [address] [address] [address] Antonia Sen Sodium [Moles/Vol] 136 mmol/L Normal 136-145 [facility] Comment on above: Performed By: #### L IPID, T7, TSH, CMP #### [facility] [address] [address] [address] Antonia Sen Urea nitrogen [Mass/Vol] 23.0 mg/dL Critically high 7.0-18.0 [facility] Comment on above: Performed By: #### L IPID, T7, TSH, CMP #### [facility] [address] [address] [address] Antonia Sen Urea nitrogen/Creatinine [Mass ratio] 27.4 mg/mg Normal [facility] Comment on above: Performed By: #### L IPID, T7, TSH, CMP #### [facility] [address] [address] [address] Antonia Sen TSHon 09-03-2022 TSH 1.681 uIU/mL Normal 0.358-3.740 [facility] Comment on above: Performed By: #### L IPID, T7, TSH, CMP #### [facility] [address] [address] [address] Antonia Sen XR wrist RT 2Von 07-16-2022 XR wrist RT 2V [facility] [employer] Other XR wrist RT 2V [facility] [employer] Other XR wrist RT 2V [address] [place] [address] [employer] Other XR [place] 2[place] [address] [facility] [employer] Other XR wrist RT 2V XRay Report [employer] Other XR wrist RT 2V Signed [employer] Other XR wrist RT 2V Patient: Geronimo Nicholson MR#: [id number] [employer] [facility] : 1945 Acct:[id number] [employer] Other XR wrist RT 2V Age/Sex: 77 / F ADM Date: 07/16/22 [employer] Other XR wrist RT 2V Loc: [facility] Room: Type : [facility] [employer] Other XR wrist RT 2V Attending Dr: Segundo Kumar MD [employer] Other XR wrist RT 2V Copies to: Norah Kumar MD [employer] Other XR wrist RT 2V Ordering Provider: Norah Kumar MD [employer] Other XR wrist RT 2V Date of Service: 07/16/22 [employer] Other XR wrist RT 2V XR/XR wrist RT 2V: Other fractures of lower end of right radius, [employer] Other XR wrist RT 2V subsequent enc [employer] Other XR wrist RT 2V RIGHT WRIST - 2 views [employer] Other XR wrist RT 2V COMPARISON: 06/17/2022 [employer] Other XR wrist RT 2V CLINICAL DATA: Follow-up distal radius fracture. [employer] Other XR wrist RT 2V AP and lateral views were obtained. There is osteopenia. There is redemonstration of a fracture at [employer] Other XR wrist RT 2V the distal radius. There is no change in alignment. No other acute fractures or dislocation are [employer] Other XR wrist RT 2V seen. There is mild dorsal soft tissue swelling. [employer] Other XR wrist RT 2V XR/XR wrist RT 2V [employer] Other XR wrist RT 2V IMPRESSION: [employer] Other XR wrist RT 2V STABLE DISTAL RADIUS FRACTURE. [employer] Other XR wrist RT 2V Impression dictated by: Pati Lange M.D.07/16/2022 1:43 PM [employer] Other XR wrist RT 2V Dictation Location: [place] [address] [employer] Other XR wrist RT 2V Transcribed By: [facility] 07/16/22 [facility] [employer] Other XR wrist RT 2V Dictated By: Pati Lange MD 07/16/22 [facility] [employer] Other XR wrist RT 2V Signed By: [employer] Other XR wrist RT 2V 07/16/22 [facility] [employer] Other XR WRIST RT MIN 3 Von [...] by: ALEX MONTERO Date: 2022-06-04 17:19 Normal [facility] Vital Signs Date Time Vital Sign Value Performing Clinician Kathy johnston 06-18-2024 13:40-0400 Blood Pressure Location Pablo COOKDong [facility] 06-18-2024 13:40-0400 Diastolic blood pressure 67 mm[Hg] Pablo NILL [facility] 06-18-2024 13:40-0400 Heart rate 79 /min Pablo NILL [facility] 06-18-2024 13:40-0400 Respiratory rate 16 /min Pablo NILL [facility] 06-18-2024 13:40-0400 Systolic blood pressure 105 mm[Hg] Pablo NILL [facility] Encounters Encounter Date Encounter Type Care Provider Facility Start: 07-24-2024 End: 07-24-2024 ambulatory Pablo R NILL Facility: [facility] Start: 07-24-2024 End: 07-24-2024 [facility] Start: 07-04-2024 End: 07-04-2024 ambulatory MD Saba Vidal Work Phone: [facility] Work Phone: Start: 07-04-2024 End: 07-04-2024 Departed Referred MD Saba Vidal Work Phone: [facility] Start: 07-04-2024 End: 07-04-2024 ambulatory Pablo R NILL Facility:CD:[id number] Start: 06-18-2024 End: 06-18-2024 ambulatory Saba Vidal Facility: [facility] Start: 06-18-2024 End: 06-18-2024 Patient encounter procedure Pablo R NILL [facility] Start: 06-15-2024 ambulatory Pablo NILL Facility:[facility] Start: 06-08-2024 ambulatory Pablo FOUNTAIN Facility:[facility] Start: 11-01-2023 End: 11-07-2023 Emergency department patient visit [facility] Start: 10-13-2023 End: 10-13-2023 Emergency department patient visit Torres Costello Franky ACEVEDO Facility:[facility] Start: 09-10-2022 End: 09-11-[address] SABA VIDAL Facility:[facility] Start: 09-08-2022 End: 09-08-[address] SABA VIDAL Facility:[facility] Start: 09-03-2022 End: 09-04-[address] SABA VIDAL Facility:[facility] Start: 08-27-2022 End: 08-27-2022 ambulatory Norahdustin Kumar Other [employer] Other Start: 08-27-2022 Postop follow up vis it related to original px Norah Calvey [facility] [facility] Start: 07-16-2022 End: 07-16-2022 ambulatory Norah Calvey Other [facility] Start: 07-16-2022 Postop follow up vis it related to original px Norah Calvey [facility] Start: 07-16-2022 End: 07-16-2022 Patient encounter procedure DO Talon Pryor Work Phone: [facility] Start: 06-29-2022 End: 08-24-2022 ambulatory NORAH CALVEY Facility:[facility] Start: 06-25-2022 End: 06-25-2022 ambulatory Norah Calvey Other [facility] Start: 06-25-2022 Postop follow up vis it related to original px Norah Calvey [facility] Start: 06-24-2022 End: 06-24-2022 Patient encounter procedure DO Talon Pryor Work Phone: [facility] [address] Start: 06-23-2022 End: 06-23-2022 ambulatory Talon Pryor Other [facility] Start: 06-23-2022 FQ visit new patient [...] Immunization Date Immunization Notes Care Provider [facility] 08-15-2023 influenza virus vaccine, unspecified formulation Pablo NILL [facility] [employer] 04-15-2022 SARS-CoV-2 (COVID-19 ) mRNA-1273 vaccine Pablo NILL [facility] 11-10-2021 SARS-CoV-2 (COVID-19 ) mRNA BNT-162b2 vax Pablo NILL [facility] 01-13-2021 SARS-CoV-2 (COVID-19 ) mRNA BNT-162b2 vincent COOKL [facility] 12-22-2020 SARS-CoV-2 (COVID-19 ) mRNA BNT-162b2 vincent COOKL [facility] Payers Date Payer Category Payer Unknown 2009 Medicare 1959 Medicare [id number] 2.1 [id number] 1959 Self-pay 1959 Unknown [id number] 1945 Unknown [id number] 2.16.84 0.1.725864.3.579.2.593 1945 Unknown [id number] 2.16.84 0.1.240167.3.579.2.593 1944 Unknown [id number] 2.16.84 0.1.983077.3.579.2.593 1944 Unknown [id number] 2.16.84 0.1.703588.3.579.2.593 1944 Unknown [id number] 2.16.84 0.1.791627.3.579.2.593 1944 Unknown [id number] 2.16.84 0.1.623353.3.579.2.593 1944 Unknown [id number] 2.16.84 0.1.783059.3.579.2.593 1944 Unknown [id number] 2.16. 840.1.582649.3.579.2.196 1944 Unknown [id number] 2.16.8 40.1.870793.3.579.2.727 1944 Unknown [id number] 2.16.8 40.1.223547.3.579.2.727 1944 Unknown [id number] 2.16.8 40.1.371482.3.579.2.727 1945 Unknown [id number] 2.16.8 40.1.622950.3.579.2.727 Unknown [id number] 2.16.8 40.1.142814.19 Unknown [facility] [id number] Unknown [id number] 2.16.84 0.1.801407.3.579.2.593 Unknown [id number] 2.16.8 40.1.497178.3.579.2.531 Social History Date Type Detail Facility Sex Assigned At [facility] Start: 1945 Sex Assigned At Female F [facility] Start: 06-18-2024 Tobacco smoking status Never s moked tobacco (finding) [facility] [place] Tobacco smoking status Never [facility] Functional Status Date Assessment Result Facility 06-18-2024 Functional Status N/A [facility] [place] Clinical Notes 06-18-2022 to 06-18-2024 Note Date [...] disease: Father. Primar (more content not included)... [facility] Comment on above: Result Comment: Elec [...] surgery. We will f/u in 4-6 weeks. [facility] 09-23-2022 Evaluation note* Encounter Date Diagnosis [...] Instructed patient to continue with occupational therapy [facility] 09-02-2022 Evaluation note* Encounter Date Diagnosis [...] anything over 2-5 pounds at this time. [facility] 08-31-2022 Evaluation note* Encounter Date Diagnosis [...] office today. Prior medical notes from the [facility] and history have been reviewed. At this [...] as documented in the electronic medical record. [facility] 08-26-2022 NotePROCEDURE: XR HAND RT MIN [...] Electronically authenticated by: SEGUNDO MERINO Date: 2022-06-18 07:24[facility]08-26-2022 NotePROCEDURE: XR HAND RT MIN 3V, [...] Electronically authenticated by: SEGUNDO MERINO Date: 2022-06-18 07[facility]24[facility] No data available for this section [facility] [place] Evaluation noteNo assessment information available [facility] Work Phone: History general Narrative - Reported* Type Description Date Medical History right hand injury Medical History gull stones Medical History depression Surgical History appendectomy Surgical History gull bladder removal [facility] Hospital Discharge instructions No data available for this section [facility] Progress note No data available for this section [facility] Chief Complaint and Reason for Visit [...] End: July 04, 2024 Pablo Fountain MD [facility] Attending Provider Active Start: July 04, 2024 End: July 04, 2024 Goals (unrecognized section and content) Goals may be documented in a n alternate section INFORMATION SOURCE (unrecogn ized section and content) DATE CREATED AUTHOR 09/30/2022 [facility] DATE CREATED AUTHOR AUTHOR'S ORGANIZ ATION 10/13/2023 [facility] DATE CREATED AUTHOR AUTHOR'S ORGANIZ ATION 11/08/2023 [facility] DATE CREATED AUTHOR AUTHOR'S ORGANIZ ATION 07/14/2024 [facility] DATE CREATED AUTHOR AUTHOR'S ORGANIZ ATION 07/26/2024 [facility] FOR RECORDS PERTAINING TO PATIENTS WHO [...] BE BASED ON THE PRIMARY CLINICAL RECORDS. [facility]. provides no warranty or guarantee of the accuracy or completeness of information in this document.
== END 2025-07-12 10:19 | disposition home or self-care (01) ==
LOC: RAD 10:19
PROVIDERS: PCP Family Medicine; Visit Provider Family Medicine
DX: M54.30 Sciatica, unspecified side (principal); M85.88 Other specified disorders of bone density and structure, other site; M41.86 Other forms of scoliosis, lumbar region; M51.369 Other intervertebral disc degeneration, lumbar region without mention of lumbar back pain or lower extremity pain
CPT/HCPCS: 72110

== ENCOUNTER 2025-07-18 08:37 | Outpatient (OUT) | payer MEDICARE, OTHER, SELFPAY ==
--- OUTSIDE RECORDS SUMMARY | 2025-07-18 08:40 | XMS_ITS | CCD ---
Author Organization [facility] Care Team Providers Care Photographer Assistant Name Role Phone Norah Kumar Unavailable DO Talon Pryor Attending Provider Talon Pryor Unavailable MD Norah Kumar Attending Provider [phone] DR SABA VIDAL Admitting Unavailable HOY, DR WALTER Attending Unavailable YOUNG, DR WALTER Consulting Unavailable YOUNG, DR WALTER Primary Care Unavailable LEAD HILL, DR GRACIELA Christensen Consulting Unavailable YOUNG, DR [...] Unavail able Saba Vidal Primary Care Physician [phone] MD Saba Vidal Primary Care Provider [phone] MD Pablo Fountain Attending Provider [phone] Saba Vidal Primary Care Unavailable Nill, Pablo [...] sources) guaiFENesin; Translations: [Mucinex] Drug Allergy [facility] Repository (2 sources) guaiFENesin; Translations: [guaifenesin] Drug Allergy Dyspnea (finding) [facility] Medications Current Medications Medication Drug Class(es) [...] Other snf (current) drug therapy; Translations: [OTH EDUCATION REP CURRENT DRUG THERAPY] Onset: 2 Episodic Other [...] choosing us for your care. Normal [facility] General Surgery Office/Clini c Noteon [...] mRNA BNT-162b2 vax 12/22/2020 Recorded Normal [facility] Comment on above: Result Comment: Elec tronically Signed By: RAMIREZ WAKEFIELD, Pablo Dupreebr\Date and Time Signed: 07/24/24 16:03 EDT Armando 07-04-2024 L Specimen: [id number] Received: 07/05/24 Status: JOSH Caba Num: [id number] Spec Type: Surgical Subm Dr: Pablo Fountain MD FACS Tissues: A Colon Biopsy (SIGMOID POLYP) Procedures: HE/2, Gross/Micro L4 Age/ Patient Sex Location Account Attending Physician Suad Nicholson 79/F LABELL [id number] Pablo Fountain MD FACS SPEC NUM: [id number] RECD: 07/05/24 STATUS: JOSH CABA NUM: [id number] AURY: 07/04/[address]: Pablo Fountain MD FACS ENTERED: 07/05/[address] [facility] DR: Shaye Bueno SPEC TYPE: Surgical DEPT: AMRIK COOPER ENTERED BY: [id number] RECV BY: [id number] ORDERED: HE/2, Gross/Micro L4 ORDERED: HE/2, Gross/Micro [...] performed supporting the above interpretation -------- Specimen: [id number] Received: 07/05/24 Status: JOSH Caba Num: [id number] Spec Type: Surgical Subm Dr: Pablo Fountain MD FACS Tissues: A Colon Biopsy (SIGMOID POLYP) Procedures: HE/2, Gross/Micro L4 -------- Patient: Suad Nicholson [id number] (Continued) -------- Specimen: [id number] Received: 07/05/24 (Continued) Signed (signature on file) Shaheed Sen MD 07/12/24 0859 -------- Specimen: [id number] Received: 07/05/24 Status: JOSH Caba Num: [id number] Spec Type: Surgical Subm Dr: Pablo Fountain MD FACS Tissues: A Colon Biopsy (SIGMOID POLYP) Procedures: HE/2, Gross/Micro L4 -------- Patient: Suad Nicholson [id number] (Continued) -------- Specimen: [id number] Received: 07/05/24 (Continued) CPT Codes 78981 -------- -------- Specimen: [id number] Received: 07/05/24 Status: JOSH Caba Num: [id number] Spec Type: Surgical Subm Dr: Pablo Fountain MD FACS Tissues: A Colon Biopsy (SIGMOID POLYP) Procedures: HE/2, Gross/Micro L4 -------- Patient: Suad Nicholson [id number] (Continued) -------- Signed (signature on file) Shaheed Sen MD 07/12/24 0859 Normal [facility] Ambulatory Visit Summaryon 0 06-18-2024 [...] for choosing us for your care. Normal [facility] CT Spine Lumbar w/o Contrast [...] fracture or bony displacement. Radiation Dose Estimate: CTDI(mGy):0.911136 / / / kVp:120.068091 / mAs:0.809898 / / / DLP(mGy-cm):3.017434K aaron Part: CTDI(mGy):22.814465 / / / kVp:140.266554 / mAs:153.829225 / / / DLP(mGy-cm):538.12018 5Body Part: Final Dictated by: Pablo Bower MD Dictated DT/TM: 10.12.2023 11:23 pm Signed by: Pablo Bower MD Signed (Electronic Signature): 10.12.2023 11:33 pm (If Report Is Signed, Electronically Signed in Other Vendor System) Normal [facility] ED Clinical Summaryon 2022 ED Clinical Summary [address] [address] ED Clinical Summary Person Information Name: Suad Nicholson/[facility] Age: 78 Years : 1945 Sex: Female PCP: Marital Status: Phone: Race: White Ethnicity: Not or Language: Argentine Visit Reason: Back pain Acuity: 4 Enc Type: Emergency Med Service: Emergency Medicine Arrival: 10/12/2023 22:00:02 Discharge: 10/13/2023 01:00:00 LOS: 000 03:00 Checkin: 10/12/2023 22:00:02 Checkout: 10/13/2023 01:00:00 Dispo Type: Home or Self Care Address: [address] [place] [phone] Provider Notes: Diagnosis: 1:Back pain; Right hip [...] up: With: Address: When: Follow-up with Dr. Lawernce for further evaluation. Comments: I did discuss [...] Hip Strain; Back Pain (Acute or Chronic) [facility] Poison Help line: . [facility] Hotline: [place] Tobacco Quit Line: [place], [place]) [address]: [phone] [place], [place]) [address]: [phone] [facility] [address] [place], [place]: [phone] Normal [facility] ED Note-Physicianon 10-13-20 ED Note-Physician Chief [...] MRI and CT scan done at the [place] emergency department and was advised to try [...] patient s (more content not included)... Normal [facility] XR Hip 2-3 Views Righton XR [...] Electronically Signed in Other Vendor System) Normal [facility] XR Knee 1 or 2 Views [...] Electronically Signed in Other Vendor System) Normal [facility] XR DEXA BONE DENSITYon 09-10 XR [...] GRACIELA LUGO Date: 2022-09-10 15:39 Normal [facility] OCC BLD IMMUNO SCREENon 08-24 OCCULT BLOOD Negative Normal NEGATIVE [facility] Comment on above: Performed By: #### O BSCRN ####[facility] [address] [place] [address]Dr. Halliemanjit Sen INSULINon 09-04-2022 Insulin 8.4 uIU/mL Normal 2.6-24.9 [facility] Comment on above: Performed By: #### I NSULIN ####[facility] [address] [place], [place] [address]Dr. Halliemanjit Sen CBC AUTO DIFFon 09-03-2022 BASO # 0.1 103/ul Normal 0.0-0.1 [facility] Comment on above: Performed By: #### C BC ####[facility] [address] [place] [address]Dr. Antonia Sen Basophils/100 WBC (Bld) 1.2 % Normal 0.2-2.0 [facility] Comment on above: Performed By: #### C BC ####[facility] [address] [place] [address]Dr. Antonia Sen EO # 0.2 103/ul Normal 0.0-0.7 [facility] Comment on above: Performed By: #### C BC ####[facility] [address] [place] [id number]. Antonia Sen Eosinophils/100 WBC (Bld) 4.6 % Normal 0.9-7.0 [facility] Comment on above: Performed By: #### C BC ####[facility] [address] [place] [address]Dr. Antonia Sen Erythrocyte distribution width (RBC) [Ratio] 13.1 % Normal 11.0-15.0 [facility] Comment on above: Performed By: #### C BC ####[facility] [address] [place], [place] [address]Dr. Antonia Sen Hematocrit (Bld) [Volume fraction] 39.3 % Normal 36.0-48.0 [facility] Comment on above: Performed By: #### C BC ####[facility] [address] [place], [place] [address]Dr. Antonia Sen Hemoglobin (Bld) [Mass/Vol] 13.0 g/dL Normal 12.0-16.0 [facility] Comment on above: Performed By: #### C BC ####[facility] [address] [place], [place] [address]Dr. Antonia Sen IG # 0.01 10e3/ul Normal 0.00-0.03 [facility] Comment on above: Performed By: #### C BC ####[facility] [address] [place], [place] [address]Dr. Antonia Sen IG % 0.2 % Normal 0.0-0.5 [facility] Comment on above: Performed By: #### C BC ####[facility] [address] [place], [place] [address]Dr. Antonia Sen LYMPH # 1.2 103/ul Normal 1.2-3.8 [facility] Comment on above: Performed By: #### C BC ####[facility] [address] [place], [place] [address]Dr. Antonia Sen Lymphocytes/100 WBC (Bld) 27.6 % Normal 20.5-60.0 [facility] Comment on above: Performed By: #### C BC ####[facility] [address] [place] [id number]. Antonia Sen MANUAL DIFF REQ NO Normal [facility] Comment on above: Performed By: #### C BC ####[facility] [address] [place] [id number]. Antonia Sen MCH (RBC) [Entitic mass] 30.4 pg Normal 26.7-34.0 [facility] Comment on above: Performed By: #### C BC ####[facility] [address] [place] [address]Dr. Antonia Sen MCHC (RBC) [Mass/Vol] 33.1 g/dL Normal 29.9-35.2 [facility] Comment on above: Performed By: #### C BC ####[facility] [address] [place] [address]Dr. Antonia Mckinley MCV (RBC) [Entitic vol] 91.8 fL Normal 81.0-99.0 [facility] Comment on above: Performed By: #### C BC ####[facility] [address] [place] [address]Dr. Antonia Mckinley MONO # 0.5 103/ul Normal 0.3-0.8 [facility] Comment on above: Performed By: #### C BC ####[facility] [address] [place], [place] [address]Dr. Halliemanjit Sen Monocytes/100 WBC (Bld) 11.8 % Normal 1.7-12.0 [facility] Comment on above: Performed By: #### C BC ####[facility] [address] [place] [id number]. Antonia Sen NEUT # 2.4 103/ul Normal 1.4-6.5 [facility] Comment on above: Performed By: #### C BC ####[facility] [address] [place], [place] [address]Dr. Antonia Sen Neutrophils/100 WBC (Bld) 54.6 % Normal 43.0-75.0 [facility] Comment on above: Performed By: #### C BC ####[facility] [address] [place], [place] [address]Yh. Antonia Sen Platelet mean volume (Bld) [Entitic vol] 12.2 fL Normal 9.5-13.5 [facility] Comment on above: Performed By: #### C BC ####[facility] [address] [place], [place] [address]Es. Antonia Sen PLT 210 103/ul Normal 150-450 [facility] Comment on above: Performed By: #### C BC ####[facility] [address] [place], [place] [address]Us. Antonia Sen RBC 4.28 106/ul Normal 4.20-5.40 [facility] Comment on above: Performed By: #### C BC ####[facility] [address] [place] [id number]. Antonia Sen WBC 4.3 103/ul Normal 4.0-11.0 [facility] Comment on above: Performed By: #### C BC ####[facility] [address] [place] [id number]. Antonia Sen FREE THYROXINE INDEX T7on FTI 1.89 Normal 1.30-4.50 [facility] Comment on above: Performed By: #### L IPID, T7, TSH, CMP #### [facility] [address] [address] [address] Antonia Sen T3U 31.0 % Normal 30.0-39.0 [facility] Comment on above: Performed By: #### L IPID, T7, TSH, CMP #### [facility] [address] [address] [address] Antonia Sen T4 [Mass/Vol] 6.10 ug/dL Normal 4.80-13.90 [facility] Comment on above: Performed By: #### L IPID, T7, TSH, CMP #### [facility] [address] [address] [address] Antonia Sen GLYCOHEMOGLOBIN A1Con 2021 ADA RECOMMENDATION SEE BELOW Normal [facility] Comment on above: Result Comment: ADA RECOMMENDED LIMIT 4.0 - 6.0 ADA THERAPEUTIC TARGET < 7.0 ACTION SUGGESTED > 7.0 Performed By: #### A 1C #### [facility] [address] [place] [address] Dr. Antonia Sen Glucose [Mass/Vol] 105 mg/dL Normal [facility] Comment on above: Performed By: #### A 1C #### [facility] [address] [address] [address] Antonia Sen HbA1c (Bld) [Mass fraction] 5.3 % Normal 4.5-6.2 [facility] Comment on above: Performed By: #### A 1C #### [facility] [address] [place] [address] Dr. Antonia Sen IRONon 09-03-2022 Iron [Mass/Vol] 140.0 ug/dL Normal 50.0-170.0 [facility] Comment on above: Performed By: #### I YU #### [facility] [address] [place] [address] Dr. Antonia Sen LIPID PROFILEon 09-03-2022 CHOL-HDL RATIO NORM SEE BELOW Normal [facility] Comment on above: Result Comment: 3.3 - 4.4 LOW RISK 4.4 - 7.1 AVERAGE RISK 7.1 - 11.0 MODERATE RISK >11.0 HIGH RISK Performed By: #### L IPID, T7, TSH, CMP #### [facility] [address] [place] [address] Dr. Antonia Sen Cholesterol [Mass/Vol] 226 mg/dL Critically high <=200 [facility] Comment on above: Performed By: #### L IPID, T7, TSH, CMP #### [facility] [address] [place] [address] Dr. Antonia Sen Cholesterol in HDL [Mass/Vol] 66 mg/dL Critically high 40-60 [facility] Comment on above: Performed By: #### L IPID, T7, TSH, CMP #### [facility] [address] [place] [address] Dr. Antonia Sen Cholesterol in LDL [Mass/Vol] 137.8 mg/dL Normal [facility] Comment on above: Performed By: #### L IPID, T7, TSH, CMP #### [facility] [address] [address] [address] Antonia Sen Cholesterol.total/C holesterol in HDL [Mass ratio] 3.4 {ratio} Normal [facility] Comment on above: Performed By: #### L IPID, T7, TSH, CMP #### [facility] [address] [address] [address] Antonia Sen HDL NORMAL > or = 60 mg/dl - LO W CARDIOVASCULAR RISK <40 mg/dl - HIGH CARDIOVASCULAR RISK Normal [facility] Comment on above: Performed By: #### L IPID, T7, TSH, CMP #### [facility] [address] [address] [address] Antonia Sen LDL CALC NORMAL SEE BELOW Normal [facility] Comment on above: Result Comment: <100 mg/dl OPTIMAL 100 - 129 mg/dl NEAR OR ABOVE OPTIMAL 130 - 159 mg/dl BORDERLINE HIGH 160 - 189 mg/dl HIGH >190 mg/dl VERY HIGH Performed By: #### L IPID, T7, TSH, CMP #### [facility] [address] [address] [address] Antonia Sen Triglyceride [Mass/Vol] 111 mg/dL Normal <=150 [facility] Comment on above: Performed By: #### L IPID, T7, TSH, CMP #### [facility] [address] [address] [address] Antonia Sen VLDL CALC 22.2 mg/dL Normal [facility] Comment on above: Performed By: #### L IPID, T7, TSH, CMP #### [facility] [address] [address] [address] Antonia Sen PROF 14(COMP METB)on 022 Albumin [Mass/Vol] 3.9 g/dL Normal 3.4-5.0 [facility] Comment on above: Performed By: #### L IPID, T7, TSH, CMP #### [facility] [address] [address] [address] Antonia Sen Albumin/Globulin [Mass ratio] 1.1 {ratio} Normal [facility] Comment on above: Performed By: #### L IPID, T7, TSH, CMP #### [facility] [address] [place] [address] Dr. Antonia Sen ALP [Catalytic activity/Vol] 64 U/L Normal 46-116 [facility] Comment on above: Performed By: #### L IPID, T7, TSH, CMP #### [facility] [address] [address] [address] Antonia Sen ALT [Catalytic activity/Vol] 6 U/L Critically low 14-59 [facility] Comment on above: Performed By: #### L IPID, T7, TSH, CMP #### [facility] [address] [place] [address] Dr. Antonia Sen Anion gap [Moles/Vol] 10.6 mmol/L Normal [facility] Comment on above: Performed By: #### L IPID, T7, TSH, CMP #### [facility] [address] [place] [address] Dr. Antonia Sen AST [Catalytic activity/Vol] 15 U/L Normal 15-37 [facility] Comment on above: Performed By: #### L IPID, T7, TSH, CMP #### [facility] [address] [place] [address] Dr. Antonia Sen Bilirubin [Mass/Vol] 0.9 mg/dL Normal 0.2-1.0 [facility] Comment on above: Performed By: #### L IPID, T7, TSH, CMP #### [facility] [address] [place] [address] Dr. Antonia Sen Calcium [Mass/Vol] 9.3 mg/dL Normal 8.5-10.1 [facility] Comment on above: Performed By: #### L IPID, T7, TSH, CMP #### [facility] [address] [place] [address] Dr. Antonia Sen Chloride [Moles/Vol] 105 mmol/L Normal 98-107 [facility] Comment on above: Performed By: #### L IPID, T7, TSH, CMP #### [facility] [address] [address] [address] Antonia Sen CO2 [Moles/Vol] 24.4 mmol/L Normal 21.0-32.0 [facility] Comment on above: Performed By: #### L IPID, T7, TSH, CMP #### [facility] [address] [address] [address] Antonia Sen Creatinine [Mass/Vol] 0.84 mg/dL Normal 0.55-1.02 [facility] Comment on above: Performed By: #### L IPID, T7, TSH, CMP #### [facility] [address] [address] [address] Antonia Sen EGFR-AF PRYDEINIG >60 Normal >=60 [facility] Comment on above: Performed By: #### L IPID, T7, TSH, CMP #### [facility] [address] [address] [address] Antonia Sen EGFR-NON AF PRYDEINIG >60 Normal >=60 [facility] Comment on above: Performed By: #### L IPID, T7, TSH, CMP #### [facility] [address] [address] [address] Antonia Sen Globulin (S) [Mass/Vol] 3.7 g/dL Normal [facility] Comment on above: Performed By: #### L IPID, T7, TSH, CMP #### [facility] [address] [address] [address] Antonia Sen Glucose [Mass/Vol] 88 mg/dL Normal 74-106 [facility] Comment on above: Performed By: #### L IPID, T7, TSH, CMP #### [facility] [address] [address] [address] Antonia Sen Potassium [Moles/Vol] 4.0 mmol/L Normal 3.5-5.1 [facility] Comment on above: Performed By: #### L IPID, T7, TSH, CMP #### [facility] [address] [address] [address] Antonia Sen Protein [Mass/Vol] 7.6 g/dL Normal 6.4-8.2 [facility] Comment on above: Performed By: #### L IPID, T7, TSH, CMP #### [facility] [address] [address] [address] Antonia Sen Sodium [Moles/Vol] 136 mmol/L Normal 136-145 [facility] Comment on above: Performed By: #### L IPID, T7, TSH, CMP #### [facility] [address] [address] [address] Antonia Sen Urea nitrogen [Mass/Vol] 23.0 mg/dL Critically high 7.0-18.0 [facility] Comment on above: Performed By: #### L IPID, T7, TSH, CMP #### [facility] [address] [address] [address] Antonia Sen Urea nitrogen/Creatinine [Mass ratio] 27.4 mg/mg Normal [facility] Comment on above: Performed By: #### L IPID, T7, TSH, CMP #### [facility] [address] [address] [address] Antonia Sen TSHon 09-03-2022 TSH 1.681 uIU/mL Normal 0.358-3.740 [facility] Comment on above: Performed By: #### L IPID, T7, TSH, CMP #### [facility] [address] [address] [address] Antonia Sen XR wrist RT 2Von 07-16-2022 XR wrist RT 2V [facility] [employer] Other XR wrist RT 2V [facility] [employer] Other XR wrist RT 2V [address] [place] [address] [employer] Other XR wrist [place] 2[place] [address] [facility] [employer] Other XR wrist RT 2V XRay Report [employer] Other XR wrist RT 2V Signed [employer] Other XR wrist RT 2V Patient: Geronimo Nicholson MR#: [id number] [employer] Other XR wrist RT 2V [address] [facility] Other XR wrist RT 2V : 1945 Acct:[id number] [employer] Other XR wrist RT 2V Age/Sex: 77 / F ADM Date: 07/16/22 [employer] Other XR wrist RT 2V Loc: [facility] Room: Type : [facility] [employer] Other XR wrist RT 2V Attending Dr: Segundo Kumar MD [employer] Other XR wrist RT 2V Copies to: Norah Kumar MD [employer] Other XR wrist RT 2V Ordering Provider: Norah Kumar MD [employer] Other XR wrist RT 2V Date of Service: 07/16/22 [employer] Other XR wrist RT 2V XR/XR wrist RT 2V: Other fractures of lower end of right radius, [employer] Other XR wrist RT 2V subsequent enc [employer] Other XR wrist RT 2V RIGHT WRIST - 2 views [employer] Other XR wrist RT 2V COMPARISON: 06/17/2022 [employer] Other XR wrist RT 2V CLINICAL DATA: Follow-up distal radius fracture. [employer] Other XR wrist RT 2V AP and lateral views were obtained. There is osteopenia. There is redemonstration of a fracture at [employer] Other XR wrist RT 2V the distal radius. There is no change in alignment. No other acute fractures or dislocation are [employer] Other XR wrist RT 2V seen. There is mild dorsal soft tissue swelling. [employer] Other XR wrist RT 2V XR/XR wrist RT 2V [employer] Other XR wrist RT 2V IMPRESSION: [employer] Other XR wrist RT 2V STABLE DISTAL RADIUS FRACTURE. [employer] Other XR wrist RT 2V Impression dictated by: Pati Lange M.D.07/16/2022 1:43 PM [employer] Other XR wrist RT 2V Dictation Location: [place] [address] [employer] Other XR wrist RT 2V Transcribed By: [facility] 07/16/22 [facility] [employer] Other XR wrist RT 2V Dictated By: Pati Lange MD 07/16/22 [facility] [employer] Other XR wrist RT 2V Signed By: [employer] Other XR wrist RT 2V 07/16/22 [facility] [employer] Other XR WRIST RT MIN 3 Von [...] by: ALEX MONTERO Date: 2022-06-04 17:19 Normal [facility] Vital Signs Date Time Vital Sign Value Performing Clinician Kathy jonhston 06-18-2024 13:40-0400 Blood Pressure Location Pablo COOKDong [facility] 06-18-2024 13:40-0400 Diastolic blood pressure 67 mm[Hg] Pablo NILL [facility] 06-18-2024 13:40-0400 Heart rate 79 /min Pablo NILL [facility] 06-18-2024 13:40-0400 Respiratory rate 16 /min Pablo NILL [facility] 06-18-2024 13:40-0400 Systolic blood pressure 105 mm[Hg] Pablo NILL [facility] Encounters Encounter Date Encounter Type Care Provider Facility Start: 07-24-2024 End: 07-24-2024 ambulatory Pablo R NILL Facility: [place] Start: 07-24-2024 End: 07-24-2024 [facility] Start: 07-04-2024 End: 07-04-2024 ambulatory MD Saba Vidal Work Phone: [facility] Work Phone: Start: 07-04-2024 End: 07-04-2024 Departed Referred MD Saba Vidal Work Phone: [facility] Start: 07-04-2024 End: 07-04-2024 ambulatory Pablo R NILL Facility:CD:[id number] Start: 06-18-2024 End: 06-18-2024 ambulatory Saba Vidal Facility: [facility] Start: 06-18-2024 End: 06-18-2024 Patient encounter procedure Pablo R NILL [facility] Start: 06-15-2024 ambulatory Pablo NILL Facility:[facility] Start: 06-08-2024 ambulatory Pablo FOUNTAIN Facility:[facility] Start: 11-01-2023 End: 11-07-2023 Emergency department patient visit [facility] Start: 10-13-2023 End: 10-13-2023 Emergency department patient visit Torres Costello Franky ACEVEDO Facility:[facility] Start: 09-10-2022 End: 09-11-2022 ambulatory DR SABA VIDAL Facility:[facility] Start: 09-08-2022 End: 09-08-[address] SABA VIDAL Facility:[facility] Start: 09-03-2022 End: 09-04-[address] SABA VIDAL Facility:[facility] Start: 08-27-2022 End: 08-27-2022 ambulatory Norahdustin Kumar Other [employer] Other Start: 08-27-2022 Postop follow up vis it related to original px Norah Calvey [facility] Start: 07-16-2022 End: 07-16-2022 ambulatory Norah Calvey Other [employer] Other Start: 07-16-2022 Postop follow up vis it related to original px Norah Calvey [facility] Start: 07-16-2022 End: 07-16-2022 Patient encounter procedure DO Talon Pryor Work Phone: [facility] Start: 06-29-2022 End: 08-24-2022 ambulatory NORAH CALVEY Facility:[facility] Start: 06-25-2022 End: 06-25-2022 ambulatory Norah Calvey Other [employer] Other Start: 06-25-2022 Postop follow up vis it related to original px Norah Calvey [facility] Start: 06-24-2022 End: 06-24-2022 Patient encounter procedure DO Talon Pryor Work Phone: [facility] [address] Start: 06-23-2022 End: 06-23-2022 ambulatory Talon Pryor Other [employer] Other Start: 06-23-2022 FQ visit new patient [...] Immunization Date Immunization Notes Care Provider [facility] 08-15-2023 influenza virus vaccine, unspecified formulation Pablo NILL [facility] [place] 04-15-2022 SARS-CoV-2 (COVID-19 ) mRNA-1273 vaccine Pablo NILL [facility] [place] 11-10-2021 SARS-CoV-2 (COVID-19 ) mRNA BNT-162b2 vax Pablo NILL [facility] 01-13-2021 SARS-CoV-2 (COVID-19 ) mRNA BNT-162b2 vincent COOKL [facility] 12-22-2020 SARS-CoV-2 (COVID-19 ) mRNA BNT-162b2 vincent COOKL [facility] Payers Date Payer Category Payer Unknown 2009 Medicare 1959 Medicare [id number] 2.1 [id number] 1959 Self-pay 1959 Unknown [id number] 1945 Unknown [id number] 2.16.84 0.1.671221.3.579.2.593 1945 Unknown [id number] 2.16.84 0.1.957074.3.579.2.593 1944 Unknown [id number] 2.16.84 0.1.116532.3.579.2.593 1944 Unknown [id number] 2.16.84 0.1.028374.3.579.2.593 1944 Unknown [id number] 2.16.84 0.1.821971.3.579.2.593 1944 Unknown [id number] 2.16.84 0.1.728841.3.579.2.593 1944 Unknown [id number] 2.16.84 0.1.809117.3.579.2.593 1944 Unknown [id number] 2.16. 840.1.056737.3.579.2.196 1944 Unknown [id number] 2.16.8 40.1.526069.3.579.2.727 1944 Unknown [id number] 2.16.8 40.1.433171.3.579.2.727 1944 Unknown [id number] 2.16.8 40.1.024506.3.579.2.727 1944 Unknown [id number] 2.16.8 40.1.120538.3.579.2.727 Unknown [id number] 2.16.8 40.1.033712.19 Unknown [facility] [id number] Unknown [id number] 2.16.84 0.1.429728.3.579.2.593 Unknown [id number] 2.16.8 40.1.826937.3.579.2.531 Social History Date Type Detail Facility Sex Assigned At [facility] Start: 1945 Sex Assigned At Female F [facility] Start: 06-18-2024 Tobacco smoking status Never s moked tobacco (finding) [facility] [place] Tobacco smoking status Never [facility] Functional Status Date Assessment Result Facility 06-18-2024 Functional Status N/A [facility] [place] Clinical Notes 06-18-2022 to 06-18-2024 Note Date [...] disease: Father. Primar (more content not included)... [facility] Comment on above: Result Comment: Elec tronically Signed By: RAMIREZ WAKEFIELD, Palbo Beck\Date and Time Signed: 06/18/24 14:19 EDT [...] surgery. We will f/u in 4-6 weeks. [employer] Other 09-23-2022 Evaluation note* Encounter Date Diagnosis [...] Instructed patient to continue with occupational therapy [employer] Other 09-02-2022 Evaluation note* Encounter Date Diagnosis [...] anything over 2-5 pounds at this time. [employer] Other 08-31-2022 Evaluation note* Encounter Date Diagnosis [...] office today. Prior medical notes from the [facility] and history have been reviewed. At [...] as documented in the electronic medical record. [employer] Other 08-26-2022 NotePROCEDURE: XR HAND RT MIN [...] Electronically authenticated by: SEGUNDO MERINO Date: 2022-06-18 07:24[facility]08-26-2022 NotePROCEDURE: XR HAND RT MIN 3V, [...] Electronically authenticated by: SEGUNDO MERINO Date: 2022-06-18 07:24[facility] No data available for this section [facility] [place] Evaluation noteNo assessment information available [facility] Work Phone: History general Narrative - Reported* Type Description Date Medical History right hand injury Medical History gull stones Medical History depression Surgical History appendectomy Surgical History gull bladder removal [employer] Other Hospital Discharge instructions No data available for this section [facility] Progress note No data available for this section [facility] Chief Complaint and Reason for Visit [...] End: July 04, 2024 Pablo Fountain MD [facility] Attending Provider Active Start: July 04, 2024 End: July 04, 2024 Goals (unrecognized section and content) Goals may be documented in a n alternate section INFORMATION SOURCE (unrecogn ized section and content) DATE CREATED AUTHOR 09/30/2022 [facility] DATE CREATED AUTHOR AUTHOR'S ORGANIZ ATION 10/13/2023 [facility] DATE CREATED AUTHOR AUTHOR'S ORGANIZ ATION 11/08/2023 [facility] DATE CREATED AUTHOR AUTHOR'S ORGANIZ ATION 07/14/2024 [facility] DATE CREATED AUTHOR AUTHOR'S ORGANIZ ATION 07/26/2024 [facility] FOR RECORDS PERTAINING TO PATIENTS WHO ARE [...] BE BASED ON THE PRIMARY CLINICAL RECORDS. [facility] [employer] [facility] provides no warranty or guarantee of the accuracy or completeness of information in this document.
--- NOTE | 2025-07-18 08:42 | MR_ITS ---
[address] [address] Patient Name: HAVEN FRAIRE MRN: [id number] date: 1945 Sex: F Assigned Patient Location: MRI Current Patient Location: MRI Accession/Order Number: [id number] Exam Date: 07/18/2025 09:00 Report Date: 07/18/2025 11:15 At the request of: SABA CHOW MD Procedure: MR lumbar spine wo con EXAMINATION: MRI LUMBAR SPINE WITHOUT IV CONTRAST CLINICAL HISTORY: Sciatica M54.30 COMPARISON: Lumbar spine MRI 09/23/2023 TECHNIQUE: Multiecho imaging was performed in the sagittal and axial planes without contrast administration. FINDINGS: Vertebral heights appear maintained. No bone marrow edema. Hemangioma L4 vertebral body. Spinal cord terminates in normal position without abnormal cord signal. No paraspinal mass. Visualized retroperitoneum demonstrates no acute findings. A T12-L1: Broad-based disc bulge is present with facet joint degenerative changes causing mild canal and bilateral neural foraminal stenosis. At L1-L2: No posterior disc pathology. Ligamentum flavum hypertrophy and mild facet joint degenerative change causing minimal canal stenosis. At L2-L3: No posterior disc pathology. Ligament flavum hypertrophy and mild facet joint degenerative change. No significant canal or neural foraminal stenosis. At L3-L4: 3 mm retrolisthesis. Diffuse broad-based disc bulge is present with ligamentum flavum hypertrophy and facet joint degenerative changes causing moderate canal and right-sided neural foraminal stenosis. At L4-L5: 5 mm of anterolisthesis. Diffuse broad-based disc bulge is present with ligamentum flavum hypertrophy and facet joint degenerative changes causing severe canal and bilateral neural foraminal stenosis. At L5-S1: 5 mm of anterolisthesis. Diffuse broad-based disc bulge is present with facet joint degenerative change causing mild canal and bilateral neural foraminal stenosis. MR/MR lumbar spine wo con IMPRESSION: Multilevel degenerative disease as described above, worst at L4-L5 causing severe canal and bilateral neural foraminal stenosis. Findings are similar to the 2022 study. Impression dictated by: Martin Johnston Jr., D.O. 07/18/2025 11:15 AM Dictation Location: [place] [id number] Electronically authenticated by: [id number] Y Date: 07/18/2025 11:15
== END 2025-07-18 08:38 | disposition home or self-care (01) ==
LOC: MRI 08:37
PROVIDERS: PCP Family Medicine; Visit Provider Family Medicine
DX: M54.30 Sciatica, unspecified side (principal); M51.369 Other intervertebral disc degeneration, lumbar region without mention of lumbar back pain or lower extremity pain
CPT/HCPCS: 72148

== ENCOUNTER 2025-08-29 12:57 | Outpatient (RCR) | payer MEDICARE, OTHER, SELFPAY | END 2025-09-25 09:42 | disposition home or self-care (01) | LOC: PT 12:57 | PROVIDERS: PCP Family Medicine; Visit Provider Family Medicine | DX: M54.30 Sciatica, unspecified side (principal); M54.2 Cervicalgia | CPT/HCPCS: 97113; 97162 ==